=== PATIENT | female | born 1950 | race Caucasian/White ===

== ENCOUNTER → 2019-05-14 13:26 | Outpatient (BNVA) | payer MEDICARE, MEDICAID, SELFPAY | PROVIDERS: Family Provider Family Medicine; PCP Family Medicine; Visit Provider Nurse Practitioner | DX: M54.5 Low back pain (principal); M79.10 Myalgia, unspecified site; F17.210 Nicotine dependence, cigarettes, uncomplicated; Z79.891 Long term (current) use of opiate analgesic | CPT/HCPCS: 99214 ==

== ENCOUNTER 2019-05-22 15:44 | Outpatient (CLI) | payer MEDICARE, MEDICAID, SELFPAY ==
[2019-05-22 16:26] LABS: Basophils % 0.3 %; Eosinophils # 0.2 10^3/uL (0.0-0.8); Eosinophils % 1.9 %; Hematocrit 36.5 % (37.0-47.0); Lymphocytes # 3.7 10^3/uL (0.8-4.8); Lymphocytes % 32.4 %; Mean Corpuscular HGB Conc 30.1 g/dL (30.0-36.0); Mean Corpuscular Hemoglobin 26.9 pg (28.0-34.0); Mean Corpuscular Volume 89.2 fL (81-99); Mean Platelet Volume 9.8 fL (7.4-10.4); Monocytes # 0.9 10^3/uL (0.2-0.9); Monocytes % 7.8 %; Neutrophils # 6.6 10^3/uL (1.8-7.7); Neutrophils % 57.2 %; Nucleated Red Blood Cells % 0 %; Platelet Count 384 10^3/cmm (130-400); Red Blood Count 4.09 10^6/uL (4.1-5.3); Red Cell Distribution Width 16.9 % (12.1-15.1); White Blood Count 11.5 10^3/uL (4.0-10.0)
[2019-05-22 16:46] LABS: Alanine Aminotransferase 8 U/L (0-33); Albumin Level 3.4 g/dL (3.5-5.2); Alkaline Phosphatase 94 IU/L (35-105); Anion Gap 15.6 (5-19); Aspartate Amino Transferase 10 U/L (0-32); Blood Urea Nitrogen 7 mg/dL (8-23); Calcium 9.8 mg/dL (8.5-10.5); Carbon Dioxide 20 mmol/L (22-29); Chloride 104 mmol/L (98-107); Globulin 2.9 g/dL (1.3-4.6); Glucose 97 mg/dL (65-115); Potassium 4.6 mmol/L (3.5-5.1); Sodium 135 mmol/L (136-145); Thyroid Stimulating Hormone 0.53 uIU/mL (0.27-4.20); Total Bilirubin 0.2 mg/dL (0.15-1.2); Total Protein 6.3 g/dL (6.6-8.7)
== END 2019-05-22 15:45 | disposition home or self-care (01) ==
LOC: LAB 15:51
PROVIDERS: Family Provider Family Medicine; PCP Family Medicine; Visit Provider Family Medicine
DX: R63.4 Abnormal weight loss (principal)
CPT/HCPCS: 80053; 84443; 85025

== ENCOUNTER → 2019-06-01 10:02 | Outpatient (BNVA) | payer MEDICARE, MEDICAID, SELFPAY | PROVIDERS: Family Provider Family Medicine; PCP Family Medicine; Visit Provider Family Medicine | DX: D64.9 Anemia, unspecified (principal) | CPT/HCPCS: 82728; 83540; 83550 ==

== ENCOUNTER → 2019-06-11 12:43 | Outpatient (BNVA) | payer MEDICARE, MEDICAID, SELFPAY | PROVIDERS: Family Provider Family Medicine; PCP Family Medicine; Visit Provider Nurse Practitioner | DX: M54.5 Low back pain (principal); M79.10 Myalgia, unspecified site; F17.210 Nicotine dependence, cigarettes, uncomplicated; Z79.891 Long term (current) use of opiate analgesic; Z71.6 Tobacco abuse counseling | CPT/HCPCS: 99214 ==

== ENCOUNTER → 2019-09-22 12:51 | Outpatient (BNVA) | payer MEDICARE, MEDICAID, SELFPAY | PROVIDERS: Family Provider Family Medicine; PCP Family Medicine; Visit Provider Anesthesiology | DX: M54.41 Lumbago with sciatica, right side (principal); M79.10 Myalgia, unspecified site; F17.219 Nicotine dependence, cigarettes, with unspecified nicotine-induced disorders; Z79.891 Long term (current) use of opiate analgesic | CPT/HCPCS: 99214 ==

== ENCOUNTER → 2019-11-20 13:36 | Outpatient (BNVA) | payer MEDICARE, MEDICAID, SELFPAY | PROVIDERS: Family Provider Family Medicine; PCP Family Medicine; Visit Provider Anesthesiology | DX: M54.41 Lumbago with sciatica, right side (principal); M79.10 Myalgia, unspecified site; F17.219 Nicotine dependence, cigarettes, with unspecified nicotine-induced disorders; Z79.891 Long term (current) use of opiate analgesic; Z71.6 Tobacco abuse counseling | CPT/HCPCS: 99214 ==

== ENCOUNTER → 2020-01-21 14:25 | Outpatient (BNVA) | payer MEDICARE, MEDICAID, SELFPAY | PROVIDERS: Family Provider Family Medicine; PCP Family Medicine; Visit Provider Anesthesiology | DX: M54.5 Low back pain (principal); M79.10 Myalgia, unspecified site; F17.219 Nicotine dependence, cigarettes, with unspecified nicotine-induced disorders; Z79.891 Long term (current) use of opiate analgesic; Z71.6 Tobacco abuse counseling | CPT/HCPCS: 99214 ==

== ENCOUNTER → 2020-03-17 11:08 | Outpatient (BNVA) | payer MEDICARE, MEDICAID, SELFPAY | PROVIDERS: Family Provider Family Medicine; Visit Provider Anesthesiology | DX: M54.42 Lumbago with sciatica, left side (principal); M54.41 Lumbago with sciatica, right side; M79.10 Myalgia, unspecified site; F17.219 Nicotine dependence, cigarettes, with unspecified nicotine-induced disorders; Z79.891 Long term (current) use of opiate analgesic; Z71.6 Tobacco abuse counseling | CPT/HCPCS: 99213; 99214 ==

== ENCOUNTER 2020-03-31 11:51 | Outpatient (CLI) | payer MEDICARE, MEDICAID, SELFPAY ==
--- NOTE | 2020-03-31 11:58 | XR_ITS ---
WS: [id number] LEFT KNEE: 3 VIEW(S) TECHNIQUE: AP, oblique(s) and lateral. HISTORY: L KNEE PAIN X 2 MONTHS COMPARISON: 05/27/2017 No fracture or dislocation. Chondrocalcinosis in the medial and lateral compartments. Prior vein harvesting along the medial thig h. Mild narrowing of the medial and patellofemoral compartments. No joint effusion. No soft tissue abnormality. XR/XR knee LT 3V* [id number] IMPRESSION: 1. Bilateral medial and lateral compartment chondrocalcinosis. 2. Mild narrowing of the medial and patellofemoral joint spaces.
== END 2020-03-31 11:52 | disposition home or self-care (01) ==
PROVIDERS: Visit Provider Family Medicine
DX: M11.262 Other chondrocalcinosis, left knee (principal)
CPT/HCPCS: 73562

== ENCOUNTER → 2020-05-03 11:40 | Outpatient (BNVA) | payer MEDICARE, MEDICAID, SELFPAY | PROVIDERS: Visit Provider Nurse Practitioner | DX: B34.9 Viral infection, unspecified (principal) | CPT/HCPCS: 87635 ==

== ENCOUNTER → 2020-05-17 11:00 | Outpatient (BNVA) | payer MEDICARE, MEDICAID, SELFPAY | PROVIDERS: PCP Family Medicine; Visit Provider Anesthesiology | DX: M54.5 Low back pain (principal); M79.10 Myalgia, unspecified site; F17.219 Nicotine dependence, cigarettes, with unspecified nicotine-induced disorders; Z79.891 Long term (current) use of opiate analgesic; Z71.6 Tobacco abuse counseling | CPT/HCPCS: 99213; 99214 ==

== ENCOUNTER → 2020-07-14 10:36 | Outpatient (BNVA) | payer MEDICARE, MEDICAID, SELFPAY | PROVIDERS: PCP Family Medicine; Visit Provider Anesthesiology | DX: M54.5 Low back pain (principal); M79.10 Myalgia, unspecified site; F17.219 Nicotine dependence, cigarettes, with unspecified nicotine-induced disorders; Z79.891 Long term (current) use of opiate analgesic | CPT/HCPCS: 99213 ==

== ENCOUNTER → 2020-09-16 09:36 | Outpatient (BNVA) | payer MEDICARE, MEDICAID, SELFPAY | PROVIDERS: PCP Family Medicine; Visit Provider Anesthesiology | DX: M54.41 Lumbago with sciatica, right side (principal); M79.10 Myalgia, unspecified site; F17.219 Nicotine dependence, cigarettes, with unspecified nicotine-induced disorders; Z79.891 Long term (current) use of opiate analgesic | CPT/HCPCS: 99213 ==

== ENCOUNTER → 2020-11-16 09:17 | Outpatient (BNVA) | payer MEDICARE, MEDICAID, SELFPAY | PROVIDERS: PCP Family Medicine; Visit Provider Anesthesiology | DX: M54.5 Low back pain (principal); M79.10 Myalgia, unspecified site; F17.219 Nicotine dependence, cigarettes, with unspecified nicotine-induced disorders; Z79.891 Long term (current) use of opiate analgesic | CPT/HCPCS: 99213 ==

== ENCOUNTER → 2021-01-13 10:29 | Outpatient (BNVA) | payer MEDICARE, MEDICAID, SELFPAY | PROVIDERS: PCP Family Medicine; Visit Provider Nurse Practitioner | DX: M54.41 Lumbago with sciatica, right side (principal); M79.10 Myalgia, unspecified site; G43.909 Migraine, unspecified, not intractable, without status migrainosus; M81.0 Age-related osteoporosis without current pathological fracture; F17.210 Nicotine dependence, cigarettes, uncomplicated; Z79.891 Long term (current) use of opiate analgesic; Z71.6 Tobacco abuse counseling | CPT/HCPCS: 99213 ==

== ENCOUNTER → 2021-03-11 13:56 | Outpatient (BNVA) | payer MEDICARE, MEDICAID, SELFPAY | PROVIDERS: PCP Family Medicine; Visit Provider Family Medicine | DX: Z20.822 Contact with and (suspected) exposure to COVID-19 (principal); R50.9 Fever, unspecified | CPT/HCPCS: 87400; 87635 ==

== ENCOUNTER → 2021-03-17 10:29 | Outpatient (BNVA) | payer MEDICARE, MEDICAID, SELFPAY | PROVIDERS: PCP Family Medicine; Visit Provider Anesthesiology | DX: G89.29 Other chronic pain (principal); M54.50 Low back pain, unspecified; M79.10 Myalgia, unspecified site; F17.219 Nicotine dependence, cigarettes, with unspecified nicotine-induced disorders; Z79.891 Long term (current) use of opiate analgesic; Z71.6 Tobacco abuse counseling | CPT/HCPCS: 99213; 99214 ==

== ENCOUNTER → 2021-05-24 09:02 | Outpatient (BNVA) | payer MEDICARE, MEDICAID, SELFPAY | PROVIDERS: PCP Family Medicine; Visit Provider Anesthesiology | DX: G89.29 Other chronic pain (principal); Z11.52 Encounter for screening for COVID-19; M54.50 Low back pain, unspecified; Z20.822 Contact with and (suspected) exposure to COVID-19; M79.10 Myalgia, unspecified site; F17.210 Nicotine dependence, cigarettes, uncomplicated; Z79.891 Long term (current) use of opiate analgesic | CPT/HCPCS: 87635; 99213 ==

== ENCOUNTER 2021-05-26 10:40 | Outpatient (CLI) | payer MEDICARE, MEDICAID, SELFPAY ==
[2021-05-26 10:54] VITALS: BMI 16.2
[2021-05-26 11:00] VITALS: BP 143/69; PULSE 108; RESP 17; TEMP 36.8; O2SAT 99
[2021-05-26 11:58] VITALS: BP 129/78; PULSE 69; RESP 17; TEMP 36.8; O2SAT 98
[2021-05-26 13:10] VITALS: BP 133/66; PULSE 64; RESP 17; TEMP 37; O2SAT 98
== END 2021-05-26 13:13 | disposition home or self-care (01) ==
LOC: OPS 10:46
PROVIDERS: PCP Family Medicine; Visit Provider Nurse Practitioner Family
DX: U07.1 COVID-19 (principal)
CPT/HCPCS: 96365

== ENCOUNTER → 2021-06-02 10:45 | Outpatient (BNVA) | payer MEDICARE, MEDICAID, SELFPAY | PROVIDERS: PCP Family Medicine; Visit Provider Family Medicine Adult Medicine | DX: I10 Essential (primary) hypertension (principal); I50.32 Chronic diastolic (congestive) heart failure; R63.4 Abnormal weight loss; Z79.891 Long term (current) use of opiate analgesic; M79.10 Myalgia, unspecified site; M54.50 Low back pain, unspecified; G89.29 Other chronic pain; Z98.890 Other specified postprocedural states; Z13.6 Encounter for screening for cardiovascular disorders; I25.10 Atherosclerotic heart disease of native coronary artery without angina pectoris; K59.09 Other constipation; G47.00 Insomnia, unspecified; I73.9 Peripheral vascular disease, unspecified; G43.909 Migraine, unspecified, not intractable, without status migrainosus; J41.0 Simple chronic bronchitis; R11.0 Nausea | CPT/HCPCS: 80053; 83036; 84443; 85025 ==

== ENCOUNTER 2021-06-26 08:09 | Inpatient (IN) | payer MEDICARE, MEDICAID, SELFPAY ==
[2021-06-26] VITALS (14 sets, daily range): BP systolic 98–176; BP diastolic 31–78; PULSE 61–92; RESP 16–21; TEMP 36.4–36.7; O2SAT 94–99; BMI 16.2
--- NOTE | 2021-06-26 08:27 | ED_ITS ---
Documented by User: PJ Falcon 06/26/21 16:29 HPI - Extremity Problem General: Chief complaint: Extremity Injury, Lower Stated complaint: Numbness of foot/ Foot and leg pain Time Seen by Provider: 06/26/21 08:13 Source: patient Mode of arrival: ambulatory Limitations: no limitations History of Present Illness: Patient is a 70-year-old female with a history of COPD, HTN, hyperlipidemia, chronic back pain on opioid contract, CAD with pacemaker who presents to ED today stating approximately 2 weeks ago she had a charley horse to the lateral aspect of her right lower extremity. She states following this the area has felt sore. She has been rubbing the area cont inuously. Now complains over the past several days she has had intermittent pain/paresthesias and feeling like her foot is asleep . She states this does seem to come and go and she will have periods where her leg/foot feel normal. She has not noticed any worsening/alleviating factors to her symptoms. She does complain that her feet always feel cool. She has not noticed any redness, swelling, warmth. She has no calf pain. Patient does have chronic lower back pain that she feels like is at her baseline. She has no symptoms proximal to her knee. MD Complaint: extremity pain Onset (ago): day(s) Pain Consistency: intermittent Location: right and lower extremity Radiation: none Associated symptoms: Deny chest pain, fever(s) or rash Review of Systems Const: Denies: fever(s), chills, body aches, fatigue or malaise Card: Denies: chest pain, palpitations, irregular heart rhythm or edema Resp: Denies: dyspnea Musc: Reports: back pain (chronic-at baseline) and extremity pain; Denies: neck pain, extremity swelling, joint pain or joint swelling Skin/Breast: Denies: rash Neuro: Reports: numbness in extremities and sensory changes; Denies: headache(s), weakness in extremities or difficulty walking [facility] ED PFSH: Medical History Benign essential HTN CAD (coronary artery disease) Chronic low back pain Constipation, chronic COPD (chronic obstructive pulmonary disease) COPD exacerbation Diastolic heart failure Encounter for long-term use of opiate analgesic Enrolled in chronic care management Essential hypertension Insomnia Low back pain radiating to right leg Migraine Myalgia Nicotine dependence with current use Opioid contract exists Osteoporosis Peripheral vascular disease Smokers' cough MARTHA (stress urinary incontinence, female) Surgical History S/P balloon angioplasty of pulmonary artery branches ILIAC ARTERY-2015 FEMORAL ARTERY 2015 S/P carotid endarterectomy 1995 S/P hysterectomy S/P right cataract extraction S/p total knee replacement, bilateral Status post placement of cardiac pacemaker 2015 Family History Other Diabetes Stroke Social History Smoking and tobacco status: current every day smoker cigarettes [ Other cigarette details: 1 PK Q 3-4 DAYS ] Alcohol intake: never History of recent travel: No Physical Exam Const: COMMON NORMALS: no acute distress, patient oriented x3, no limitations and alert GENERAL APPEARANCE: cooperative NUTRITIONAL APPEARANCE: thin ORIENTATION/CONSCIOUSNESS: Yes awake, Yes oriented to person, Yes oriented to place and Yes oriented to time HENMT: COMMON NORMALS: normocephalic and atraumatic HEAD & SCALP: normocephalic and atraumatic Resp: COMMON NORMALS: normal respiratory effort Cardio: COMMON NORMALS: regular rate and regular rhythm RATE: regular rate RHYTHM: regular rhythm Back/Pelvis: PELVIS: Yes buttocks normal and No sciatic notch tenderness SACROILIAC JOINTS: Yes SI joints normal Extremity: COMMON NORMALS: full ROM, no calf tenderness and no pedal edema OTHER: pt with poor perfusion bilaterally-R LE does appear slightly pale and cooler than L; could not R LE palpate pulses manually but monophasic PT pulse found with doppler-could not find DP pulse; no edema, swelling, redness/warmth noted; no foot drop noted Neuro: COMMON NORMALS: patient oriented x3, moves all extremities, no focal motor deficits and no sensory deficits noted SENSORIUM/ORIENTATION: Yes alert, Yes oriented to person, Yes oriented to place and Yes oriented to time MOTOR EXAM: 5/5 motor strength present throughout Course Vital Signs: Vital signs: Vital Signs Temperature 98 F 06/26/21 12:15 Pulse Rate 61 06/26/21 15:30 Respiratory Rate 18 06/26/21 15:30 Blood Pressure 122/61 06/26/21 15:30 Pulse Oximetry 96 06/26/21 15:30 MDM - Extremity (Nontraumatic) Medical Decision Making Patient has a subtotal to total occlusion of her distal right SFA. She does have collateral filling of the popliteal and posterior tibial arteries. She also has no flow to her right DPA. I spoke to Dr. Dacosta who requests CTA with runoff and start patient on heparin and admit to hospitalist and he will consult with plan for possible angio tomorrow. Lab Data : 06/26/21 09:17 06/26/21 09:17 Laboratory Results WBC 10.4 10^3/uL (4.0-10.0) H 06/26/21 09:17 RBC 4.11 10^6/uL (4.1-5.3) 06/26/21 09:17 Hgb 11.9 g/dL (11.5-15.3) 06/26/21 09:17 Hct 39.1 % (37.0-47.0) 06/26/21 09:17 MCV 95.1 fl (81-99) 06/26/21 09:17 MCH 29.0 pg (28.0-34.0) 06/26/21 09:17 MCHC 30.4 g/dL (30.0-36.0) 06/26/21 09:17 RDW 15.1 % (12.1-15.1) 06/26/21 09:17 Plt Count 288 10^3/cmm (130-400) 06/26/21 09:17 MPV 10.4 fL (7.4-10.4) 06/26/21 09:17 Neut % (Auto) 67.5 % 06/26/21 09:17 Lymph % (Auto) 25.2 % 06/26/21 09:17 [place] % (Auto) 5.5 % 06/26/21 09:17 Eos % (Auto) 1.0 % 06/26/21 09:17 Baso % (Auto) 0.4 % 06/26/21 09:17 Neut # (Auto) 7.03 10^3/uL (1.8-7.7) 06/26/21 09:17 Lymph # (Auto) 2.6 10^3/uL (0.8-4.8) 06/26/21 09:17 [place] # (Auto) 0.6 10^3/uL (0.2-0.9) 06/26/21 09:17 Eos # (Auto) 0.1 10^3/uL (0.0-0.8) 06/26/21 09:17 Baso # (Auto) 0.0 10^3/uL (0.0-0.1) 06/26/21 09:17 Nucleated RBC % (auto) 0 % 06/26/21 09:17 Nucleated RBCs # 0.0 /100WBC 06/26/21 09:17 Sodium 138 mmol/L (136-145) 06/26/21 09:17 Potassium 3.9 mmol/L (3.5-5.1) 06/26/21 09:17 Chloride 106 mmol/L (98-107) 06/26/21 09:17 Carbon Dioxide 21 mmol/L (22-29) L 06/26/21 09:17 Anion Gap 14.9 (5-19) 06/26/21 09:17 BUN 16 mg/dL (8-23) 06/26/21 09:17 Creatinine 0.9 mg/dL (0.5-0.9) 06/26/21 09:17 GFR Calculation 62.3 mL/min (90-130) L 06/26/21 09:17 Glucose 94 mg/dL (65-115) 06/26/21 09:17 Calculated Osmolality 287 mOsm/kg (285-295) 06/26/21 09:17 Calcium 9.0 mg/dL (8.5-10.5) 06/26/21 09:17 Total Bilirubin 0.2 mg/dL (0.15-1.2) 06/26/21 09:17 AST 11 U/L (0-32) 06/26/21 09:17 ALT 8 U/L (0-33) 06/26/21 09:17 Alkaline Phosphatase 99 IU/L (35-105) 06/26/21 09:17 Total Protein 7.0 g/dL (6.6-8.7) 06/26/21 09:17 Albumin 4.2 g/dL (3.5-5.2) 06/26/21 09:17 Globulin 2.8 g/dL (1.3-4.6) 06/26/21 09:17 Discharge Plan Discharge Patient Disposition: Admitted As Inpatient Admit Provider: Katelyn Castle Clinical Impression: Superficial femoral artery occlusion, Absence of right dorsalis pedis artery pulse Condition: Stable Coding Level of Care Code ED Tube Drawer for Chg Fwd Exam Comprehensive Documented by User: Bartolome Sepulveda DO 06/26/21 14:21 HPI - Extremity Problem General: Chief complaint: Extremity Injury, Lower Stated complaint: Numbness of foot/ Foot and leg pain Time Seen by Provider: 06/26/21 08:13 History of Present Illness: Patient is a 70-year-old female with a history of COPD, HTN, hyperlipidemia, chronic back pain on opioid contract, CAD with pacemaker who presents to ED today stating approximately 2 weeks ago she had a charley horse to the lateral aspect of her right lower extremity. She states following this the area has felt sore. She has been rubbing the area continuously. Now complains over the past several days she has had intermittent pain/paresthesias and feeling like her foot is asleep . She states this does seem to come and go and she will have periods where her leg/foot feel normal. She has not noticed any worsening/alleviating factors to her symptoms. She does complain that her feet always feel cool. She has not noticed any redness, swelling, warmth. She has no calf pain. Patient does have chronic lower back pain that she feels like is at her baseline. She has no symptoms proximal to her knee. Patient initially seen by PJ Falcon. She is complaining of leg pain particularly the right lower leg for the last several days began progressively worse work-up showed peripheral artery disease with acute occlusion. Patient has been started on heparin she states her pain is somewhat better she denies any chest pain. No shortness of breath no swelling of the leg. Patient is a smoker and has history hypertension and COPD. Review of Systems GI: Denies: abdominal pain, nausea or vomiting Elmo/Lymph: Denies: easy bruising, easy bleeding or petechiae [facility] ED PFS: Medical History Benign essential HTN CAD (coronary artery disease) Chronic low back pain Constipation, chronic COPD (chronic obstructive pulmonary disease) COPD exacerbation Diastolic heart failure Encounter for long-term use of opiate analgesic Enrolled in chronic care management Essential hypertension Insomnia Low back pain radiating to right leg Migraine Myalgia Nicotine dependence with current use Opioid contract exists Osteoporosis Peripheral vascular disease Smokers' cough MARTHA (stress urinary incontinence, female) Surgical History S/P balloon angioplasty of pulmonary artery branches ILIAC ARTERY-2015 FEMORAL ARTERY 2015 S/P carotid endarterectomy 1995 S/P hysterectomy S/P right cataract extraction S/p total knee replacement, bilateral Status post placement of cardiac pacemaker 2015 Family History Other Diabetes Stroke Social History Smoking and tobacco status: current every day smoker cigarettes [ Other cigarette details: 1 PK Q 3-4 DAYS ] Alcohol intake: never History of recent travel: No Physical Exam Const: COMMON NORMALS: no acute distress GENERAL APPEARANCE: cooperative and comfortable ORIENTATION/CONSCIOUSNESS: Yes awake, Yes oriented to person, Yes oriented to place and Yes oriented to time HENMT: COMMON NORMALS: normocephalic, atraumatic and hearing grossly normal bilaterally HEAD & SCALP: normocephalic and atraumatic Eye: COMMON NORMALS: Equal, round and reactive pupils present, EOMs intact bilaterally, conjunctivae normal and no scleral icterus CONJUNCTIVA: Yes conjunctivae normal PUPIL: Yes Equal, round and reactive pupils present Neck/C-Spine: COMMON NORMALS: full ROM, no lymphadenopathy, supple and no JVD Resp: COMMON NORMALS: normal respiratory effort, No retractions, No use of accessory muscles and clear to auscultation bilaterally AUSCULTATION: clear to auscultation bilaterally Cardio: COMMON NORMALS: no JVD, regular rate, regular rhythm and No murmurs present (Cardio) RATE: regular rate RHYTHM: regular rhythm GI: COMMON NORMALS: Soft to palpation and No hepatosplenomegaly present AUSCULTATION: Yes normoactive bowel sounds PALPATION: Yes Soft to palpation, No Tenderness to palpation present (GI), No Guarding due to palpation present (GI) and Yes No hepatosplenomegaly present Extremity: OTHER: Weak right popliteal pulse no palpable dorsalis pedis pulse no edema right leg cool to the touch distal to the knee Neuro: SENSORIUM/ORIENTATION: Yes oriented to person, Yes oriented to place and Yes oriented to time Course Vital Signs: Vital signs: Vital Signs Temperature 98 F 06/26/21 12:15 Pulse Rate 61 06/26/21 15:30 Respiratory Rate 18 06/26/21 15:30 Blood Pressure 122/61 06/26/21 15:30 Pulse Oximetry 96 06/26/21 15:30 MDM - Extremity (Nontraumatic) Medical Decision Making Patient has a subtotal to total occlusion of her distal right SFA. She does have collateral filling of the popliteal and posterior tibial arteries. She also has no flow to her right DPA. I spoke to Dr. Dacosta who requests CTA with runoff and start patient on heparin and admit to hospitalist and he will consult with plan for possible angio tomorrow. Midlevel review. Patient seen and examined myself discussed with Dr. Castle. orders are written for admission consult cardiology Dr. Rucker Medical Records I reviewed the patient's medical records. Lab Data I reviewed the patient's lab results. : 06/26/21 09:17 06/26/21 09:17 Laboratory Results WBC 10.4 10^3/uL (4.0-10.0) H 06/26/21 09:17 RBC 4.11 10^6/uL (4.1-5.3) 06/26/21 09:17 Hgb 11.9 g/dL (11.5-15.3) 06/26/21 09:17 Hct 39.1 % (37.0-47.0) 06/26/21 09:17 MCV 95.1 fl (81-99) 06/26/21 09:17 MCH 29.0 pg (28.0-34.0) 06/26/21 09:17 MCHC 30.4 g/dL (30.0-36.0) 06/26/21 09:17 RDW 15.1 % (12.1-15.1) 06/26/21 09:17 Plt Count 288 10^3/cmm (130-400) 06/26/21 09:17 MPV 10.4 fL (7.4-10.4) 06/26/21 09:17 Neut % (Auto) 67.5 % 06/26/21 09:17 Lymph % (Auto) 25.2 % 06/26/21 09:17 [place] % (Auto) 5.5 % 06/26/21 09:17 Eos % (Auto) 1.0 % 06/26/21 09:17 Baso % (Auto) 0.4 % 06/26/21 09:17 Neut # (Auto) 7.03 10^3/uL (1.8-7.7) 06/26/21 09:17 Lymph # (Auto) 2.6 10^3/uL (0.8-4.8) 06/26/21 09:17 [place] # (Auto) 0.6 10^3/uL (0.2-0.9) 06/26/21 09:17 Eos # (Auto) 0.1 10^3/uL (0.0-0.8) 06/26/21 09:17 Baso # (Auto) 0.0 10^3/uL (0.0-0.1) 06/26/21 09:17 Nucleated RBC % (auto) 0 % 06/26/21 09:17 Nucleated RBCs # 0.0 /100WBC 06/26/21 09:17 Sodium 138 mmol/L (136-145) 06/26/21 09:17 Potassium 3.9 mmol/L (3.5-5.1) 06/26/21 09:17 Chloride 106 mmol/L (98-107) 06/26/21 09:17 Carbon Dioxide 21 mmol/L (22-29) L 06/26/21 09:17 Anion Gap 14.9 (5-19) 06/26/21 09:17 BUN 16 mg/dL (8-23) 06/26/21 09:17 Creatinine 0.9 mg/dL (0.5-0.9) 06/26/21 09:17 GFR Calculation 62.3 mL/min (90-130) L 06/26/21 09:17 Glucose 94 mg/dL (65-115) 06/26/21 09:17 Calculated Osmolality 287 mOsm/kg (285-295) 06/26/21 09:17 Calcium 9.0 mg/dL (8.5-10.5) 06/26/21 09:17 Total Bilirubin 0.2 mg/dL (0.15-1.2) 06/26/21 09:17 AST 11 U/L (0-32) 06/26/21 09:17 ALT 8 U/L (0-33) 06/26/21 09:17 Alkaline Phosphatase 99 IU/L (35-105) 06/26/21 09:17 Total Protein 7.0 g/dL (6.6-8.7) 06/26/21 09:17 Albumin 4.2 g/dL (3.5-5.2) 06/26/21 09:17 Globulin 2.8 g/dL (1.3-4.6) 06/26/21 09:17 Discharge Plan Discharge Patient Disposition: Admitted As Inpatient Admit Provider: Katelyn Castle Clinical Impression: Superficial femoral artery occlusion, Absence of right dorsalis pedis artery pulse Condition: Stable Coding Level of Care Code ED Tube Drawer for Michaelg Fwd Exam Comprehensive
--- NOTE | 2021-06-26 08:51 | USCV_ITS ---
Michael Dodson Age: 70 Gender: F : 1950 Exam Date: 06/26/2021 09:04 Ordering Phys: Mary Arana Technologist: Turner Caldwell Exam Location: [facility] [place] Indication: COOLNESS, PAIN Risk Factors: Previous Vascular Surgery: RIGHT LEFT BP: 125.0 / 47.00 BP: 94.00/ 57.00 0 Waveform Velocity (cm/s) Velocity (cm/s) Waveform Monophasic 65.7 Iliac Prox Monophasic 113.4 Iliac Mid Monophasic 69.0 Iliac Distal Monophasic AUTOMOTIVE MANUFACTURER 35.9 Monophasic 34.7 SFA Prox Monophasic 13.0 SFA Mid Monophasic 21.5 SFA Dist Monophasic 37.4 POP Monophasic 10.8 MANAGER OB DENISE 0.3 FINDINGS The patient has monophasic flow. There appears to be no flow in a small segment within the location of the RT SFA distally, but there does appear to be collateral flow just before the knee. There does not appear to be any flow within the RT DPA. Sluggish flow was detected in the mid to distal SFA. Monophasic and continuous waveforms in the popliteal and posterior tibial artery. No Doppler flow signals in the dorsalis pedis artery. Mild to moderate diffuse plaques in the iliac and femoral arteries CONCLUSIONS Abnormal resting DENISE of 0.3 on the right side, consistent with a severe peripheral artery disease. Features of subtotal to total occlusion of the distal superficial femoral artery with collateral filling of the popliteal and posterior tibial arteries. Possible total occlusion of the dorsalis pedis artery on the right side. The DENISE on the right side was 0.69 on 09/27/2015 Dr Bailey Awad MD [facility] (Electronically Signed) Final Date: 26 June 2021 13:07 S
--- NOTE | 2021-06-26 08:53 | PC.NURSE ---
Tech @BS to perform doppler to RLE
[2021-06-26 09:27] LABS: Basophils % 0.4 %; Eosinophils # 0.1 10^3/uL (0.0-0.8); Hematocrit 39.1 % (37.0-47.0); Hemoglobin 11.9 g/dL (11.5-15.3); Lymphocytes # 2.6 10^3/uL (0.8-4.8); Lymphocytes % 25.2 %; Mean Corpuscular HGB Conc 30.4 g/dL (30.0-36.0); Mean Corpuscular Volume 95.1 fl (81-99); Mean Platelet Volume 10.4 fL (7.4-10.4); Monocytes # 0.6 10^3/uL (0.2-0.9); Monocytes % 5.5 %; Neutrophils # 7.03 10^3/uL (1.8-7.7); Neutrophils % 67.5 %; Nucleated Red Blood Cells % 0 %; Platelet Count 288 10^3/cmm (130-400); Red Blood Count 4.11 10^6/uL (4.1-5.3); Red Cell Distribution Width 15.1 % (12.1-15.1); White Blood Count 10.4 10^3/uL (4.0-10.0)
[2021-06-26 09:46] LABS: Alanine Aminotransferase 8 U/L (0-33); Albumin Level 4.2 g/dL (3.5-5.2); Alkaline Phosphatase 99 IU/L (35-105); Anion Gap 14.9 (5-19); Aspartate Amino Transferase 11 U/L (0-32); Blood Urea Nitrogen 16 mg/dL (8-23); Carbon Dioxide 21 mmol/L (22-29); Chloride 106 mmol/L (98-107); Globulin 2.8 g/dL (1.3-4.6); Glomerular Filtration Rate 62.3 mL/min (90-130); Glucose 94 mg/dL (65-115); Osmolality Calculated 287 mOsm/kg (285-295); Potassium 3.9 mmol/L (3.5-5.1); Sodium 138 mmol/L (136-145); Total Bilirubin 0.2 mg/dL (0.15-1.2)
--- NOTE | 2021-06-26 10:24 | ECG_ITS ---
[facility] Test Date: 2021-06-26 Pat Name: Michael Dodson Department: Room: Gender: Female [employer] Assembler: : 1950 Requested By: Mary Arana Order Number: [id number] Krista MD: Maciej Rucker M.D. Measurements Intervals [place] Rate: 60 P: -63 DC: 243 QRS: 35 QRSD: 93 T: 33 QT: 426 QTc: 429 Interpretive Statements ELECTRONIC ATRIAL PACEMAKER Compared to ECG 03/21/2016 12:44:23 Sinus rhythm no longer present First degree AV block no longer present Electronically Signed On 06-26-2021 21:14:32 CDT by Maciej Rucker M.D. [email or web address]
--- NOTE | 2021-06-26 13:22 | CTR_ITS ---
PROCEDURE INFORMATION: Exam: CTA Angiogram of the Abdominal Aorta and Bilateral Lower Extremities (Run-off) With IV Contrast Exam date and time: 06/26/2021 1:22 PM Age: 70 years old Clinical indication: Other: RT calf pain/rt foot numb; Prior surgery; Surgery type: Pace maker; Patient HX: History--rt calf pain and RT foot numbness; Additional info: R le pain/paresthesias; Arterial occulsion TECHNIQUE: Imaging protocol: CT angiogram of the abdominal aorta, pelvis and bilateral lower extremities with IV iodinated contrast. 3D rendering (Not supervised by radiologist): MIP and/or 3D reconstructed images were created by the technologist. Radiation optimization: All CT scans at this facility use at least one of these dose optimization techniques: automated exposure control; mA and/or kV adjustment per patient size (includes targeted exams where dose is matched to clinical indication); or iterative reconstruction. Contrast material: OMNI 350; Contrast volume: 90 ml; Contrast route: INTRAVENOUS (IV); COMPARISON: CT abdomen pelvis w con* [id number] 03/26/2019 7:00 PM RADIATION DOSE METRICS: Total DLP (mGy-cm): 1065.3 FINDINGS: Aorta: No aortic aneurysm. No aortic dissection. Celiac trunk and mesenteric arteries: Superior mesenteric artery demonstrates approximately 60-70% luminal narrowing proximally with contrast seen distally. Renal arteries: No occlusion or significant stenosis. Right iliac arteries: No occlusion or significant stenosis. Right femoral/popliteal arteries: Right mid femoral artery approximately 4.3 cm long section of occlusion with reconstitution and contrast seen distally in the distal femoral artery and popliteal artery as well as the arteries of the calf. Right infrapopliteal arteries: No occlusion or significant stenosis. Left iliac arteries: No occlusion or significant stenosis. Left femoral/popliteal arteries: No occlusion or significant stenosis. Left infrapopliteal arteries: No occlusion or significant stenosis. Other arteries: Scattered areas of atherosclerotic plaque throughout the remaining lower extremity arterial system with less than 50% stenosis. Lungs: Emphysematous changes suspected. Bibasilar atelectasis. Left lower lobe calcified benign granuloma. Liver: No mass. Gallbladder and bile ducts: Cholecystectomy. Pancreas: Unremarkable. No mass. No ductal dilation. Spleen: Normal. No splenomegaly. Adrenals: Normal. No mass. Kidneys and ureters: Normal. No mass. Stomach and bowel: Constipation. Appendix: No evidence of appendicitis. Urinary bladder: Unremarkable. No mass. Reproductive: Unremarkable as visualized. Intraperitoneal space: Unremarkable. No free air. No significant fluid collection. Lymph nodes: No lymphadenopathy. Bones/joints: No acute fracture. No dislocation. Soft tissues: Unremarkable. CT/CT angio abd aorta runof [id number] IMPRESSION: 1. Right mid femoral artery approximately 4.3 cm long section of occlusion with reconstitution and contrast seen distally in the distal femoral artery and popliteal artery as well as the arteries of the calf. 2. Scattered areas of atherosclerotic plaque throughout the remaining lower extremity arterial system with less than 50% stenosis. 3. Emphysematous changes suspected. 4. Bibasilar atelectasis. 5. Left lower lobe calcified benign granuloma. 6. Cholecystectomy. 7. Superior mesenteric artery demonstrates approximately 60-70% luminal narrowing proximally with contrast seen distally. 8. Constipation.
[2021-06-26 15:09] LABS: INR 1.08 (0.8-1.2)
[2021-06-26] MEDS: iohexol 350 mg/mL 100 mL Btl IV (15:25)
[2021-06-26] MEDS: heparin drip 25,000 UNIT/500 ML PREMIX 12.45 UNIT IV (15:32)
[2021-06-26] MEDS: heparin 5,000 unit/mL INJ 1 mL IV ×2 (15:33→23:15)
--- NOTE | 2021-06-26 17:13 | PM.CONSULT ---
Providers/Reason For Consult Consulting Physician/Specialty*: Maciej Rucker MD/ Interventional Cardiology Reason for Consult*: Critical limb ischemia Requesting Physician: Dr Sepulveda Attending Physician: Katelyn Castle MD Primary Care Provider: Filiberto Downs MD History of Present Illness History of Present Illness Michael Dodson is a 70 year old female with past medical history of coronary artery disease, PAD, hypertension, smoking has presented with right leg pain and numbness. According to patient she first started noticing right leg cramping 2 weeks ago. Over the last week it has worsened to the extent that she has severe leg pain at rest. Pulses were not palpable. She had arterial duplex performed in the ER today that showed no flow on dorsalis pedis artery. Also had total occlusion of distal SFA with collateral filling below the knee. However flow was noted in PT. CTA was performed that showed totally occluded mid to distal SFA with collateral filling of below the knee arteries. She also has feeling of cold foot occasionally over the last 2 weeks. Review of Systems Const: Denies: fever(s), chills, body aches, fatigue or malaise Card: Denies: chest pain, palpitations, irregular heart rhythm or edema Resp: Denies: dyspnea GI: Denies: abdominal pain, nausea or vomiting Musc: Reports: back pain (chronic-at baseline) and extremity pain; Denies: neck pain, extremity swelling, joint pain or joint swelling Skin/Breast: Denies: rash Neuro: Reports: numbness in extremities and sensory changes; Denies: headache(s), weakness in extremities or difficulty walking Elmo/Lymph: Denies: easy bruising, easy bleeding or petechiae Medications/Allergies Home Medications Medication Instructions Recorded Confirmed Last Taken Type fluticasone propionate 50 1 spray INTRANASAL BID PRN g 03/30/21 06/26/21 Unknown History mcg/actuation nasal spray,suspension potassium chloride 10 mEq 10 meq PO BID #180 cap 03/30/21 06/26/21 06/26/21 05:00 Rx capsule,extended release hydrocodone 7.5 mg-acetaminophen 1 tab PO TID PRN 30 Days #90 tab 05/24/21 06/26/21 06/26/21 05:00 Rx 325 mg tablet albuterol sulfate 90 mcg/actuation 2 puff INHALATION Q6H PRN #8.5 g 06/02/21 06/26/21 Unknown Rx aerosol inhaler (ProAir HFA) fluticasone 250 mcg-salmeterol 50 1 inh INHALATION BID #60 each 06/02/21 06/26/21 Unknown Rx mcg/dose blistr powdr for inhalation (Advair Diskus) methocarbamol 500 mg tablet 500 mg PO BID 30 Days #60 tab 06/02/21 06/26/21 06/26/21 05:00 Rx Vitamin D3 1 cap PO DAILY 06/26/21 06/26/21 Unknown History aspirin 81 mg tablet,delayed 81 mg PO QAM 06/26/21 06/26/21 06/26/21 05:00 History release (Adult Aspirin Regimen) atorvastatin 40 mg tablet 40 mg PO QAM 06/26/21 06/26/21 06/26/21 05:00 History calcium carbonate 500 mg calcium 500 mg PO DAILY 06/26/21 06/26/21 Unknown History (1,250 mg) tablet (Calcium 500) clopidogrel 75 mg tablet 75 mg PO QAM 06/26/21 06/26/21 06/26/21 05:00 History diphenhydramine HCl 25 mg tablet 25 mg PO DAILY PRN 06/26/21 06/26/21 Unknown History (Benadryl Allergy) ibuprofen 800 mg tablet 800 mg PO BID 06/26/21 06/26/21 06/26/21 History ipratropium 0.5 mg-albuterol 3 mg 3 ml INHALATION TID PRN 06/26/21 06/26/21 Unknown History (2.5 mg base)/3 mL nebulization soln isosorbide mononitrate 30 mg 15 mg PO BEDTIME 06/26/21 06/26/21 06/25/21 History tablet,extended release 24 hr metoprolol tartrate 50 mg tablet See Rx Instructions .ROUTE .COMPLEX 06/26/21 06/26/21 06/26/21 05:00 History 50 mg nitroglycerin 0.4 mg sublingual 0.4 mg SUBLINGUAL Q5M PRN 06/26/21 06/26/21 Unknown History tablet (Nitrostat) oxybutynin chloride 5 mg 5 mg PO QAM 06/26/21 06/26/21 06/26/21 05:00 History tablet,extended release 24 hr polyethylene glycol 3350 17 17 g PO DAILY PRN 06/26/21 06/26/21 Unknown History gram/dose oral powder (Miralax) spironolactone 25 mg tablet 12.5 mg PO QAM 06/26/21 06/26/21 06/26/21 05:00 History topiramate 100 mg tablet (Topamax) 100 mg PO BID 06/26/21 06/26/21 06/26/21 History trazodone 50 mg tablet 100 mg PO BEDTIME 06/26/21 06/26/21 Unknown History Allergies Allergy/AdvReac Type Severity Reaction Status Date / Time codeine Allergy Unknown Verified 06/26/21 08:17 latex Allergy Unknown Verified 06/26/21 08:17 oxycodone [From Percocet] Allergy Unknown Verified 06/26/21 08:17 jello Allergy Unknown Unknown Uncoded 06/26/21 08:17 Current Medications Generic Name Dose Route Start Last Admin Trade Name Freq PRN Reason Stop Dose Admin Heparin Sodium (Porcine) 0 unit 06/26/21 13:32 06/26/21 15:33 Heparin 5,000 Unit/Ml Inj 1 Ml IV 2,200 unit PRN PRN Administration Heparin weight-base protocol Protocol Heparin Sodium/Sodium Chloride 25,000 unit in 500 mls @ 0 mls/hr 06/26/21 13:45 06/26/21 15:32 Heparin Drip IV 14 unit/kg/hr .Q0M JAMES 12.45 mls/hr Administration Protocol Per Protocol PFSH Acute PFSH: Medical History Benign essential HTN CAD (coronary artery disease) Chronic low back pain Constipation, chronic COPD (chronic obstructive pulmonary disease) COPD exacerbation Diastolic heart failure Encounter for long-term use of opiate analgesic Enrolled in chronic care management Essential hypertension Insomnia Low back pain radiating to right leg Migraine Myalgia Nicotine dependence with current use Opioid contract exists Osteoporosis Peripheral vascular disease Smokers' cough MARTHA (stress urinary incontinence, female) Surgical History S/P balloon angioplasty of pulmonary artery branches ILIAC ARTERY-2016 FEMORAL ARTERY 2015 S/P carotid endarterectomy 1995 S/P hysterectomy S/P right cataract extraction S/p total knee replacement, bilateral Status post placement of cardiac pacemaker 2015 Family History Other Diabetes Stroke Social History Smoking and tobacco status: current every day smoker cigarettes [ Other cigarette details: 1 PK Q 3-4 DAYS ] Alcohol intake: never History of recent travel: No Vitals/I&O/Wt Last Vital Signs Temp 98 F 06/26/21 12:15 Pulse 92 06/26/21 16:00 Resp 18 06/26/21 16:00 BP 175/78 06/26/21 16:00 Pulse Ox 94 06/26/21 16:00 Weight last 48 hrs Weight 98 lb Physical Exam Narrative: GENERAL: Patient is alert, awake and oriented x3. [] NECK: No jugular vein distension. [] HEENT: No cyanosis. No icterus. No pallor. [] HEART: Regular S1 and S2. No murmur, rub or gallop. [] LUNGS: Clear to auscultate bilaterally. [] ABDOMEN: Soft, nontender and nondistended. Positive bowel sounds. No guarding, rebound or tenderness. [] CENTRAL NERVOUS SYSTEM: Grossly nonfocal. [] EXTREMITIES: Pulses are not palpable in the right lower extremity. Has erythema of right leg from mid hdez to foot. No ulcer seen. Data : 06/27/21 04:58 06/27/21 04:58 A&P Assessment and plan (1) Critical limb ischemia of right lower extremity: Status: Acute (2) Superficial femoral artery occlusion: Status: Acute (3) CAD (coronary artery disease): Status: Acute Qualifiers: Coronary Disease-Associated Artery/Lesion type: [place] artery [place] vs. transplanted heart: [place] heart Associated angina: without angina Qualified Code(s): I25.10 - Atherosclerotic heart disease of [place] coronary artery without angina pectoris (4) Pacemaker: Status: Acute (5) Peripheral vascular disease: Status: Acute Plan Patient has presented with critical limb ischemia of right lower extremity. On CTA she has a totally occluded SFA from mid to distal segment. She is Sh[place] class III, James class IV for critical limb ischemia as has rest leg pain. DENISE was 0.3. We will proceed with peripheral angiogram with possible intervention tomorrow. N.p.o. after midnight. Continue heparin drip. Continue aspirin and Plavix. Thank you for involving us with the care of this patient. We will continue to follow. Please call with questions. Coding Level of Care Code Acute Continuous Pillowcase Cutter for Mary Barkley Diagnoses Critical limb ischemia of right lower extremity I70.221 Superficial femoral artery occlusion I70.209 CAD (coronary artery disease) I25.10 Coronary Disease-Associated Artery/Lesion type: [place] artery [place] vs. transplanted heart: [place] heart Associated angina: without angina Pacemaker Z95.0 Peripheral vascular disease I73.9
--- NOTE | 2021-06-26 17:24 | P.HP_ITS ---
Providers/Chief Complaint Admitting Physician: Katelyn Castle MD Primary Care Provider: Filiberto Downs MD Chief Complaint: Numbness of foot/ Foot and leg pain History of Present Illness Michael Dodson is a 70 year old female w/ h/o HTN, CAD s/p CABG, PAD, ICS, COPD, LDDD, smoker came w/ c/o rt leg pain and numbness. Her rt leg pain and numbness has been gradually worsening over 2 wks period. The pain is worse w/ walking and last few days also w/ rest. denied trauma or swelling. Denied CP, SOB, cough, f/c, GRESHAM. Pt is being admitted w/ suspected Rt lower extremity ischemia. Review of Systems Card: Reports: leg pain with exertion Medications/Allergies Home Medications Medication Instructions Recorded Confirmed Last Taken Type fluticasone propionate 50 1 spray INTRANASAL BID PRN g 03/30/21 06/26/21 Unknown History mcg/actuation nasal spray,suspension potassium chloride 10 mEq 10 meq PO BID #180 cap 03/30/21 06/26/21 06/26/21 05:00 Rx capsule,extended release hydrocodone 7.5 mg-acetaminophen 1 tab PO TID PRN 30 Days #90 tab 05/24/21 06/26/21 06/26/21 05:00 Rx 325 mg tablet albuterol sulfate 90 mcg/actuation 2 puff INHALATION Q6H PRN #8.5 g 06/02/21 06/26/21 Unknown Rx aerosol inhaler (ProAir HFA) fluticasone 250 mcg-salmeterol 50 1 inh INHALATION BID #60 each 06/02/21 2 Unknown Rx mcg/dose blistr powdr for inhalation (Advair Diskus) methocarbamol 500 mg tablet 500 mg PO BID 30 Days #60 tab 06/02/21 06/26/21 06/26/21 05:00 Rx Vitamin D3 1 cap PO DAILY 06/26/21 06/26/21 Unknown History aspirin 81 mg tablet,delayed 81 mg PO QAM 06/26/21 06/26/21 06/26/21 05:00 History release (Adult Aspirin Regimen) atorvastatin 40 mg tablet 40 mg PO QAM 06/26/21 06/26/21 06/26/21 05:00 History calcium carbonate 500 mg calcium 500 mg PO DAILY 06/26/21 06/26/21 Unknown History (1,250 mg) tablet (Calcium 500) clopidogrel 75 mg tablet 75 mg PO QAM 06/26/21 06/26/21 06/26/21 05:00 History diphenhydramine HCl 25 mg tablet 25 mg PO DAILY PRN 06/26/21 06/26/21 Unknown History (Benadryl Allergy) ibuprofen 800 mg tablet 800 mg PO BID 06/26/21 06/26/21 06/26/21 History ipratropium 0.5 mg-albuterol 3 mg 3 ml INHALATION TID PRN 06/26/21 06/26/21 Unknown History (2.5 mg base)/3 mL nebulization soln isosorbide mononitrate 30 mg 15 mg PO BEDTIME 06/26/21 06/26/21 06/25/21 History tablet,extended release 24 hr metoprolol tartrate 50 mg tablet See Rx Instructions .ROUTE .COMPLEX 06/26/21 06/26/21 06/26/21 05:00 History 50 mg nitroglycerin 0.4 mg sublingual 0.4 mg SUBLINGUAL Q5M PRN 06/26/21 06/26/21 Unk nown History tablet (Nitrostat) oxybutynin chloride 5 mg 5 mg PO QAM 06/26/21 06/26/21 06/26/21 05:00 History tablet,extended release 24 hr polyethylene glycol 3350 17 17 g PO DAILY PRN 06/26/21 06/26/21 Unknown History gram/dose oral powder (Miralax) spironolactone 25 mg tablet 12.5 mg PO QAM 06/26/21 06/26/21 06/26/21 05:00 History topiramate 100 mg tablet (Topamax) 100 mg PO BID 06/26/21 06/26/21 06/26/21 History trazodone 50 mg tablet 100 mg PO BEDTIME 06/26/21 06/26/21 Unknown History Allergies Allergy/AdvReac Type Severity Reaction Status Date / Time codeine Allergy Unknown Verified 06/26/21 08:17 latex Allergy Unknown Verified 06/26/21 08:17 oxycodone [From Percocet] Allergy Unknown Verified 06/26/21 08:17 jello Allergy Unknown Unknown Uncoded 06/26/21 08:17 PFSH Acute 2 PFSH: Medical History Benign essential HTN CAD (coronary artery disease) Chronic low back pain Constipation, chronic COPD (chronic obstructive pulmonary disease) COPD exacerbation Diastolic heart failure Encounter for long-term use of opiate analgesic Enrolled in chronic care management Essential hypertension Insomnia Low back pain radiating to right leg Migraine Myalgia Nicotine dependence with current use Opioid contract exists Osteoporosis Peripheral vascular disease Smokers' cough MARTHA (stress urinary incontinence, female) Surgical History S/P balloon angioplasty of pulmonary artery branches ILIAC ARTERY-2015 FEMORAL ARTERY 2015 S/P carotid endarterectomy 1995 S/P hysterectomy S/P right cataract extraction S/p total knee replacement, bilateral Status post placement of cardiac pacemaker 2015 Family History Other Diabetes Stroke Social History Smoking and tobacco status: current every day smoker cigarettes [ Other c igarette details: 1 PK Q 3-4 DAYS ] Alcohol intake: never History of recent travel: No Vitals/I&O/Wt Last Vital Signs Temp 98 F 06/26/21 12:15 Pulse 92 06/26/21 16:00 Resp 18 06/26/21 16:00 BP 175/78 06/26/21 16:00 Pulse Ox 94 06/26/21 16:00 Weight last 48 hrs Weight 44.452 kg Physical Exam Narrative: NAD HENMT: OTHER: Atraumatic, Thr (-), Nose (-), Thr (-) Eye: OTHER: EOMI, PERLLA, Anicteric Neck/C-Spine: OTHER: Supple, Thy (-), LN(-) Chest: OTHER: symmetrical, non tender Resp: OTHER: CTA, BS+ Cardio: OTHER: S1S2, RRR, Mur (-) : OTHER: Soft, NT, BS+, HSM (-) Back/Pelvis: OTHER: Mild LUmbar area tender Extremity: OTHER: Edema (-), No deformity Neuro: OTHER: A&Ox4, Motor 5/5, Sens grossly intact Psych: OTHER: Alert, cooperative Skin: OTHER: Intact Data : 06/26/21 09:17 06/26/21 09:17 A&P Assessment and plan (1) Essential hypertension: Status: Acute (2) Superficial femoral artery occlusion: Status: Acute (3) Absence of right dorsalis pedis artery pulse: Status: Acute (4) Chronic low back pain: Status: Acute (5) Peripheral vascular disease: Status: Acute (6) CAD (coronary artery disease): Status: Acute Qualifiers: Coronary Disease-Associated Artery/Lesion type: [place] artery [place] vs. transplanted heart: [place] heart Associated angina: without angina Qualified Code(s): I25.10 - Atherosclerotic heart disease of [place] coronary artery without angina pectoris Plan Pain management with Javier, Vascular MD Consult Rt LE Arteriogram Nicoderm patch 14 mcg qd Continue home meds Heparin IV F/U PTT Attestations Medical Necessity Statement*: Has increasing moderately severe claudication type rt leg pain which will need further evaluation and management Time Spent in Patient Care: 55 min was spent in pt eval, dictation, management, pt and family discussion, and also discussed regarding DNR. Pt refused DNR. RN communication done. Q&A done Coding Level of Care Code New Pt Acute Public Service Representative for Chg Fwd Patient Type New Diagnoses Essential hypertension I10 Superficial femoral artery occlusion I70.209 Absence of right dorsalis pedis artery pulse R09.89 Chronic low back pain M54.50; G89.29 Peripheral vascular disease I73.9 CAD (coronary artery disease) I25.10 Coronary Disease-Associated Artery/Lesion type: [place] artery [place] vs. transplanted heart: [place] heart Associated angina: without angina
[2021-06-26] MEDS: morphine 4 mg/mL SDV 1 mL 2 MG IVP ×2 (17:47→21:50)
--- NOTE | 2021-06-26 18:55 | P.HP_ITS ---
Providers/Chief Complaint Admitting Physician: Katelyn Castle MD Primary Care Provider: Filiberto Downs MD Chief Complaint: Numbness of foot/ Foot and leg pain History of Present Illness Michael Dodson is a 70 year old female Medications/Allergies Home Medications Medication Instructions Recorded Confirmed Last Taken Type fluticasone propionate 50 1 spray INTRANASAL BID PRN g 03/30/21 06/26/21 Unk nown History mcg/actuation nasal spray,suspension potassium chloride 10 mEq 10 meq PO BID #180 cap 03/30/21 06/26/21 06/26/21 05:00 Rx capsule,extended release hydrocodone 7.5 mg-acetaminophen 1 tab PO TID PRN 30 Days #90 tab 05/24/21 06/26/21 06/26/21 05:00 Rx 325 mg tablet albuterol sulfate 90 mcg/actuation 2 puff INHALATION Q6H PRN #8.5 g 06/02/21 06/26/21 Unknown Rx aerosol inhaler (ProAir HFA) fluticasone 250 mcg-salmeterol 50 1 inh INHALATION BID #60 each 06/02/21 06/26/21 Unknown Rx mcg/dose blistr powdr for inhalation (Advair Diskus) methocarbamol 500 mg tablet 500 mg PO BID 30 Days #60 tab 06/02/21 06/26/21 06/26/21 05:00 Rx Vitamin D3 1 cap PO DAILY 06/26/21 06/26/21 Unknown History aspirin 81 mg tablet,delayed 81 mg PO QAM 06/26/21 06/26/21 06/26/21 05:00 History release (Adult Aspirin Regimen) atorvastatin 40 mg tablet 40 mg PO QAM 06/26/21 06/26/21 06/26/21 05:00 History calcium carbonate 500 mg calcium 500 mg PO DAILY 06/26/21 06/26/21 Unknown History (1,250 mg) tablet (Calcium 500) clopidogrel 75 mg tablet 75 mg PO QAM 06/26/21 06/26/21 06/26/21 05:00 History diphenhydramine HCl 25 mg tablet 25 mg PO DAILY PRN 06/26/21 06/26/21 Unknown History (Benadryl Allergy) ibuprofen 800 mg tablet 800 mg PO BID 06/26/21 06/26/21 06/26/21 History ipratropium 0.5 mg-albuterol 3 mg 3 ml INHALATION TID PRN 06/26/21 06/26/21 Unknown History (2.5 mg base)/3 mL nebulization soln isosorbide mononitrate 30 mg 15 mg PO BEDTIME 06/26/21 06/26/21 06/25/21 History tablet,extended release 24 hr metoprolol tartrate 50 mg tablet See Rx Instructions .ROUTE .COMPLEX 06/26/21 06/26/21 06/26/21 05:00 History 50 mg nitroglycerin 0.4 mg sublingual 0.4 mg SUBLINGUAL Q5M PRN 06/26/21 06/26/21 Unknown History tablet (Nitrostat) oxybutynin chloride 5 mg 5 mg PO QAM 06/26/21 06/26/21 06/26/21 05:00 History tablet,extended release 24 hr polyethylene glycol 3350 17 17 g PO DAILY PRN 06/26/21 06/26/21 Unknown History gram/dose oral powder (Miralax) spironolactone 25 mg tablet 12.5 mg PO QAM 06/26/21 06/26/21 06/26/21 05:00 History topiramate 100 mg tablet (Topamax) 100 mg PO BID 06/26/21 06/26/21 06/26/21 History trazodone 50 mg tablet 100 mg PO BEDTIME 06/26/21 06/26/21 Unknown History Allergies Allergy/AdvReac Type Severity Reaction Status Date / Time codeine Allergy Unknown Verified 06/26/21 08:17 latex Allergy Unknown Verified 06/26/21 08:17 oxycodone [From Percocet] Allergy Unknown Verified 06/26/21 08:17 jello Allergy Unknown Unknown Uncoded 06/26/21 08:17 PFSH Acute PFSH: Medical History Benign essential HTN CAD (coronary artery disease) Chronic low back pain Constipation, chronic COPD (chronic obstructive pulmonary disease) COPD exacerbation Diastolic heart failure Encounter for long-term use of opiate analgesic Enrolled in chronic care management Essential hypertension Insomnia Low back pain radiating to right leg Migraine Myalgia Nicotine dependence with current use Opioid contract exists Osteoporosis Peripheral vascular disease Smokers' cough MARTHA (stress urinary incontinence, female) Surgical History S/P balloon angioplasty of pulmonary artery branches ILIAC ARTERY-2015 FEMORAL ARTERY 2015 S/P carotid endarterectomy 1995 S/P hysterectomy S/P right cataract extraction S/p total knee replacement, bilateral Status post placement of cardiac pacemaker 2015 Family History Other Diabetes Stroke Social History Smoking and tobacco status: current every day smoker cigarettes [ Other cigarette details: 1 PK Q 3-4 DAYS ] Alcohol intake: never History of recent travel: No Vitals/I&O/Wt Last Vital Signs Temp 98 F 06/26/21 12:15 Pulse 92 06/26/21 16:00 Resp 16 06/26/21 17:47 BP 175/78 06/26/21 16:00 Pulse Ox 94 06/26/21 16:00 Weight last 48 hrs Weight 44.452 kg Data : 06/26/21 09:17 06/26/21 09:17 Coding Level of Care Code Acute Parking Lot Signaler for Michaelg Filippo
[2021-06-26 21:37] LABS: Partial Thromboplastin Time 33.2 SECONDS (23.9-36.7)
[2021-06-27] VITALS (51 sets, daily range): BP systolic 109–183; BP diastolic 43–91; PULSE 60–84; RESP 14–32; TEMP 36.6–37.1; O2SAT 81–100
[2021-06-27] MEDS: morphine 4 mg/mL SDV 1 mL 2 MG IVP ×2 (02:57→16:19)
[2021-06-27 05:21] LABS: Basophils # 0.1 10^3/uL (0.0-0.1); Basophils % 0.8 %; Eosinophils # 0.1 10^3/uL (0.0-0.8); Eosinophils % 1.2 %; Hematocrit 33.3 % (37.0-47.0); Hemoglobin 10.8 g/dL (11.5-15.3); Lymphocytes # 2.6 10^3/uL (0.8-4.8); Lymphocytes % 33.1 %; Mean Corpuscular HGB Conc 32.4 g/dL (30.0-36.0); Mean Corpuscular Hemoglobin 29.9 pg (28.0-34.0); Mean Corpuscular Volume 92.2 fl (81-99); Mean Platelet Volume 10.2 fL (7.4-10.4); Monocytes # 0.7 10^3/uL (0.2-0.9); Monocytes % 8.4 %; Neutrophils % 56.2 %; Nucleated Red Blood Cells % 0 %; Platelet Count 253 10^3/cmm (130-400); Red Blood Count 3.61 10^6/uL (4.1-5.3); Red Cell Distribution Width 15.1 % (12.1-15.1); White Blood Count 7.8 10^3/uL (4.0-10.0)
[2021-06-27 05:34] LABS: Partial Thromboplastin Time 69.8 SECONDS (23.9-36.7)
[2021-06-27 05:41] LABS: Alanine Aminotransferase 86 U/L (0-33); Albumin Level 3.4 g/dL (3.5-5.2); Alkaline Phosphatase 152 IU/L (35-105); Anion Gap 11.8 (5-19); Aspartate Amino Transferase 183 U/L (0-32); Blood Urea Nitrogen 10 mg/dL (8-23); Calcium 8.2 mg/dL (8.5-10.5); Carbon Dioxide 20 mmol/L (22-29); Chloride 112 mmol/L (98-107); Globulin 2.3 g/dL (1.3-4.6); Glomerular Filtration Rate 83.2 mL/min (90-130); Glucose 104 mg/dL (65-115); Osmolality Calculated 289 mOsm/kg (285-295); Potassium 3.8 mmol/L (3.5-5.1); Sodium 140 mmol/L (136-145); Total Bilirubin 0.3 mg/dL (0.15-1.2); Total Protein 5.7 g/dL (6.6-8.7)
--- NOTE | 2021-06-27 06:21 | PC.NURSE ---
Heparin drip stopped for cath at [address] Rucker
--- NOTE | 2021-06-27 09:00 | PC.NURSE ---
Patient to Bag Making Machine Tender at this time.
--- NOTE | 2021-06-27 09:00 | PC.NURSE ---
Attempted to call report to CSU at this time. Will await a phone call.
--- NOTE | 2021-06-27 09:05 | XACV_ITS ---
Ht: 165 cm Wt: 44 kg BSA: 1.41 m2 Any Known Allergies: Codeine Gender: Female : 1950 Exam Type: Invasive Peripheral Vascular Procedure(s): Procedure Description: Peripheral Cath Diagnostic Procedure Procedure Description: Abdominal aortic angiography Procedure Description: Lower extremities' angiography Procedure Description: Aortic Arch Angiography Exam Priority: Routine Lower Extremity Diagnostic Findings INDICATION: 70 year old female with past medical history of coronary artery disease, PAD, hypertension, smoking has presented with right leg pain and numbness. According to patient she first started noticing right leg cramping 2 weeks ago. Over the last week it has worsened to the extent that she has severe leg pain at rest. Pulses were not palpable. She had arterial duplex performed in the ER today that showed no flow on dorsalis pedis artery. Also had total occlusion of distal SFA with collateral filling below the knee. However flow was noted in PT. CTA was performed that showed totally occluded mid to distal SFA with collateral filling of below the knee arteries. Plan for revascularization of right lower extremity. Left common iliac artery: Patent Left external iliac artery: Occluded with bridging collateral. Left common femoral artery: Patent Left profunda femoris artery: Patent Left SFA: Patent Left popliteal artery: Patent Below the knee patient has patent three-vessel runoff to the foot.. Right common iliac artery: Patent Right external iliac artery: Has severe stenosis. Right common femoral artery: Patent Right profunda femoris artery: Patent Right SFA: Total occlusion in the mid segment Right popliteal artery: Filled by collateral blood supply Below the knee limited filling noted. . Procedure detail: We initially obtained access in the left common femoral artery. Per CT scan iliac artery was patent however on angiogram patient's left external iliac artery was occluded. It could not be revascularized. We then obtained access in right radial artery. She had spasm in the vessel and catheter could not be advanced into descending aorta because of tortuosity. Finally we obtained access in right common femoral artery to obtain diagnostic images.. Conclusions Severe bilateral peripheral artery. Unsuccessful revascularization of left external iliac artery. Recommendations We will transfer patient for vascular surgery evaluation. Hemodynamic Data Phase:Rest AO : 172.0 / 53.0 ( 97.0 ) @ 11:16:00 AM 124.0 / 37.0 ( 66.0 ) @ 12:02:00 PM 55.0 / 26.0 ( 38.0 ) @ 12:08:00 PM Access Site Site: Left Femoral artery Sheath Size: 5 Fr Hemost... Method: Suture Hemost... Success: Successful Site: Right Radial artery Sheath Size: 6 Fr Hemost... Method: TR Band Hemost... Success: Successful Site: Right Femoral artery Sheath Size: 6 Fr Hemost... Method: Manual Compression Hemost... Success: Successful Procedure Details Findings Procedure Consent Obtained. Pre-Procedure Time Out. Does the consent match the physician's order: Yes. Identified patient by full name and date of as verbalized by the patient/guarantor. Accurate & Complete Informed Consent: Yes. Inpatient/Outpatient History & Physical on Chart: Yes. If H&P is completed, is and addenduem needed: Yes; If yes, is the addendum complete: Yes. Visualize and Verify Site with Patient/Guarantor: N/A. Relevant Radiology Images available: Yes. The risks, benefits, and alternatives of sedation and/or procedure were discussed by physician. The patient agrees to continue. Procedure started. Correct patient, site and procedure confirmed by cath team. Current diagnosis: PVD. PERRLA. Strong, equal hand leaf stamper bilaterally. Lungs clear x 5 lobes. IV Site on Arrival: 20 gauge in the left anticubital. IV Site on Arrival: 18 gauge in the right anticubital. Pre Procedural Pulses: left dorsalis pedis was 2+. Pre Procedural Pulses: right dorsalis pedis was Absent. Pre Procedural Pulses: right posterior tibial was Doppled. Pre Procedural Pulses: left posterior tibial was 2+. Oxygen started at 2liters/min via nasal canula. IV Fluids: 0.9% NaCl at KVO. 500 mL infused prior to laboratory scientist. right groin was prepped with chloroprep then draped in the usual sterile fashion. left groin was prepped with chloroprep then draped in the usual sterile fashion. Baseline sample Acquired. HR: 67 BPM. Physician notified. Admit Source: In Patient. Physician arrived. Physician scrubbed in. Immediate Pre-Procedure Time Out. Correct Patient: Yes; Correct Procedure: Yes; Correct Site: Yes; Correct Patient Position: Yes; Correct Supplies: Yes; Dried Flammable Prep: Yes; Blood Products Available: N/A. Lidocaine 1% infiltrated to the right groin. Arterial access obtained with micropuncture set. Glidewire inserted. Glidewire removed. Hand injection performed through the dilator. Hand injection performed. right radial was prepped with chloroprep then draped in the usual sterile fashion. Lidocaine 1% infiltrated to the right radial. Arterial access obtained. A 6 [place] 125cm Angled Pig catheter in over standard wire. Catheter and wire removed. A 5 [place] TIG catheter in over standard wire. Wire removed. Hand injection performed through the catheter. Glidewire inserted through the catheter. Topmost catheter removed. A 5 [place] JR4 catheter in over wire. Patient's family updated. Catheter out. A 6 [place] 125cm Angled Pig catheter in over wire. Catheter out. A 6 [place] 125 cm Angled Pig catheter in over wire. Catheter out. A 5 [place] 125 cm JR4 catheter in over wire. Wire removed. Glidewire inserted. A 6 [place] 125cm Angled Pig catheter in over wire. Abdominal Aortogram performed in [place] @ 10 mL/second for a total of 30 mL. Pigtail catheter and wire removed. A 5 [place] JR4 catheter in over standard wire. Standard wire removed. Glidewire inserted. Catheter removed over the glide wire. A 4 [place] catheter in over wire. Wire and Fairchild catheter removed. Lidocaine 1% infiltrated to the right posterior tibial. Arterial access obtained. 4Fr dilator inserted over the wire. Dilator removed. Manual compression held. Lidocaine 1% infiltrated to the right groin. Arterial access obtained. Wire and needle removed. Arterial access obtained. A 5F UF catheter in over wire. Wire and catheter removed. Left superficial femoral selected and arteriogram with runoff performed @ 10 mL/sec for a total of 30 mL. Pigtail postioned above the bifurcation of the iliacs. Aortagram performed @ 10 mL/sec for a total of 30 mL. Right superficial femoral selected and arteriogram with runoff performed @ 10 mL/sec for a total of 30 mL. Wire and catheter removed. A Manual Compression was successful obtaining hemostatsis at the Right Femoral artery insertion site. A Suture was successful obtaining hemostatsis at the Left Femoral artery insertion site. A TR Band was successful obtaining hemostatsis at the Right Radial artery insertion site. Post-op diagnosis: Severe PAD. Total IV fluids: 241 mL. Medication's Wasted: Nitro = 49.6 mg. Medication's Wasted: Other = Versed 1mg. Medication's Wasted: Heparin = 2000 u. PERRLA. Strong, equal hand leaf stamper bilaterally. No VTE prophylaxis required. Post Procedure: Pulses reassessed and unchanged. Complications: none. Estimated blood loss: 5mL-10mL. Responsiveness - Normal response to verbal stimuli; alert and oriented, PERRLA. Airway - Unaffected, no intervention required; spontaneous ventilation. Circulation: W/N/L, pulses unchanged. Nausea/Vomiting: No. Procedure completed. Patient transferred by bed to 1st floor. Vital chart was stopped. Procedure Medications Start: 9:23 AM Stop: 9: AM Medication: Versed Amount: 1 mg Route: I.V. Start: 9:23 AM Stop: 9:23 AM Medication: Fentanyl Amount: 25 mcg Route: I.V. Start: 9:29 AM Stop: 9:29 AM Medication: Versed Amount: 1 mg Route: I.V. Start: 9:38 AM Stop: 9:38 AM Medication: Versed Amount: 1 mg Route: I.V. Start: 9:38 AM Stop: 9:38 AM Medication: Fentanyl Amount: 25 mcg Route: I.V. Start: 9:41 AM Stop: 9:41 AM Medication: Nitrogylcerin Amount: 200 mcg Route: I.A. Start: 9:48 AM Stop: 9:48 AM Medication: Fentanyl Amount: 25 mcg Route: I.V. Start: 9:51 AM Stop: 9:51 AM Medication: Versed Amount: 1 mg Route: I.V. Start: 9:51 AM Stop: 9:51 AM Medication: Nitrogylcerin Amount: 200 mcg Route: I.A. Start: 9:57 AM Stop: 9:57 AM Medication: Verapamil Amount: 2.5 mg Route: I.A. Start: 9:59 AM Stop: 9:59 AM Medication: Verapamil Amount: 2.5 mg Route: I.A. Start: 10:11 AM Stop: 10:11 AM Medication: Versed Amount: 1 mg Route: I.V. Start: 10:28 AM Stop: 10:28 AM Medication: Versed Amount: 1 mg Route: I.V. Start: 10:28 AM Stop: 10:28 AM Medication: Fentanyl Amount: 50 mcg Route: I.V. Start: 10:50 AM Stop: 10:50 AM Medication: Versed Amount: 1 mg Route: I.V. Start: 10:50 AM Stop: 10:50 AM Medication: Fentanyl Amount: 50 mcg Route: I.V. I, the attending physician, have reviewed and verified all procedure medications. Yes, all medications given per verbal order History/Risk Factors Hypertension: Yes Dyslipidemia: No Peripheral Arterial Disease (PAD): Yes Obesity: No Renal Disease: No Tobacco Use: Current/Recent(w/in 1 year) Prior Interventions PCI: No CABG: No Valve Surgery: No Report Signatures Finalized by Maciej Rucker MD on 07/11/2021 11:14 AM
--- NOTE | 2021-06-27 09:25 | PM.PN ---
Subjective Subjective: Still has rt LE pain. No change. Denies CP, SOB, cough. Had B/L LE arteriogram Vitals/I&O/Wt Last Vital Signs Temp 98.1 F 06/28/21 15:05 Pulse 69 06/28/21 15:05 Resp 23 H 06/28/21 15:05 BP 121/73 06/28/21 15:05 Pulse Ox 97 06/28/21 15:05 06/28/21 06/28/21 06/28/21 06:59 14:59 22:59 Intake Total 500 / 870 180 / 180 Balance 500 / 370 180 / 180 Physical Exam Narrative: NAD CVS: S1S2, RRR, Mur (-) Resp: CTA Abd soft, NT, BS+ Edema (-)B/L Dorsalis Pedis and Post Tib pulse absent PACKING AND WRAPPING SUPERVISOR A&Ox4 Data : 06/28/21 03:56 06/27/21 04:58 A&P Assessment and plan (1) Critical limb ischemia of right lower extremity: Status: Acute (2) Superficial femoral artery occlusion: Status: Acute (3) Essential hypertension: Status: Acute (4) Diastolic heart failure: Status: Acute Qualifiers: Heart failure chronicity: chronic Qualified Code(s): I50.32 - Chronic diastolic (congestive) heart failure (5) CAD (coronary artery disease): Status: Acute Qualifiers: Associated angina: without angina Coronary Disease-Associated Artery/Lesion type: [place] artery [place] vs. transplanted heart: [place] heart Qualified Code(s): I25.10 - Atherosclerotic heart disease of [place] coronary artery without angina pectoris (6) COPD (chronic obstructive pulmonary disease): Status: Chronic Qualifiers: COPD type: emphysema Emphysema type: panlobular Qualified Code(s): J43.1 - Panlobular emphysema (7) Low back pain radiating to right leg: Status: Chronic (8) Osteoporosis: Status: Chronic (9) S/P carotid endarterectomy: Status: Acute Plan Pt w/ h/o HTN, CAD, PAD, smoker, COPD, ICS noted have almost total occlusion of b/l LE arteria flow via arteriogram. Will need teriary care for further management of her PAD (severe). Vascular Construction Laborer [facility] Pt will be d/c when arrangement made. Meanwhile continue conservative care. Attestations Medical Necessity Statement*: Pt w/ h/o HTN, CAD, PAD, smoker, COPD, ICS noted have almost total occlusion of b/l LE arteria flow via arteriogram. Will need teriary care for further management of her PAD (severe). Pt to be transferred when bed available Coding Level of Care Code Acute Credit Resolution Representative for Michaelg Fwd Diagnoses Critical limb ischemia of right lower extremity I70.221 Superficial femoral artery occlusion I70.209 Essential hypertension I10 Diastolic heart failure I50.32 Heart failure chronicity: chronic CAD (coronary artery disease) I25.10 Associated angina: without angina Coronary Disease-Associated Artery/Lesion type: [place] artery [place] vs. transplanted heart: [place] heart COPD (chronic obstructive pulmonary disease) J43.1 COPD type: emphysema Emphysema type: panlobular Low back pain radiating to right leg M54.5 Osteoporosis M81.0 S/P carotid endarterectomy Z98.890
[2021-06-27] MEDS: HYDROcodone-acetaminophen 7.5-325 mg Tablet 1 TAB PO ×2 (12:41→20:59)
[2021-06-27] MEDS: metoprolol tartrate 50 mg Tablet PO (13:41)
[2021-06-27 16:59] LABS: Partial Thromboplastin Time 23.3 SECONDS (23.9-36.7)
[2021-06-27] MEDS: fentaNYL 50 mcg/mL INJ 2mL IVP (18:03)
[2021-06-27] MEDS: ALPRAZolam 0.5 mg Tablet 0.25 MG PO (18:43)
[2021-06-27] MEDS: potassium chloride ER 10 mEq Tablet PO (18:44)
[2021-06-27] MEDS: topiramate 100 mg Tablet PO (18:45)
[2021-06-27] MEDS: methocarbamol 500 mg Tablet PO (18:46)
--- NOTE | 2021-06-27 19:11 | PC.NURSE ---
Around 1800: PTT 23.3. Pulled left groin sheath. Held pressure 25 minutes. Dressed site with 4x4 and transparent dressing. Slight ecchymosis noted around site. No drainage or hematoma. Vitals stable. Patient tolerated well. Will continue to monitor.
[2021-06-27] MEDS: trazodone 50 mg Tablet 100 MG PO (20:58)
[2021-06-27] MEDS: metoprolol tartrate 25 mg Tablet PO (20:58)
[2021-06-27] MEDS: isosorbide mononitrate ER 30 mg Tablet 15 MG PO (20:58)
[2021-06-27] MEDS: diphenhydrAMINE 25 mg Capsule PO (21:32)
--- NOTE | 2021-06-27 21:50 | PC.NURSE ---
Bony prominence to sacral area. Family states that patient is prone to bed sore and has had them before. Q2 hour turns being implemented. Optifoam applied to bony prominence of sacrum. No skin breakdown/open areas at this time, only redness.
[2021-06-28] VITALS (56 sets, daily range): BP systolic 91–137; BP diastolic 40–89; PULSE 60–85; RESP 9–28; TEMP 36.6–36.7; O2SAT 91–100
--- NOTE | 2021-06-28 00:25 | PC.NURSE ---
Patient ambulated with nurse to bathroom. Post cath sites x4 WNL. VSS. Patient states that she is now able to turn herself now that her bedrest is up.
--- NOTE | 2021-06-28 02:27 | PC.NURSE ---
Upon my arrival on shift, Heparin drip was not running. NS bag was infused.
[2021-06-28] MEDS: oxybutynin chloride XL 5 MG TABLET PO (03:47)
[2021-06-28] MEDS: HYDROcodone-acetaminophen 7.5-325 mg Tablet 1 TAB PO ×2 (03:47→19:39)
[2021-06-28] MEDS: atorvastatin 40 mg Tablet PO (03:47)
[2021-06-28] MEDS: spironolactone 25 mg Tablet 12.5 MG PO (03:48)
--- NOTE | 2021-06-28 03:50 | PC.NURSE ---
Addendum entered by Adelaida Osborne RN 06/28/21 03:53: Post-cath sites WNL. Original Note: Patient boosted up in bed with 2 assist. Patient states she has been turning herself.
[2021-06-28 04:40] LABS: Platelet Count 233 10^3/cmm (130-400)
--- NOTE | 2021-06-28 07:20 | PC.NURSE ---
Bedside report received from JONO Son. Patient awake and alert. No concerns at this time. Nurse will continue to monitor.
[2021-06-28] MEDS: methocarbamol 500 mg Tablet PO ×2 (08:13→17:36)
[2021-06-28] MEDS: potassium chloride ER 10 mEq Tablet PO ×2 (08:13→17:36)
[2021-06-28] MEDS: topiramate 100 mg Tablet PO ×2 (08:13→17:36)
[2021-06-28] MEDS: cetirizine 10 mg Tablet PO (08:14)
[2021-06-28] MEDS: metoprolol tartrate 50 mg Tablet PO (08:14)
--- NOTE | 2021-06-28 09:27 | W.PM.OPSUD ---
Surgery/Procedure H&P Update DATE OF PROCEDURE: June DATE H&P PERFORMED: 06/26/21 H&P UPDATE INFORMATION: I have reviewed H&P completed within last 30 days, I have examined patient prior to procedure and No changes to prior documentation PREOP DIAGNOSIS: Critical limb ischemia PRIMARY INDICATION FOR PROCEDURE: Critical limb ischemia PLANNED PROCEDURE: Operation Date: 06/27/21 08:30 Proposed Procedures p Peripheral Diagnostic(Not Applicable) - Maciej Rucker M.D Possible percutaneous revascularization PATIENT REASSESSED PRIOR TO SEDATION, WITH NO CHANGE NOTED: Yes PHYSICAL EXAM: alert, oriented x 3, clear to auscultation bilaterally and regular rate & rhythm AIRWAY EVAL/ANESTHESIA PLAN: ASA III, Risks, benefits & alternatives of sedation and/or procedure discussed and Patient agrees to continue as planned
--- NOTE | 2021-06-28 10:06 | PM.PN ---
Subjective Subjective: Patient underwent peripheral angiogram yesterday. Intent was to revascularize right lower extremity. However there were significant access difficulties with occluded left external iliac artery filled by bridging collaterals. She had severe right external iliac artery disease. Had occluded mid to distal SFA with reconstitution of distal SFA via collaterals. Poor single vessel runoff. She continues having on and off rest leg pain. Vitals/I&O/Wt Last Vital Signs Temp 97.8 F 06/28/21 06:59 Pulse 64 06/28/21 08:38 Resp 17 06/28/21 08:38 BP 131/58 06/28/21 08:16 Pulse Ox 96 06/28/21 08:38 06/27/21 06/28/21 06/28/21 22:59 06:59 14:59 Intake Total 220 / 370 500 / 870 120 / 120 Output Total 500 / 500 Balance -280 / -130 500 / 370 120 / 120 Physical Exam Narrative: GENERAL: Patient is alert, awake and oriented x3. [] NECK: No jugular vein distension. [] HEENT: No cyanosis. No icterus. No pallor. [] HEART: Regular S1 and S2. No murmur, rub or gallop. [] LUNGS: Clear to auscultate bilaterally. [] ABDOMEN: Soft, nontender and nondistended. Positive bowel sounds. No guarding, rebound or tenderness. [] CENTRAL NERVOUS SYSTEM: Grossly nonfocal. [] EXTREMITIES: Pulses are not palpable in the right lower extremity. Has erythema of right leg from mid hdez to foot. No ulcer seen. Foot is warm Data : 06/28/21 03:56 06/27/21 04:58 A&P Assessment and plan (1) Critical limb ischemia of right lower extremity: Status: Acute (2) Superficial femoral artery occlusion: Status: Acute (3) CAD (coronary artery disease): Status: Acute Qualifiers: Coronary Disease-Associated Artery/Lesion type: [place] artery [place] vs. transplanted heart: [place] heart Associated angina: without angina Qualified Code(s): I25.10 - Atherosclerotic heart disease of [place] coronary artery without angina pectoris (4) Pacemaker: Status: Acute (5) Peripheral vascular disease: Status: Acute Plan Patient has presented with critical limb ischemia of right lower extremity. On CTA she has a totally occluded SFA from mid to distal segment. She is [place] class III, [place] class IV for critical limb ischemia as has rest leg pain. DENISE was 0.3 on right leg. She underwent peripheral angiogram yesterday. We had intended to revascularize occluded right lower extremity based on CTA findings. However her left external iliac artery was found to be occluded with bridging collaterals supplying the leg during the procedure It could not be wired. We attempted right radial artery access to obtain an angiogram however patient had significant radial spasm and pigtail catheter could not be advanced into the descending aorta. We then proceeded with right PT access however no flow was found in posterior tibial artery. Eventually we did an angiogram through the right common femoral access. It showed significant disease in right common iliac artery. Right SFA had significant disease as well with total occlusion of mid segment. It reconstituted at the distal segment via collateral blood supply. Poor runoff below the knee. Only posterior tibial artery could be visualized proximally. We aborted procedure at this time. We will recommend transferring her to vascular surgery as she may benefit from opening inflow disease. May need SCRATCH FINISHER intervention of the left external iliac artery as well. Spoke with vascular surgery at [facility] in [place] who accepted the transfer. She is currently stable. Continue aspirin and Plavix. Thank you for involving us with the care of this patient. We will continue to follow. Please call with questions. Attestations Medical Necessity Statement*: Care expected to cross 2 midnights. Coding Level of Care Code Acute Glass Cutting Machine Feeder for Mary Barkley Diagnoses Critical limb ischemia of right lower extremity I70.221 Superficial femoral artery occlusion I70.209 CAD (coronary artery disease) I25.10 Coronary Disease-Associated Artery/Lesion type: [place] artery [place] vs. transplanted heart: [place] heart Associated angina: without angina Pacemaker Z95.0 Peripheral vascular disease I73.9
--- NOTE | 2021-06-28 10:38 | PC.NURSE ---
Patient will be transferred to [place] for bipass. Cheryl Veliz RN from [facility] reports patient will be going to [facility] when they have a bed available.
--- NOTE | 2021-06-28 18:03 | P.PN_ITS ---
Subjective Subjective: No change in leg pain. Worse w/ walking. Denied CP, SOB, cough Vitals/I&O/Wt Last Vital Signs Temp 98.1 F 06/28/21 15:05 Pulse 69 06/28/21 15:05 Resp 23 H 06/28/21 15:05 BP 121/73 06/28/21 15:05 Pulse Ox 97 06/28/21 15:05 06/28/21 06/28/21 06/28/21 06:59 14:59 22:59 Intake Total 500 / 870 180 / 180 60 / 240 Balance 500 / 370 180 / 180 60 / 240 Physical Exam Narrative: NAD CVS: S1S2, RRR, Mur (-) Resp: CTA Abd soft, NT, BS+ Edema (-)B/L Dorsalis Pedis and Post Tib pulse absent COMPLIANCE QUALITY PERFORMANCE ANALYST A&Ox4 Data : 06/28/21 03:56 06/27/21 04:58 A&P Assessment and plan (1) Critical limb ischemia of right lower extremity: Status: Acute (2) Superficial femoral artery occlusion: Status: Acute (3) Absence of right dorsalis pedis artery pulse: Status: Acute (4) Essential hypertension: Status: Acute (5) Diastolic heart failure: Status: Acute Qualifiers: Heart failure chronicity: chronic Qualified Code(s): I50.32 - Chronic diastolic (congestive) heart failure (6) S/P carotid endarterectomy: Status: Acute (7) Peripheral vascular disease: Status: Acute (8) CAD (coronary artery disease): Status: Acute Qualifiers: Coronary Disease-Associated Artery/Lesion type: [place] artery [place] vs. transplanted heart: [place] heart Associated angina: without angina Qualified Code(s): I25.10 - Atherosclerotic heart disease of [place] coronary artery without angina pectoris (9) Chronic low back pain: Status: Acute (10) Nicotine dependence, cigarettes, with unspecified nicotine-induced disorders: Status: Chronic Plan Pt w/ h/o HTN, CAD, PAD, smoker, COPD, ICS noted have almost total occlusion of b/l LE arteria flow via arteriogram. Will need teriary care for further management of her PAD (severe). Vascular Equipment Maintenance Superintendent arranging care to a tertiary [facility]. Pt will be d/c when arrangement made. Meanwhile continue conservative care. Continue home meds Attestations Medical Necessity Statement*: Pt w/ h/o HTN, CAD , PAD, smoker, REINFORCING METAL WORKER D, ICS noted have almost total occlu [place] of b/l LE art eria flow via jenna riogram. Will need teriary care for further management of her PAD (sever e). Pt to be trans ferred when bed av ailable Coding Level of Care Code Acute Child Care Worker for g Fwd Diagnoses Critical limb ischemia of right lower extremity I70.221 Superficial femoral artery occlusion I70.209 Absence of right dorsalis pedis artery pulse R09.89 Essential hypertension I10 Diastolic heart failure I50.32 Heart failure chronicity: chronic S/P carotid endarterectomy Z98.890 Peripheral vascular disease I73.9 CAD (coronary artery disease) I25.10 Coronary Disease-Associated Artery/Lesion type: [place] artery [place] vs. transplanted heart: [place] heart Associated angina: without angina Chronic low back pain M54.50; G89.29 Nicotine dependence, cigarettes, with unspecified nicotine-induced disorders F17.219
[2021-06-28 18:16] LABS: Adenovirus Not Detected (NOT DETECT); Chlamydia Pneumoniae Not Detected (NOT DETECT); Coronavirus 229E,HKU1,NL63,OC4 Not Detected (NOT DETECT); Human Metapneumovirus Not Detected (NOT DETECT); Human Rhinovirus/Enterovirus Not Detected (NOT DETECT); Influenza A Not Detected (NOT DETECT); Influenza A H1 Not Detected (NOT DETECT); Influenza A H1-2009 Not Detected (NOT DETECT); Influenza A H3 Not Detected (NOT DETECT); Influenza B Not Detected (NOT DETECT); Mycoplasma Pneumoniae Not Detected (NOT DETECT); Parainfluenza Virus Type 1 Not Detected (NOT DETECT); Parainfluenza Virus Type 2 Not Detected (NOT DETECT); Parainfluenza Virus Type 3 Not Detected (NOT DETECT); Parainfluenza Virus Type 4 Not Detected (NOT DETECT); Respiratory Syncytial Virus A Not Detected (NOT DETECT); Respiratory Syncytial Virus B Not Detected (NOT DETECT); SARS-COV-2 Not Detected (NOT DETECT)
[2021-06-28] MEDS: isosorbide mononitrate ER 30 mg Tablet 15 MG PO (19:38)
[2021-06-28] MEDS: metoprolol tartrate 25 mg Tablet PO (19:38)
[2021-06-28] MEDS: trazodone 50 mg Tablet 100 MG PO (19:39)
[2021-06-28] MEDS: polyethylene glycol 3350 Pkt 17 gm PO (20:58)
[2021-06-29 04:00] VITALS: BP 113/48; PULSE 65; RESP 17; O2SAT 97
[2021-06-29] MEDS: HYDROcodone-acetaminophen 7.5-325 mg Tablet 1 TAB PO (04:00)
[2021-06-29] MEDS: spironolactone 25 mg Tablet 12.5 MG PO (04:24)
[2021-06-29] MEDS: atorvastatin 40 mg Tablet PO (04:24)
[2021-06-29] MEDS: oxybutynin chloride XL 5 MG TABLET PO (04:24)
[2021-06-29 05:17] VITALS: PULSE 61
[2021-06-29 07:13] VITALS: BP 128/59; PULSE 76; RESP 22; TEMP 36.9; O2SAT 96
--- NOTE | 2021-06-29 07:52 | PC.NURSE ---
transport here-[facility] ambulance to transfer pt to [facility] for vascular surgery
[2021-06-29 07:53] VITALS: BP 128/59; PULSE 76; RESP 22; TEMP 36.9; O2SAT 96
--- NOTE | 2021-06-29 12:56 | P.TS_ITS ---
Transfer Summary Providers Date of Admission: 06/26/21 14:17 Date of Discharge/Transfer: 06/29/21 Attending Provider at Admission: Katelyn Castle MD Attending Provider at Transfer: Katelyn Castle MD Consults: Cardiology/Vascular Primary Care Provider: Filiberto Downs MD Transfer Plans: Anticipated date of transfer: 06/29/21 . Diagnoses at Discharge Discharge Diagnosis (1) Critical limb ischemia of right lower extremity: Status: Acute (2) Superficial femoral artery occlusion: Status: Acute (3) Absence of right dorsalis pedis artery pulse: Status: Acute (4) Essential hypertension: Status: Acute (5) Diastolic heart failure: Status: Acute Qualifiers: Heart failure chronicity: chronic Qualified Code(s): I50.32 - Chronic diastolic (congestive) heart failure (6) S/P carotid endarterectomy: Status: Acute Permanent problem details: 1995 (7) Peripheral vascular disease: Status: Acute (8) CAD (coronary artery disease): Status: Acute Qualifiers: Associated angina: without angina Coronary Disease-Associated Artery/Lesion type: [place] artery Hoh vs. transplanted heart: [place] heart Qualified Code(s): I25.10 - Atherosclerotic heart disease of [place] coronary artery without angina pectoris (9) Chronic low back pain: Status: Acute (10) Nicotine dependence, cigarettes, with unspecified nicotine-induced disorders: Status: Chronic Reason for Visit Reason for Visit Numbness of foot/ Foot and leg pain Hospital Course Hospital Course Michael Dodson is a 70 year old female w/ h/o HTN, CAD s/p CABG, PAD, ICS, COPD, LDDD, smoker came w/ c/o rt leg pain and numbness. Her rt leg pain and numbness? has been gradually worsening over 2 wks period. The pain is worse w/ walking and last few days also w/ rest. denied trauma or swelling. Denied CP, SOB, cough, f/c, GRESHAM. Pt is being admitted w/ suspected Rt lower extremity ischemia. Pt was admited to the CSU. Dr Rucker from Vascular/Cardiology was consulted. Pt had an LE extremity arteriogram , however she had basical almost total occusion of the major vessels. b/l. Due o the absecense of of more advanced services here she was transferred to [facility] for further care. Arrangement was made by Dr Rucker. She was otherwise clinically stable. Physical Exam Narrative: NAD CVS: S1S2, RR R, Mur (-) Resp: C TA Abd soft, NT, B S+ Edema (-)B/L Do rsalis Pedis and P ost Tib pulse abse nt SHOESHINER A&Ox4 TS Data Studies Completed and Pending Pending at discharge Category Date Time Status CARD READER request for service Routine Exams 06/27/21 09:05 Taken Labs from last 24 hours 06/28/21 15:15 Coronavirus 229E (PCR) Not detected SARS-CoV-2 (PCR) Not detected Completed Studies During Hospitalization Category Date Time Status CTA runoff [CT angio abd aorta runof 57023] Urgent Cat Scan 06/26/21 13:22 Completed US arterial duplex lower extremity RT [CV arterial Ultrasound 06/26/21 08:51 [place] [id number]] Urgent Laboratory Last Values WBC 7.8 10^3/uL (4.0-10.0) 06/27/21 04:58 RBC 3.61 10^6/uL (4.1-5.3) L 06/27/21 04:58 Hgb 10.8 g/dL (11.5-15.3) L 06/27/21 04:58 Hct 33.3 % (37.0-47.0) L 06/27/21 04:58 MCV 92.2 fl (81-99) 06/27/21 04:58 MCH 29.9 pg (28.0-34.0) 06/27/21 04:58 MCHC 32.4 g/dL (30.0-36.0) D 06/27/21 04:58 RDW 15.1 % (12.1-15.1) 06/27/21 04:58 Plt Count 233 10^3/cmm (130-400) 06/28/21 03:56 MPV 10.2 fL (7.4-10.4) 06/27/21 04:58 Neut % (Auto) 56.2 % 06/27/21 04:58 Lymph % (Auto) 33.1 % 06/27/21 04:58 Wayne % (Auto) 8.4 % 06/27/21 04:58 Eos % (Auto) 1.2 % 06/27/21 04:58 Baso % (Auto) 0.8 % 06/27/21 04:58 Neut # (Auto) 4.40 10^3/uL (1.8-7.7) 06/27/21 04:58 Lymph # (Auto) 2.6 10^3/uL (0.8-4.8) 06/27/21 04:58 Wayne # (Auto) 0.7 10^3/uL (0.2-0.9) 06/27/21 04:58 Eos # (Auto) 0.1 10^3/uL (0.0-0.8) 06/27/21 04:58 Baso # (Auto) 0.1 10^3/uL (0.0-0.1) 06/27/21 04:58 Nucleated RBC % (auto) 0 % 06/27/21 04:58 Nucleated RBCs # 0.0 /100WBC 06/27/21 04:58 PT 14.40 SECONDS (12.1-14.9) 06/26/21 14:45 INR 1.08 (0.8-1.2) 06/26/21 14:45 APTT 23.3 SECONDS (23.9-36.7) L D 06/27/21 16:30 Sodium 140 mmol/L (136-145) 06/27/21 04:58 Potassium 3.8 mmol/L (3.5-5.1) 06/27/21 04:58 Chloride 112 mmol/L (98-107) H 06/27/21 04:58 Carbon Dioxide 20 mmol/L (22-29) L 06/27/21 04:58 Anion Gap 11.8 (5-19) 06/27/21 04:58 BUN 10 mg/dL (8-23) 06/27/21 04:58 Creatinine 0.7 mg/dL (0.5-0.9) 06/27/21 04:58 GFR Calculation 83.2 mL/min (90-130) L 06/27/21 04:58 Glucose 104 mg/dL (65-115) 06/27/21 04:58 Calculated Osmolality 289 mOsm/kg (285-295) 06/27/21 04:58 Calcium 8.2 mg/dL (8.5-10.5) L 06/27/21 04:58 Total Bilirubin 0.3 mg/dL (0.15-1.2) 06/27/21 04:58 AST 183 U/L (0-32) H 06/27/21 04:58 ALT 86 U/L (0-33) H 06/27/21 04:58 Alkaline Phosphatase 152 IU/L (35-105) H 06/27/21 04:58 Total Protein 5.7 g/dL (6.6-8.7) L 06/27/21 04:58 Albumin 3.4 g/dL (3.5-5.2) L 06/27/21 04:58 Globulin 2.3 g/dL (1.3-4.6) 06/27/21 04:58 Coronavirus 229E (PCR) Not detected (NOT DETECT) 06/28/21 15:15 SARS-CoV-2 (PCR) Not detected (NOT DETECT) 06/28/21 15:15 Radiology Impressions Aorta w/Runoff CTA 06/26/21 13:22 IMPRESSION: 1. Right mid femoral artery approximately 4.3 cm long section of occlusion with reconstitution and contrast seen distally in the distal femoral artery and popliteal artery as well as the arteries of the calf. 2. Scattered areas of atherosclerotic plaque throughout the remaining lower extremity arterial system with less than 50% stenosis. 3. Emphysematous changes suspected. 4. Bibasilar atelectasis. 5. Left lower lobe calcified benign granuloma. 6. Cholecystectomy. 7. Superior mesenteric artery demonstrates approximately 60-70% luminal narrowing proximally with contrast seen distally. 8. Constipation. Recent Clincial Data Last Vital Signs Temp 98.4 F 06/29/21 07:53 Pulse 76 06/29/21 07:53 Resp 22 H 06/29/21 07:53 BP 128/59 06/29/21 07:53 Pulse Ox 96 06/29/21 07:53 Vital Signs Temp Pulse Resp BP Pulse Ox 06/29/21 07:53 98.4 F 76 22 H 128/59 96 06/29/21 07:13 98.4 F 76 22 H 128/59 96 06/29/21 05:17 61 06/29/21 04:00 65 17 113/48 97 Intake & Output/Weight 06/27/21 06/28/21 06/29/21 06/30/21 06:59 06:59 06:59 06:59 Intake Total 96.695 / 96.695 870 / 870 240 / 240 Output Total 810 / 810 500 / 500 Balance -713.305 / -713.305 370 / 370 240 / 240 Weight 44.452 kg Vitals Last Vital Signs Temp 98.4 F 06/29/21 07:53 Pulse 76 06/29/21 07:53 Resp 22 H 06/29/21 07:53 BP 128/59 06/29/21 07:53 Pulse Ox 96 06/29/21 07:53 TS Medications Medications Discontinued Medications Acetaminophen (Acetaminophen 325 Mg Tablet) 650 mg PO Q6H PRN PRN Reason: MILD PAIN Hydrocodone Bitart/Acetaminophen (Hydrocodone-Acetaminophen 7.5-325 Mg Tablet) 1 tab PO TID PRN PRN Reason: pain Last Admin: 06/29/21 04:00 Dose: 1 tab Documented by: Al Hydrox/Mg Hydrox/Simethicone (Pmcp-Gfw-Iqnezviso-Anai 30 Ml Udc) 30 ml PO Q15M PRN PRN Reason: INDIGESTION Albuterol Sulfate (Albuterol 8 Gm Mdi) 2 puff INHALATION Q6H PRN PRN Reason: shortness of breath or wheezing Albuterol/Ipratropium (Ipratropium-Albuterol 3 Ml Neb) 3 ml INHALATION TID PRN PRN Reason: Shortness Of Breath Alprazolam (Alprazolam 0.5 Mg Tablet) 0.25 mg PO TID PRN PRN Reason: ANXIETY Last Admin: 06/27/21 18:43 Dose: 0.25 mg Documented by: Atorvastatin Calcium (Atorvastatin 40 Mg Tablet) 40 mg PO QAM [facility] Last Admin: 06/29/21 04:24 Dose: 40 mg Documented by: Atropine Sulfate (Atropine 1 Mg/Ml Sdv 1 Ml) 0.5 mg IVP PRN PRN PRN Reason: Symptomatic bradycardia Cetirizine HCl (Cetirizine 10 Mg Tablet) 10 mg PO DAILY [facility] Last Admin: 06/28/21 08:14 Dose: 10 mg Documented by: Diphenhydramine HCl (Diphenhydramine 50 Mg Capsule) 50 mg PO ONCE ONE Stop: 06/26/21 20:48 Last Admin: 06/27/21 13:41 Dose: Not Given Documented by: Diphenhydramine HCl (Diphenhydramine 25 Mg Capsule) 25 mg PO Q4H PRN PRN Reason: ITCHING Last Admin: 06/27/21 21:32 Dose: 25 mg Documented by: Diphenhydramine HCl (Diphenhydramine 25 Mg Capsule) Confirm Administered Dose 25 mg .ROUTE .STK-MED ONE Stop: 06/27/21 21:22 Fentanyl (Fentanyl 50 Mcg/Ml Inj 2ml) Confirm Administered Dose 100 mcg .ROUTE .STK-MED ONE Stop: 06/27/21 08:55 Fentanyl (Fentanyl 50 Mcg/Ml Inj 2ml) Confirm Administered Dose 100 mcg .ROUTE .STK-MED ONE Stop: 06/27/21 10:28 Fentanyl (Fentanyl 50 Mcg/Ml Inj 2ml) 50 mcg IVP PRN PRN PRN Reason: PAIN Last Admin: 06/27/21 18:03 Dose: 50 mcg Documented by: Heparin Sodium (Porcine) (Heparin 5,000 Unit/Ml Inj 1 Ml) 3,100 unit 70 unit/kg (3100 unit) IVP ONCE ONE Stop: 06/26/21 13:24 Heparin Sodium (Porcine) (Heparin 5,000 Unit/Ml Inj 1 Ml) 0 unit IV PRN PRN; Protocol PRN Reason: Heparin weight-base protocol Last Admin: 06/26/21 23:15 Dose: 2,200 unit Documented by: Heparin Sodium (Porcine) (Heparin 5,000 Unit/Ml Inj 1 Ml) Confirm Administered Dose 5,000 unit .ROUTE .STK-MED ONE Stop: 06/27/21 06:06 Heparin Sodium (Porcine) (Heparin 5,000 Unit/Ml Inj 1 Ml) Confirm Administered Dose 5,000 unit .ROUTE .STK-MED ONE Stop: 06/27/21 08:55 Heparin Sodium/Sodium Chloride (Heparin Drip) 25,000 unit in 500 mls @ 0 mls/hr IV .Q0M JAMES; Protocol Last Titration: 06/26/21 23:18 Dose: 16.87 unit/kg/hr, 15 mls/hr Documented by: Sodium Chloride (Sodium Chloride 0.9%) 1,000 mls @ 100 mls/hr IV .Q10H [facility] Last Admin: 06/27/21 13:49 Dose: Not Given Documented by: Sodium Chloride (Sodium Chloride 0.9%) 1,000 mls @ 50 mls/hr IV .Q20H ONE Stop: 06/27/21 16:46 Last Admin: 06/28/21 02:27 Dose: Not Given Documented by: Lidocaine HCl (Lidocaine 1%) Confirm Administered Dose 20 mls @ as directed .ROUTE .STK-MED ONE Stop: 06/27/21 08:55 Iohexol (Iohexol 350 Mg/Ml 100 Ml Btl) 0 ml IV ONCE ONE Stop: 06/26/21 15:26 Last Admin: 06/26/21 15:25 Dose: 90 ml Documented by: Isosorbide Mononitrate (Isosorbide Mononitrate Er 30 Mg Tablet) 15 mg PO BEDTIME [facility] Last Admin: 06/28/21 19:38 Dose: 15 mg Documented by: Magnesium Hydroxide (Magnesium Hydroxide 30 Ml Udc) 30 ml PO DAILY PRN PRN Reason: CONSTIPATION Methocarbamol (Methocarbamol 500 Mg Tablet) 500 mg PO BID [facility] Last Admin: 06/28/21 17:36 Dose: 500 mg Documented by: Metoprolol Tartrate (Metoprolol Tartrate 50 Mg Tablet) 50 mg PO DAILY [facility] Last Admin: 06/28/21 08:14 Dose: 50 mg Documented by: Metoprolol Tartrate (Metoprolol Tartrate 25 Mg Tablet) 25 mg PO BEDTIME [facility] Last Admin: 06/28/21 19:38 Dose: 25 mg Documented by: Midazolam HCl (Midazolam 1 Mg/Ml Inj 2 Ml) Confirm Administered Dose 2 mg .ROUTE .STK-MED ONE Stop: 06/27/21 08:55 Midazolam HCl (Midazolam 1 Mg/Ml Inj 2 Ml) Confirm Administered Dose 2 mg .ROUTE .STK-MED ONE Stop: 06/27/21 09:37 Midazolam HCl (Midazolam 1 Mg/Ml Inj 2 Ml) Confirm Administered Dose 2 mg .ROUTE .STK-MED ONE Stop: 06/27/21 10:01 Midazolam HCl (Midazolam 1 Mg/Ml Inj 2 Ml) Confirm Administered Dose 2 mg .ROUTE .STK-MED ONE Stop: 06/27/21 10:49 Morphine Sulfate (Morphine 4 Mg/Ml Sdv 1 Ml) 2 mg IVP Q4H PRN PRN Reason: SEVERE PAIN Last Admin: 06/27/21 16:19 Dose: 2 mg Documented by: Naloxone HCl (Naloxone 0.4 Mg/Ml Sdv) 0.1 mg IVP Q2M PRN PRN Reason: RESPIRATORY RATE < 8/MIN Nitroglycerin (Nitroglycerin 0.4 Mg Sublingual Tablet) 0.4 mg SUBLINGUAL Q5M PRN PRN Reason: Chest Pain Nitroglycerin (Nitroglycerin 5 Mg/Ml Sdv 10 Ml) Confirm Administered Dose 50 mg .ROUTE .STK-MED ONE Stop: 06/27/21 08:55 Nitroglycerin (Nitroglycerin 0.4 Mg Sublingual Tablet) 0.4 mg SUBLINGUAL Q5M PRN PRN Reason: CHEST PAIN Ondansetron HCl (Ondansetron 2 Mg/Ml Sdv 2 Ml) 4 mg IVP Q6H PRN PRN Reason: NAUSEA AND VOMITING Oxybutynin Chloride (Oxybutynin Chloride Xl 5 Mg Tablet) 5 mg PO QAM [facility] Last Admin: 06/29/21 04:24 Dose: 5 mg Documented by: Polyethylene Glycol (Polyethylene Glycol 3350 Pkt 17 Gm) 17 gm PO DAILY PRN PRN Reason: constipation Last Admin: 06/28/21 20:58 Dose: 17 gm Documented by: Potassium Chloride (Potassium Chloride Er 10 Meq Tablet) 10 meq PO BID [facility] Last Admin: 06/28/21 17:36 Dose: 10 meq Documented by: Fluticasone/Salmeterol (Fluticasone-Salmeterol 250-50 Diskus) 1 puff INHALATION BID.RESPIRATORY [facility] Last Admin: 06/28/21 19:43 Dose: 1 puff Documented by: Spironolactone (Spironolactone 25 Mg Tablet) 12.5 mg PO QAM [facility] Last Admin: 06/29/21 04:24 Dose: 12.5 mg Documented by: Temazepam (Temazepam 15 Mg Capsule) 15 mg PO BEDTIME PRN PRN Reason: INSOMNIA Topiramate (Topiramate 100 Mg Tablet) 100 mg PO BID [facility] Last Admin: 06/28/21 17:36 Dose: 100 mg Documented by: Trazodone HCl (Trazodone 50 Mg Tablet) 100 mg PO BEDTIME [facility] Last Admin: 06/28/21 19:39 Dose: 100 mg Documented by: Verapamil HCl (Verapamil 2.5 Mg/Ml Inj 2ml) Confirm Administered Dose 5 mg .ROUTE .STK-MED ONE Stop: 06/27/21 09:55 Allergies codeine Allergy (Verified 06/26/21 08:17) Unknown latex Allergy (Verified 06/26/21 08:17) Unknown oxycodone [From Percocet] Allergy (Verified 06/26/21 08:17) Unknown jello Allergy (Unknown, Uncoded 06/26/21 08:17) Unknown itching Home Medications fluticasone propionate 50 mcg/actuation nasal spray,suspension 1 spray IN TRANASAL BID PRN g 03/30/21 [History Confirmed 06/26/21] potassium chloride 10 mEq capsule,extended release 10 meq PO BID #180 cap 03/30/21 [Rx Confirmed 06/26/21] hydrocodone 7.5 mg-acetaminophen 325 mg tablet 1 tab PO TID PRN 30 Days #90 tab 05/24/21 [Rx Confirmed 06/26/21] albuterol sulfate 90 mcg/actuation aerosol inhaler (ProAir HFA) 2 puff INHALATION Q6H PRN #8.5 g 06/02/21 [Rx Confirmed 06/26/21] fluticasone 250 mcg-salmeterol 50 mcg/dose blistr powdr for inhalation (Advair Diskus) 1 inh INHALATION BID #60 each 06/02/21 [Rx Confirmed 06/26/21] methocarbamol 500 mg tablet 500 mg PO BID 30 Days #60 tab 06/02/21 [Rx Confirmed 06/26/21] Vitamin D3 1 cap PO DAILY 06/26/21 [History Confirmed 06/26/21] aspirin 81 mg tablet,delayed release (Adult Aspirin Regimen) 81 mg PO QAM 06/26/21 [History Confirmed 06/26/21] atorvastatin 40 mg tablet 40 mg PO QAM 06/26/21 [History Confirmed 06/26/21] calcium carbonate 500 mg calcium (1,250 mg) tablet (Calcium 500) 500 mg PO DAILY 06/26/21 [History Confirmed 06/26/21] clopidogrel 75 mg tablet 75 mg PO QAM 06/26/21 [History Confirmed 06/26/21] diphenhydramine HCl 25 mg tablet (Benadryl Allergy) 25 mg PO DAILY PRN 06/26/21 [History Confirmed 06/26/21] ibuprofen 800 mg tablet 800 mg PO BID 06/26/21 [History Confirmed 06/26/21] ipratropium 0.5 mg-albuterol 3 mg (2.5 mg base)/3 mL nebulization soln 3 ml INHALATION TID PRN 06/26/21 [History Confirmed 06/26/21] isosorbide mononitrate 30 mg tablet,extended release 24 hr 15 mg PO BEDTIME 06/26/21 [History Confirmed 06/26/21] metoprolol tartrate 50 mg tablet See Rx Instructions .ROUTE .COMPLEX 06/26/21 [History Confirmed 06/26/21] nitroglycerin 0.4 mg sublingual tablet (Nitrostat) 0.4 mg SUBLINGUAL Q5M PRN 06/26/21 [History Confirmed 06/26/21] oxybutynin chloride 5 mg tablet,extended release 24 hr 5 mg PO QAM 06/26/21 [History Confirmed 06/26/21] polyethylene glycol 3350 17 gram/dose oral powder (Miralax) 17 g PO DAILY PRN 06/26/21 [History Confirmed 06/26/21] spironolactone 25 mg tablet 12.5 mg PO QAM 06/26/21 [History Confirmed 06/26/21] topiramate 100 mg tablet (Topamax) 100 mg PO BID 06/26/21 [History Confirmed 06/26/21] trazodone 50 mg tablet 100 mg PO BEDTIME 06/26/21 [History Confirmed 06/26/21] Discharge Plan Discharge Patient Disposition: Home Condition: Stable Prescriptions: Continued fluticasone propionate 50 mcg/actuation spray,suspension 1 spray intranasal BID PRN (Reason: Allergy Symptoms) 0RF Rx Instructions: administer into each nostril potassium chloride 10 mEq capsule, extended release 10 meq PO BID Qty: 180 3RF hydrocodone-acetaminophen 7.5-325 mg tablet 1 tab PO TID PRN (Reason: pain) 30 Days Qty: 90 0RF Rx Instructions: fill on or after 06/22/21 fluticasone propion-salmeterol [Advair Diskus] 250-50 mcg/dose blister with device 1 inh INHALATION BID Qty: 60 5RF albuterol sulfate [ProAir HFA] 90 mcg/actuation HFA aerosol inhaler 2 puff INHALATION Q6H PRN (Reason: shortness of breath or wheezing) Qty: 8.5 3RF Calcium 500 500 mg calcium (1,250 mg) Tablet 500 mg PO DAILY 0RF Nitrostat 0.4 mg Tablet, Sublingual 0.4 mg SUBLINGUAL Q5M PRN (Reason: Chest Pain) 0RF Rx Instructions: do not exceed 3 doses per episode Vitamin D3 1 cap PO DAILY 0RF atorvastatin 40 mg tablet 40 mg PO QAM 0RF ipratropium-albuterol 0.5 mg-3 mg(2.5 mg base)/3 mL solution for nebulization 3 ml inhalation TID PRN (Reason: Shortness Of Breath) 0RF trazodone 50 mg tablet 100 mg PO BEDTIME 0RF ibuprofen 800 mg tablet 800 mg PO BID 0RF isosorbide mononitrate 30 mg tablet extended release 24 hr 15 mg PO BEDTIME 0RF clopidogrel 75 mg tablet 75 mg PO QAM 0RF Adult Aspirin Regimen 81 mg tablet,delayed release (DR/EC) 81 mg PO QAM 0RF spironolactone 25 mg tablet 12.5 mg PO QAM 0RF Benadryl Allergy 25 mg tablet 25 mg PO DAILY PRN (Reason: Allergy Symptoms) 0RF Miralax 17 gram/dose powder 17 g PO DAILY PRN (Reason: constipation) 0RF Topamax 100 mg tablet 100 mg PO BID 0RF metoprolol tartrate 50 mg tablet See Rx Instructions .ROUTE .COMPLEX 0RF Rx Instructions: 50 mg orally qam and 25mg po bedtime No Action methocarbamol 500 mg tablet 500 mg PO BID 30 Days Qty: 60 5RF oxybutynin chloride 5 mg tablet extended release 24hr 5 mg PO QAM 0RF Discharge Orders: Discharge Order (Routine); Ordered 06/29/21 Ordered By: Katelyn Castle Referrals: Filiberto Downs MD [Primary Care Provider] - Discharge Diet: Cardiac and Low Cholesterol Discharge Activity: Resume usual activity Patient Instructions: Opioid Safety Transfer Attestations Time Spent in Transfer Care: greater than 30 min Quality Metrics Clinical Quality Measures [ No reported AMI, CVA or VTE this stay] Coding Level of Care Code Acute Field Coordinator for Mary Fwd Diagnoses Critical limb ischemia of right lower extremity I70.221 Superficial femoral artery occlusion I70.209 Absence of right dorsalis pedis artery pulse R09.89 Essential hypertension I10 Diastolic heart failure I50.32 Heart failure chronicity: chronic S/P carotid endarterectomy Z98.890 Peripheral vascular disease I73.9 CAD (coronary artery disease) I25.10 Associated angina: without angina Coronary Disease-Associated Artery/Lesion type: [place] artery Hoh vs. transplanted heart: [place] heart Chronic low back pain M54.50; G89.29 Nicotine dependence, cigarettes, with unspecified nicotine-induced disorders F17.219
== END 2021-06-29 07:54 | disposition short-term general hospital (02) | DRG 300 ==
LOC: ER 13:49 → MEDSURG 15:18 → CSU 06-27 09:10
PROVIDERS: Internal Medicine; Physician Assistant; Admitting Provider Internal Medicine; Emergency Provider Family Medicine; PCP Family Medicine Adult Medicine; Visit Provider Internal Medicine
PROC: B41DYZZ Fluoroscopy of Aorta and Bilateral Lower Extremity Arteries using Other Contrast (ICD-10-PCS; principal; 2021-06-27 08:30)
DX: I70.221 Atherosclerosis of native arteries of extremities with rest pain, right leg (principal); I82.811 Embolism and thrombosis of superficial veins of right lower extremity; I82.422 Acute embolism and thrombosis of left iliac vein; I50.32 Chronic diastolic (congestive) heart failure; J44.9 Chronic obstructive pulmonary disease, unspecified; I11.0 Hypertensive heart disease with heart failure; E78.5 Hyperlipidemia, unspecified; G89.29 Other chronic pain; M54.50 Low back pain, unspecified; I25.10 Atherosclerotic heart disease of native coronary artery without angina pectoris; K59.09 Other constipation; G47.00 Insomnia, unspecified; M79.10 Myalgia, unspecified site; F17.210 Nicotine dependence, cigarettes, uncomplicated; M81.0 Age-related osteoporosis without current pathological fracture; Z98.62 Peripheral vascular angioplasty status; Z96.653 Presence of artificial knee joint, bilateral; Z79.82 Long term (current) use of aspirin; Z79.891 Long term (current) use of opiate analgesic
CPT/HCPCS: 36415; 75605; 75625; 75635; 75716; 80053; 85025; 85049; 85610; 85730; 87635; 93005; 93926; 94640; 96365; 96366; 96375; 99285; C1769; C1887; C1894; J1644; J2250; J2270; J3010; J3490; Q9967

== ENCOUNTER → 2021-07-17 09:36 | Outpatient (BNVA) | payer MEDICARE, MEDICAID, SELFPAY | PROVIDERS: PCP Family Medicine Adult Medicine; Visit Provider Internal Medicine Cardiovascular Disease | DX: I73.9 Peripheral vascular disease, unspecified (principal); I11.0 Hypertensive heart disease with heart failure; I50.9 Heart failure, unspecified; F17.210 Nicotine dependence, cigarettes, uncomplicated | CPT/HCPCS: 36415; 80048; 80061; 99214 ==

== ENCOUNTER → 2021-08-18 10:47 | Outpatient (BNVA) | payer MEDICARE, MEDICAID, SELFPAY | PROVIDERS: PCP Family Medicine Adult Medicine; Visit Provider Internal Medicine Cardiovascular Disease | DX: Z45.010 Encounter for checking and testing of cardiac pacemaker pulse generator [battery] (principal) | CPT/HCPCS: 93280 ==

== ENCOUNTER 2021-08-28 17:33 | Outpatient (CLI) | payer MEDICARE, MEDICAID, SELFPAY ==
--- NOTE | 2021-08-28 17:42 | XRR_ITS ---
PROCEDURE INFORMATION: Exam: XR Lumbosacral Spine Exam date and time: 08/28/2021 5:42 PM Age: 71 years old Clinical indication: Patient HX: Chronic low back pain; Additional info: Spondylolisthesis, lumbar region TECHNIQUE: Imaging protocol: XR of the lumbosacral spine. Views: 2 or 3 views. Total images: 3 COMPARISON: CR Lumbar Spine 2-3 views* [id number] 05/08/2018 8:54 AM FINDINGS: Bones/joints: Mild disc space height loss at L4/L5. Diffuse osteopenia noted. Vertebral body heights are maintained. No evidence of spondylolysis nor spondylolisthesis. No evidence of dynamic instability with flexion and extension maneuvers. Soft tissues: Unremarkable. Vasculature: Moderate atherosclerotic disease is evident. XR/XR lumbar spine f/e only [id number] IMPRESSION: 1. Mild disc space height loss at L4/L5. 2. No evidence of dynamic instability with flexion and extension maneuvers.
== END 2021-08-28 17:34 | disposition home or self-care (01) ==
LOC: RAD 17:38
PROVIDERS: PCP Family Medicine Adult Medicine; Visit Provider Nurse Practitioner
DX: M43.16 Spondylolisthesis, lumbar region (principal); M85.88 Other specified disorders of bone density and structure, other site
CPT/HCPCS: 72120

== ENCOUNTER 2021-09-21 12:33 | Outpatient (CLI) | payer MEDICARE, MEDICAID, SELFPAY ==
--- NOTE | 2021-09-21 12:48 | XRR_ITS ---
PROCEDURE INFORMATION: Exam: XR Lumbosacral Spine Exam date and time: 09/21/2021 12:59 PM Age: 71 years old Clinical indication: Patient HX: Low back pain and limited range of motion; Additional info: Spondylolisthesis lumbar region TECHNIQUE: Imaging protocol: XR of the lumbosacral spine. Views: 2 or 3 views. COMPARISON: CR XR lumbar spine f/e only [id number] 08/28/2021 5:42 PM FINDINGS: Bones/joints: Normal. No acute fracture. Normal alignment. Soft tissues: Unremarkable. XR/XR lumbar spine f/e only [id number] IMPRESSION: No acute findings.
== END 2021-09-21 12:34 | disposition home or self-care (01) ==
LOC: RAD 12:38
PROVIDERS: PCP Family Medicine Adult Medicine; Visit Provider Nurse Practitioner
DX: M43.16 Spondylolisthesis, lumbar region (principal)
CPT/HCPCS: 72120

== ENCOUNTER 2021-10-17 20:00 | Outpatient (CLI) | payer MEDICARE, MEDICAID, SELFPAY | END 2021-10-17 20:01 | disposition home or self-care (01) | LOC: SLEEP 10-18 08:45 | PROVIDERS: PCP Family Medicine Adult Medicine; Visit Provider Anesthesiology Pain Medicine | DX: G47.10 Hypersomnia, unspecified (principal); R06.83 Snoring; R53.83 Other fatigue | CPT/HCPCS: 95810 ==

== ENCOUNTER → 2021-10-18 12:27 | Outpatient (BNVA) | payer MEDICARE, MEDICAID, SELFPAY | PROVIDERS: PCP Family Medicine Adult Medicine; Visit Provider Internal Medicine Cardiovascular Disease | DX: I11.0 Hypertensive heart disease with heart failure (principal); I50.9 Heart failure, unspecified; I25.10 Atherosclerotic heart disease of native coronary artery without angina pectoris; I70.221 Atherosclerosis of native arteries of extremities with rest pain, right leg; F17.219 Nicotine dependence, cigarettes, with unspecified nicotine-induced disorders; J43.1 Panlobular emphysema; Z95.0 Presence of cardiac pacemaker; I70.209 Unspecified atherosclerosis of native arteries of extremities, unspecified extremity | CPT/HCPCS: 99214 ==

== ENCOUNTER → 2022-01-16 11:04 | Outpatient (BNVA) | payer MEDICARE, MEDICAID, SELFPAY | PROVIDERS: PCP Family Medicine Adult Medicine; Visit Provider Nurse Practitioner Family | DX: I73.9 Peripheral vascular disease, unspecified (principal); F17.210 Nicotine dependence, cigarettes, uncomplicated | CPT/HCPCS: 99214 ==

== ENCOUNTER 2022-02-22 07:59 | Outpatient (CLI) | payer MEDICARE, MEDICAID, SELFPAY ==
[2022-02-22] MEDS: iohexol 350 mg/mL 500 mL Btl (per mL) IV (08:30)
--- NOTE | 2022-02-22 08:30 | CT_ITS ---
WS: [id number] CT ANGIOGRAPHY OF THE ABDOMINAL AORTA WITH RUNOFF TO THE ANKLES HISTORY: claudication TECHNIQUE: Arterial injection is performed during imaging to evaluate the aorta and runoff vessels to the ankles. MIP and volume rendering imaging has also been performed. All images are reviewed. All C T scans at [facility] use at least one of these dose optimization techniques: automated exposu re control; mA and/or kV adjustment per patient size (includes targeted exams where dose is matched t o clinical indication); or iterative reconstruction. Contrast: Omnipaque 350; 95 mL IV. DLP: 658.85 mGy.cm COMPARISON: 06/26/2021 Chronic emphysematous changes at the lung bases. Prior granulomatous disease. Small hiatal hernia. No rmal size heart. Abdominal aorta: Moderate extensive atherosclerotic plaque. Calcified plaque with intimal thickening. No aneurysm. There is a focal plaque ulceration measuring 5 mm along the inferior RIGHT anterolatera l aorta. Similar to the prior study. Celiac axis: 70% stenosis with poststenotic dilatation. Similar to the prior study. SMA: Moderate to high-grade stenosis approximately 80% similar to the prior study. Mild stenosis proximal RIGHT renal artery. Minimal stenosis LEFT renal artery. RIGHT lower extremity arterial system: Extensive atherosclerotic plaque through the common iliac jenna ry. High-grade stenosis RIGHT internal iliac artery. Multilevel areas of [id number] stenosis th roughout the RIGHT external iliac artery. 50% stenosis proximal superficial femoral artery. Deep prof unda is intact. Small caliber superficial femoral artery. Patent stent in the distal RIGHT SFA. Stent is intact. Moderate disease throughout the Audi's canal and popliteal artery. Runoff below the kne e is very limited due to slow flow. Essentially occluded anterior tibial artery. Intermittently visualized peroneal and posterior tibial arteries but these are very small caliber and poorly opacified with contrast. LEFT lower extremity arterial system: Moderate atherosclerotic disease throughout the common, interna l and external iliac arteries. No significant progression since the prior study. Suspect a small stab le dissection in the distal common iliac artery. 50% stenosis distal external iliac artery near the f emoral artery junction. 50% stenosis in the femoral artery. Small caliber superficial femoral artery with multifocal areas of at least moderate stenosis. No complete occlusion. High-grade stenosis in th e distal SFA. Moderate stenosis to Audi's canal. No popliteal artery stenosis. Poor vessel enhancem ent below the knee. Small caliber but enhancing vessels below the knee. No GI tract obstruction. Kidneys are enhancing normally. Limited enhancement than due to phase of inj ection. Cholecystectomy. CT/CT angio abd aorta runof [id number] IMPRESSION: 1. Since the prior examination arterial stent has been placed in the distal RI GHT SFA. Stent is patent. 2. Extensive atherosclerotic plaque within the aorta with no progression or a neurysm. 3. High-grade stenoses celiac axis and SMA, no change. 4. There is extensive atherosclerotic plaque throughout the iliac arteries thr ough the popliteal arteries with multifocal areas of stenosis. 5. Essentially occluded RIGHT anterior tibial artery below the knee. 6. Small caliber arterial runoff below the knees. Probably in part due to the contrast injection and technique. 7. Moderate stenosis at multiple areas throughout the LEFT superficial femoral artery with an additional high-grade stenosis in the distal SFA. Minimal progr ession since the prior study.
[2022-02-22 09:17] LABS: Blood Urea Nitrogen 18 mg/dL (8-23)
== END 2022-02-22 08:00 | disposition home or self-care (01) ==
LOC: RAD 08:02
PROVIDERS: PCP Family Medicine Adult Medicine; Visit Provider Nurse Practitioner Family
DX: I73.9 Peripheral vascular disease, unspecified (principal); I70.0 Atherosclerosis of aorta; I70.8 Atherosclerosis of other arteries
CPT/HCPCS: 75635; 82565; 84520

== ENCOUNTER 2022-02-28 19:17 | Emergency (ER) | payer MEDICARE, MEDICAID, SELFPAY ==
[2022-02-28] VITALS (11 sets, daily range): BP systolic 147–178; BP diastolic 52–70; PULSE 66–76; RESP 18–29; TEMP 37.1; O2SAT 91–97; BMI 16.9
--- NOTE | 2022-02-28 19:32 | XRR_ITS ---
PROCEDURE INFORMATION: Exam: XR Chest Exam date and time: 02/28/2022 8:49 PM Age: 71 years old Clinical indication: Cough and dyspnea and shortness of breath; Prior surgery; Surgery date: 6+ months; Additional info: SOB, cough TECHNIQUE: Imaging protocol: Radiologic exam of the chest. Views: 1 view. COMPARISON: CR XR chest 1V [id number] 08/21/2018 2:13 PM FINDINGS: Tubes, catheters and devices: Left chest ICD. Lungs: Emphysematous lung disease. Hyperinflation pattern. No definite consolidation, however there is some increased streakiness of interstitial markings at the left lung base when compared with prior. Scattered small granulomas. Pleural spaces: Unremarkable. No pleural effusion. No pneumothorax. Heart/Mediastinum: CABG. Unremarkable cardiac silhouette. Vasculature: Stent within the proximal left common carotid artery or left subclavian artery unchanged in position from remote comparison. Bones/joints: Unremarkable. XR/XR chest 1V portable [id number] IMPRESSION: Possible early pneumonia at the left lung base.
--- NOTE | 2022-02-28 19:32 | ECG_ITS ---
[facility] Test Date: 2022-02-28 Pat Name: Michael Dodson Department: Room: Gender: Female Machine Stuffer Automatic: : 1950 Requested By: Hugo Arauz Order Number: [id number] Krista MD: Maciej Rucker M.D. Measurements Intervals [place] Rate: 65 P: 59 IA: 192 QRS: 16 QRSD: 96 T: 49 QT: 404 QTc: 421 Interpretive Statements SINUS RHYTHM POSSIBLE LEFT ATRIAL ENLARGEMENT [-0.1mV P-WAVE IN V1/V2] Compared to ECG 06/26/2021 07:35:01 Atrial-paced complex(es) or rhythm no longer present Electronically Signed On 03-02-2022 6:27:20 DOWELING MACHINE OPERATOR by Maciej Rucker M.D. [id number]
--- NOTE | 2022-02-28 19:35 | W.ED.SOB ---
HPI - SOB/Dyspnea General: Chief Complaint: Shortness of Breath/Dyspnea Stated Complaint: sob Time Seen by Provider: 02/28/22 19:28 History of Present Illness: HPI Narrative: Ms. Dodson is a 71-year-old lady with significant past medical history of tobaccoism, COPD, heart failure, peripheral arterial disease, hypertension, hyperlipidemia presenting to the emergency department due to shortness of breath. Onset of symptoms was approximately 2 days ago and gradual. Endorses increased shortness of breath associated with productive cough and generalized malaise. Since onset symptoms have worsened. Intensity is moderate. No other specific changes in health, exacerbating, or alleviating factors identified. Onset (ago): day(s) Timing: progressively worsening Severity: moderate Exacerbating factors: exertion Known history of: COPD Associated symptoms: Reports cough and other Review of Systems General: Reports: 10 or more systems reviewed and unremarkable except in HPI and below PFSH ED PFSH: Medical History Benign essential HTN CAD (coronary artery disease) CHF (congestive heart failure), NYHA class III [facility] Constipation, chronic COPD (chronic obstructive pulmonary disease) COPD exacerbation Encounter for long-term use of opiate analgesic Enrolled in chronic care management Essential hypertension Headache, migraine Insomnia Nicotine dependence with current use Opioid contract exists [facility], Dr. Ni Osteoporosis Peripheral vascular disease Smokers' cough Surgical History S/P balloon angioplasty of pulmonary artery branches ILIAC ARTERY-2015 FEMORAL ARTERY 2015 S/P carotid endarterectomy 1995 S/P hysterectomy S/P right cataract extraction S/p total knee replacement, bilateral Status post placement of cardiac pacemaker 2015 Family History Other Diabetes Stroke Social History Smoking and tobacco status: current some day smoker cigarettes [ Other cigarette details: 1 PK Q 3-4 DAYS ] Alcohol intake: never History of recent travel: No Physical Exam Const: COMMON NORMALS: alert GENERAL APPEARANCE: cooperative and well developed HENMT: COMMON NORMALS: normocephalic and atraumatic HEAD & SCALP: normocephalic and atraumatic THROAT: posterior oropharynx normal Eye: COMMON NORMALS: conjunctivae normal CONJUNCTIVA: Yes conjunctivae normal SCLERA: sclerae normal Neck/C-Spine: COMMON NORMALS: supple GENERAL: Yes trachea midline Resp: EFFORT & INSPECTION: Yes able to speak in complete sentences AUSCULTATION: diminished lung sounds Cardio: COMMON NORMALS: regular rate and regular rhythm RATE: regular rate RHYTHM: regular rhythm GI: COMMON NORMALS: Soft to palpation PALPATION: Yes Soft to palpation and No Tenderness to palpation present (GI) Extremity: GENERAL: Yes normal exam except as noted and No edema Neuro: COMMON NORMALS: moves all extremities SENSORIUM/ORIENTATION: Yes alert and No Orientation impaired Psych: COMMON NORMALS: mental status grossly normal and Normal thought process present THOUGHT PROCESS: Normal thought process present Course Vital Signs: Vital signs: Vital Signs Temperature 98.7 F 02/28/22 19:30 Pulse Rate 74 02/28/22 22:30 Respiratory Rate 25 H 02/28/22 22:30 Blood Pressure 147/55 02/28/22 23:00 Pulse Oximetry 94 02/28/22 23:00 Oxygen Delivery Me thod 02/28/22 20:06 MDM - SOB/Dyspnea Medical Decision Making 71-year-old lady with history of smoking and COPD presenting with respiratory symptoms. Exam as above, nontoxic. EKG shows sinus rhythm with no STEMI Labs with leukocytosis, normal hemoglobin. Metabolic panel with mild evidence of hyponatremia and decreased bicarb, somewhat similar to prior. Delta troponin is negative. Chest x-ray with likely pneumonia. During ED course patient given treatment for COPD exacerbation as well as pneumonia. Patient feels improved and wishes to be discharged for outpatient trial treatment. The results of ED evaluation were discussed with the patient including prescriptions and/or symptomatic cares (if applicable) including appropriate and responsible use, followup plan, and return precautions. The patient verbalized understanding and felt safe for discharge. Medical Records I reviewed the patient's medical records. Lab Data I reviewed the patient's lab results. 02/28/22 20:20 02/28/22 20:20 Labs/Radiology: Radiology Impressions Chest X-Ray 02/28/22 19:32 IMPRESSION: Possible early pneumonia at the left lung base. Laboratory Results WBC 18.4 10^3/uL (4.0-10.0) H 02/28/22 20:20 RBC 4.52 10^6/uL (4.1-5.3) 02/28/22 20:20 Hgb 12.9 g/dL (11.5-15.3) 02/28/22 20:20 Hct 39.9 % (37.0-47.0) 02/28/22 20:20 MCV 88.3 fl (81-99) 02/28/22 20:20 MCH 28.5 pg (28.0-34.0) 02/28/22 20:20 MCHC 32.3 g/dL (30.0-36.0) 02/28/22 20:20 RDW 14.2 % (12.1-15.1) 02/28/22 20:20 Plt Count 299 10^3/cmm (130-400) 02/28/22 20:20 MPV 9.6 fL (7.4-10.4) 02/28/22 20:20 Neut % (Auto) 81.9 % 02/28/22 20:20 Lymph % (Auto) 10.4 % 02/28/22 20:20 [place] % (Auto) 7.1 % 02/28/22 20:20 Eos % (Auto) 0.0 % 02/28/22 20:20 Baso % (Auto) 0.2 % 02/28/22 20:20 Neut # (Auto) 15.05 10^3/uL (1.8-7.7) H 02/28/22 20:20 Lymph # (Auto) 1.9 10^3/uL (0.8-4.8) 02/28/22 20:20 [place] # (Auto) 1.3 10^3/uL (0.2-0.9) H 02/28/22 20:20 Eos # (Auto) 0.0 10^3/uL (0.0-0.8) 02/28/22 20:20 Baso # (Auto) 0.0 10^3/uL (0.0-0.1) 02/28/22 20:20 Nucleated RBC % (auto) 0 % 02/28/22 20:20 Nucleated RBCs # 0.0 /100WBC 02/28/22 20:20 Sodium 132 mmol/L (136-145) L 02/28/22 20:20 Potassium 4.2 mmol/L (3.5-5.1) 02/28/22 20:20 Chloride 103 mmol/L (98-107) 02/28/22 20:20 Carbon Dioxide 16 mmol/L (22-29) L 02/28/22 20:20 Anion Gap 17.2 (5-19) 02/28/22 20:20 BUN 18 mg/dL (8-23) 02/28/22 20:20 Creatinine 0.9 mg/dL (0.5-0.9) 02/28/22 20:20 GFR Calculation 62.1 mL/min (90-130) L 02/28/22 20:20 Glucose 114 mg/dL (65-115) 02/28/22 20:20 Calculated Osmolality 277 mOsm/kg (285-295) L 02/28/22 20:20 Lactic Acid 1.5 mmol/L (0.5-2.2) 02/28/22 20:20 Lactate 1.3 mmol/L (0.5-2.2) 02/28/22 21:05 Calcium 9.6 mg/dL (8.5-10.5) 02/28/22 20:20 Total Bilirubin 0.2 mg/dL (0.15-1.2) 02/28/22 20:20 AST 17 U/L (0-32) 02/28/22 20:20 ALT 9 U/L (0-33) 02/28/22 20:20 Alkaline Phosphatase 113 U/L (35-105) H 02/28/22 20:20 Troponin T Baseline 20 ng/L (0-10) H 02/28/22 20:20 Troponin T 120 Minute 18.11 ng/L (0-10) H 02/28/22 22:01 Delta Troponin T -1.89 ABS# (0-10) L 02/28/22 22:01 NT-Pro-B Natriuret Pep 3149 pg/mL (0-125) H 02/28/22 20:20 Total Protein 7.2 g/dL (6.6-8.7) 02/28/22 20:20 Albumin 3.8 g/dL (3.5-5.2) 02/28/22 20:20 Globulin 3.4 g/dL (1.3-4.6) 02/28/22 20:20 Discharge Plan Discharge Patient Disposition: Home Clinical Impression: Pneumonia Condition: Stable Prescriptions: New cefpodoxime 200 mg tablet 200 mg PO BID Qty: 20 0RF Rx Instructions: must administer with a meal/food No Action fluticasone propionate 50 mcg/actuation spray,suspension 1 spray intranasal BID PRN (Reason: Allergy Symptoms) Rx Instructions: administer into each nostril potassium chloride 10 mEq capsule, extended release 10 meq PO BID Qty: 180 3RF hydrocodone-acetaminophen 7.5-325 mg tablet 1 tab PO TID PRN (Reason: pain) 30 Days Qty: 90 0RF Rx Instructions: fill on or after 3o day interval albuterol sulfate [ProAir HFA] 90 mcg/actuation HFA aerosol inhaler 2 puff INHALATION Q6H PRN (Reason: shortness of breath or wheezing) Qty: 8.5 3RF montelukast 10 mg tablet 10 mg PO DAILY azithromycin 250 mg tablet See Rx Instructions PO .COMPLEX Qty: 6 0RF Rx Instructions: take 500 mg today (day 1), then 250 mg for 4 days (days 2-5) PO prednisone 20 mg tablet 20 mg PO DAILY 5 Days Qty: 5 0RF spironolactone 25 mg tablet 12.5 mg PO QAM Qty: 45 1RF methocarbamol 500 mg tablet See Rx Instructions .ROUTE .COMPLEX Qty: 60 5RF Dose Instruction: TAKE ONE TABLET BY MOUTH TWICE A DAY FOR 30 DAYS Rx Instructions: TAKE ONE TABLET BY MOUTH TWICE A DAY FOR 30 DAYS fluticasone propion-salmeterol 250-50 mcg/dose blister with device See Rx Instructions .ROUTE .COMPLEX Qty: 60 5RF Dose Instruction: USE ONE INHALATION BY MOUTH TWICE A DAY FOR COPD Rx Instructions: USE ONE INHALATION BY MOUTH TWICE A DAY FOR COPD trazodone 50 mg tablet See Rx Instructions .ROUTE .COMPLEX Qty: 60 5RF Dose Instruction: TAKE ONE TABLET BY MOUTH AT BEDTIME NEEDED FOR INSOMMNIA Rx Instructions: TAKE ONE TABLET BY MOUTH AT BEDTIME NEEDED FOR INSOMMNIA oxybutynin chloride 5 mg tablet extended release 24 hr See Rx Instructions .ROUTE .COMPLEX Qty: 90 1RF Dose Instruction: TAKE ONE (1) TABLET BY MOUTH ONCE DAILY Rx Instructions: TAKE ONE (1) TABLET BY MOUTH ONCE DAILY topiramate 100 mg tablet See Rx Instructions .ROUTE .COMPLEX Qty: 30 5RF Dose Instruction: TAKE ONE TABLET BY MOUTH AT BEDTIME FOR PREVENTION OF MIGRAINE HEADACHE Rx Instructions: TAKE ONE TABLET BY MOUTH AT BEDTIME FOR PREVENTION OF MIGRAINE HEADACHE Calcium 500 500 mg calcium (1,250 mg) Tablet 500 mg PO DAILY Nitrostat 0.4 mg Tablet, Sublingual 0.4 mg SUBLINGUAL Q5M PRN (Reason: Chest Pain) Rx Instructions: do not exceed 3 doses per episode Vitamin D3 1 cap PO DAILY atorvastatin 40 mg tablet 40 mg PO QAM ipratropium-albuterol 0.5 mg-3 mg(2.5 mg base)/3 mL solution for nebulization 3 ml inhalation TID PRN (Reason: Shortness Of Breath) ibuprofen 800 mg tablet 800 mg PO BID clopidogrel 75 mg tablet 75 mg PO QAM Adult Aspirin Regimen 81 mg tablet,delayed release (DR/EC) 81 mg PO QAM Benadryl Allergy 25 mg tablet 25 mg PO DAILY PRN (Reason: Allergy Symptoms) Miralax 17 gram/dose powder 17 g PO DAILY PRN (Reason: constipation) metoprolol tartrate 50 mg tablet See Rx Instructions .ROUTE .COMPLEX Rx Instructions: 50 mg orally qam and 25mg po bedtime isosorbide mononitrate 30 mg tablet extended release 24 hr 30 mg PO BEDTIME Discharge Orders: Discharge ED (Routine); Ordered 02/28/22 Ordered By: Hugo Arauz Referrals: Filiberto Downs MD [Primary Care Provider] - Discharge Diet: Usual diet Discharge Activity: Increase activity as tolerated Patient Instructions: Bacterial Pneumonia (ED), Opioid Safety, Pain Management Activity Restrictions/Additional Instructions: Thank you for visiting the emergency department. You were seen and evaluated for shortness of breath cough associated with generalized illness. You were found to have bacterial pneumonia which will be treated with antibiotics. Please also continue your home medications including breathing treatments given underlying lung disease. Please follow-up with your primary care provider. Return to the emergency department for worsening symptoms or anything else that you are concerned about and feel needs emergency department evaluation. Coding Level of Care Code ED Third Shift Lieutenant for Mary Barkley
[2022-02-28] MEDS: ipratropium-albuterol 3 mL Neb INHALATION (20:08)
[2022-02-28 20:28] LABS: Basophils % 0.2 %; Hematocrit 39.9 % (37.0-47.0); Hemoglobin 12.9 g/dL (11.5-15.3); Lymphocytes # 1.9 10^3/uL (0.8-4.8); Lymphocytes % 10.4 %; Mean Corpuscular HGB Conc 32.3 g/dL (30.0-36.0); Mean Corpuscular Hemoglobin 28.5 pg (28.0-34.0); Mean Corpuscular Volume 88.3 fl (81-99); Mean Platelet Volume 9.6 fL (7.4-10.4); Monocytes # 1.3 10^3/uL (0.2-0.9); Monocytes % 7.1 %; Neutrophils # 15.05 10^3/uL (1.8-7.7); Neutrophils % 81.9 %; Nucleated Red Blood Cells % 0 %; Platelet Count 299 10^3/cmm (130-400); Red Blood Count 4.52 10^6/uL (4.1-5.3); Red Cell Distribution Width 14.2 % (12.1-15.1); White Blood Count 18.4 10^3/uL (4.0-10.0)
[2022-02-28 20:50] LABS: Troponin(5th) Baseline 20 ng/L (0-10)
[2022-02-28 20:51] LABS: Lactic Sepsis W/Reflex 1.5 mmol/L (0.5-2.2)
[2022-02-28 21:10] LABS: Alanine Aminotransferase 9 U/L (0-33); Albumin Level 3.8 g/dL (3.5-5.2); Alkaline Phosphatase 113 U/L (35-105); Anion Gap 17.2 (5-19); Aspartate Amino Transferase 17 U/L (0-32); Blood Urea Nitrogen 18 mg/dL (8-23); Calcium 9.6 mg/dL (8.5-10.5); Carbon Dioxide 16 mmol/L (22-29); Chloride 103 mmol/L (98-107); Globulin 3.4 g/dL (1.3-4.6); Glomerular Filtration Rate 62.1 mL/min (90-130); Glucose 114 mg/dL (65-115); NT Pro B Type Natriuretic Pept 3149 pg/mL (0-125); Osmolality Calculated 277 mOsm/kg (285-295); Potassium 4.2 mmol/L (3.5-5.1); Sodium 132 mmol/L (136-145); Total Bilirubin 0.2 mg/dL (0.15-1.2); Total Protein 7.2 g/dL (6.6-8.7)
--- NOTE | 2022-02-28 21:32 | ECG_ITS ---
[facility] Test Date: 2022-02-28 Pat Name: Michael Dodson Department: Room: Gender: Female Manager Food Beverage: : 1950 Requested By: Hugo Arauz Order Number: [id number] Krista MD: Maciej Rucker M.D. Measurements Intervals [place] Rate: 71 P: 65 IA: 190 QRS: 23 QRSD: 93 T: 52 QT: 373 QTc: 406 Interpretive Statements SINUS RHYTHM WITH OCCASIONAL SUPRAVENTRICULAR PREMATURE COMPLEXES POSSIBLE LEFT ATRIAL ENLARGEMENT [-0.1mV P-WAVE IN V1/V2] Compared to ECG 02/28/2022 19:49:43 No significant changes Electronically Signed On 03-02-2022 6:33:30 BIOTECHNOLOGIST by Maciej Rucker M.D. [id number]
[2022-02-28 21:45] LABS: Lactate (Lactic Acid level) 1.3 mmol/L (0.5-2.2)
[2022-02-28] MEDS: cefTRIAXone 1,000 MG in sodium chloride 0.9% (plus) 50 ML 100 MG IV (21:49)
[2022-02-28] MEDS: doxycycline 100 MG in sodium chloride 0.9% (plus) 100 ML IV (22:25)
[2022-02-28 22:37] LABS: Troponin 5 2HR 18.11 ng/L (0-10)
[2022-02-28 22:43] LABS: Troponin 5 2HR Delta -1.89 ABS# (0-10)
== END 2022-02-28 23:39 | disposition home or self-care (01) ==
PROVIDERS: Emergency Provider Emergency Medicine; PCP Family Medicine Adult Medicine
DX: J18.9 Pneumonia, unspecified organism (principal); J44.9 Chronic obstructive pulmonary disease, unspecified; I10 Essential (primary) hypertension; F17.210 Nicotine dependence, cigarettes, uncomplicated
CPT/HCPCS: 36415; 71045; 80053; 83605; 83880; 84484; 85025; 87040; 87150; 87186; 87205; 93005; 94640; 96365; 96367; 96375; 99285; J0696; J2930; J3490

== ENCOUNTER → 2022-04-19 10:23 | Outpatient (BNVA) | payer MEDICARE, MEDICAID, SELFPAY | PROVIDERS: PCP Family Medicine Adult Medicine; Visit Provider Internal Medicine Cardiovascular Disease | DX: I73.9 Peripheral vascular disease, unspecified (principal); I11.0 Hypertensive heart disease with heart failure; I50.9 Heart failure, unspecified; Z95.0 Presence of cardiac pacemaker; I77.9 Disorder of arteries and arterioles, unspecified; J43.1 Panlobular emphysema; F17.210 Nicotine dependence, cigarettes, uncomplicated | CPT/HCPCS: 99214 ==

== ENCOUNTER → 2022-06-12 08:48 | Outpatient (BNVA) | payer MEDICARE, MEDICAID, SELFPAY | PROVIDERS: PCP Family Medicine Adult Medicine; Visit Provider Internal Medicine Cardiovascular Disease | DX: Z45.010 Encounter for checking and testing of cardiac pacemaker pulse generator [battery] (principal) | CPT/HCPCS: 93296 ==

== ENCOUNTER 2022-06-22 14:21 | Outpatient (CLI) | payer MEDICARE, MEDICAID, SELFPAY ==
--- NOTE | 2022-06-22 14:30 | USCV_ITS ---
Michael Dodson Age: 71 Gender: F : 1950 Exam Date: 06/22/2022 15:02 Ordering Phys: Angela Johnson MD ([email or web address]) Technologist: Mariia Sheriff Exam Location: [facility] [place] Indication: Known occluded lt ica/cca Risk Factors: Previous Vascular Surgery: Right Brachial BP: / Left Brachial BP: / Right Left Velocity (cm/s) Spectral Plaque Velocity (cm/s) Spectral Plaque Syst/Diast Broadening Syst/Diast Broadening 174.00/35.70 Prox CCA / 111.90/24.90 Mid CCA / 108.80/32.60 Distal CCA / 133.60/26.40 Prox ICA / 147.60/38.80 Mid ICA / 177.10/45.10 Distal ICA / 181.80 ECA 44.10 1.58 ICA/CCA Vertebral 83.90/ 20.20 cm/s 103.4/ 10.10 cm/s 0 Subclavian 174.0 140.9 0 0 FINDINGS Intimal thickening and minimal plaque in the right common carotid artery. Mild to moderate plaque at the right bifurcation Patent stented segment of the proximal right ICA with a normal velocity Relatively high velocity in the common carotid ventricle carotid artery on the right side No Doppler flow signals in the left common carotid and internal carotid artery. The late peaking low velocity Doppler waveform in the left external carotid artery. CONCLUSIONS 1. 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 Patent external carotid with abnormal flow pattern suggesting proximal occlusion. 2. Patent stented segment of the right proximal ICA. 3. Mild to moderate plaque at the right bifurcation. Dr Bailey Awad MD [facility] (Electronically Signed) Final Date: 23 June 2022 18:00 S
== END 2022-06-22 14:22 | disposition home or self-care (01) ==
LOC: RAD 14:27
PROVIDERS: PCP Family Medicine Adult Medicine; Visit Provider Internal Medicine Cardiovascular Disease
DX: I65.23 Occlusion and stenosis of bilateral carotid arteries (principal); R09.89 Other specified symptoms and signs involving the circulatory and respiratory systems
CPT/HCPCS: 93880

== ENCOUNTER → 2022-07-06 10:41 | Outpatient (BNVA) | payer MEDICARE, MEDICAID, SELFPAY | PROVIDERS: PCP Family Medicine Adult Medicine; Visit Provider Podiatrist Foot & Ankle Surgery | DX: I73.9 Peripheral vascular disease, unspecified (principal); L97.512 Non-pressure chronic ulcer of other part of right foot with fat layer exposed | CPT/HCPCS: 73630; 99204 ==

== ENCOUNTER → 2022-07-18 14:04 | Outpatient (BNVA) | payer MEDICARE, MEDICAID, SELFPAY | PROVIDERS: PCP Family Medicine Adult Medicine; Visit Provider Podiatrist Foot & Ankle Surgery | DX: I73.9 Peripheral vascular disease, unspecified (principal); L97.519 Non-pressure chronic ulcer of other part of right foot with unspecified severity | CPT/HCPCS: 99213 ==

== ENCOUNTER → 2022-08-01 15:06 | Outpatient (BNVA) | payer MEDICARE, MEDICAID, SELFPAY | PROVIDERS: PCP Family Medicine Adult Medicine; Visit Provider Podiatrist Foot & Ankle Surgery | DX: I73.9 Peripheral vascular disease, unspecified (principal); L97.519 Non-pressure chronic ulcer of other part of right foot with unspecified severity | CPT/HCPCS: 99213 ==

== ENCOUNTER → 2022-08-22 13:28 | Outpatient (BNVA) | payer MEDICARE, MEDICAID, SELFPAY | PROVIDERS: PCP Family Medicine Adult Medicine; Visit Provider Podiatrist Foot & Ankle Surgery | DX: L97.512 Non-pressure chronic ulcer of other part of right foot with fat layer exposed (principal); L97.519 Non-pressure chronic ulcer of other part of right foot with unspecified severity; I73.9 Peripheral vascular disease, unspecified | CPT/HCPCS: 11042 ==

== ENCOUNTER → 2022-08-23 11:19 | Outpatient (BNVA) | payer MEDICARE, MEDICAID, SELFPAY | PROVIDERS: PCP Family Medicine Adult Medicine; Visit Provider Nurse Practitioner Family | DX: I25.10 Atherosclerotic heart disease of native coronary artery without angina pectoris (principal); I65.22 Occlusion and stenosis of left carotid artery; Z95.1 Presence of aortocoronary bypass graft; Z86.73 Personal history of transient ischemic attack (TIA), and cerebral infarction without residual deficits; I13.0 Hypertensive heart and chronic kidney disease with heart failure and stage 1 through stage 4 chronic kidney disease, or unspecified chronic kidney disease; I50.22 Chronic systolic (congestive) heart failure; N18.2 Chronic kidney disease, stage 2 (mild); E78.5 Hyperlipidemia, unspecified; I87.8 Other specified disorders of veins; Z95.0 Presence of cardiac pacemaker | CPT/HCPCS: 93005; 99214 ==

== ENCOUNTER → 2022-09-05 13:31 | Outpatient (BNVA) | payer MEDICARE, MEDICAID, SELFPAY | PROVIDERS: PCP Family Medicine Adult Medicine; Visit Provider Podiatrist Foot & Ankle Surgery | DX: I73.9 Peripheral vascular disease, unspecified (principal); L97.519 Non-pressure chronic ulcer of other part of right foot with unspecified severity | CPT/HCPCS: 99213 ==

== ENCOUNTER → 2022-09-26 11:05 | Outpatient (BNVA) | payer MEDICARE, MEDICAID, SELFPAY | PROVIDERS: PCP Family Medicine Adult Medicine; Visit Provider Podiatrist Foot & Ankle Surgery | DX: Z51.89 Encounter for other specified aftercare (principal); I73.9 Peripheral vascular disease, unspecified; L97.529 Non-pressure chronic ulcer of other part of left foot with unspecified severity | CPT/HCPCS: 99213 ==

== ENCOUNTER 2022-12-22 09:35 | Emergency (ER) | payer MEDICARE, MEDICAID, SELFPAY ==
[2022-12-22 09:38] VITALS: BP 125/59; PULSE 64; RESP 18; TEMP 36.9; O2SAT 96; BMI 16.1
[2022-12-22 10:02] VITALS: BP 131/92; PULSE 63; RESP 17; O2SAT 97
--- NOTE | 2022-12-22 10:07 | XRR_ITS ---
PROCEDURE INFORMATION: Exam: XR Chest Exam date and time: 12/22/2022 10:10 AM Age: 72 years old Clinical indication: Cough; Additional info: Cough, congestion TECHNIQUE: Imaging protocol: Radiologic exam of the chest. Views: 1 view. COMPARISON: CR XR chest 1V portable [id number] 02/28/2022 8:49 PM FINDINGS: Lungs: Normal lung volumes. Unchanged blunting of bilateral costophrenic sulci is seen, right more than left. This may represent tiny chronic pleural effusions or pleural thickening. Unchanged mild right apical pleuroparenchymal scarring is seen with some calcified granulomas. Some emphysematous changes are seen in the lungs without change. No confluent interstitial or airspace opacities in the lungs. Pleural spaces: No pneumothorax. Heart/Mediastinum: Normal heart size. There is a left subclavian dual chamber pacemaker seen without change. Status post median sternotomy with sternal wires. There is a mildly tortuous thoracic aorta. Midline trachea. Bones/joints: No acute osseous abnormalities seen. Surgical clips are seen in the right upper quadrant of the abdomen, likely related to prior cholecystectomy. XR/XR chest 1V portable [id number] IMPRESSION: 1. No confluent infiltrates in the lungs. 2. Chronic changes, as noted above.
--- NOTE | 2022-12-22 10:13 | W.ED.URI ---
HPI - URI/Sore Throat General: Chief Complaint: Upper Respiratory Infection Stated Complaint: sob, cough Time Seen by Provider: 12/22/22 09:38 History of Present Illness: Nilam Dodson is a 72-year-old female that presents to the emergency department with complaints of cough and shortness of breath. Onset of symptoms 2 days ago. Patient reports that she has chronic allergy-like symptoms. She has been taking Zyrtec as well as her home medications her symptoms have progressively worsened. She has 2 family members that have been ill and been around her. She denies fever or chills She does report thick green sputum. Patient has a history of hypertension, cardiovascular disease, carotid artery disease, CHF, CKD, hepatitis C, COPD, osteoporosis, peripheral vascular disease, that resulted in a right BKA Associated symptoms: Reports nasal congestion; Deny abdominal pain, chills, chest pain, diarrhea, ear or mastoid pain, fever(s), headache(s), nausea, sinus pain or vomiting Review of Systems General: Reports: 10 or more systems reviewed and unremarkable except in HPI and below Const: Denies: fever(s), chills, change in appetite, change in weight, fatigue or malaise Eyes: Denies: change in vision, eye discomfort, eye discharge or eye redness ENMT: Reports: nasal discharge, nasal congestion and post nasal drip; Denies: throat pain, enlarged tonsils, odynophagia, hoarseness, ear or mastoid pain, ear discharge, change in hearing, tinnitus or sinus pain Card: Denies: chest pain, palpitations, irregular heart rhythm, edema, dyspnea on exertion, orthopnea or leg pain with exertion Resp: Reports: dyspnea, productive cough, change in phlegm color and chest congestion; Denies: non-productive cough, wheezing or stridor GI: Denies: abdominal pain, nausea, vomiting, dysphagia, diarrhea, constipation, bloating, GI cramping or hematochezia : Denies: flank pain, difficulty voiding, dysuria, urinary frequency, urinary urgency, urinary hesitancy, oliguria or hematuria Musc: Denies: neck pain, back pain, extremity pain, joint pain, joint swelling, joint redness, joint warmth or muscle weakness Skin/Breast: Denies: rash, pruritus, erythema, photosensitivity or new lesions Neuro: Denies: headache(s), numbness in extremities, weakness in extremities, sensory changes, lack of coordination, difficulty walking, frequent falls, dizziness, confusion, Slurred speech present, difficulty communicating thoughts, seizure-like activity or involuntary movements Endo: Denies: polyuria, polydipsia or tired all the time Elmo/Lymph: Denies: easy bruising or easy bleeding PFSH ED PFSH: Medical History (Updated 12/22/22 @ 13:36 by PHILIPPE Carrington) Anxiety and depression Benign essential HTN CAD (coronary artery disease) Carotid artery disease CHF (congestive heart failure), NYHA class III Chronic low back pain [facility], Dr. Ferguson CKD (chronic kidney disease) stage 2, GFR 60-89 ml/min Constipation, chronic COPD (chronic obstructive pulmonary disease) COPD exacerbation Critical limb ischemia of right lower extremity Admission to [facility] 06/29-07/01/2021 and stenting of R distal SFA and proximal popliteal artery. In [facility], Dr Nance RLE Stent 05/07/2022 Enrolled in chronic care management Essential hypertension Headache, migraine Nicotine dependence with current use Opioid contract exists [facility], Dr. Ferguson Osteoporosis Peripheral vascular disease Right above-knee amputee Surgery 10/26/2022 at [facility] Surgical History S/P balloon angioplasty of pulmonary artery branches ILIAC ARTERY-2015 FEMORAL ARTERY 2015 S/P carotid endarterectomy 1995 S/P hysterectomy S/P right cataract extraction S/p total knee replacement, bilateral Status post placement of cardiac pacemaker 2015 Family History Other Diabetes Stroke Social History Smoking and tobacco status: current some day smoker cigarettes [ Other cigarette details: 1 PK Q 3-4 DAYS ] Alcohol intake: never Substance/Drug Use: never Physical Exam Const: COMMON NORMALS: no acute distress, patient oriented x3 and alert GENERAL APPEARANCE: cooperative ORIENTATION/CONSCIOUSNESS: Yes awake, Yes oriented to person, Yes oriented to place and Yes oriented to time HENMT: COMMON NORMALS: normocephalic and atraumatic HEAD & SCALP: normocephalic and atraumatic FACE & SINUS: normal facial exam MOUTH: Normal oral and palatal mucosa present THROAT: posterior oropharynx normal Eye: COMMON NORMALS: Equal, round and reactive pupils present, EOMs intact bilaterally, conjunctivae normal and no scleral icterus GENERAL EYE: appearance normal, both eyes and all related structures ALIGNMENT: Yes alignment normal PERIORBITAL: periorbital findings normal CONJUNCTIVA: Yes conjunctivae normal PUPIL: Yes Equal, round and reactive pupils present Neck/C-Spine: COMMON NORMALS: full ROM GENERAL: Yes normal visual inspection Lymph: LYMPHATIC: no lymphadenopathy noted Chest: COMMONS NORMALS: normal inspection of the chest Breast/axilla inspection: Yes no chest deformity, asymmetry, normal contours, no nodules, masses, tenderness Resp: COMMON NORMALS: normal respiratory effort, No retractions and No use of accessory muscles; negative for clear to auscultation bilaterally EFFORT & INSPECTION: Yes able to speak in complete sentences and Yes symmetric chest movement AUSCULTATION: not clear to auscultation bilaterally, rhonchi left upper and right lower and bronchovesicular breath sounds Cardio: COMMON NORMALS: regular rate, regular rhythm and Peripheral pulses 2+ throughout RATE: regular rate RHYTHM: regular rhythm PERIPHERAL PULSES: Peripheral pulses 2+ throughout GI: COMMON NORMALS: Normal to inspection, nondistended, normoactive bowel sounds present, Soft to palpation, non-tender and No hepatosplenomegaly present INSPECTION: Yes normal to inspection AUSCULTATION: Yes normoactive bowel sounds PALPATION: Yes Soft to palpation and Yes No hepatosplenomegaly present RECTAL EXAM: deferred Extremity: COMMON NORMALS: normal to inspection GENERAL: Yes normal exam except as noted Neuro: COMMON NORMALS: patient oriented x3 SENSORIUM/ORIENTATION: Yes alert, Yes oriented to person, Yes oriented to place and Yes oriented to time CRANIAL NERVES: Yes CN normal except as noted Psych: COMMON NORMALS: mental status grossly normal, Normal thought process present, cooperative, activity/motor behavior normal, denies homicidal ideation and denies suicidal ideation THOUGHT PROCESS: Normal thought process present Skin: COMMON NORMALS: no rashes or lesions noted, no wounds and turgor normal GENERAL SKIN EXAM: no rashes or lesions noted and turgor normal Course Vital Signs: Vital signs: Vital Signs Temperature 98.4 F 12/22/22 09:38 Pulse Rate 63 12/22/22 10:02 Respiratory Rate 17 09/09/23 10:02 Blood Pressure 131/92 12/22/22 10:02 Pulse Oximetry 97 12/22/22 10:02 Oxygen Delivery Me thod Room Air 12/22/22 09:38 MDM - URI/Sore Throat Medical Decision Making Patient was evaluated in the emergency department due to cough and shortness of breath. [place] diagnosis includes COVID or other respiratory virus, CHF, pneumonia, bronchitis, sinusitis, Patient underwent laboratory evaluation, EKG, chest x-ray. Patient is COVID-negative EKG unchanged from baseline. EKG revealed Chest x-ray reveals no definite new infiltrate. Does have a productive cough and a white count of 20,000. Troponin is 31 and BNP is 9700. IV access was established, troponin delta and lactic acid was ordered to rule out severe disease. Both negative. I discussed this case with Dr. Powers. At this time no further radiographic diagnostics are warranted. Patient is going to be ambulated and will be treated for community-acquired pneumonia and heart failure Patient was given steroids, doxycycline for community-acquired pneumonia and Lasix. Patient is going to discharge home on steroids, Doxy and her routine home meds. Lab Data 12/22/22 10:35 12/22/22 10:35 Radiology Impressions Chest X-Ray 12/22/22 10:07 IMPRESSION: 1. No confluent infiltrates in the lungs. 2. Chronic changes, as noted above. Laboratory Results WBC 19.62 10^3/uL (3.29-11.43) H 12/22/22 10:35 RBC 3.83 10^6/uL (3.85-5.65) L 12/22/22 10:35 Hgb 10.80 g/dL (11.27-16.99) L 12/22/22 10:35 Hct 35.9 % (36-47) L 12/22/22 10:35 MCV 93.7 fl (85-98) 12/22/22 10:35 MCH 28.2 pg (27-33) 12/22/22 10:35 MCHC 30.1 g/dL (30-55) 12/22/22 10:35 RDW 14.9 % (12.1-15.1) 12/22/22 10:35 Plt Count 249 10^3/cmm (157-399) 12/22/22 10:35 MPV 10.1 fL (7.4-10.4) 12/22/22 10:35 Neut % (Auto) 78.5 % 12/22/22 10:35 Lymph % (Auto) 11.2 % 12/22/22 10:35 [place] % (Auto) 9.2 % 12/22/22 10:35 Eos % (Auto) 0.2 % 12/22/22 10:35 Baso % (Auto) 0.3 % 12/22/22 10:35 Neut # (Auto) 15.43 10^3/uL (1.8-7.7) H 12/22/22 10:35 Lymph # (Auto) 2.2 10^3/uL (0.8-4.8) 12/22/22 10:35 [place] # (Auto) 1.8 10^3/uL (0.2-0.9) H 12/22/22 10:35 Eos # (Auto) 0.0 10^3/uL (0.0-0.8) 12/22/22 10:35 Baso # (Auto) 0.1 10^3/uL (0.0-0.1) 12/22/22 10:35 Nucleated RBC % (auto) 0 % 12/22/22 10:35 Nucleated RBCs # 0.0 /100WBC 12/22/22 10:35 Sodium 134 mmol/L (136-145) L 12/22/22 10:35 Potassium 4.3 mmol/L (3.5-5.1) 12/22/22 10:35 Chloride 104 mmol/L (98-107) 12/22/22 10:35 Carbon Dioxide 16 mmol/L (22-29) L 12/22/22 10:35 Anion Gap 18.3 (5-19) 12/22/22 10:35 BUN 15 mg/dL (8-23) 12/22/22 10:35 Creatinine 0.8 mg/dL (0.5-0.9) 12/22/22 10:35 GFR Calculation 70.9 mL/min (90-130) L 12/22/22 10:35 Glucose 101 mg/dL (65-115) 12/22/22 10:35 Calculated Osmolality 279 mOsm/kg (285-295) L 12/22/22 10:35 Lactic Acid 1.2 mmol/L (0.5-2.2) 12/22/22 12:29 Calcium 9.6 mg/dL (8.5-10.5) 12/22/22 10:35 Total Bilirubin 0.4 mg/dL (0.15-1.2) 12/22/22 10:35 AST 13 U/L (0-32) 12/22/22 10:35 ALT 13 U/L (0-33) 12/22/22 10:35 Alkaline Phosphatase 115 U/L (35-105) H 12/22/22 10:35 Troponin T Baseline 31 ng/L (0-10) H 12/22/22 10:35 Troponin T 120 Minute 30.24 ng/L (0-10) H 12/22/22 12:29 Delta Troponin T -0.76 ABS# (0-10) L 12/22/22 12:29 NT-Pro-B Natriuret Pep 9709 pg/mL (0-125) H 12/22/22 10:35 Total Protein 6.5 g/dL (6.6-8.7) L 12/22/22 10:35 Albumin 3.5 g/dL (3.5-5.2) 12/22/22 10:35 Globulin 3.0 g/dL (1.3-4.6) 12/22/22 10:35 SARS-CoV-2 Ag (Rapid) negative (Negative) 12/22/22 10:38 Discharge Plan Discharge Patient Disposition: Home Clinical Impression: Pneumonia, COPD (chronic obstructive pulmonary disease), CHF (congestive heart failure), NYHA class III Condition: Stable Prescriptions: New doxycycline hyclate 100 mg tablet 100 mg PO BID 10 Days Qty: 20 0RF Medrol (Ace) 4 mg tablets,dose pack See Rx Instructions .ROUTE .COMPLEX Qty: 21 0RF Rx Instructions: orally per package directions No Action hydrocodone-acetaminophen 7.5-325 mg tablet 1 tab PO TID PRN (Reason: pain) 30 Days Qty: 90 0RF Rx Instructions: fill on or after 3o day interval montelukast 10 mg tablet 10 mg PO DAILY ipratropium-albuterol 0.5 mg-3 mg(2.5 mg base)/3 mL solution for nebulization 3 ml inhalation TID PRN (Reason: Shortness Of Breath) Qty: 90 0RF Nitrostat 0.4 mg tablet, sublingual 0.4 mg SUBLINGUAL Q5M PRN (Reason: Chest Pain) Qty: 10 3RF Rx Instructions: do not exceed 3 doses per episode budesonide-formoterol [Symbicort] 160-4.5 mcg/actuation HFA aerosol inhaler 1 puff inhalation BID Qty: 10.2 0RF (DME) walker with a seat See Rx Instructions .Route .MEDSUPPLY Qty: 1 0RF Rx Instructions: As directed atorvastatin 40 mg tablet 40 mg PO QAM Qty: 90 2RF potassium chloride 10 mEq capsule, extended release 10 meq PO BID Qty: 180 3RF ibuprofen 800 mg tablet 800 mg PO BID Qty: 60 5RF albuterol sulfate [ProAir HFA] 90 mcg/actuation HFA aerosol inhaler 2 puff INHALATION Q6H PRN (Reason: shortness of breath or wheezing) Qty: 8.5 3RF citalopram [Celexa] 10 mg tablet 10 mg PO DAILY Qty: 30 2RF spironolactone 25 mg tablet 12.5 mg PO QAM Qty: 45 1RF fluticasone propionate 50 mcg/actuation spray,suspension 1 spray intranasal BID PRN (Reason: Allergy Symptoms) Qty: 16 2RF Rx Instructions: administer into each nostril calcium carbonate [Calcium 500] 500 mg calcium (1,250 mg) Tablet 500 mg PO DAILY Vitamin D3 1 cap PO DAILY aspirin [Adult Aspirin Regimen] 81 mg tablet,delayed release (DR/EC) 81 mg PO QAM diphenhydramine HCl [Benadryl Allergy] 25 mg tablet 25 mg PO DAILY PRN (Reason: Allergy Symptoms) polyethylene glycol 3350 [Miralax] 17 gram/dose powder 17 g PO DAILY PRN (Reason: constipation) methocarbamol 500 mg tablet 500 mg PO BID trazodone 50 mg tablet 100 mg PO BEDTIME isosorbide mononitrate 30 mg tablet extended release 24 hr 15 mg PO DAILY clopidogrel 75 mg tablet 75 mg PO DAILY metoprolol tartrate 50 mg tablet 50 mg PO BID oxybutynin chloride 5 mg tablet extended release 24hr 5 mg PO DAILY topiramate 100 mg tablet 100 mg PO BEDTIME Discharge Orders: Discharge ED (Routine); Ordered 12/22/22 Ordered By: Vickie Castillo Referrals: Filiberto Downs MD [Primary Care Provider] - Discharge Diet: Advance as tolerated Discharge Activity: Resume usual activity Patient Instructions: Heart Failure (ED), COPD (Chronic Obstructive Pulmonary Disease) (ED), Community Acquired Pneumonia (ED), Pain Management Coding Level of Care Code ED [employer] for Mary Barkley
--- NOTE | 2022-12-22 10:34 | ECG_ITS ---
[facility] Test Date: 2022-12-22 Pat Name: Michael Dodson Department: Room: Gender: Female Lead Manufacturing Engineer: : 1950 Requested By: Vickie Bourgeois Order Number: [id number] Reading MD: Carlos Alberto Patel M.D. Measurements Intervals [place] Rate: 65 P: 137 DE: 204 QRS: 37 QRSD: 106 T: -9 QT: 413 QTc: 432 Interpretive Statements ELECTRONIC ATRIAL PACEMAKER ST DEVIATION AND MODERATE T-WAVE ABNORMALITY, CONSIDER ANTEROLATERAL ISCHEMIA [-0.1+ mV T-WAVE IN V3-V6] Compared to ECG 08/23/2022 11:25:45 No significant changes Electronically Signed On 12-22-2022 13:59:00 CDT by Carlos Alberto Patel M.D. [id number]
--- NOTE | 2022-12-22 10:35 | PC.NURSE ---
Attempted IV 3 different time by myself and Marium Daniels RN we were unsuccessful. I went and spoke to the provider Jalyn Castillo in regards to the IV and medication and she said we would give all her meds IM.
[2022-12-22 10:59] LABS: Basophils # 0.1 10^3/uL (0.0-0.1); Basophils % 0.3 %; Eosinophils % 0.2 %; Hematocrit 35.9 % (36-47); Lymphocytes # 2.2 10^3/uL (0.8-4.8); Lymphocytes % 11.2 %; Mean Corpuscular HGB Conc 30.1 g/dL (30-55); Mean Corpuscular Hemoglobin 28.2 pg (27-33); Mean Corpuscular Volume 93.7 fl (85-98); Mean Platelet Volume 10.1 fL (7.4-10.4); Monocytes # 1.8 10^3/uL (0.2-0.9); Monocytes % 9.2 %; Neutrophils # 15.43 10^3/uL (1.8-7.7); Neutrophils % 78.5 %; Nucleated Red Blood Cells % 0 %; Platelet Count 249 10^3/cmm (157-399); Red Blood Count 3.83 10^6/uL (3.85-5.65); Red Cell Distribution Width 14.9 % (12.1-15.1); White Blood Count 19.62 10^3/uL (3.29-11.43)
[2022-12-22 11:16] LABS: SARS Covid-2 Antigen negative (Negative)
[2022-12-22 11:32] LABS: Troponin(5th) Baseline 31 ng/L (0-10)
[2022-12-22 11:40] LABS: Alanine Aminotransferase 13 U/L (0-33); Albumin Level 3.5 g/dL (3.5-5.2); Alkaline Phosphatase 115 U/L (35-105); Anion Gap 18.3 (5-19); Aspartate Amino Transferase 13 U/L (0-32); Blood Urea Nitrogen 15 mg/dL (8-23); Calcium 9.6 mg/dL (8.5-10.5); Carbon Dioxide 16 mmol/L (22-29); Chloride 104 mmol/L (98-107); Glomerular Filtration Rate 70.9 mL/min (90-130); Glucose 101 mg/dL (65-115); Osmolality Calculated 279 mOsm/kg (285-295); Potassium 4.3 mmol/L (3.5-5.1); Sodium 134 mmol/L (136-145); Total Bilirubin 0.4 mg/dL (0.15-1.2); Total Protein 6.5 g/dL (6.6-8.7)
[2022-12-22 12:22] LABS: NT Pro B Type Natriuretic Pept 9709 pg/mL (0-125)
--- NOTE | 2022-12-22 12:24 | ECG_ITS ---
[facility] Test Date: 2022-12-22 Pat Name: Michael Dodson Department: Room: Gender: Female Software Engineering Specialist: : 1950 Requested By: Vickie Bourgeois Order Number: [id number] Reading MD: Carlos Alberto Patel M.D. Measurements Intervals [place] Rate: 67 P: 72 NC: 193 QRS: 54 QRSD: 105 T: 53 QT: 398 QTc: 420 Interpretive Statements SINUS RHYTHM POSSIBLE LEFT ATRIAL ENLARGEMENT [-0.1mV P-WAVE IN V1/V2] ST DEVIATION AND MODERATE T-WAVE ABNORMALITY, CONSIDER ANTEROLATERAL ISCHEMIA [-0.1+ mV T-WAVE IN V3-V6] Compared to ECG 12/22/2022 10:34:33 Atrial-paced complex(es) or rhythm no longer present T-wave abnormality still present Possible ischemia still present Electronically Signed On 12-22-2022 14:05:02 CDT by Carlos Alberto Patel M.D. [id number]
[2022-12-22 12:59] LABS: Troponin 5 2HR 30.24 ng/L (0-10)
[2022-12-22 13:05] LABS: Lactic Sepsis W/Reflex 1.2 mmol/L (0.5-2.2)
[2022-12-22 13:06] LABS: Troponin 5 2HR Delta -0.76 ABS# (0-10)
[2022-12-22] MEDS: methylPREDNISolone sod succ 125 MG in water for injection-sterile 2 ML 24 MG IVP (13:59)
[2022-12-22] MEDS: FUROsemide 10 mg/mL SDV 4mL 40 MG IVP (14:00)
[2022-12-22] MEDS: doxycycline 100 mg Tablet PO (14:06)
== END 2022-12-22 14:34 | disposition home or self-care (01) ==
PROVIDERS: Emergency Provider Nurse Practitioner; PCP Family Medicine Adult Medicine
DX: J44.0 Chronic obstructive pulmonary disease with (acute) lower respiratory infection (principal); J18.9 Pneumonia, unspecified organism; I50.9 Heart failure, unspecified; Z79.82 Long term (current) use of aspirin; Z79.02 Long term (current) use of antithrombotics/antiplatelets; Z20.822 Contact with and (suspected) exposure to COVID-19; F17.210 Nicotine dependence, cigarettes, uncomplicated; I25.10 Atherosclerotic heart disease of native coronary artery without angina pectoris; I13.0 Hypertensive heart and chronic kidney disease with heart failure and stage 1 through stage 4 chronic kidney disease, or unspecified chronic kidney disease; N18.2 Chronic kidney disease, stage 2 (mild); Z95.0 Presence of cardiac pacemaker
CPT/HCPCS: 36415; 71045; 80053; 83605; 83880; 84484; 85025; 87426; 93005; 96365; 96375; 99285; J1940; J2930

== ENCOUNTER → 2022-12-25 08:25 | Outpatient (BNVA) | payer MEDICARE, MEDICAID, SELFPAY | PROVIDERS: PCP Family Medicine Adult Medicine; Visit Provider Internal Medicine Cardiovascular Disease | DX: Z45.010 Encounter for checking and testing of cardiac pacemaker pulse generator [battery] (principal) | CPT/HCPCS: 93296 ==

== ENCOUNTER → 2023-01-16 14:52 | Outpatient (BNVA) | payer MEDICARE, MEDICAID, SELFPAY | PROVIDERS: PCP Family Medicine Adult Medicine; Visit Provider Internal Medicine Cardiovascular Disease | DX: I77.9 Disorder of arteries and arterioles, unspecified (principal); I25.10 Atherosclerotic heart disease of native coronary artery without angina pectoris; I73.9 Peripheral vascular disease, unspecified; Z95.0 Presence of cardiac pacemaker; I13.0 Hypertensive heart and chronic kidney disease with heart failure and stage 1 through stage 4 chronic kidney disease, or unspecified chronic kidney disease; F17.210 Nicotine dependence, cigarettes, uncomplicated; N18.2 Chronic kidney disease, stage 2 (mild); I50.9 Heart failure, unspecified | CPT/HCPCS: 99214 ==

== ENCOUNTER → 2023-05-15 14:00 | Outpatient (BNVA) | payer MEDICARE, MEDICAID, SELFPAY | PROVIDERS: PCP Family Medicine Adult Medicine; Visit Provider Internal Medicine | DX: Z45.010 Encounter for checking and testing of cardiac pacemaker pulse generator [battery] (principal) | CPT/HCPCS: 93296 ==

== ENCOUNTER 2023-07-25 15:16 | Emergency (ER) | payer MEDICARE, MEDICAID, SELFPAY ==
[2023-07-25 15:19] VITALS: BP 171/72; PULSE 71; RESP 15; TEMP 36.9; O2SAT 96; BMI 17.1
--- NOTE | 2023-07-25 15:19 | XR_ITS ---
WS: [id number] Portable AP upright chest, 07/25/2023 Clinical Data: sob Comparison: Portable chest, 12/22/2022 Findings: No nodules, masses or effusions are seen. The heart is normal. The pulmonary vascularity is not increased. No pneumonia or pneumothorax is seen. The aortic arch and descending thoracic aorta s how mild tortuosity and calcification. There are midline sternotomy sutures. The pacemaker generator overlies the left lower chest. There is probable pleural reaction at the right lung base unchanged. T here is minimal patchy atelectasis and/or possible pneumonia over the surface of the left diaphragm. Impression: 1. Probable patchy atelectasis with a small chance of pneumonia over the surface of the left diaphrag m. 2. Right pleural reaction unchanged. 3. Permanent pacemaker in atherosclerosis.
[2023-07-25 15:40] VITALS: PULSE 74; RESP 16; O2SAT 97
[2023-07-25] MEDS: ipratropium-albuterol 3 mL Neb INHALATION (15:43)
[2023-07-25] MEDS: dexamethasone 10 mg/mL INJ IM (15:53)
[2023-07-25 15:56] LABS: Basophils # 0.1 10^3/uL (0.0-0.1); Basophils % 0.2 %; Eosinophils % 0.2 %; Hematocrit 36.2 % (36-47); Lymphocytes # 3.1 10^3/uL (0.8-4.8); Lymphocytes % 13.9 %; Mean Corpuscular Hemoglobin 27.7 pg (27-33); Mean Corpuscular Volume 86.4 fl (85-98); Mean Platelet Volume 8.9 fL (7.4-10.4); Monocytes # 1.1 10^3/uL (0.2-0.9); Monocytes % 4.9 %; Neutrophils % 79.7 %; Nucleated Red Blood Cells % 0 %; Platelet Count 492 10^3/cmm (157-399); Red Blood Count 4.19 10^6/uL (3.85-5.65); Red Cell Distribution Width 14.6 % (12.1-15.1); White Blood Count 22.24 10^3/uL (3.29-11.43)
--- NOTE | 2023-07-25 15:58 | W.ED.SOB ---
HPI - SOB/Dyspnea General: Chief Complaint: Shortness of Breath/Dyspnea Stated Complaint: sob, cough Time Seen by Provider: 07/25/23 15:33 Source: patient Mode of arrival: ambulatory History of Present Illness: HPI Narrative: 72-year-old female presents emergency room complaining shortness of breath and cough. She has been getting practically worse for the last 2 to 3 days. She does not have a nebulizer at home she has been using inhalers was minimal relief of symptoms. She normally does not use oxygen except at night when she uses 2 L/min. She is total low-grade fever at home. Cough has become more productive patient does still smoke. MD elicited complaint: shortness of breath and cough Associated symptoms: Deny abdominal pain, chest pain, fever(s), nausea or vomiting Review of Systems Const: Denies: fever(s) or chills Card: Denies: chest pain Resp: Reports: dyspnea and productive cough GI: Denies: abdominal pain, nausea or vomiting : Denies: dysuria, urinary frequency or urinary urgency Musc: Denies: neck pain or back pain Skin/Breast: Denies: rash PFSH ED PFSH: Medical History Uses prosthesis Right above-knee amputee Surgery 10/26/2022 at [facility] in [place] CKD (chronic kidney disease) stage 2, GFR 60-89 ml/min Anxiety and depression Carotid artery disease Headache, migraine CHF (congestive heart failure), NYHA class III Critical limb ischemia of right lower extremity Admission to [facility] 06/29-07/01/2021 and stenting of R distal SFA and proximal popliteal artery. In [facility], Dr Nance RLE Stent 05/07/2022 Constipation, chronic Chronic low back pain [facility], Dr. Ferguson COPD exacerbation Opioid contract exists [facility], Dr. Ferguson Essential hypertension CAD (coronary artery disease) Benign essential HTN Peripheral vascular disease Enrolled in chronic care management COPD (chronic obstructive pulmonary disease) Nicotine dependence with current use Osteoporosis Surgical History S/p total knee replacement, bilateral S/P hysterectomy S/P balloon angioplasty of pulmonary artery branches ILIAC ARTERY-2016 FEMORAL ARTERY 2015 Status post placement of cardiac pacemaker 2015 S/P carotid endarterectomy 1995 S/P right cataract extraction Family History Other Diabetes Stroke Social History Smoking and tobacco/nicotine status: current some day tobacco/nicotine user cigarettes [ Other cigarette details: 1 PK Q 3-4 DAYS ] Alcohol intake: never Substance/Drug Use: never Physical Exam Const: COMMON NORMALS: no acute distress GENERAL APPEARANCE: cooperative and comfortable ORIENTATION/CONSCIOUSNESS: Yes awake, Yes oriented to person, Yes oriented to place and Yes oriented to time HENMT: COMMON NORMALS: normocephalic, atraumatic and hearing grossly normal bilaterally HEAD & SCALP: normocephalic and atraumatic Resp: COMMON NORMALS: normal respiratory effort, No retractions, No use of accessory muscles and clear to auscultation bilaterally AUSCULTATION: clear to auscultation bilaterally Cardio: COMMON NORMALS: regular rate, regular rhythm and No murmurs present (Cardio) RATE: regular rate RHYTHM: regular rhythm GI: COMMON NORMALS: Soft to palpation and No hepatosplenomegaly present AUSCULTATION: Yes normoactive bowel sounds PALPATION: Yes Soft to palpation, No Tenderness to palpation present (GI), No Guarding due to palpation present (GI) and Yes No hepatosplenomegaly present Extremity: COMMON NORMALS: normal to inspection, capillary refill normal, no clubbing, cyanosis or edema, no calf tenderness and no pedal edema Neuro: SENSORIUM/ORIENTATION: Yes oriented to person, Yes oriented to place and Yes oriented to time Skin: COMMON NORMALS: no rashes or lesions noted GENERAL SKIN EXAM: no rashes or lesions noted Course Vital Signs: Vital signs: Vital Signs Temperature 98.4 F 07/25/23 15:19 Pulse Rate 74 07/25/23 15:40 Respiratory Rate 16 07/25/23 15:40 Blood Pressure 171/72 07/25/23 15:19 Pulse Oximetry 97 07/25/23 15:40 Oxygen Delivery Me thod Room Air 07/25/23 15:40 MDM - SOB/Dyspnea Medical Decision Making Exacerbation COPD. Question of pneumonia on the chest x-ray. She is having a productive cough her white count is a bit elevated. She is not running a fever when she arrived here. She states she feels much better after the nebulizer. We did give her a shot of steroids here but she has not been taking steroids at home. She does feel better she feels well enough to go home. Will discharge her home on a steroid taper DuoNebs to use as needed and doxycycline. Follow-up with her primary care doctor early next week return sooner if she has further problems. Differential Diagnosis Likely acute exacerbation of chronic obstructive airways disease and community acquired pneumonia Medical Records I reviewed the patient's medical records. Lab Data I reviewed the patient's lab results. 07/25/23 15:48 07/25/23 15:48 Labs/Radiology: Laboratory Results WBC 22.24 10^3/uL (3.29-11.43) H 07/25/23 15:48 RBC 4.19 10^6/uL (3.85-5.65) 07/25/23 15:48 Hgb 11.60 g/dL (11.27-16.99) 07/25/23 15:48 Hct 36.2 % (36-47) 07/25/23 15:48 MCV 86.4 fl (85-98) 07/25/23 15:48 MCH 27.7 pg (27-33) 07/25/23 15:48 MCHC 32.0 g/dL (30-55) 07/25/23 15:48 RDW 14.6 % (12.1-15.1) 07/25/23 15:48 Plt Count 492 10^3/cmm (157-399) H 07/25/23 15:48 MPV 8.9 fL (7.4-10.4) 07/25/23 15:48 Neut % (Auto) 79.7 % 07/25/23 15:48 Lymph % (Auto) 13.9 % 07/25/23 15:48 Terry % (Auto) 4.9 % 07/25/23 15:48 Eos % (Auto) 0.2 % 07/25/23 15:48 Baso % (Auto) 0.2 % 07/25/23 15:48 Neut # (Auto) 17.70 10^3/uL (1.8-7.7) H 07/25/23 15:48 Lymph # (Auto) 3.1 10^3/uL (0.8-4.8) 07/25/23 15:48 Terry # (Auto) 1.1 10^3/uL (0.2-0.9) H 07/25/23 15:48 Eos # (Auto) 0.0 10^3/uL (0.0-0.8) 07/25/23 15:48 Baso # (Auto) 0.1 10^3/uL (0.0-0.1) 07/25/23 15:48 Nucleated RBC % (auto) 0 % 07/25/23 15:48 Nucleated RBCs # 0.0 /100WBC 07/25/23 15:48 Sodium 132 mmol/L (136-145) L 07/25/23 15:48 Potassium 4.2 mmol/L (3.5-5.1) 07/25/23 15:48 Chloride 99 mmol/L (98-107) 07/25/23 15:48 Carbon Dioxide 20 mmol/L (22-29) L 07/25/23 15:48 Anion Gap 17.2 (5-19) 07/25/23 15:48 BUN 15 mg/dL (8-23) 07/25/23 15:48 Creatinine 0.9 mg/dL (0.5-0.9) 07/25/23 15:48 GFR Calculation 61.9 mL/min (90-130) L 07/25/23 15:48 Glucose 134 mg/dL (65-115) H 07/25/23 15:48 Calculated Osmolality 277 mOsm/kg (285-295) L 07/25/23 15:48 Calcium 9.5 mg/dL (8.5-10.5) 07/25/23 15:48 Total Bilirubin 0.3 mg/dL (0.15-1.2) 07/25/23 15:48 AST 17 U/L (0-32) 07/25/23 15:48 ALT 22 U/L (0-33) 07/25/23 15:48 Alkaline Phosphatase 138 U/L (35-105) H 07/25/23 15:48 Total Protein 7.2 g/dL (6.6-8.7) 07/25/23 15:48 Albumin 3.3 g/dL (3.5-5.2) L 07/25/23 15:48 Globulin 3.9 g/dL (1.3-4.6) 07/25/23 15:48 All radiology interpretation(s) finalized by discharge Discharge Plan Discharge Patient Disposition: Home Clinical Impression: Acute exacerbation of chronic obstructive airways disease Condition: Stable Prescriptions: New doxycycline hyclate 100 mg capsule 100 mg PO BID 10 Days Qty: 20 0RF ipratropium-albuterol 0.5 mg-3 mg(2.5 mg base)/3 mL solution for nebulization 3 ml inhalation Q4H PRN (Reason: shortness of breath or wheezing) Qty: 90 0RF prednisone 20 mg tablet 20 mg PO TID Qty: 15 0RF Rx Instructions: 1 p.o. 3 times daily x3 days, 1 p.o. twice daily x2 days, 1 p.o. daily x2 days No Action hydrocodone-acetaminophen 7.5-325 mg tablet 1 tab PO TID PRN (Reason: pain) 30 Days Qty: 90 0RF Rx Instructions: fill on or after 3o day interval ipratropium-albuterol 0.5 mg-3 mg(2.5 mg base)/3 mL solution for nebulization 3 ml inhalation TID PRN (Reason: Shortness Of Breath) Qty: 90 0RF Nitrostat 0.4 mg tablet, sublingual 0.4 mg SUBLINGUAL Q5M PRN (Reason: Chest Pain) Qty: 10 3RF Rx Instructions: do not exceed 3 doses per episode guaifenesin 600 mg tablet extended release 12hr 600 mg PO BID PRN (Reason: cough/congestion) Qty: 60 3RF diphenhydramine HCl [Benadryl Allergy] 25 mg tablet 25 mg PO DAILY PRN (Reason: Allergy Symptoms) Qty: 30 4RF (DME) walker with a seat See Rx Instructions .Route .MEDSUPPLY Qty: 1 0RF Rx Instructions: As directed budesonide-formoterol 160-4.5 mcg/actuation HFA aerosol inhaler 2 puff inhalation BID Qty: 10.2 3RF atorvastatin 40 mg tablet 40 mg PO QAM Qty: 90 2RF ibuprofen 800 mg tablet 800 mg PO BID Qty: 60 5RF montelukast 10 mg tablet 10 mg PO DAILY Qty: 90 1RF fluticasone propionate 50 mcg/actuation spray,suspension 1 spray intranasal BID PRN (Reason: Allergy Symptoms) Qty: 16 2RF Rx Instructions: administer into each nostril spironolactone 25 mg tablet 12.5 mg PO QAM Qty: 45 1RF methocarbamol 500 mg tablet 500 mg PO BID PRN (Reason: muscle pain) Qty: 60 3RF isosorbide mononitrate 30 mg tablet extended release 24 hr 15 mg PO DAILY Qty: 45 3RF (DME) handicapped toilet See Rx Instructions .Route .MEDSUPPLY Qty: 1 0RF Rx Instructions: As directed (DME) Handles/bars shower and commode See Rx Instructions .Route .MEDSUPPLY Qty: 1 0RF Rx Instructions: As directed (DME) extended seat for commode See Rx Instructions .Route .MEDSUPPLY Qty: 1 0RF Rx Instructions: As directed trazodone 50 mg tablet 100 mg PO BEDTIME Qty: 180 0RF albuterol sulfate [ProAir HFA] 90 mcg/actuation HFA aerosol inhaler 2 puff INHALATION Q6H PRN (Reason: shortness of breath or wheezing) Qty: 8.5 3RF citalopram [Celexa] 10 mg tablet 10 mg PO DAILY Qty: 30 2RF metoprolol tartrate 50 mg tablet 50 mg PO BID Qty: 90 3RF fluticasone propion-salmeterol 250-50 mcg/dose blister with device 1 inh inhalation BID Qty: 180 1RF aspirin [Adult Aspirin Regimen] 81 mg tablet,delayed release (DR/EC) 81 mg PO QAM polyethylene glycol 3350 [Miralax] 17 gram/dose powder 17 g PO DAILY PRN (Reason: constipation) potassium chloride 10 mEq capsule, extended release 10 meq PO BID clopidogrel 75 mg tablet 75 mg PO DAILY topiramate 100 mg tablet 50 mg PO BID Discharge Orders: Discharge ED (Routine); Ordered 07/25/23 Ordered By: Bartolome Sepulveda Other Ambulatory Orders: DME: Nebulizer with Neb Kit (Order) Location: None Selected Ordered By: Bartolome Sepulveda Referrals: Filiberto Downs MD [Primary Care Provider] - Patient Instructions: Opioid Safety, Pain Management Activity Restrictions/Additional Instructions: Thank you for choosing [facility] for your healthcare needs today. Please realize this is an emergency room and that we are providing you with a medical screening exam and this may not be complete and all inclusive of all the testing and or work up that you may need to determine your ailment or severity of your illness. It is very important that you follow up as instructed or that you return to the Emergency Department should you have concerns or if your condition changes or worsens in any way. You were seen today for productive cough and shortness of breath your symptoms improved with a nebulizer. You are given a prescription for doxycycline prednisone DuoNebs and a nebulizer to use at home. Your white count was elevated at the emergency room. If your symptoms worsen or change return to the emergency room you should follow-up early next week with your primary care doctor. Coding Level of Care Code ED Furniture Finisher Helper for Mary Barkley
[2023-07-25 16:14] LABS: Alanine Aminotransferase 22 U/L (0-33); Albumin Level 3.3 g/dL (3.5-5.2); Alkaline Phosphatase 138 U/L (35-105); Anion Gap 17.2 (5-19); Aspartate Amino Transferase 17 U/L (0-32); Blood Urea Nitrogen 15 mg/dL (8-23); Calcium 9.5 mg/dL (8.5-10.5); Carbon Dioxide 20 mmol/L (22-29); Chloride 99 mmol/L (98-107); Creatinine Clr Calc Pharmacy 42.8988; Globulin 3.9 g/dL (1.3-4.6); Glomerular Filtration Rate 61.9 mL/min (90-130); Glucose 134 mg/dL (65-115); Osmolality Calculated 277 mOsm/kg (285-295); Potassium 4.2 mmol/L (3.5-5.1); Sodium 132 mmol/L (136-145); Total Bilirubin 0.3 mg/dL (0.15-1.2); Total Protein 7.2 g/dL (6.6-8.7)
[2023-07-25 17:23] VITALS: PULSE 74; RESP 16; O2SAT 97
[2023-07-25 17:29] LABS: Influenza A by IFA negative (Negative); Influenza B by IFA negative (Negative)
[2023-07-25 18:57] LABS: Adenovirus Not Detected (NOT DETECT); Chlamydia Pneumoniae Not Detected (NOT DETECT); Coronavirus 229E,HKU1,NL63,OC4 Not Detected (NOT DETECT); Human Metapneumovirus Not Detected (NOT DETECT); Human Rhinovirus/Enterovirus Detected (NOT DETECT); Influenza A Not Detected (NOT DETECT); Influenza A H1 Not Detected (NOT DETECT); Influenza A H1-2009 Not Detected (NOT DETECT); Influenza A H3 Not Detected (NOT DETECT); Influenza B Not Detected (NOT DETECT); Mycoplasma Pneumoniae Not Detected (NOT DETECT); Parainfluenza Virus Type 1 Not Detected (NOT DETECT); Parainfluenza Virus Type 2 Not Detected (NOT DETECT); Parainfluenza Virus Type 3 Not Detected (NOT DETECT); Parainfluenza Virus Type 4 Not Detected (NOT DETECT); Respiratory Syncytial Virus A Not Detected (NOT DETECT); Respiratory Syncytial Virus B Not Detected (NOT DETECT); SARS-COV-2 Not Detected (NOT DETECT)
[2023-07-25 19:49] LABS: Human Metapneumovirus Not Detected (NOT DETECT); Human Rhinovirus/Enterovirus Detected (NOT DETECT); Results from GEN
== END 2023-07-25 17:24 | disposition home or self-care (01) ==
PROVIDERS: Emergency Provider Family Medicine; PCP Family Medicine Adult Medicine
DX: J44.1 Chronic obstructive pulmonary disease with (acute) exacerbation (principal); Z79.02 Long term (current) use of antithrombotics/antiplatelets; Z79.82 Long term (current) use of aspirin; Z89.611 Acquired absence of right leg above knee; I13.0 Hypertensive heart and chronic kidney disease with heart failure and stage 1 through stage 4 chronic kidney disease, or unspecified chronic kidney disease; N18.2 Chronic kidney disease, stage 2 (mild); I50.9 Heart failure, unspecified; Z95.0 Presence of cardiac pacemaker; F17.210 Nicotine dependence, cigarettes, uncomplicated; Z11.52 Encounter for screening for COVID-19
CPT/HCPCS: 36415; 71045; 80053; 85025; 87635; 87801; 87804; 94640; 96372; 99284; J1100

== ENCOUNTER → 2023-09-03 09:46 | Outpatient (BNVA) | payer MEDICARE, MEDICAID, SELFPAY | PROVIDERS: PCP Family Medicine Adult Medicine; Visit Provider Internal Medicine Cardiovascular Disease | DX: I25.10 Atherosclerotic heart disease of native coronary artery without angina pectoris (principal); I13.0 Hypertensive heart and chronic kidney disease with heart failure and stage 1 through stage 4 chronic kidney disease, or unspecified chronic kidney disease; N18.2 Chronic kidney disease, stage 2 (mild); I50.22 Chronic systolic (congestive) heart failure; Z95.0 Presence of cardiac pacemaker; I73.9 Peripheral vascular disease, unspecified; I65.23 Occlusion and stenosis of bilateral carotid arteries; E78.5 Hyperlipidemia, unspecified; F17.210 Nicotine dependence, cigarettes, uncomplicated | CPT/HCPCS: 99214 ==

== ENCOUNTER → 2024-03-18 09:36 | Outpatient (BNVA) | payer MEDICARE, MEDICAID, SELFPAY | PROVIDERS: PCP Family Medicine Adult Medicine; Visit Provider Internal Medicine Cardiovascular Disease | DX: I65.23 Occlusion and stenosis of bilateral carotid arteries (principal); Z95.0 Presence of cardiac pacemaker; I25.10 Atherosclerotic heart disease of native coronary artery without angina pectoris; I73.9 Peripheral vascular disease, unspecified; E78.5 Hyperlipidemia, unspecified; I13.0 Hypertensive heart and chronic kidney disease with heart failure and stage 1 through stage 4 chronic kidney disease, or unspecified chronic kidney disease; F17.210 Nicotine dependence, cigarettes, uncomplicated; N18.2 Chronic kidney disease, stage 2 (mild); I50.22 Chronic systolic (congestive) heart failure | CPT/HCPCS: 99214 ==

== ENCOUNTER 2024-04-01 09:54 | Outpatient (CLI) | payer MEDICARE, MEDICAID, SELFPAY ==
--- NOTE | 2024-04-01 10:02 | USCV_ITS ---
Michael Dodson Age: 73 Gender: F : 1950 Exam Date: 04/01/2024 10:25 Ordering Phys: Bailey Awad MD ([email or web address]) Technologist: CAIT Exam Location: [facility] [place] Indication: Stent rt side. lt side occlusion Risk Factors: Previous Vascular Surgery: Right Brachial BP: / Left Brachial BP: / Right Left Velocity (cm/s) Spectral Plaque Velocity (cm/s) Spectral Plaque Syst/Diast Broadening Syst/Diast Broadening 169.20/26.00 Prox CCA 0.00 / 0.00 136.10/23.40 Mid CCA 0.00 / 0.00 112.70/28.00 Distal CCA 0.00 / 0.00 123.20/31.40 Prox ICA 57.60 / 12.40 150.50/37.40 Mid ICA 29.80 / 12.30 142.10/37.90 Distal ICA 31.70 / 6.00 377.00 ECA 1.10 ICA/CCA 0.00 Antegrade Vertebral Antegrade 34.50/ 13.20 cm/s 66.80/ 5.60 cm/s Tri Subclavian Bi 199.3 161.4 0 0 FINDINGS Lt side appears to have possible collateral pathways providing flow to the ICA Mild diffuse scattered plaques in the common carotid artery on the right side. Elevated velocity in the right external carotid artery. The stent in the right ICA appears to be patent with normal Doppler flow velocities Sluggish antegrade flow in the ICA CONCLUSIONS 1. 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 Mild to moderate diffuse plaque in the common carotid artery on the right side. 3. Patent stented segment of the right ICA with normal flow velocities. 4. Elevated velocity in the right external carotid artery, suggestive of hemodynamically significant stenosis. Compared to the study from 06/22/2022 the external carotid stenosis on the right side appears to be new Dr Bailey Awad MD [facility] (Electronically Signed) Final Date: 09 April 2024 17:21 S
== END 2024-04-01 09:55 | disposition home or self-care (01) ==
LOC: RAD 09:55
PROVIDERS: Visit Provider Internal Medicine Cardiovascular Disease
DX: I65.23 Occlusion and stenosis of bilateral carotid arteries (principal); Z95.5 Presence of coronary angioplasty implant and graft
CPT/HCPCS: 93880

== ENCOUNTER 2024-05-26 16:00 | Inpatient (IN) | payer MEDICARE, MEDICAID, SELFPAY ==
[2024-05-26] VITALS (14 sets, daily range): BP systolic 104–163; BP diastolic 44–71; PULSE 67–76; RESP 20; TEMP 36.4; O2SAT 88–100; BMI 13.9
--- NOTE | 2024-05-26 17:00 | ED_ITS ---
Documented by User: Bartolome Sepulveda, 05/27/24 06:00 HPI - Extremity Problem 2 General: Chief complaint: ER Hold Stated complaint: left leg numb Time Seen by Provider: 05/26/24 16:59 History of Present Illness: 73-year-old female presents emergency ro om with complaints of left leg numbness pain and inability to move her leg intermittently. She has a known history of peripheral vascular disease she has previously had a right [id number] amputation and has had stenting done on the left leg. Patient is cachectic. In the course of evaluating her noted she was coughing quite a bit as well. She had flu 1 week ago seem to have recovered from that but now is having similar productive cough. She denies chest pain. She denies any recent fall or trauma to her leg. She does have some ulcers on the tips of her toes and on her heel that she has been managing with her primary care doctor Associated symptoms: Deny chest pain, fever(s) or rash Related Data Home Medications ?Medication ?Instructions ?Recorded ?Confirmed aspirin 81 mg tablet,delayed 81 mg PO QAM circulation 06/26/21 09/10/23 release (Adult Aspirin Regimen) polyethylene glycol 3350 17 17 g PO DAILY PRN constipa tion 06/26/21 09/10/23 gram/dose oral powder (Miralax) clopidogrel 75 mg tablet 75 mg PO DAILY 07/25/2308/14 Previous Rx's ?Medication ?Instructions ?Recorded hydrocodone 7.5 mg-acetaminophen 1 tab PO TID PRN pain 30 days #90 08/31/21 325 mg tablet tabs nitroglycerin 0.4 mg sublingual 0.4 mg sublingual Q5M PRN Chest 05/25/22 tablet (Nitrostat) Pain #10 tabs walker with a seat #1 ea 12/12/22 diphenhydramine HCl 25 mg tablet 25 mg PO DAILY PRN Al lergy 02/13/23 (Benadryl Allergy) Symptoms #30 tabs guaifenesin 600 mg tablet, 600 mg PO BID PRN cough/con gestion 02/13/23 extended release 12 hr #60 tabs budesonide-formoterol HFA 160 2 puff inhalation BID #1 0.2 grams 03/12/23 mcg-4.5 mcg/actuation aerosol inhaler fluticasone propionate 50 1 spray intranasal BID PRN A llergy 04/30/23 mcg/actuation nasal Symptoms #16 grams spray,suspension handicapped toilet #1 ea 05/21/23 Handles/bars shower and commode #1 ea 05/24/23 extended seat for commode #1 ea 05/24/23 ipratropium 0.5 mg-albuterol 3 mg 3 ml inhalation TID PRN Shortness 07/26/23 (2.5 mg base)/3 mL nebulization Of Breath #90 mL soln topiramate 100 mg tablet 50 mg (1/2 x 100 mg) PO BID #180 08/23/23 tabs atorvastatin 40 mg tablet 40 mg PO QAM #90 tabs spironolactone 25 mg tablet See Rx Instructions .Route 12/02/23 .COMPLEX #45 tabs ibuprofen 800 mg tablet 800 mg PO BID #60 tabs 01/05 montelukast 10 mg tablet 10 mg PO DAILY breathing #90 tabs 01/16/24 fluticasone 250 mcg-salmeterol 50 1 inh inhalation BID #180 ea 01/22/24 mcg/dose blistr powdr for inhalation citalopram 10 mg tablet (Celexa) 10 mg PO DAILY mental health #90 02/04/24 tabs metoprolol tartrate 50 mg tablet 50 mg PO BID #90 tabs 02/10/24 albuterol sulfate 90 mcg/actuation 2 puff inhalation Q 6H PRN 02/24/24 aerosol inhaler shortness of breath or wheez ing #8.5 grams trazodone 50 mg tablet 100 mg (2 x 50 mg) PO BEDTIM E #180 03/04/24 tabs methocarbamol 500 mg tablet 500 mg PO BID PRN muscle p ain #180 03/30/24 tabs potassium chloride 10 mEq 10 meq PO BID #90 caps 04/06 capsule,extended release isosorbide mononitrate 30 mg 15 mg (1/2 x 30 mg) PO DA LYNNE #45 05/19/24 tablet,extended release 24 hr tabs Allergies Allergy/AdvReac Type Severity Reaction Status Date / Time gelatin Allergy Unknown ADR-Itching Verified 05/26/24 16:21 codeine Allergy Unknown Verified 05/26/24 16:21 latex Allergy Unknown Verified 05/26/24 16:21 oxycodone (From Percocet) Allergy Unknown Verified 05/26/24 16:21 Review of Systems 2 Const: Denies: fever(s) or chills Card: Denies: chest pain Resp: Denies: dyspnea GI: Denies: abdominal pain : Denies: dysuria, urinary frequency or urinary urgency Musc: Reports: extremity pain; Denies: neck pain or back pain Skin/Breast: Denies: rash PFSH ED 2 PFSH: Medical History Pulmonary cachexia due to COPD Uses prosthesis Right above-knee amputee Surgery 10/26/2022 at [facility] in [place] CKD (chronic kidney disease) stage 2, GFR 60-89 ml/min Anxiety and depression Carotid artery disease Headache, migraine CHF (congestive heart failure), NYHA class III Critical limb ischemia of right lower extremity Admission to [facility] 06/29-07/01/2021 and stenting of R distal SFA and proximal popliteal artery. In [facility], Dr Nance RLE Stent 05/07/2022 Constipation, chronic Chronic low back pain [facility], Dr. Ferguson COPD exacerbation Opioid contract exists [facility], Dr. Ferguson Essential hypertension CAD (coronary artery disease) Benign essential HTN Peripheral vascular disease Enrolled in chronic care management COPD (chronic obstructive pulmonary disease) Nicotine dependence with current use Osteoporosis Surgical History S/p total knee replacement, bilateral S/P hysterectomy S/P balloon angioplasty of pulmonary artery branches ILIAC ARTERY-2016 FEMORAL ARTERY 2016 Status post placement of cardiac pacemaker 2016 S/P carotid endarterectomy 1995 S/P right cataract extraction Family History Other Diabetes Stroke Social History Smoking and tobacco/nicotine status: current every day tobacco/nicotine user cigarettes [ Other cigarette details: 1 PK Q 3-4 DAYS ] Alcohol intake: never Substance/Drug Use: never Physical Exam 2 Const: GENERAL APPEARANCE: cooperative ORIENTATION/CONSCIOUSNESS: Yes awake, Yes oriented to person, Yes oriented to place and Yes oriented to time HENMT: COMMON NORMALS: normocephalic, atraumatic and hearing grossly normal bilaterally HEAD & SCALP: normocephalic and atraumatic Resp: EFFORT & INSPECTION: Yes tachypneic AUSCULTATION: rhonchi, wheezes and diminished lung sounds Cardio: COMMON NORMALS: regular rate, regular rhythm and No murmurs present (Cardio) RATE: regular rate RHYTHM: regular rhythm GI: COMMON NORMALS: Soft to palpation and No hepatosplenomegaly present A USCULTATION: Yes normoactive bowel sounds PALPATION: Yes Soft to palpation, No Tenderness to palpation present (GI), No Guarding due to palpation present (GI) and Yes No hepatosplenomegaly present Extremity: OTHER: Leg is cachectic difficult to palpate any pulses neither did dorsalis pedis posterior tibialis popliteal weak femoral pulse in the groin. There are ulcers at the tips of the great toe third and fourth toes as well as the heel on the left foot. None appear to be acutely appear to be more arterial insufficiency ulcers or not any signs of active infection no drainage no redness or erythema there is tissue necrosis at the surface however. Neuro: SENSORIUM/ORIENTATION: Yes oriented to person, Yes oriented to place and Yes oriented to time Skin: COMMON NORMALS: no rashes or lesions noted GENERAL SKIN EXAM: no rashes or lesions noted Course 2 Vital Signs: Vital signs: Vital Signs Temperature 97.5 F L 05/26/24 16:14 Pulse Rate 81 05/27/24 05:19 Respiratory Rate 20 H 05/27/24 05:19 Blood Pressure 112/49 05/27/24 04:35 Pulse Oximetry 95 05/27/24 05:19 Oxygen Delivery Ut thod Nasal Cannula 05/27/24 05:19 Oxygen Flow Rate 5 05/27/24 05:19 MDM - Extremity (Nontraumatic) Medical Decision Making Examination shows concerning for arterial insufficiency in the left leg. Studies pending. Will also need chest x-ray and evaluate her respiratory status. Care signed out to Dr. Chin at change of shift. See final notes for diagnosis and disposition. Patient care transitioned to pa at shift change: Awaiting ultrasound of the lower extremity. Lab work was still pending. Chest x-ray: CABG wires, pacemaker in place, right upper lobe patchy infiltrate and some left lower lobe infiltrate. Patient does report she had recent flu. She was on steroids and antibiotics. This was reviewed and interpreted by myself the emergency room physician. I also reviewed the radiology report. Ultrasound duplex of the lower extremities on the left: Monophasic flow throughout the left lower extremity which may represent severe stenosis in the left iliac artery. No severe stenosis or occlusion of the left common femoral artery superficial femoral artery or popliteal artery. This was reviewed and interpreted by myself the emergency room physician. I also reviewed the radiology report. CT Afro was ordered to complete the study. Lab Review: Laboratory results were reviewed and interpreted by myself the emergency room physician. Patient has rather severe leukocytosis with a white count 37,000. Stable anemia with a hemoglobin of 9.8. BUN and creatinine are 27 and 1.2. This is all a bit over her baseline. This may be related to recent steroid use, however she has been off the steroids for about 3 to 4 days now. Fluids were given prior to contrast media. CTA Afro: Results below. I discussed these with vascular surgery who feels this is nothing acute. She needs to stop smoking. This was reviewed and interpreted by myself the emergency room physician. I also reviewed the radiology report. CT of the chest: Patchy infiltrate could be viral but I have concern for bacterial as she has a quite elevated white count at this time. She is fairly remote from having antibiotics and steroids so this is a concern to me. This was reviewed and interpreted by myself the emergency room physician. I also reviewed the radiology report. I reviewed the patient's medical record. Reexamination: Patient has remained stable. No pain in her leg right now. Extremity is warm and she is able to move it at this time. Consultation: I spoke with Dr. Dawood Abbott with vascular surgery at [facility] in [place]. We reviewed the findings of the CTA and he feels this is not something acute and she does not need heparin drip or transferred for stenting. This was reviewed and interpreted by myself the emergency room physician. I also reviewed the radiology report. Consultation: I spoke with Dr. Youngblood who is on-call for the hospitalist service who agrees to observation for pneumonia. Assessment and plan: Pneumonia Peripheral vascular disease Leukocytosis. ?Blood cultures, lactate, broad-spectrum antibiotics all given. Concern for sepsis. -I discussed the patient with the hospitalist on-call who is admitting the patient. - Discussed findings and plan with patient. Answered any questions. - All laboratory values were reviewed and interpreted personally by myself, the ER physician - All imaging was reviewed and interpreted personally by myself, the ER physician. - Evaluation and treatment of this problem were appropriate in the emergency setting Lab Data 05/27/24 04:35 05/27/24 04:35 Radiology Impressions Duplex Scan Lower Extremity Artery 05/26/24 17:28 IMPRESSION: 1. Monophasic flow throughout the left lower extremity which may represent severe stenosis in the left iliac artery, not assessed on this examination. 2. No severe stenosis or occlusion in the left common femoral artery, superficial femoral artery or popliteal artery. Aorta w/Runoff CTA 05/26/24 18:29 IMPRESSION: 1. Multiple small patchy consolidations throughout the lung bases and lingula and right middle lobe which are nonspecific but can be seen the setting of viral infection. 2. Severe stenosis at the origin of the SMA. 3. Severe stenosis in the right common iliac artery. The right external iliac artery is patent. The right common femoral artery is patent. 4. There is occlusion in the proximal right superficial femoral artery. 5. There is a patent stent in the left common and external iliac. The left common femoral artery is patent. 6. The left superficial femoral artery is occluded distally. 7. The left popliteal artery is extremely diminutive but opacified. 8. The left anterior tibial and peroneal arteries are opacified down to the level of the distal calf. The left posterior tibial artery is opacified down to the ankle. Chest X-Ray 05/26/24 19:21 IMPRESSION: Irregular opacities in the right lung apex and left lower lobe medially, new from the prior examination. Chest CT 05/26/24 19:52 IMPRESSION: Patchy ground-glass and consolidative opacities scattered throughout both lungs in a random distribution which is nonspecific but can be seen the setting of viral infection. Laboratory Results WBC 37.54 10^3/uL (3.29-11.43) H* 05/26/24 17:14 Corrected WBC Cancelled 05/26/24 16:29 RBC 3.42 10^6/uL (3.85-5.65) L 05/26/24 17:14 Hgb 9.80 g/dL (11.27-16.99) L 05/26/24 17:14 Hct 31.3 % (36-47) L 05/26/24 17:14 MCV 91.5 fl (85-98) 05/26/24 17:14 MCH 28.7 pg (27-33) 05/26/24 17:14 MCHC 31.3 g/dL (30-55) 05/26/24 17:14 RDW 17.8 % (12.1-15.1) H 05/26/24 17:14 Plt Count 322 10^3/cmm (157-399) 05/26/24 17:14 MPV 10.4 fL (7.4-10.4) 05/26/24 17:14 Gran % Cancelled 05/26/24 16:29 Neut % (Auto) 88.0 % 05/26/24 17:14 Lymph % (Auto) 3.8 % 05/26/24 17:14 [place] % (Auto) 4.7 % 05/26/24 17:14 Eos % (Auto) 0.0 % 05/26/24 17:14 Baso % (Auto) 0.2 % 05/26/24 17:14 Neut # (Auto) 33.05 10^3/uL (1.8-7.7) H 05/26/24 17:14 Lymph # (Auto) 1.4 10^3/uL (0.8-4.8) 05/26/24 17:14 [place] # (Auto) 1.8 10^3/uL (0.2-0.9) H 05/26/24 17:14 Eos # (Auto) 0.0 10^3/uL (0.0-0.8) 05/26/24 17:14 Baso # (Auto) 0.1 10^3/uL (0.0-0.1) 05/26/24 17:14 Absolute Gran (auto) Cancelled 05/26/24 16:29 Nucleated RBC % (auto) 0 % 05/26/24 17:14 Nucleated RBCs # 0.0 /100WBC 05/26/24 17:14 Specimen Type Arterial 05/26/24 22:05 Sample Site Brachial, left 05/26/24 22:05 ABG pH 7.21 (7.35-7.45) L 05/26/24 22:05 ABG pCO2 34.0 mmHg (35-45) L 05/26/24 22:05 ABG pO2 59.3 mmHg (80.0-100.0) L 05/26/24 22:05 ABG PO2/FiO2 Ratio 282 05/26/24 22:05 ABG HCO3 13.6 mmol/L (22-26) L 05/26/24 22:05 ABG O2 Saturation 89.4 05/26/24 22:05 ABG Base Excess -13.2 mmol/L (-2.0-2.0) L 05/26/24 22:05 Amadou Test N/a 05/26/24 22:05 A-a O2 Gradient 6.2 mmHg (5-10) 05/26/24 22:05 Hematocrit 30.8 % (37-47) L 05/26/24 22:05 Hgb O2 Saturation 87.3 % (95-100) L 05/26/24 22:05 Carboxyhemoglobin 1.4 %THgb (0.4-20.1) 05/26/24 22:05 Methemoglobin 1.0 % (0.4-1.5) 05/26/24 22:05 Total Hemoglobin 10.0 g/dL (12-16) L 05/26/24 22:05 Sodium 132.0 mmol/L (131-143) 05/26/24 22:05 Potassium 3.3 mmol/L (3.5-5.0) L 05/26/24 22:05 Glucose 192.0 mg/dL (70-115) H 05/26/24 22:05 Ionized Calcium 1.2 mmol/L (1.1-1.4) 05/26/24 22:05 O2 Delivery Device None 05/26/24 22:05 FiO2 21.0 % 05/26/24 22:05 Emblem Fuser Tender ID Heber 05/26/24 22:05 Sodium 135 mmol/L (136-145) L 05/26/24 17:14 Potassium 3.5 mmol/L (3.5-5.1) 05/26/24 17:14 Chloride 105 mmol/L (98-107) 05/26/24 17:14 Carbon Dioxide 15 mmol/L (22-29) L 05/26/24 17:14 Anion Gap 18.5 (5-19) 05/26/24 17:14 BUN 27 mg/dL (8-23) H 05/26/24 17:14 Creatinine 1.2 mg/dL (0.5-0.9) H 05/26/24 17:14 GFR Calculation Not Reportable 05/26/24 17:14 Glucose 108 mg/dL (65-115) 05/26/24 17:14 Calculated Osmolality 286 mOsm/kg (285-295) 05/26/24 17:14 Lactic Acid 2.0 mmol/L (0.5-2.2) 05/26/24 19:40 Calcium 8.5 mg/dL (8.5-10.5) 05/26/24 17:14 Total Bilirubin 0.3 mg/dL (0.15-1.2) 05/26/24 17:14 AST 8 U/L (0-32) 05/26/24 17:14 ALT 10 U/L (0-33) 05/26/24 17:14 Alkaline Phosphatase 99 U/L (35-105) 05/26/24 17:14 C-Reactive Protein 297.5 mg/L (0.0-4.9) H 05/26/24 17:14 Total Protein 6.0 g/dL (6.6-8.7) L 05/26/24 17:14 Albumin 3.1 g/dL (3.5-5.2) L 05/26/24 17:14 Globulin 2.9 g/dL (1.3-4.6) 05/26/24 17:14 Procalcitonin 1.69 ng/mL (0-0.5) H 05/26/24 17:14 Urine Color Yellow (Yellow) 05/26/24 20:20 Urine Appearance Clear (CLEAR) 05/26/24 20:20 Urine pH 5.5 (5-7) 05/26/24 20:20 Ur Specific Cranks 1.025 (1.005-1.030) 05/26/24 20:20 Urine Protein 1+ (Negative) A 05/26/24 20:20 Urine Glucose (UA) Negative (Normal) 05/26/24 20:20 Urine Ketones Negative (Negative) 05/26/24 20:20 Urine Blood Negative (Negative) 05/26/24 20:20 Urine Nitrate Negative (Negative) 05/26/24 20:20 Urine Bilirubin Negative (Negative) 05/26/24 20:20 Urine Urobilinogen 1.0 mg/dL (Negative) 05/26/24 20:20 Ur Leukocyte Esterase Negative (Negative) 05/26/24 20:20 Urine RBC 0-2 /hpf (0-2) 05/26/24 20:20 Urine WBC 0-5 /hpf (0-5) 05/26/24 20:20 Ur Squamous Epith Cells 11-20 /hpf (0-5) H 05/26/24 20:20 Amorphous Sediment Not Reportable 05/26/24 20:20 Urine Bacteria None seen /hpf (NONE) 05/26/24 20:20 Hyaline Casts 33.90 /lpf 05/26/24 20:20 Fine Granular Casts 5-10 /lpf H 05/26/24 20:20 Discharge Plan Discharge Patient Disposition: Placed in Observation Admit Provider: Damion Youngblood Clinical Impression: Pneumonia, Peripheral vascular disease Coding Level of Care Code ED Dry Kiln Operator for Chg Fwd Documented by User: Yadi Chin MD 05/26/24 22:26 HPI - Extremity Problem 2 General: Chief complaint: ER Hold Stated complaint: left leg numb Time Seen by Provider: 05/26/24 16:59 History of Present Illness: 73-year-old female with a history of tob acco dependence, peripheral vascular disease status post stent on left side recently and a right sided AKA, COPD who presents emergency room with left leg pain. This been intermittent in nature. She was passed to me at shift change awaiting an ultrasound. Related Data Home Medications ?Medication ?Instructions ?Recorded ?Confirmed aspirin 81 mg tablet,delayed 81 mg PO QAM circulation 06/26/21 09/10/23 release (Adult Aspirin Regimen) polyethylene glycol 3350 17 17 g PO DAILY PRN constipa tion 06/26/21 09/10/23 gram/dose oral powder (Miralax) clopidogrel 75 mg tablet 75 mg PO DAILY 07/25/2308/14 Previous Rx's ?Medication ?Instructions ?Recorded hydrocodone 7.5 mg-acetaminophen 1 tab PO TID PRN pain 30 days #90 08/31/21 325 mg tablet tabs nitroglycerin 0.4 mg sublingual 0.4 mg sublingual Q5M PRN Chest 05/25/22 tablet (Nitrostat) Pain #10 tabs walker with a seat #1 ea 12/12/22 diphenhydramine HCl 25 mg tablet 25 mg PO DAILY PRN Al lergy 02/13/23 (Benadryl Allergy) Symptoms #30 tabs guaifenesin 600 mg tablet, 600 mg PO BID PRN cough/con gestion 02/13/23 extended release 12 hr #60 tabs budesonide-formoterol HFA 160 2 puff inhalation BID #1 0.2 grams 03/12/23 mcg-4.5 mcg/actuation aerosol inhaler fluticasone propionate 50 1 spray intranasal BID PRN A llergy 04/30/23 mcg/actuation nasal Symptoms #16 grams spray,suspension handicapped toilet #1 ea 05/21/23 Handles/bars shower and commode #1 ea 05/24/23 extended seat for commode #1 ea 05/24/23 ipratropium 0.5 mg-albuterol 3 mg 3 ml inhalation TID PRN Shortness 07/26/23 (2.5 mg base)/3 mL nebulization Of Breath #90 mL soln topiramate 100 mg tablet 50 mg (1/2 x 100 mg) PO BID #180 08/23/23 tabs atorvastatin 40 mg tablet 40 mg PO QAM #90 tabs spironolactone 25 mg tablet See Rx Instructions .Route 12/02/23 .COMPLEX #45 tabs ibuprofen 800 mg tablet 800 mg PO BID #60 tabs 01/05 montelukast 10 mg tablet 10 mg PO DAILY breathing #90 tabs 01/16/24 fluticasone 250 mcg-salmeterol 50 1 inh inhalation BID #180 ea 01/22/24 mcg/dose blistr powdr for inhalation citalopram 10 mg tablet (Celexa) 10 mg PO DAILY mental health #90 02/04/24 tabs metoprolol tartrate 50 mg tablet 50 mg PO BID #90 tabs 02/10/24 albuterol sulfate 90 mcg/actuation 2 puff inhalation Q 6H PRN 02/24/24 aerosol inhaler shortness of breath or wheez ing #8.5 grams trazodone 50 mg tablet 100 mg (2 x 50 mg) PO BEDTIM E #180 03/04/24 tabs methocarbamol 500 mg tablet 500 mg PO BID PRN muscle p ain #180 03/30/24 tabs potassium chloride 10 mEq 10 meq PO BID #90 caps 04/06 capsule,extended release isosorbide mononitrate 30 mg 15 mg (1/2 x 30 mg) PO DA LYNNE #45 05/19/24 tablet,extended release 24 hr tabs Allergies Allergy/AdvReac Type Severity Reaction Status Date / Time gelatin Allergy Unknown ADR-Itching Verified 05/26/24 16:21 codeine Allergy Unknown Verified 05/26/24 16:21 latex Allergy Unknown Verified 05/26/24 16:21 oxycodone (From Percocet) Allergy Unknown Verified 05/26/24 16:21 Review of Systems 2 Narrative: Constitutional symptoms: Negative except as documented in HPI. Skin symptoms: Negative except as documented in HPI. Eye symptoms: Negative except as documented in HPI. ENMT symptoms: Negative except as documented in HPI. Respiratory symptoms: Negative except as documented in HPI. Cardiovascular symptoms: Negative except as documented in HPI. Gastrointestinal symptoms: Negative except as documented in HPI. Genitourinary symptoms: Negative except as documented in HPI. Musculoskeletal symptoms: Negative except as documented in HPI. Neurologic symptoms: Negative except as documented in HPI. Psychiatric symptoms: Negative except as documented in HPI. Endocrine symptoms: Negative except as documented in HPI. PFSH ED 2 PFSH: Medical History Pulmonary cachexia due to COPD Uses prosthesis Right above-knee amputee Surgery 10/26/2022 at [facility] in [place] CKD (chronic kidney disease) stage 2, GFR 60-89 ml/min Anxiety and depression Carotid artery disease Headache, migraine CHF (congestive heart failure), NYHA class III Critical limb ischemia of right lower extremity Admission to [facility] 06/29-07/01/2021 and stenting of R distal SFA and proximal popliteal artery. In [facility], Dr Nance RLE Stent 05/07/2022 Constipation, chronic Chronic low back pain [facility], Dr. Ferguson COPD exacerbation Opioid contract exists [facility], Dr. Ferguson Essential hypertension CAD (coronary artery disease) Benign essential HTN Peripheral vascular disease Enrolled in chronic care management COPD (chronic obstructive pulmonary disease) Nicotine dependence with current use Osteoporosis Surgical History S/p total knee replacement, bilateral S/P hysterectomy S/P balloon angioplasty of pulmonary artery branches ILIAC ARTERY-2016 FEMORAL ARTERY 2016 Status post placement of cardiac pacemaker 2015 S/P carotid endarterectomy 1995 S/P right cataract extraction Family History Other Diabetes Stroke Social History Smoking and tobacco/nicotine status: current every day tobacco/nicotine user cigarettes [ Other cigarette details: 1 PK Q 3-4 DAYS ] Alcohol intake: never Substance/Drug Use: never Physical Exam 2 Narrative: EXAM NARRATIVE: General: Alert, no acute distress. Skin: Warm, dry. Head: Normocephalic, atraumatic. Neck: Supple, trachea midline. Eye: Extraocular movements are intact. Ears, nose, mouth and throat: mucosa moist. Cardiovascular: Regular. Right AKA. Left leg pulses are not palpable distally, however she is not cold. Pain has resolved after morphine. Respiratory: Lungs are clear to auscultation, respirations are non-labored, breath sounds are equal, Symmetrical chest wall expansion. Gastrointestinal: Soft, Nontender, Non distended Musculoskeletal: Normal ROM, no deformity. Neurological: Alert and oriented, No focal neurological deficit observed. Psychiatric: Cooperative, appropriate mood & affect. Course 2 Vital Signs: Vital signs: Vital Signs Temperature 97.5 F L 05/26/24 16:14 Pulse Rate 81 05/27/24 05:19 Respiratory Rate 20 H 05/27/24 05:19 Blood Pressure 112/49 05/27/24 04:35 Pulse Oximetry 95 05/27/24 05:19 Oxygen Delivery Ut thod Nasal Cannula 05/27/24 05:19 Oxygen Flow Rate 5 05/27/24 05:19 MDM - Extremity (Nontraumatic) Medical Decision Making Patient care transitioned to pa at shift change: Awaiting ultrasound of the lower extremity. Lab work was still pending. Chest x-ray: CABG wires, pacemaker in place, right upper lobe patchy infiltrate and some left lower lobe infiltrate. Patient does report she had recent flu. She was on steroids and antibiotics. This was reviewed and interpreted by myself the emergency room physician. I also reviewed the radiology report. Ultrasound duplex of the lower extremities on the left: Monophasic flow throughout the left lower extremity which may represent severe stenosis in the left iliac artery. No severe stenosis or occlusion of the left common femoral artery superficial femoral artery or popliteal artery. This was reviewed and interpreted by myself the emergency room physician. I also reviewed the radiology report. CT Afro was ordered to complete the study. Lab Review: Laboratory results were reviewed and interpreted by myself the emergency room physician. Patient has rather severe leukocytosis with a white count 37,000. Stable anemia with a hemoglobin of 9.8. BUN and creatinine are 27 and 1.2. This is all a bit over her baseline. This may be related to recent steroid use, however she has been off the steroids for about 3 to 4 days now. Fluids were given prior to contrast media. CTA Afro: Results below. I discussed these with vascular surgery who feels this is nothing acute. She needs to stop smoking. This was reviewed and interpreted by myself the emergency room physician. I also reviewed the radiology report. CT of the chest: Patchy infiltrate could be viral but I have concern for bacterial as she has a quite elevated white count at this time. She is fairly remote from having antibiotics and steroids so this is a concern to me. This was reviewed and interpreted by myself the emergency room physician. I also reviewed the radiology report. I reviewed the patient's medical record. Reexamination: Patient has remained stable. No pain in her leg right now. Extremity is warm and she is able to move it at this time. Consultation: I spoke with Dr. Dawood Abbott with vascular surgery at [facility] in [place]. We reviewed the findings of the CTA and he feels this is not something acute and she does not need heparin drip or transferred for stenting. This was reviewed and interpreted by myself the emergency room physician. I also reviewed the radiology report. Consultation: I spoke with Dr. Youngblood who is on-call for the hospitalist service who agrees to observation for pneumonia. Assessment and plan: Pneumonia Peripheral vascular disease Leukocytosis. ?Blood cultures, lactate, broad-spectrum antibiotics all given. Concern for sepsis. -I discussed the patient with the hospitalist on-call who is admitting the patient. - Discussed findings and plan with patient. Answered any questions. - All laboratory values were reviewed and interpreted personally by myself, the ER physician - All imaging was reviewed and interpreted personally by myself, the ER physician. - Evaluation and treatment of this problem were appropriate in the emergency setting Lab Data 05/27/24 04:35 05/27/24 04:35 Radiology Impressions Duplex Scan Lower Extremity Artery 05/26/24 17:28 IMPRESSION: 1. Monophasic flow throughout the left lower extremity which may represent severe stenosis in the left iliac artery, not assessed on this examination. 2. No severe stenosis or occlusion in the left common femoral artery, superficial femoral artery or popliteal artery. Aorta w/Runoff CTA 05/26/24 18:29 IMPRESSION: 1. Multiple small patchy consolidations throughout the lung bases and lingula and right middle lobe which are nonspecific but can be seen the setting of viral infection. 2. Severe stenosis at the origin of the SMA. 3. Severe stenosis in the right common iliac artery. The right external iliac artery is patent. The right common femoral artery is patent. 4. There is occlusion in the proximal right superficial femoral artery. 5. There is a patent stent in the left common and external iliac. The left common femoral artery is patent. 6. The left superficial femoral artery is occluded distally. 7. The left popliteal artery is extremely diminutive but opacified. 8. The left anterior tibial and peroneal arteries are opacified down to the level of the distal calf. The left posterior tibial artery is opacified down to the ankle. Chest X-Ray 05/26/24 19:21 IMPRESSION: Irregular opacities in the right lung apex and left lower lobe medially, new from the prior examination. Chest CT 05/26/24 19:52 IMPRESSION: Patchy ground-glass and consolidative opacities scattered throughout both lungs in a random distribution which is nonspecific but can be seen the setting of viral infection. Laboratory Results WBC 37.54 10^3/uL (3.29-11.43) H* 05/26/24 17:14 Corrected WBC Cancelled 05/26/24 16:29 RBC 3.42 10^6/uL (3.85-5.65) L 05/26/24 17:14 Hgb 9.80 g/dL (11.27-16.99) L 05/26/24 17:14 Hct 31.3 % (36-47) L 05/26/24 17:14 MCV 91.5 fl (85-98) 05/26/24 17:14 MCH 28.7 pg (27-33) 05/26/24 17:14 MCHC 31.3 g/dL (30-55) 05/26/24 17:14 RDW 17.8 % (12.1-15.1) H 05/26/24 17:14 Plt Count 322 10^3/cmm (157-399) 05/26/24 17:14 MPV 10.4 fL (7.4-10.4) 05/26/24 17:14 Gran % Cancelled 05/26/24 16:29 Neut % (Auto) 88.0 % 05/26/24 17:14 Lymph % (Auto) 3.8 % 05/26/24 17:14 [place] % (Auto) 4.7 % 05/26/24 17:14 Eos % (Auto) 0.0 % 05/26/24 17:14 Baso % (Auto) 0.2 % 05/26/24 17:14 Neut # (Auto) 33.05 10^3/uL (1.8-7.7) H 05/26/24 17:14 Lymph # (Auto) 1.4 10^3/uL (0.8-4.8) 05/26/24 17:14 [place] # (Auto) 1.8 10^3/uL (0.2-0.9) H 05/26/24 17:14 Eos # (Auto) 0.0 10^3/uL (0.0-0.8) 05/26/24 17:14 Baso # (Auto) 0.1 10^3/uL (0.0-0.1) 05/26/24 17:14 Absolute Gran (auto) Cancelled 05/26/24 16:29 Nucleated RBC % (auto) 0 % 05/26/24 17:14 Nucleated RBCs # 0.0 /100WBC 05/26/24 17:14 Specimen Type Arterial 05/26/24 22:05 Sample Site Brachial, left 05/26/24 22:05 ABG pH 7.21 (7.35-7.45) L 05/26/24 22:05 ABG pCO2 34.0 mmHg (35-45) L 05/26/24 22:05 ABG pO2 59.3 mmHg (80.0-100.0) L 05/26/24 22:05 ABG PO2/FiO2 Ratio 282 05/26/24 22:05 ABG HCO3 13.6 mmol/L (22-26) L 05/26/24 22:05 ABG O2 Saturation 89.4 05/26/24 22:05 ABG Base Excess -13.2 mmol/L (-2.0-2.0) L 05/26/24 22:05 Amadou Test N/a 05/26/24 22:05 A-a O2 Gradient 6.2 mmHg (5-10) 05/26/24 22:05 Hematocrit 30.8 % (37-47) L 05/26/24 22:05 Hgb O2 Saturation 87.3 % (95-100) L 05/26/24 22:05 Carboxyhemoglobin 1.4 %THgb (0.4-20.1) 05/26/24 22:05 Methemoglobin 1.0 % (0.4-1.5) 05/26/24 22:05 Total Hemoglobin 10.0 g/dL (12-16) L 05/26/24 22:05 Sodium 132.0 mmol/L (131-143) 05/26/24 22:05 Potassium 3.3 mmol/L (3.5-5.0) L 05/26/24 22:05 Glucose 192.0 mg/dL (70-115) H 05/26/24 22:05 Ionized Calcium 1.2 mmol/L (1.1-1.4) 05/26/24 22:05 O2 Delivery Device None 05/26/24 22:05 FiO2 21.0 % 05/26/24 22:05 Emblem Fuser Tender ID [place] 05/26/24 22:05 Sodium 135 mmol/L (136-145) L 05/26/24 17:14 Potassium 3.5 mmol/L (3.5-5.1) 05/26/24 17:14 Chloride 105 mmol/L (98-107) 05/26/24 17:14 Carbon Dioxide 15 mmol/L (22-29) L 05/26/24 17:14 Anion Gap 18.5 (5-19) 05/26/24 17:14 BUN 27 mg/dL (8-23) H 05/26/24 17:14 Creatinine 1.2 mg/dL (0.5-0.9) H 05/26/24 17:14 GFR Calculation Not Reportable 05/26/24 17:14 Glucose 108 mg/dL (65-115) 05/26/24 17:14 Calculated Osmolality 286 mOsm/kg (285-295) 05/26/24 17:14 Lactic Acid 2.0 mmol/L (0.5-2.2) 05/26/24 19:40 Calcium 8.5 mg/dL (8.5-10.5) 05/26/24 17:14 Total Bilirubin 0.3 mg/dL (0.15-1.2) 05/26/24 17:14 AST 8 U/L (0-32) 05/26/24 17:14 ALT 10 U/L (0-33) 05/26/24 17:14 Alkaline Phosphatase 99 U/L (35-105) 05/26/24 17:14 C-Reactive Protein 297.5 mg/L (0.0-4.9) H 05/26/24 17:14 Total Protein 6.0 g/dL (6.6-8.7) L 05/26/24 17:14 Albumin 3.1 g/dL (3.5-5.2) L 05/26/24 17:14 Globulin 2.9 g/dL (1.3-4.6) 05/26/24 17:14 Procalcitonin 1.69 ng/mL (0-0.5) H 05/26/24 17:14 Urine Color Yellow (Yellow) 05/26/24 20:20 Urine Appearance Clear (CLEAR) 05/26/24 20:20 Urine pH 5.5 (5-7) 05/26/24 20:20 Ur Specific Cranks 1.025 (1.005-1.030) 05/26/24 20:20 Urine Protein 1+ (Negative) A 05/26/24 20:20 Urine Glucose (UA) Negative (Normal) 05/26/24 20:20 Urine Ketones Negative (Negative) 05/26/24 20:20 Urine Blood Negative (Negative) 05/26/24 20:20 Urine Nitrate Negative (Negative) 05/26/24 20:20 Urine Bilirubin Negative (Negative) 05/26/24 20:20 Urine Urobilinogen 1.0 mg/dL (Negative) 05/26/24 20:20 Ur Leukocyte Esterase Negative (Negative) 05/26/24 20:20 Urine RBC 0-2 /hpf (0-2) 05/26/24 20:20 Urine WBC 0-5 /hpf (0-5) 05/26/24 20:20 Ur Squamous Epith Cells 11-20 /hpf (0-5) H 05/26/24 20:20 Amorphous Sediment Not Reportable 05/26/24 20:20 Urine Bacteria None seen /hpf (NONE) 05/26/24 20:20 Hyaline Casts 33.90 /lpf 05/26/24 20:20 Fine Granular Casts 5-10 /lpf H 05/26/24 20:20 All radiology interpretation(s) finalized by discharge Discharge Plan Discharge Patient Disposition: Placed in Observation Admit Provider: Damion Youngblood Clinical Impression: Pneumonia, Peripheral vascular disease Coding Level of Care Code ED [employer] Operator for Mary Barkley
[2024-05-26 17:22] LABS: Basophils # 0.1 10^3/uL (0.0-0.1); Basophils % 0.2 %; Hematocrit 31.3 % (36-47); Lymphocytes # 1.4 10^3/uL (0.8-4.8); Lymphocytes % 3.8 %; Mean Corpuscular HGB Conc 31.3 g/dL (30-55); Mean Corpuscular Hemoglobin 28.7 pg (27-33); Mean Corpuscular Volume 91.5 fl (85-98); Mean Platelet Volume 10.4 fL (7.4-10.4); Monocytes # 1.8 10^3/uL (0.2-0.9); Monocytes % 4.7 %; Neutrophils # 33.05 10^3/uL (1.8-7.7); Nucleated Red Blood Cells % 0 %; Platelet Count 322 10^3/cmm (157-399); Red Blood Count 3.42 10^6/uL (3.85-5.65); Red Cell Distribution Width 17.8 % (12.1-15.1)
--- NOTE | 2024-05-26 17:28 | USR_ITS ---
PROCEDURE INFORMATION: Exam: US Duplex Left Lower Extremity Arteries Or Arterial Bypass Grafts Exam date and time: 05/26/2024 5:48 PM Age: 73 years old Clinical indication: Pain; Leg, lower; Left; Prior surgery; Surgery date: <1 month; Surgery type: Stent in iliacs; Additional info: Pain/claudication TECHNIQUE: Imaging protocol: Left Real-time duplex scan of the arteries or arterial bypass grafts of the left lower extremity with 2-D fung scale, color Doppler flow and spectral waveform analysis. Images documented and saved. COMPARISON: CT angio abd aorta runof [id number] 02/22/2022 8:38 AM FINDINGS: Left common femoral artery: No occlusion or significant stenosis. Monophasic waveform. Left superficial femoral artery: No occlusion or significant stenosis. Monophasic waveform. Left popliteal artery: No occlusion or significant stenosis. Monophasic waveform. Left calf/foot arteries: The dorsalis pedis artery is not identified. Monophasic flow in the posterior tibial artery. US/CV arterial duplex [facility] [id number] IMPRESSION: 1. Monophasic flow throughout the left lower extremity which may represent severe stenosis in the left iliac artery, not assessed on this examination. 2. No severe stenosis or occlusion in the left common femoral artery, superficial femoral artery or popliteal artery.
[2024-05-26 17:42] LABS: Alanine Aminotransferase 10 U/L (0-33); Albumin Level 3.1 g/dL (3.5-5.2); Alkaline Phosphatase 99 U/L (35-105); Anion Gap 18.5 (5-19); Aspartate Amino Transferase 8 U/L (0-32); Blood Urea Nitrogen 27 mg/dL (8-23); Calcium 8.5 mg/dL (8.5-10.5); Carbon Dioxide 15 mmol/L (22-29); Chloride 105 mmol/L (98-107); Creatinine Clr Calc Pharmacy 25.8644; Globulin 2.9 g/dL (1.3-4.6); Glucose 108 mg/dL (65-115); Osmolality Calculated 286 mOsm/kg (285-295); Potassium 3.5 mmol/L (3.5-5.1); Sodium 135 mmol/L (136-145); Total Bilirubin 0.3 mg/dL (0.15-1.2)
[2024-05-26] MEDS: morphine 4 mg/mL SDV 1 mL 2 MG IVP (17:57)
[2024-05-26 18:00] LABS: White Blood Count 37.54 10^3/uL (3.29-11.43)
[2024-05-26 18:01] LABS: Slide Review Slide Review Perform
--- NOTE | 2024-05-26 18:29 | CTR_ITS ---
PROCEDURE INFORMATION: Exam: CTA Abdominal Aorta and Bilateral Lower Extremities (Run-off) With Contrast Exam date and time: 05/26/2024 7:53 PM Age: 73 years old Clinical indication: Numbness; Lower extremity; Left; Prior surgery; Surgery date: 6+ months; Surgery type: RT leg amputee 11/2022; Additional info: Leg pain, decreased pulses TECHNIQUE: Imaging protocol: Computed tomographic angiography of the of the abdominal aorta, pelvis and bilateral lower extremities with contrast. 3D rendering (Not supervised by radiologist): MIP and/or 3D reconstructed images were created by the technologist. Radiation optimization: All CT scans at this facility use at least one of these dose optimization techniques: automated exposure control; mA and/or kV adjustment per patient size (includes targeted exams where dose is matched to clinical indication); or iterative reconstruction. Contrast material: OMNIPAQUE 350; Contrast volume: 100 ml; Contrast route: INTRAVENOUS (IV); COMPARISON: CT angio abd aorta runof [id number] 02/22/2022 8:38 AM RADIATION DOSE METRICS: Total DLP (mGy-cm): 579.2 FINDINGS: Aorta: Severe atherosclerotic disease of the abdominal aorta. Celiac trunk and mesenteric arteries: Severe stenosis at the origin of the SMA. Renal arteries: No occlusion or significant stenosis. Right iliac arteries: Severe stenosis in the right common iliac artery. The right external iliac artery is patent. The right common femoral artery is patent. Right femoral/popliteal arteries: There is occlusion in the proximal right superficial femoral artery. Right infrapopliteal arteries: No occlusion or significant stenosis. Left iliac arteries: No occlusion or significant stenosis. Left femoral/popliteal arteries: The left superficial femoral artery is occluded distally. The left popliteal artery is extremely diminutive but opacified. Left infrapopliteal arteries: The left anterior tibial and peroneal arteries are opacified down to the level of the distal calf. The left posterior tibial artery is opacified down to the ankle. Lungs: Multiple small patchy consolidations throughout the lung bases and lingula and right middle lobe which are nonspecific but can be seen the setting of viral infection. Liver: No mass. Gallbladder and biliary ducts: The gallbladder is absent. Pancreas: Unremarkable. No mass. No ductal dilation. Spleen: Normal. No splenomegaly. Adrenal glands: Normal. No mass. Kidneys and ureters: Normal. No mass. Stomach and bowel: Unremarkable. No obstruction. No mucosal thickening. Appendix: The appendix is not visualized but there are no secondary signs of acute appendicitis. Urinary bladder: Unremarkable. No mass. Reproductive: Unremarkable as visualized. Intraperitoneal space: Unremarkable. No free air. No significant fluid collection. Lymph nodes: No lymphadenopathy. Bones/joints: Above the knee amputation on the right. There is a patent stent in the left common and external iliac. The left common femoral artery is patent. Soft tissues: Unremarkable. CT/CT angio abd aorta runof [id number] IMPRESSION: 1. Multiple small patchy consolidations throughout the lung bases and lingula and right middle lobe which are nonspecific but can be seen the setting of viral infection. 2. Severe stenosis at the origin of the SMA. 3. Severe stenosis in the right common iliac artery. The right external iliac artery is patent. The right common femoral artery is patent. 4. There is occlusion in the proximal right superficial femoral artery. 5. There is a patent stent in the left common and external iliac. The left common femoral artery is patent. 6. The left superficial femoral artery is occluded distally. 7. The left popliteal artery is extremely diminutive but opacified. 8. The left anterior tibial and peroneal arteries are opacified down to the level of the distal calf. The left posterior tibial artery is opacified down to the ankle.
[2024-05-26] MEDS: sodium chloride 0.9% 500 ML 999 ML IV (19:05)
--- NOTE | 2024-05-26 19:21 | XRR_ITS ---
PROCEDURE INFORMATION: Exam: XR Chest Exam date and time: 05/26/2024 7:36 PM Age: 73 years old Clinical indication: Shortness of breath TECHNIQUE: Imaging protocol: Radiologic exam of the chest. Views: 1 view. COMPARISON: CR XR chest 1V portable [id number] 07/25/2023 3:27 PM FINDINGS: Tubes, catheters and devices: Left-sided cardiac pacemaker device. Lungs: Irregular opacities in the right lung apex and left lower lobe medially, new from the prior examination. Pleural spaces: Unremarkable. No pleural effusion. No pneumothorax. Heart/Mediastinum: Unremarkable. No cardiomegaly. Bones/joints: Prior median sternotomy and CABG. XR/XR chest 1V portable [id number] IMPRESSION: Irregular opacities in the right lung apex and left lower lobe medially, new from the prior examination.
[2024-05-26] MEDS: morphine 4 mg/mL SDV 1 mL IVP (19:39)
--- NOTE | 2024-05-26 19:52 | CTR_ITS ---
PROCEDURE INFORMATION: Exam: CT Chest With Contrast; Diagnostic Exam date and time: 05/26/2024 7:53 PM Age: 73 years old Clinical indication: Cough; Additional info: Abnormal chest xray TECHNIQUE: Imaging protocol: Diagnostic computed tomography of the chest with contrast. Radiation optimization: All CT scans at this facility use at least one of these dose optimization techniques: automated exposure control; mA and/or kV adjustment per patient size (includes targeted exams where dose is matched to clinical indication); or iterative reconstruction. Contrast material: OMNIPAQUE 350; Contrast volume: 50 ml; Contrast route: INTRAVENOUS (IV); COMPARISON: CR (CHEST, ) 05/26/2024 7:36 PM RADIATION DOSE METRICS: Total DLP (mGy-cm): 185.6 FINDINGS: Lungs: Patchy ground-glass and consolidative opacities scattered throughout both lungs in a random distribution which is nonspecific but can be seen the setting of viral infection. Pleural spaces: Unremarkable. No pneumothorax. No pleural effusion. Heart: Unremarkable. No cardiomegaly. No pericardial effusion. Lymph nodes: Unremarkable. No enlarged lymph nodes. Vasculature: Severe stenosis at the origin of the SMA. Vascular stent in the proximal left subclavian artery. Gallbladder and biliary ducts: The gallbladder is absent. Mild intrahepatic biliary ductal dilatation. Kidneys: Multiple vascular calcifications in the right and left kidneys. Bones/joints: Prior median sternotomy and CABG. Soft tissues: Unremarkable. CT/CT chest w con* [id number] IMPRESSION: Patchy ground-glass and consolidative opacities scattered throughout both lungs in a random distribution which is nonspecific but can be seen the setting of viral infection.
[2024-05-26] MEDS: iohexol 350 mg/mL 500 mL Btl (per mL) IV (19:57)
[2024-05-26 20:29] LABS: C Reactive Protein 297.5 mg/L (0.0-4.9)
[2024-05-26 20:32] LABS: Bilirubin Urine Negative (Negative); Blood Urine Negative (Negative); Glucose Urine UA Negative (Normal); Ketones Urine Negative (Negative); Leukocyte Esterase Urine Negative (Negative); Nitrate Urine Negative (Negative); Protein Urine 1+ (Negative); Specific Gravity, Urine 1.025 (1.005-1.030); Urine Appearance Clear (CLEAR); Urine Color Yellow (Yellow); pH Urine 5.5 (5-7)
[2024-05-26 20:37] LABS: Bacteria Urine None Seen /hpf; RBC Urine 0-2 /hpf (0-2); WBC Urine 0-5 /hpf (0-5)
[2024-05-26] MEDS: linezolid premix 600 MG/300 ML PREMIX 300 MG IV (21:23)
[2024-05-26] MEDS: cefepime 2,000 mg SDV 2000 MG IVP (21:23)
--- NOTE | 2024-05-26 21:50 | P.HP_ITS ---
Providers/Chief Complaint 2 Chief Complaint: left leg numb History of Present Illness Michael Dodson is a 73 year old female with a past medical history significant for coronary artery disease with history of CABG, peripheral vascular disease requiring stents and amputations, COPD, and multiple other comorbidities who presents to the emergency department with left lower extremity pains. In the emergency department CT angiogram with runoff showed patent stent to the left lower extremity. Patient also complained of cough for the past 10 days. She states that she had a flu about 10 days ago. She completed steroid course. CAT scan showed evidence of pneumonia, possibly viral. She does endorse cough. Describes as nonproductive. Endorses associated fevers. Endorses generalized malaise. She is on room air. Review of Systems 2 Narrative: A complete review of systems was obtained and is negative except as stated in HPI. Medications/Allergies Home Medications ?Medication ?Instructions ?Recorded ?Confirmed ?Last Taken ?Type aspirin 81 mg tablet,delayed 81 mg PO QAM circulation 06/26/21 09/10/23 07/25/23 History release (Adult Aspirin Regimen) polyethylene glycol 3350 17 17 g PO DAILY PRN constipa tion 06/26/21 09/10/23 Unknown History gram/dose oral powder (Miralax) hydrocodone 7.5 mg-acetaminophen 1 tab PO TID PRN pain 30 days #90 08/31/21 09/10/23 Unknown Rx 325 mg tablet tabs nitroglycerin 0.4 mg sublingual 0.4 mg sublingual Q5M PRN Chest 05/25/22 09/10/23 Unknown Rx tablet (Nitrostat) Pain #10 tabs walker with a seat #1 ea 12/12/22 09/10/23 Unkn own Rx diphenhydramine HCl 25 mg tablet 25 mg PO DAILY PRN Al lergy 02/13/23 09/10/23 Unknown Rx (Benadryl Allergy) Symptoms #30 tabs guaifenesin 600 mg tablet, 600 mg PO BID PRN cough/con gestion 02/13/23 09/10/23 Unknown Rx extended release 12 hr #60 tabs budesonide-formoterol HFA 160 2 puff inhalation BID #1 0.2 grams 03/12/23 09/10/23 07/25/23 Rx mcg-4.5 mcg/actuation aerosol inhaler fluticasone propionate 50 1 spray intranasal BID PRN A llergy 04/30/23 09/10/23 07/25/23 Rx mcg/actuation nasal Symptoms #16 grams spray,suspension handicapped toilet #1 ea 05/21/23 09/10/23 Unkn own Rx Handles/bars shower and commode #1 ea 05/24/23 4 Unknown Rx extended seat for commode #1 ea 05/24/23 09/10/23 Unkn own Rx clopidogrel 75 mg tablet 75 mg PO DAILY 07/25/2308/1407/25/23 History ipratropium 0.5 mg-albuterol 3 mg 3 ml inhalation TID PRN Shortness 07/26/23 09/10/23 Unknown Rx (2.5 mg base)/3 mL nebulization Of Breath #90 mL soln topiramate 100 mg tablet 50 mg (1/2 x 100 mg) PO BID #180 08/23/23 09/10/23 Unknown Rx tabs atorvastatin 40 mg tablet 40 mg PO QAM #90 tabs Unknown Rx spironolactone 25 mg tablet See Rx Instructions .Route 12/02/23 Unknown Rx .COMPLEX #45 tabs ibuprofen 800 mg tablet 800 mg PO BID #60 tabs 01/05 Unknown Rx montelukast 10 mg tablet 10 mg PO DAILY breathing #90 tabs 01/16/24 Unknown Rx fluticasone 250 mcg-salmeterol 50 1 inh inhalation BID #180 ea 01/22/24 Unknown Rx mcg/dose blistr powdr for inhalation citalopram 10 mg tablet (Celexa) 10 mg PO DAILY mental health #90 02/04/24 Unknown Rx tabs metoprolol tartrate 50 mg tablet 50 mg PO BID #90 tabs 02/10/24 Unknown Rx albuterol sulfate 90 mcg/actuation 2 puff inhalation Q 6H PRN 02/24/24 Unknown Rx aerosol inhaler shortness of breath or wheez ing #8.5 grams trazodone 50 mg tablet 100 mg (2 x 50 mg) PO BEDTIM E #180 03/04/24 Unknown Rx tabs methocarbamol 500 mg tablet 500 mg PO BID PRN muscle p ain #180 03/30/24 Unknown Rx tabs potassium chloride 10 mEq 10 meq PO BID #90 caps 04/06 Unknown Rx capsule,extended release isosorbide mononitrate 30 mg 15 mg (1/2 x 30 mg) PO DA LYNNE #45 05/19/24 Unknown Rx tablet,extended release 24 hr tabs Allergies Allergy/AdvReac Type Severity Reaction Status Date / Time gelatin Allergy Unknown ADR-Itching Verified 05/26/24 16:21 codeine Allergy Unknown Verified 05/26/24 16:21 latex Allergy Unknown Verified 05/26/24 16:21 oxycodone (From Percocet) Allergy Unknown Verified 05/26/24 16:21 PFSH Acute 2 PFSH: Medical History Pulmonary cachexia due to COPD Uses prosthesis Right above-knee amputee Surgery 10/26/2022 at [facility] in [place] CKD (chronic kidney disease) stage 2, GFR 60-89 ml/min Anxiety and depression Carotid artery disease Headache, migraine CHF (congestive heart failure), NYHA class III Critical limb ischemia of right lower extremity Admission to [facility] 06/29-07/01/2021 and stenting of R distal SFA and proximal popliteal artery. In [facility], Dr Nance RLE Stent 05/07/2022 Constipation, chronic Chronic low back pain [facility], Dr. Ferguson COPD exacerbation Opioid contract exists [facility], Dr. Ferguson Essential hypertension CAD (coronary artery disease) Benign essential HTN Peripheral vascular disease Enrolled in chronic care management COPD (chronic obstructive pulmonary disease) Nicotine dependence with current use Osteoporosis Surgical History S/p total knee replacement, bilateral S/P hysterectomy S/P balloon angioplasty of pulmonary artery branches ILIAC ARTERY-2016 FEMORAL ARTERY 2016 Status post placement of cardiac pacemaker 2016 S/P carotid endarterectomy 1995 S/P right cataract extraction Family History Other Diabetes Stroke Social History Smoking and tobacco/nicotine status: current every day tobacco/nicotine user cigarettes [ Other cigarette details: 1 PK Q 3-4 DAYS ] Alcohol intake: never Substance/Drug Use: never Vitals/I&O/Wt Last Vital Signs Temp 97.5 F L 05/26/24 16:14 Pulse 76 05/26/24 20:29 Resp 20 H 05/26/24 19:39 BP 124/51 05/26/24 20:37 Pulse Ox 93 05/26/24 20:29 O2 Del Method Room Air 05/26/24 20:29 05/26/24 05/26/24 05/26/24 06:59 14:59 22:59 Intake Total 500 / 500 Balance 500 / 500 Weight last 48 hrs Weight 38.102 kg Physical Exam 2 Narrative: General: Patient is awake and alert. No acute distress. Conversational. Head: Normocephalic. Atraumatic. EOM intact. Neck: No JVD. Cardiovascular: RRR. No gallops. No murmurs. Lungs: Faint bilateral rhonchi. no use of accessory muscles, no crackles or wheezes. On room air. Cough present. Skin: No jaundice. No rashes. Abdomen: Normal bowel sounds, abdomen soft and nontender. Genito Urinary: Genital exam not performed since complaints not related. Rectal: Rectal exam not performed since no symptoms indicated blood loss. Extremities: No cyanosis or clubbing. Amputation of right lower extremity. Musculoskeletal: No swollen or erythematous joints. Neurological: Moves all 4 extremities. No myoclonus. Data 05/26/24 17:14 05/26/24 17:14 Micro: Microbiology 05/26/24 20:20 Blood Culture - Preliminary Blood SPECIMEN COLLECTED 05/26/24 19:40 Blood Culture - Preliminary Blood SPECIMEN COLLECTED A&P Assessment and plan (1) Community acquired pneumonia: Afebrile, on room air CT scan reviewed Check procalcitonin Check bacterial antigens Start ceftriaxone and azithromycin Symptomatic support (2) Peripheral vascular disease: CT angio reviewed, stent patent Continue with dual antiplatelet and statin Analgesics as needed (3) CHF (congestive heart failure), NYHA class III: Strict I's and O's Daily weights Daily assessments of volume Qualifiers: Congestive heart failure chronicity: chronic Congestive heart failure type: systolic Qualified Code(s): I50.22 - Chronic systolic (congestive) heart failure (4) Dyslipidemia: Continue antiplatelet agents (5) COPD (chronic obstructive pulmonary disease): Not in exacerbation, no wheezing DuoNebs Pulmicort Qualifiers: COPD type: emphysema Emphysema type: centrilobular Qualified Code(s): J43.2 - Centrilobular emphysema Plan DVT prophylaxis: Lovenox PDMP PDMP Reviewed: Not Reviewed Attestations 2 Medical Necessity Statement*: Patient presents with leg pain, found to have pneumonia with expected hospitalization not to cross 2 midnights for IV antibiotics. Coding Level of Care Code Acute Code for [facility] Diagnoses Community acquired pneumonia J18.9 Peripheral vascular disease I73.9 Chronic systolic congestive heart failure, NYHA class 3 I50.22 Congestive heart failure chronicity: chronic Congestive heart failure type: systolic Dyslipidemia E78.5 Centrilobular emphysema J43.2 COPD type: emphysema Emphysema type: centrilobular
[2024-05-26 22:16] LABS: ABG PH Result 7.21 (7.35-7.45); Alveolar-Arterial Oxygen Gradi 6.2 mmHg (5-10); Arterial Blood Gas Hematocrit 30.8 % (37-47); Base Excess ABG -13.2 mmol/L (-2.0-2.0); Blood Gas Operator Identificat SAM; Blood Gas Sample Site Brachial, left; Blood Gas Sample Type Arterial; Carboxyhemoglobin 1.4 %THgb (0.4-20.1); HCO3 ABG 13.6 mmol/L (22-26); HGB O2 Sat 87.3 % (95-100); Ionized Calcium Level - ABG 1.2 mmol/L (1.1-1.4); Oxygen Saturation ABG 89.4; PO2 ABG 59.3 mmHg (80.0-100.0); PO2 FiO2 Ratio Arterial Blood 282; Potassium Level - ABG 3.3 mmol/L (3.5-5.0)
--- NOTE | 2024-05-26 22:23 | PC.NURSE ---
pt report given verbally to Dilan DE LA CRUZ at 2224.
[2024-05-26 22:28] LABS: Procalcitonin 1.69 ng/mL (0-0.5)
--- NOTE | 2024-05-26 22:34 | PC.NURSE ---
Pt O2 sat has been maintaining between 91% to 94% room air. This nurse rounded on pt and RT was in room and RT placed pt on 2L NC. Pt O2 sat now at 96% on 2L NC. pt and pt's family aware of pt being ER hold for med surg.
[2024-05-26] MEDS: cefTRIAXone 1,000 mg SDV 1000 MG IVP (23:48)
[2024-05-26] MEDS: AZITHROMYCIN ADD-Vantage 500 MG in 0.9% NaCl ADD-Vantage 250 ML 250 MG IV (23:48)
[2024-05-27] VITALS (91 sets, daily range): BP systolic 93–143; BP diastolic 34–79; PULSE 69–111; RESP 16–24; TEMP 36.8; O2SAT 66–100
[2024-05-27] MEDS: ipratropium-albuterol 3 mL Neb INHALATION ×7 (00:42→23:57)
[2024-05-27 04:41] LABS: Hematocrit 31.5 % (36-47); Mean Corpuscular HGB Conc 30.8 g/dL (30-55); Mean Corpuscular Volume 90.8 fl (85-98); Mean Platelet Volume 10.3 fL (7.4-10.4); Platelet Count 338 10^3/cmm (157-399); Red Blood Count 3.47 10^6/uL (3.85-5.65); White Blood Count 29.81 10^3/uL (3.29-11.43)
[2024-05-27 05:00] LABS: Anion Gap 19.3 (5-19); Blood Urea Nitrogen 26 mg/dL (8-23); Calcium 8.4 mg/dL (8.5-10.5); Carbon Dioxide 15 mmol/L (22-29); Chloride 103 mmol/L (98-107); Creatinine Clr Calc Pharmacy 28.2157; Glucose 110 mg/dL (65-115); Magnesium 1.5 mg/dL (1.7-2.3); Osmolality Calculated 283 mOsm/kg (285-295); Phosphorus 3.2 mg/dL (2.5-4.5); Potassium 3.3 mmol/L (3.5-5.1); Sodium 134 mmol/L (136-145)
[2024-05-27 05:18] LABS: Influenza A NEGATIVE (Negative); Influenza B NEGATIVE (Negative); Respiratory Syncytial Virus Ce NEGATIVE (Negative); SARS-CoV-2 PCR NEGATIVE (Negative)
[2024-05-27 05:26] LABS: Absolute Segmented Neutrophil 16.4 10/cmm (1.6-7.1); Band Neutrophils Absolute 10.4 10^3/cmm (0.0-1.2); Segmented Neutrophils 55 %; Slide Review Slide Review Perform; Total Cells Counted 100 (0-100)
[2024-05-27 05:27] LABS: Absolute Neutrophil 26.8 10^3/cmm (1.4-6.5); Eosinophils 0 %; Lymphocytes 4 %; Monocytes Absolute 1.8 10^3/cmm (0.1-0.6); Platelet Estimate Normal (Normal)
[2024-05-27] MEDS: atorvastatin 40 mg Tablet PO (09:31)
[2024-05-27] MEDS: clopidogrel 75 mg Tablet PO (09:34)
[2024-05-27] MEDS: enoxaparin 30 mg/0.3 mL Syringe SUBCUT (09:35)
[2024-05-27] MEDS: HYDROcodone-acetaminophen 7.5-325 mg Tablet 1 TAB PO ×2 (16:01→23:41)
--- NOTE | 2024-05-27 16:07 | PM.PN ---
Subjective Subjective: Nilam Dodson with a past medical history of peripheral vascular disease status post left above knee amputation one year ago, coronary artery disease, sick sinus syndrome status post pacemaker placement, carotid artery disease, dyslipidemia, hypertension, and migraines presents with left leg numbness for the past two days. She also notes a cough productive of non-purulent sputum and subjective fevers up to 100?F at home for the past week. She was diagnosed with influenza 10 days ago and treated with Theraflu, but her symptoms have not improved. She denies chest pain, nausea, vomiting, abdominal pain, or diarrhea. Initial evaluation revealed: - Laboratory Findings: WBC 37.5, Hgb 9.8, Hct 31, Plt 322, Na 135, K 3.5, Cl 105, HCO3 15, BUN 27, Cr 1.2. CRP 297, procalcitonin 21.69. Urinalysis negative for infection. Arterial blood gas showed pH 7.21, pCO2 34, pO2 59, HCO3 13 consistent with metabolic acidosis. - Imaging Studies: CT angiogram with runoff showed patent stents to the lower extremity. CT chest revealed patchy ground-glass and consolidated opacities scattered throughout both lungs in a random distribution, nonspecific but can be seen in the setting of viral infection. She was started on cefepime and linezolid in the emergency department, which were subsequently changed to ceftriaxone and azithromycin. She remains symptomatic with dry mouth and dysphagia. Subjective: 05/27 - Patient was feeling about the same as time of admission. Slight improvement in respiratory status. Remained on oxygen. no fever or chills since arrival. Vitals/I&O/Wt Last Vital Signs Temp 97.5 F L 05/26/24 16:14 Pulse 107 H 05/27/24 12:45 Resp 24 H 05/27/24 11:58 BP 120/53 05/27/24 12:45 Pulse Ox 100 05/27/24 12:45 O2 Del Method Nasal Cannula 05/27/24 13:05 O2 Flow Rate 3 05/27/24 12:30 05/27/24 05/27/24 05/27/24 06:59 14:59 22:59 Intake Total 250 / 1050 Output Total 700 / 700 Balance 250 / 1050 -700 / -700 Weight last 48 hrs Weight 38.102 kg Weight 38.102 kg Physical Exam Narrative: General: Patient is awake and alert. No acute distress. On supplemental oxygen Head: Grossly unremarkable Cardiovascular: RRR. No gallops. No murmurs. Lungs: Faint bilateral rhonchi. no use of accessory muscles, no crackles or wheezes. On room air. Cough present. - unchanged from admission Abdomen: Normal bowel sounds, abdomen soft and nontender. Extremities: lower extremity felt warm, difficult to feel distal pulse, s/p AKA of R. Stable Urinary Catheter Management: Armando: Cath Placed During This Visit: yes Reason for Continuing Indwelling Catheter: Accurate Measurement of Urinary Output in Critically Ill Patients Urinary Catheter Date of Insertion: 05/27/24 Urinary Catheter Time of Insertion: 01:47 Data 05/27/24 04:35 05/27/24 04:35 Micro: Microbiology 05/26/24 20:20 Blood Culture - Preliminary Blood 05/26/24 20:20 Bacterial Antigens - Final Urine,Clean Catch 05/26/24 19:40 Blood Culture - Preliminary Blood SPECIMEN COLLECTED A&P Assessment and plan (1) Community acquired pneumonia: (2) Peripheral vascular disease: (3) CHF (congestive heart failure), NYHA class III: Qualifiers: Congestive heart failure chronicity: chronic Congestive heart failure type: systolic Qualified Code(s): I50.22 - Chronic systolic (congestive) heart failure (4) Dyslipidemia: (5) COPD (chronic obstructive pulmonary disease): Qualifiers: COPD type: emphysema Emphysema type: centrilobular Qualified Code(s): J43.2 - Centrilobular emphysema Plan Sepsis secondary to Pneumonia - 80 year old female who presents with a one-week history of cough, subjective fevers, and imaging findings consistent with pneumonia in the setting of recent influenza infection. Elevated inflammatory markers and leukocytosis support an infectious process. Plan: 1. Continue ceftriaxone and azithromycin. 2. Follow up on blood culture x 2 + sputum culture if able to obtain 3. Repeat chest x-ray if worsening, trend CBC 4. Will have speech eval to assess for aspiration risk Acute Respiratory failure with hypoxemia and hypercapnia / Underlying COPD - Noted to have metabolic acidosis on blood gas with pH 7.21, pCO2 34, pO2 59, and bicarbonate 13, likely due to sepsis, pneumonia and COPD - Currently on supplemental oxygen at 3L via NC - At home she wears oxygen only at bedtime - BIPAP if acute worsening of respiratory status Plan: 1. Wean oxygen as tolerated, would place on BiPAP over increasing o2 2. Repeat ABG and chest xray if acute worsening 3. Continue Bronchodilators as noted Left Lower Extremity Numbness hx of Peripheral Vascular Disease - Status post left above knee amputation one year ago due to peripheral vascular disease. - Presenting with left leg numbness, but CT angiogram showed patent stents. Plan: 1. Continue antiplatelet therapy and statin. Dysphagia - Reports dysphagia in the setting of dry mouth, concerning for oropharyngeal dysphagia. Plan: 1. Speech therapy evaluation and swallow study 2. Aspiration precautions Addiitional medical problems - Hypertension - Dyslipidemia PDMP PDMP Reviewed: Not Reviewed Attestations Medical Necessity Statement*: Patient presents with leg pain, found to have pneumonia with expected hospitalization not to cross 2 midnights for IV antibiotics. Coding Level of Care Code Acute Code for [facility] Fwd Diagnoses Community acquired pneumonia J18.9 Peripheral vascular disease I73.9 Chronic systolic congestive heart failure, NYHA class 3 I50.22 Congestive heart failure chronicity: chronic Congestive heart failure type: systolic Dyslipidemia E78.5 Centrilobular emphysema J43.2 COPD type: emphysema Emphysema type: centrilobular
[2024-05-27] MEDS: nystatin 100,000 unit/mL UDC 5 mL 100000 UNIT PO ×2 (16:43→21:07)
[2024-05-27] MEDS: HYDROMORPHONE HCL 0.5 MG/0.5 ML INJ 0.4 MG IVP (19:50)
[2024-05-27] MEDS: trazodone 50 mg Tablet 100 MG PO (21:07)
[2024-05-27] MEDS: metoprolol tartrate 50 mg Tablet PO (21:07)
[2024-05-27] MEDS: topiramate 25 mg Tablet 50 MG PO (21:08)
[2024-05-27] MEDS: AZITHROMYCIN ADD-Vantage 500 MG in 0.9% NaCl ADD-Vantage 250 ML 250 MG IV (22:30)
[2024-05-27] MEDS: cefTRIAXone 1,000 mg SDV 1000 MG IVP (22:30)
[2024-05-28] VITALS (15 sets, daily range): BP systolic 106–148; BP diastolic 49–76; PULSE 70–82; RESP 14–22; TEMP 36.3–37.1; O2SAT 92–98
[2024-05-28] MEDS: ipratropium-albuterol 3 mL Neb INHALATION ×5 (07:52→23:20)
[2024-05-28] MEDS: metoprolol tartrate 50 mg Tablet PO ×2 (08:26→18:39)
[2024-05-28] MEDS: nystatin 100,000 unit/mL UDC 5 mL 100000 UNIT PO ×4 (08:26→20:36)
[2024-05-28] MEDS: atorvastatin 40 mg Tablet PO (08:27)
[2024-05-28] MEDS: topiramate 25 mg Tablet 50 MG PO ×2 (08:27→18:39)
[2024-05-28] MEDS: spironolactone 25 mg Tablet 12.5 MG PO (08:27)
[2024-05-28] MEDS: citalopram 20 mg Tablet 10 MG PO (08:28)
[2024-05-28] MEDS: clopidogrel 75 mg Tablet PO (08:29)
[2024-05-28] MEDS: montelukast sodium 10 mg Tablet PO (08:29)
[2024-05-28] MEDS: isosorbide mononitrate ER 30 mg Tablet 15 MG PO (08:29)
--- NOTE | 2024-05-28 10:34 | PC.CHAP ---
Pastoral Care Encounter/Spiritual Assessment Type of Contact [] Declined brim setter visit [] Patient/Family/Request visit [] Outpatient visit [] Follow-up visit [] Physician referral [] Code/Alert [x] Routine visit [] Staff referral [] Actively dying [] Patient sleeping [] Family support [] [] Out of room [] Palliative care [] [] Receiving care in room [] Pre-surgical visit [] Trauma [] Long length of stay [] ICU visit [] Other: Relational/Emotional Strength [x] Patient feels connected with others/family/visitors/staff [] Distress [] Loneliness/isolation [] Abandonment Spirituality of Patient [x] Person of Lesa [] Attends Mandaen of their Lesa [x] Believes in Prayer [] Reads Bible or Christian materials [] There are Spiritual issues to be addressed Technical Service Engineer Interventions [x] Prayer [x] Active listening [] Non-anxious presence [x] Spiritual/emotional support [] Crisis/trauma care [] Spiritual counseling [] Bereavement support [] Provided bereavement packet [] Provided Bible/devotional materials [] Provided toy/stuffed animal, coloring book to patient or family member [] Provided Communion [] Anointing/[place] [] Salvation [x] Completed spiritual assessment [] Other: Impact on Illness or Injury [] Angry [] Fearful [] Anxious [] Often cries [] Exhaustion [] Unable to work [] Unable to attend mandaeism [] Unable to walk/stand [] Unable to read [] Unable to drive [] Unable to eat/drink [] Unable to sleep [] Unable to be with family [] Patient intubated [] Other: Summary Time spent with patient 5 min
[2024-05-28 11:44] LABS: Basophils # 0.1 10^3/uL (0.0-0.1); Basophils % 0.2 %; Hematocrit 29.2 % (36-47); Lymphocytes # 1.2 10^3/uL (0.8-4.8); Lymphocytes % 3.7 %; Mean Corpuscular HGB Conc 33.2 g/dL (30-55); Mean Corpuscular Hemoglobin 28.3 pg (27-33); Mean Corpuscular Volume 85.1 fl (85-98); Mean Platelet Volume 10.3 fL (7.4-10.4); Monocytes # 0.9 10^3/uL (0.2-0.9); Monocytes % 2.7 %; Neutrophils % 92.5 %; Nucleated Red Blood Cells % 0 %; Platelet Count 355 10^3/cmm (157-399); Red Blood Count 3.43 10^6/uL (3.85-5.65); Red Cell Distribution Width 17.5 % (12.1-15.1)
[2024-05-28 11:47] LABS: White Blood Count 31.69 10^3/uL (3.29-11.43)
[2024-05-28 12:03] LABS: Anion Gap 18.2 (5-19); Blood Urea Nitrogen 14 mg/dL (8-23); Calcium 8.6 mg/dL (8.5-10.5); Carbon Dioxide 17 mmol/L (22-29); Chloride 100 mmol/L (98-107); Creatinine Clr Calc Pharmacy 39.9971; Glucose 76 mg/dL (65-115); Osmolality Calculated 273 mOsm/kg (285-295); Potassium 3.2 mmol/L (3.5-5.1); Sodium 132 mmol/L (136-145)
[2024-05-28] MEDS: HYDROcodone-acetaminophen 7.5-325 mg Tablet 1 TAB PO (15:08)
--- NOTE | 2024-05-28 20:05 | P.PN_ITS ---
Subjective 2 Subjective: Nilam Dodson with a past medical history of peripheral vascular disease status post left above knee amputation one year ago, coronary artery disease, sick sinus syndrome status post pacemaker placement, carotid artery disease, dyslipidemia, hypertension, and migraines presents with left leg numbness for the past two days. She also notes a cough productive of non-purulent sputum and subjective fevers up to 100?F at home for the past week. She was diagnosed with influenza 10 days ago and treated with Theraflu, but her symptoms have not improved. She denies chest pain, nausea, vomiting, abdominal pain, or diarrhea. Initial evaluation revealed: - Laboratory Findings: WBC 37.5, Hgb 9.8 , Hct 31, Plt 322, Na 135, K 3.5, Cl 105, HCO3 15, BUN 27, Cr 1.2. CRP 297, procalcitonin 21.69. Urinalysis negative for infection. Arterial blood gas showed pH 7.21, pCO2 34, pO2 59, HCO3 13 consistent with metabolic acidosis. - Imaging Studies: CT angiogram with run off showed patent stents to the lower extremity. CT chest revealed patchy ground-glass and consolidated opacities scattered throughout both lungs in a random distribution, nonspecific but can be seen in the setting of viral infection. She was started on cefepime and linezolid in the emergency department, which were subsequently changed to ceftriaxone and azithromycin. She remains symptomatic with dry mouth and dysphagia. Subjective: 05/27 - Patient was feeling about the same as time of admission. Slight improvement in respiratory status. Remained on oxygen. no fever or chills since arrival. 05/28 - Noted oral sore pain from thrush. but improved. Vitals/I&O/Wt Last Vital Signs Temp 97.4 F L 05/28/24 16:00 Pulse 75 05/28/24 19:47 Resp 18 05/28/24 19:40 BP 148/61 05/28/24 16:00 Pulse Ox 96 05/28/24 19:40 O2 Del Method Nasal Cannula 05/28/24 19:40 O2 Flow Rate 2 05/28/24 19:40 FiO2 2 05/28/24 14:55 05/28/24 05/28/24 05/28/24 06:59 14:59 22:59 Intake Total 490 / 730 600 / 600 120 / 720 Output Total 0 1400 / 1400 Balance 440 / -1320 600 / 600 -1280 / -680 Weight last 48 hrs Weight 39.281 kg Weight 38.102 kg Physical Exam 2 Narrative: General: Patient is awake and alert. No acute distress. On supplemental oxygen Head: Grossly unremarkable Cardiovascular: RRR. No gallops. No murmurs. Lungs: Faint bilateral rhonchi. no use of accessory muscles, no crackles or wheezes. On room air. Cough present. - unchanged from admission Abdomen: Normal bowel sounds, abdomen soft and nontender. Extremities: lower extremity felt warm, difficult to feel distal pulse, s/p AKA of R. Stable Urinary Catheter Management: Armando: Cath Placed During This Visit: yes Reason for Continuing Indwelling Catheter: Other Urinary Catheter Date of Insertion: 05/27/24 Urinary Catheter Time of Insertion: 01:47 Data 05/28/24 11:24 05/28/24 11:24 Micro: Microbiology 05/26/24 19:40 Blood Culture - Preliminary Blood NEGATIVE TO DATE 05/26/24 20:20 Blood Culture - Preliminary Blood A&P Assessment and plan (1) Community acquired pneumonia: (2) Peripheral vascular disease: (3) CHF (congestive heart failure), NYHA class III: Qualifiers: Congestive heart failure chronicity: chronic Congestive heart failure type: systolic Qualified Code(s): I50.22 - Chronic systolic (congestive) heart failure (4) Dyslipidemia: (5) COPD (chronic obstructive pulmonary disease): Qualifiers: COPD type: emphysema Emphysema type: centrilobular Qualified Code(s): J43.2 - Centrilobular emphysema Plan Sepsis secondary to Pneumonia - 80 year old female who presents with a one-week history of cough, subjective fevers, and imaging findings consistent with pneumonia in the setting of recent influenza infection. Elevated inflammatory markers and leukocytosis support an infectious process. Plan: 1. Will change to zosyn 2. CBC in am Acute Respiratory failure with hypoxemia and hypercapnia / Underlying COPD - Noted to have metabolic acidosis on blood gas with pH 7.21, pCO2 34, pO2 59, and bicarbonate 13, likely due to sepsis, pneumonia and COPD - Currently on supplemental oxygen at 3L via NC - At home she wears oxygen only at bedtime - BIPAP if acute worsening of respiratory status Plan: 1. Stable Left Lower Extremity Numbness hx of Peripheral Vascular Disease - Status post left above knee amputation one year ago due to peripheral vascular disease. - Presenting with left leg numbness, but CT angiogram showed patent stents. Plan: 1. Continue antiplatelet therapy and statin. Dysphagia - Reports dysphagia in the setting of dry mouth, concerning for oropharyngeal dysphagia. Plan: 1. Speech therapy evaluation and swallow study noted 2. Aspiration precautions Addiitional medical problems - Hypertension - Dyslipidemia PDMP PDMP Reviewed: Not Reviewed Attestations 2 Medical Necessity Statement*: Patient presents with leg pain, found to have pneumonia with expected hospitalization not to cross 2 midnights for IV antibiotics. Coding Level of Care Code Acute Code for [facility] Diagnoses Community acquired pneumonia J18.9 Peripheral vascular disease I73.9 Chronic systolic congestive heart failure, NYHA class 3 I50.22 Congestive heart failure chronicity: chronic Congestive heart failure type: systolic Dyslipidemia E78.5 Centrilobular emphysema J43.2 COPD type: emphysema Emphysema type: centrilobular
[2024-05-28] MEDS: piperacillin-tazobactam 3.375 GM in sodium chloride 0.9% (plus) 50 ML IV (20:36)
[2024-05-28] MEDS: trazodone 50 mg Tablet 100 MG PO (20:36)
[2024-05-28] MEDS: apixaban 5 mg Tablet 2.5 MG PO (20:36)
[2024-05-28] MEDS: AZITHROMYCIN ADD-Vantage 500 MG in 0.9% NaCl ADD-Vantage 250 ML 250 MG IV (23:08)
[2024-05-29] VITALS (14 sets, daily range): BP systolic 111–142; BP diastolic 45–61; PULSE 71–86; RESP 16–20; TEMP 36.3–36.9; O2SAT 90–95
[2024-05-29] MEDS: HYDROcodone-acetaminophen 7.5-325 mg Tablet 1 TAB PO ×2 (01:31→09:45)
[2024-05-29] MEDS: piperacillin-tazobactam 3.375 GM in sodium chloride 0.9% (plus) 50 ML IV ×3 (04:06→19:58)
[2024-05-29 04:36] LABS: Basophils % 0.2 %; Hematocrit 24.5 % (36-47); Lymphocytes # 1.1 10^3/uL (0.8-4.8); Lymphocytes % 5.7 %; Mean Corpuscular HGB Conc 33.1 g/dL (30-55); Mean Corpuscular Hemoglobin 28.9 pg (27-33); Mean Corpuscular Volume 87.5 fl (85-98); Mean Platelet Volume 9.9 fL (7.4-10.4); Monocytes # 0.8 10^3/uL (0.2-0.9); Monocytes % 3.8 %; Neutrophils # 17.92 10^3/uL (1.8-7.7); Neutrophils % 89.5 %; Nucleated Red Blood Cells % 0 %; Platelet Count 275 10^3/cmm (157-399); Red Cell Distribution Width 16.9 % (12.1-15.1); White Blood Count 20.03 10^3/uL (3.29-11.43)
[2024-05-29] MEDS: ipratropium-albuterol 3 mL Neb INHALATION ×5 (04:39→19:22)
[2024-05-29 05:00] LABS: Alanine Aminotransferase 17 U/L (0-33); Albumin Level 2.3 g/dL (3.5-5.2); Alkaline Phosphatase 129 U/L (35-105); Aspartate Amino Transferase 20 U/L (0-32); Blood Urea Nitrogen 14 mg/dL (8-23); Carbon Dioxide 16 mmol/L (22-29); Chloride 103 mmol/L (98-107); Creatinine Clr Calc Pharmacy 39.9971; Globulin 2.7 g/dL (1.3-4.6); Glucose 73 mg/dL (65-115); Osmolality Calculated 279 mOsm/kg (285-295); Sodium 135 mmol/L (136-145); Total Bilirubin 0.4 mg/dL (0.15-1.2)
[2024-05-29 05:06] LABS: Procalcitonin 0.69 ng/mL (0-0.5)
[2024-05-29] MEDS: nystatin 100,000 unit/mL UDC 5 mL 100000 UNIT PO ×4 (09:45→19:59)
[2024-05-29] MEDS: methocarbamol 500 mg Tablet PO (09:45)
[2024-05-29] MEDS: topiramate 25 mg Tablet 50 MG PO ×2 (09:45→18:14)
[2024-05-29] MEDS: metoprolol tartrate 50 mg Tablet PO ×2 (09:46→18:14)
[2024-05-29] MEDS: montelukast sodium 10 mg Tablet PO (09:46)
[2024-05-29] MEDS: clopidogrel 75 mg Tablet PO (09:47)
[2024-05-29] MEDS: atorvastatin 40 mg Tablet PO (09:47)
[2024-05-29] MEDS: spironolactone 25 mg Tablet 12.5 MG PO (09:47)
[2024-05-29] MEDS: guaiFENesin 600 mg Tablet PO (09:47)
[2024-05-29] MEDS: isosorbide mononitrate ER 30 mg Tablet 15 MG PO (09:47)
[2024-05-29] MEDS: potassium chloride ER 20 mEq Tablet 40 MEQ PO (09:48)
[2024-05-29] MEDS: apixaban 5 mg Tablet 2.5 MG PO ×2 (11:57→19:59)
--- NOTE | 2024-05-29 18:44 | P.PN_ITS ---
Subjective 2 Subjective: Nilam Dodson with a past medical history of peripheral vascular disease status post left above knee amputation one year ago, coronary artery disease, sick sinus syndrome status post pacemaker placement, carotid artery disease, dyslipidemia, hypertension, and migraines presents with left leg numbness for the past two days. She also notes a cough productive of non-purulent sputum and subjective fevers up to 100?F at home for the past week. She was diagnosed with influenza 10 days ago and treated with Theraflu, but her symptoms have not improved. She denies chest pain, nausea, vomiting, abdominal pain, or diarrhea. Initial evaluation revealed: - Laboratory Findings: WBC 37.5, Hgb 9.8 , Hct 31, Plt 322, Na 135, K 3.5, Cl 105, HCO3 15, BUN 27, Cr 1.2. CRP 297, procalcitonin 21.69. Urinalysis negative for infection. Arterial blood gas showed pH 7.21, pCO2 34, pO2 59, HCO3 13 consistent with metabolic acidosis. - Imaging Studies: CT angiogram with run off showed patent stents to the lower extremity. CT chest revealed patchy ground-glass and consolidated opacities scattered throughout both lungs in a random distribution, nonspecific but can be seen in the setting of viral infection. She was started on cefepime and linezolid in the emergency department, which were subsequently changed to ceftriaxone and azithromycin. She remains symptomatic with dry mouth and dysphagia. Subjective: 05/27 - Patient was feeling about the same as time of admission. Slight improvement in respiratory status. Remained on oxygen. no fever or chills since arrival. 05/28 - Noted oral sore pain from thrush. but improved. 05/29 improving Vitals/I&O/Wt Last Vital Signs Temp 97.4 F L 05/29/24 12:00 Pulse 71 05/29/24 16:26 Resp 17 05/29/24 16:26 BP 132/53 05/29/24 16:26 Pulse Ox 92 05/29/24 16:26 O2 Del Method Room Air 05/29/24 16: O2 Flow Rate 2 05/29/24 11:35 FiO2 2 05/28/24 14:55 05/29/24 05/29/24 05/29/24 06:59 14:59 22:59 Intake Total 600 / 1620 410 / 410 290 / 700 Output Total 800 / 2200 500 / 500 Balance -200 / -580 410 / 410 -210 / 200 Weight last 48 hrs Weight 45.359 kg Weight 39.281 kg Physical Exam 2 Narrative: General: Patient is awake and alert. No acute distress. On supplemental oxygen Head: Grossly unremarkable Cardiovascular: RRR. No gallops. No murmurs. Lungs: Faint bilateral rhonchi. no use of accessory muscles, no crackles or wheezes. On room air. Cough present. - unchanged from admission Abdomen: Normal bowel sounds, abdomen soft and nontender. Extremities: lower extremity felt warm, difficult to feel distal pulse, s/p AKA of R. Stable Urinary Catheter Management: Armando: Cath Placed During This Visit: yes Reason for Continuing Indwelling Catheter: Acute Urinary Retention or Obstruction Urinary Catheter Date of Insertion: 05/27/24 Urinary Catheter Time of Insertion: 01:47 Data 05/29/24 04:21 05/29/24 04:21 Micro: Microbiology 05/26/24 20:20 Blood Culture - Preliminary Blood Staphylococcus aureus Enterococcus faecalis 05/28/24 20:50 Legionella Urinary Antigen - Final Urine Catheterized A&P Assessment and plan (1) Community acquired pneumonia: (2) Peripheral vascular disease: (3) CHF (congestive heart failure), NYHA class III: Qualifiers: Congestive heart failure chronicity: chronic Congestive heart failure type: systolic Qualified Code(s): I50.22 - Chronic systolic (congestive) heart failure (4) Dyslipidemia: (5) COPD (chronic obstructive pulmonary disease): Qualifiers: COPD type: emphysema Emphysema type: centrilobular Qualified Code(s): J43.2 - Centrilobular emphysema Plan Sepsis secondary to pneumonia + Staphylococcal / Enterococcus bacteremia - 80 year old female who presents with a one-week history of cough, subjective fevers, and imaging findings consistent with pneumonia in the setting of recent influenza infection. Elevated inflammatory markers and leukocytosis support an infectious process. Plan: 1. Continue zosyn/ added vancomycin 2. Repeat blood culture x2 3. Follow up on final sensitivities - possibly MRSA ? Lab was not clear 4. CBC in am 5. Cristian need further work up for source Acute Respiratory failure with hypoxemia and hypercapnia / Underlying COPD - Noted to have metabolic acidosis on blood gas with pH 7.21, pCO2 34, pO2 59, and bicarbonate 13, likely due to sepsis, pneumonia and COPD - Currently on supplemental oxygen at 3L via NC - At home she wears oxygen only at bedtime - BIPAP if acute worsening of respiratory status Plan: 1. Stable Left Lower Extremity Numbness hx of Peripheral Vascular Disease - Status post left above knee amputation one year ago due to peripheral vascular disease. - Presenting with left leg numbness, but CT angiogram showed patent stents. Plan: 1. Continue antiplatelet therapy and statin. Dysphagia - Reports dysphagia in the setting of dry mouth, concerning for oropharyngeal dysphagia. Plan: 1. Dysphagia diet 2. Aspiration precautions Addiitional medical problems - Hypertension - Dyslipidemia PDMP PDMP Reviewed: Not Reviewed Attestations 2 Medical Necessity Statement*: Patient presents with leg pain, found to have pneumonia with expected hospitalization not to cross 2 midnights for IV antibiotics. Coding Level of Care Code Acute Code for [facility] Diagnoses Community acquired pneumonia J18.9 Peripheral vascular disease I73.9 Chronic systolic congestive heart failure, NYHA class 3 I50.22 Congestive heart failure chronicity: chronic Congestive heart failure type: systolic Dyslipidemia E78.5 Centrilobular emphysema J43.2 COPD type: emphysema Emphysema type: centrilobular
[2024-05-29] MEDS: vancomycin 1,250 MG/250 ML PIGGYBACK 166.67 MG IV (19:52)
[2024-05-29] MEDS: trazodone 50 mg Tablet 100 MG PO (19:59)
[2024-05-29] MEDS: citalopram 20 mg Tablet 10 MG PO (19:59)
[2024-05-30] VITALS (13 sets, daily range): BP systolic 115–158; BP diastolic 52–66; PULSE 60–82; RESP 17–22; TEMP 36.8–37; O2SAT 95–98
[2024-05-30] MEDS: ipratropium-albuterol 3 mL Neb INHALATION ×6 (00:14→21:05)
[2024-05-30] MEDS: piperacillin-tazobactam 3.375 GM in sodium chloride 0.9% (plus) 50 ML IV ×3 (04:40→20:35)
[2024-05-30 05:29] LABS: Basophils % 0.1 %; Eosinophils % 0.1 %; Hematocrit 24.2 % (36-47); Lymphocytes # 1.3 10^3/uL (0.8-4.8); Lymphocytes % 7.3 %; Mean Corpuscular HGB Conc 31.8 g/dL (30-55); Mean Corpuscular Hemoglobin 27.8 pg (27-33); Mean Corpuscular Volume 87.4 fl (85-98); Mean Platelet Volume 9.8 fL (7.4-10.4); Monocytes # 1.1 10^3/uL (0.2-0.9); Monocytes % 6.4 %; Neutrophils # 14.93 10^3/uL (1.8-7.7); Neutrophils % 85.1 %; Nucleated Red Blood Cells % 0 %; Platelet Count 288 10^3/cmm (157-399); Red Blood Count 2.77 10^6/uL (3.85-5.65); Red Cell Distribution Width 17.8 % (12.1-15.1); White Blood Count 17.53 10^3/uL (3.29-11.43)
[2024-05-30 05:49] LABS: Alanine Aminotransferase 16 U/L (0-33); Albumin Level 2.2 g/dL (3.5-5.2); Alkaline Phosphatase 98 U/L (35-105); Anion Gap 18.3 (5-19); Aspartate Amino Transferase 13 U/L (0-32); Blood Urea Nitrogen 14 mg/dL (8-23); C Reactive Protein 224.2 mg/L (0.0-4.9); Carbon Dioxide 15 mmol/L (22-29); Chloride 104 mmol/L (98-107); Creatinine Clr Calc Pharmacy 44.7084; Globulin 2.8 g/dL (1.3-4.6); Glucose 82 mg/dL (65-115); Osmolality Calculated 278 mOsm/kg (285-295); Potassium 3.3 mmol/L (3.5-5.1); Sodium 134 mmol/L (136-145); Total Bilirubin 0.4 mg/dL (0.15-1.2)
[2024-05-30 07:40] LABS: MRSA PCR OZH (swab) MRSA Detected (Not Detecte)
--- NOTE | 2024-05-30 08:16 | PHA.VACGOAL ---
Vancomycin Goal - Goal Vancomycin Goal:: 15-20 mg/L Vancomycin Indication:: Pneumonia - Therapy Current therapy:: Pip/Tazo Day of therpy:: Day []of [] . Actual body weight (kg): 96 lb 12.8 oz - Data Labs: WBC 17.53 10^3/uL (3.29-11.43) H 05/30/24 05:04 Corrected WBC Cancelled 05/26/24 16:29 RBC 2.77 10^6/uL (3.85-5.65) L 05/30/24 05:04 Hgb 7.70 g/dL (11.27-16.99) L 05/30/24 05:04 Hct 24.2 % (36-47) L 05/30/24 05:04 MCV 87.4 fl (85-98) 05/30/24 05:04 MCH 27.8 pg (27-33) 05/30/24 05:04 MCHC 31.8 g/dL (30-55) 05/30/24 05:04 RDW 17.8 % (12.1-15.1) H 05/30/24 05:04 Sodium 134 mmol/L (136-145) L 05/30/24 05:04 Potassium 3.3 mmol/L (3.5-5.1) L 05/30/24 05:04 Chloride 104 mmol/L (98-107) 05/30/24 05:04 Carbon Dioxide 15 mmol/L (22-29) L 05/30/24 05:04 Anion Gap 18.3 (5-19) 05/30/24 05:04 BUN 14 mg/dL (8-23) 05/30/24 05:04 Creatinine 0.7 mg/dL (0.5-0.9) 05/30/24 05:04 GFR Calculation Not Reportable 05/30/24 05:04 Last dialysis session:: N/A Treatment plan:: new consult Regimen:: LOADING DOSE OF 1250 MG GIVEN MAINTENANCE DOSE OF 750 MG Q24H Follow up:: WILL CONTINUE TO MONITOR AND FOLLOW UP DAILY
[2024-05-30] MEDS: HYDROcodone-acetaminophen 7.5-325 mg Tablet 1 TAB PO (09:04)
[2024-05-30] MEDS: apixaban 5 mg Tablet 2.5 MG PO ×2 (09:04→20:38)
[2024-05-30] MEDS: metoprolol tartrate 50 mg Tablet PO ×2 (09:04→17:01)
[2024-05-30] MEDS: spironolactone 25 mg Tablet 12.5 MG PO (09:05)
[2024-05-30] MEDS: clopidogrel 75 mg Tablet PO (09:05)
[2024-05-30] MEDS: nystatin 100,000 unit/mL UDC 5 mL 100000 UNIT PO ×4 (09:05→20:39)
[2024-05-30] MEDS: atorvastatin 40 mg Tablet PO (09:05)
[2024-05-30] MEDS: montelukast sodium 10 mg Tablet PO (09:05)
[2024-05-30] MEDS: topiramate 25 mg Tablet 50 MG PO ×2 (09:05→17:01)
[2024-05-30] MEDS: isosorbide mononitrate ER 30 mg Tablet 15 MG PO (09:05)
--- NOTE | 2024-05-30 14:55 | P.PN_ITS ---
Subjective 2 Subjective: Nilam Dodson with a past medical history of peripheral vascular disease status post left above knee amputation one year ago, coronary artery disease, sick sinus syndrome status post pacemaker placement, carotid artery disease, dyslipidemia, hypertension, and migraines presents with left leg numbness for the past two days. She also notes a cough productive of non-purulent sputum and subjective fevers up to 100?F at home for the past week. She was diagnosed with influenza 10 days ago and treated with Theraflu, but her symptoms have not improved. She denies chest pain, nausea, vomiting, abdominal pain, or diarrhea. Initial evaluation revealed: - Laboratory Findings: WBC 37.5, Hgb 9.8 , Hct 31, Plt 322, Na 135, K 3.5, Cl 105, HCO3 15, BUN 27, Cr 1.2. CRP 297, procalcitonin 21.69. Urinalysis negative for infection. Arterial blood gas showed pH 7.21, pCO2 34, pO2 59, HCO3 13 consistent with metabolic acidosis. - Imaging Studies: CT angiogram with run off showed patent stents to the lower extremity. CT chest revealed patchy ground-glass and consolidated opacities scattered throughout both lungs in a random distribution, nonspecific but can be seen in the setting of viral infection. She was started on cefepime and linezolid in the emergency department, which were subsequently changed to ceftriaxone and azithromycin. She remains symptomatic with dry mouth and dysphagia. Subjective: 05/27 - Patient was feeling about the same as time of admission. Slight improvement in respiratory status. Remained on oxygen. no fever or chills since arrival. 05/28 - Noted oral sore pain from thrush. but improved. 05/29 improving 05/30 - No new clinical events Vitals/I&O/Wt Last Vital Signs Temp 98.5 F 05/30/24 11:50 Pulse 66 05/30/24 11:50 Resp 18 05/30/24 11:50 BP 115/52 05/30/24 11:50 Pulse Ox 96 05/30/24 11:50 O2 Del Method Nasal Cannula 05/30/24 11:50 O2 Flow Rate 2 05/30/24 11:10 FiO2 2 05/28/24 14:55 05/29/24 05/30/24 05/30/24 22:59 06:59 14:59 Intake Total 540 / 950 50 / 1000 230 / 230 Output Total 850 / 850 200 / 1050 Balance -310 / 100 -150 / -50 230 / 230 Weight last 48 hrs Weight 43.908 kg Weight 45.359 kg Physical Exam 2 Narrative: General: Patient is awake and alert. No acute distress. On supplemental oxygen Head: Grossly unremarkable Cardiovascular: RRR. No gallops. No murmurs. Lungs: Faint bilateral rhonchi. no use of accessory muscles, no crackles or wheezes. On room air. Cough present. - unchanged from admission Abdomen: Normal bowel sounds, abdomen soft and nontender. Extremities: lower extremity felt warm, difficult to feel distal pulse, s/p AKA of R. Stable Urinary Catheter Management: Armando: Cath Placed During This Visit: yes Reason for Continuing Indwelling Catheter: Other Urinary Catheter Date of Insertion: 05/27/24 Urinary Catheter Time of Insertion: 01:47 Data 05/30/24 05:04 05/30/24 05:04 Micro: Microbiology 05/29/24 21:10 Blood Culture - Preliminary Blood SPECIMEN COLLECTED 05/29/24 21:18 Blood Culture - Preliminary Blood SPECIMEN COLLECTED 05/26/24 20:20 Blood Culture - Preliminary Blood Staphylococcus aureus Enterococcus faecalis A&P Assessment and plan (1) Community acquired pneumonia: (2) Peripheral vascular disease: (3) CHF (congestive heart failure), NYHA class III: Qualifiers: Congestive heart failure chronicity: chronic Congestive heart failure type: systolic Qualified Code(s): I50.22 - Chronic systolic (congestive) heart failure (4) Dyslipidemia: (5) COPD (chronic obstructive pulmonary disease): Qualifiers: COPD type: emphysema Emphysema type: centrilobular Qualified Code(s): J43.2 - Centrilobular emphysema Plan Sepsis secondary to pneumonia + MRSA / Enterococcus bacteremia - 80 year old female who presents with a one-week history of cough, subjective fevers, and imaging findings consistent with pneumonia in the setting of recent influenza infection. Elevated inflammatory markers and leukocytosis support an infectious process. Plan: 1. Continue zosyn/ vancomycin 2. Repeat blood culture x2 - NGTd 3. Will de-escalate abs 4. Work up for source Acute Respiratory failure with hypoxemia and hypercapnia / Underlying COPD - Noted to have metabolic acidosis on blood gas with pH 7.21, pCO2 34, pO2 59, and bicarbonate 13, likely due to sepsis, pneumonia and COPD - Currently on supplemental oxygen at 3L via [place] - At home she wears oxygen only at bedtime - BIPAP if acute worsening of respiratory status Plan: 1. Stable, improving Left Lower Extremity Numbness hx of Peripheral Vascular Disease - Status post left above knee amputation one year ago due to peripheral vascular disease. - Presenting with left leg numbness, but CT angiogram showed patent stents. Plan: 1. Continue antiplatelet therapy and statin. Dysphagia - Reports dysphagia in the setting of dry mouth, concerning for oropharyngeal dysphagia. Plan: 1. Dysphagia diet 2. Aspiration precautions Addiitional medical problems - Hypertension - Dyslipidemia PDMP PDMP Reviewed: Not Reviewed Attestations 2 Medical Necessity Statement*: Patient presents with leg pain, found to have pneumonia with expected hospitalization not to cross 2 midnights for IV antibiotics. Coding Level of Care Code Acute Code for [facility] Diagnoses Community acquired pneumonia J18.9 Peripheral vascular disease I73.9 Chronic systolic congestive heart failure, NYHA class 3 I50.22 Congestive heart failure chronicity: chronic Congestive heart failure type: systolic Dyslipidemia E78.5 Centrilobular emphysema J43.2 COPD type: emphysema Emphysema type: centrilobular
[2024-05-30] MEDS: potassium chloride ER 20 mEq Tablet PO (15:04)
[2024-05-30] MEDS: VANCOMYCIN ADD-Vantage 750 MG in 0.9% NaCl ADD-Vantage 250 ML 250 MG IV (17:41)
[2024-05-30] MEDS: trazodone 50 mg Tablet 100 MG PO (20:38)
[2024-05-30] MEDS: citalopram 20 mg Tablet 10 MG PO (20:38)
[2024-05-31] VITALS (11 sets, daily range): BP systolic 136–162; BP diastolic 65–73; PULSE 64–80; RESP 16–20; TEMP 36.4–36.9; O2SAT 96–99
[2024-05-31] MEDS: ipratropium-albuterol 3 mL Neb INHALATION ×4 (00:06→21:15)
[2024-05-31] MEDS: HYDROcodone-acetaminophen 7.5-325 mg Tablet 1 TAB PO ×3 (03:54→22:58)
[2024-05-31] MEDS: piperacillin-tazobactam 3.375 GM in sodium chloride 0.9% (plus) 50 ML IV ×3 (03:54→20:31)
[2024-05-31] MEDS: nystatin 100,000 unit/mL UDC 5 mL 100000 UNIT PO ×4 (09:23→20:33)
[2024-05-31] MEDS: montelukast sodium 10 mg Tablet PO (09:24)
[2024-05-31] MEDS: clopidogrel 75 mg Tablet PO (09:24)
[2024-05-31] MEDS: apixaban 5 mg Tablet 2.5 MG PO ×2 (09:24→20:34)
[2024-05-31] MEDS: metoprolol tartrate 50 mg Tablet PO ×2 (09:24→17:16)
[2024-05-31] MEDS: isosorbide mononitrate ER 30 mg Tablet 15 MG PO (09:24)
[2024-05-31] MEDS: atorvastatin 40 mg Tablet PO (09:24)
[2024-05-31] MEDS: spironolactone 25 mg Tablet 12.5 MG PO (09:24)
[2024-05-31] MEDS: topiramate 25 mg Tablet 50 MG PO ×2 (09:24→17:16)
--- NOTE | 2024-05-31 16:39 | P.PN_ITS ---
Subjective 2 Subjective: Nilam Dodson with a past medical history of peripheral vascular disease status post left above knee amputation one year ago, coronary artery disease, sick sinus syndrome status post pacemaker placement, carotid artery disease, dyslipidemia, hypertension, and migraines presents with left leg numbness for the past two days. She also notes a cough productive of non-purulent sputum and subjective fevers up to 100?F at home for the past week. She was diagnosed with influenza 10 days ago and treated with Theraflu, but her symptoms have not improved. She denies chest pain, nausea, vomiting, abdominal pain, or diarrhea. Initial evaluation revealed: - Laboratory Findings: WBC 37.5, Hgb 9.8 , Hct 31, Plt 322, Na 135, K 3.5, Cl 105, HCO3 15, BUN 27, Cr 1.2. CRP 297, procalcitonin 21.69. Urinalysis negative for infection. Arterial blood gas showed pH 7.21, pCO2 34, pO2 59, HCO3 13 consistent with metabolic acidosis. - Imaging Studies: CT angiogram with run off showed patent stents to the lower extremity. CT chest revealed patchy ground-glass and consolidated opacities scattered throughout both lungs in a random distribution, nonspecific but can be seen in the setting of viral infection. She was started on cefepime and linezolid in the emergency department, which were subsequently changed to ceftriaxone and azithromycin. She remains symptomatic with dry mouth and dysphagia. Subjective: 05/27 - Patient was feeling about the same as time of admission. Slight improvement in respiratory status. Remained on oxygen. no fever or chills since arrival. 05/28 - Noted oral sore pain from thrush. but improved. 05/29 improving 05/30 - No new clinical events 05/21 - Feeling much better today. Stated she was able to eat today. No oral pain or sores. No nausea or vomiting. Vitals/I&O/Wt Last Vital Signs Temp 98.3 F 05/31/24 16:00 Pulse 67 05/31/24 16:00 Resp 18 05/31/24 15:13 BP 146/67 05/31/24 16:00 Pulse Ox 97 05/31/24 16:00 O2 Del Method Nasal Cannula 05/31/24 16:00 O2 Flow Rate 2 05/31/24 16:00 FiO2 2 05/28/24 14:55 05/31/24 05/31/24 05/31/24 06:59 14:59 22:59 Intake Total 50 / 640 530 / 530 Output Total 1100 / 1100 550 / 550 Balance -1050 / -460 530 / 530 -550 / -20 Weight last 48 hrs Weight 46.357 kg Weight 43.908 kg Physical Exam 2 Narrative: General: Patient is awake and alert. No acute distress. On supplemental oxygen Head: Grossly unremarkable Cardiovascular: RRR. No gallops. No murmurs. Lungs: Faint bilateral rhonchi. no use of accessory muscles, no crackles or wheezes. On room air. Cough present. - unchanged from admission Abdomen: Normal bowel sounds, abdomen soft and nontender. Extremities: lower extremity felt warm, difficult to feel distal pulse. Dry gangrene of left toe. s/p AKA of R. Stable Urinary Catheter Management: Armando: Cath Placed During This Visit: yes Reason for Continuing Indwelling Catheter: Accurate Measurement of Urinary Output in Critically Ill Patients Urinary Catheter Date of Insertion: 05/27/24 Urinary Catheter Time of Insertion: 01:47 Data 05/30/24 05:04 05/30/24 05:04 Micro: Microbiology 05/26/24 20:20 Blood Culture - Final Blood Methicillin Resis Staph Aureus Enterococcus faecalis 05/29/24 21:10 Blood Culture - Preliminary Blood NEGATIVE TO DATE 05/29/24 21:18 Blood Culture - Preliminary Blood NEGATIVE TO DATE A&P Assessment and plan (1) Community acquired pneumonia: (2) Peripheral vascular disease: (3) CHF (congestive heart failure), NYHA class III: Qualifiers: Congestive heart failure chronicity: chronic Congestive heart failure type: systolic Qualified Code(s): I50.22 - Chronic systolic (congestive) heart failure (4) Dyslipidemia: (5) COPD (chronic obstructive pulmonary disease): Qualifiers: COPD type: emphysema Emphysema type: centrilobular Qualified Code(s): J43.2 - Centrilobular emphysema Plan Sepsis secondary to pneumonia + MRSA / Enterococcus bacteremia - 80 year old female who presents with a one-week history of cough, subjective fevers, and imaging findings consistent with pneumonia in the setting of recent influenza infection. Elevated inflammatory markers and leukocytosis support an infectious process. - Possibly due to left foot toe infection - noted dry gangrene. no erythema or discharge - Does have a pacemaker. Plan: 1. Continue zosyn/ vancomycin - will de-escalate to vancomycin only in am 2. Repeat blood culture x2 - NGTD 3. Foot xray to assess for osteo 4. Echo ordered 5. Will discuss with ID in am Acute Respiratory failure with hypoxemia and hypercapnia / Underlying COPD - Noted to have metabolic acidosis on blood gas with pH 7.21, pCO2 34, pO2 59, and bicarbonate 13, likely due to sepsis, pneumonia and COPD - Currently on supplemental oxygen at 3L via [place] - At home she wears oxygen only at bedtime - BIPAP if acute worsening of respiratory status Plan: 1. Stable, improving Left Lower Extremity Numbness hx of Peripheral Vascular Disease - Status post left above knee amputation one year ago due to peripheral vascular disease. - Presenting with left leg numbness, but CT angiogram showed patent stents. Plan: 1. Continue antiplatelet therapy and statin. Dysphagia - Reports dysphagia in the setting of dry mouth, concerning for oropharyngeal dysphagia. Plan: 1. Dysphagia diet 2. Aspiration precautions Addiitional medical problems - Hypertension - Dyslipidemia PDMP PDMP Reviewed: Not Reviewed Attestations 2 Medical Necessity Statement*: Patient presents with leg pain, found to have pneumonia with expected hospitalization not to cross 2 midnights for IV antibiotics. Coding Level of Care Code Acute Code for [facility] Diagnoses Community acquired pneumonia J18.9 Peripheral vascular disease I73.9 Chronic systolic congestive heart failure, NYHA class 3 I50.22 Congestive heart failure chronicity: chronic Congestive heart failure type: systolic Dyslipidemia E78.5 Centrilobular emphysema J43.2 COPD type: emphysema Emphysema type: centrilobular
--- NOTE | 2024-05-31 16:39 | XRR_ITS ---
PROCEDURE INFORMATION: Exam: XR Left Foot Exam date and time: 05/31/2024 6:50 PM Age: 73 years old Clinical indication: Pain; Foot; Left; Additional info: Left toe wound, assess for infection TECHNIQUE: Imaging protocol: Radiologic exam of the left foot. Views: 1 or 2 views. COMPARISON: CT angio abd aorta runof [id number] 05/26/2024 7:53 PM FINDINGS: Bones/joints: Diffuse bony demineralization without evidence of acute fracture or dislocation. No focal demineralization or cortical erosion. Joint spacing and alignment are maintained. Small plantar calcaneal enthesophyte. Soft tissues: Distal 4th toe irregular soft tissue swelling. Mild 5th toe soft tissue irregularity. XR/XR foot LT 2V [id number] IMPRESSION: Fourth toe soft tissue swelling without evidence of acute bony abnormality.
[2024-05-31] MEDS: VANCOMYCIN ADD-Vantage 750 MG in 0.9% NaCl ADD-Vantage 250 ML 250 MG IV (18:15)
[2024-05-31] MEDS: citalopram 20 mg Tablet 10 MG PO (20:34)
[2024-05-31] MEDS: trazodone 50 mg Tablet 100 MG PO (20:34)
[2024-06-01] VITALS (13 sets, daily range): BP systolic 118–152; BP diastolic 51–70; PULSE 62–90; RESP 16–24; TEMP 36.3–36.8; O2SAT 93–100; BMI 14.8
[2024-06-01] MEDS: ipratropium-albuterol 3 mL Neb INHALATION ×6 (00:31→21:31)
[2024-06-01] MEDS: HYDROcodone-acetaminophen 7.5-325 mg Tablet 1 TAB PO ×4 (02:58→19:46)
[2024-06-01] MEDS: piperacillin-tazobactam 3.375 GM in sodium chloride 0.9% (plus) 50 ML IV ×3 (03:58→21:11)
[2024-06-01 04:36] LABS: Basophils % 0.1 %; Eosinophils % 0.2 %; Hematocrit 26.4 % (36-47); Lymphocytes # 1.3 10^3/uL (0.8-4.8); Lymphocytes % 9.2 %; Mean Corpuscular HGB Conc 31.8 g/dL (30-55); Mean Corpuscular Hemoglobin 28.2 pg (27-33); Mean Corpuscular Volume 88.6 fl (85-98); Mean Platelet Volume 9.6 fL (7.4-10.4); Neutrophils # 11.47 10^3/uL (1.8-7.7); Neutrophils % 82.6 %; Nucleated Red Blood Cells % 0 %; Platelet Count 299 10^3/cmm (157-399); Red Blood Count 2.98 10^6/uL (3.85-5.65); Red Cell Distribution Width 17.4 % (12.1-15.1)
[2024-06-01 04:47] LABS: Alanine Aminotransferase 20 U/L (0-33); Albumin Level 2.2 g/dL (3.5-5.2); Alkaline Phosphatase 85 U/L (35-105); Anion Gap 17.1 (5-19); Aspartate Amino Transferase 16 U/L (0-32); Blood Urea Nitrogen 7 mg/dL (8-23); Calcium 8.2 mg/dL (8.5-10.5); Carbon Dioxide 18 mmol/L (22-29); Chloride 101 mmol/L (98-107); Globulin 3.3 g/dL (1.3-4.6); Glucose 71 mg/dL (65-115); Osmolality Calculated 272 mOsm/kg (285-295); Potassium 3.1 mmol/L (3.5-5.1); Sodium 133 mmol/L (136-145); Total Bilirubin 0.4 mg/dL (0.15-1.2); Total Protein 5.5 g/dL (6.6-8.7)
[2024-06-01] MEDS: isosorbide mononitrate ER 30 mg Tablet 15 MG PO (09:10)
[2024-06-01] MEDS: topiramate 25 mg Tablet 50 MG PO ×2 (09:10→18:14)
[2024-06-01] MEDS: apixaban 5 mg Tablet 2.5 MG PO ×2 (09:10→19:47)
[2024-06-01] MEDS: nystatin 100,000 unit/mL UDC 5 mL 100000 UNIT PO ×4 (09:10→19:45)
[2024-06-01] MEDS: montelukast sodium 10 mg Tablet PO (09:10)
[2024-06-01] MEDS: atorvastatin 40 mg Tablet PO (09:10)
[2024-06-01] MEDS: spironolactone 25 mg Tablet 12.5 MG PO (09:11)
[2024-06-01] MEDS: clopidogrel 75 mg Tablet PO (09:11)
[2024-06-01] MEDS: metoprolol tartrate 50 mg Tablet PO ×2 (09:11→18:13)
--- NOTE | 2024-06-01 13:00 | PM.PN ---
Subjective Subjective: Nilam Dodson with a past medical history of peripheral vascular disease status post left above knee amputation one year ago, coronary artery disease, sick sinus syndrome status post pacemaker placement, carotid artery disease, dyslipidemia, hypertension, and migraines presents with left leg numbness for the past two days. She also notes a cough productive of non-purulent sputum and subjective fevers up to 100?F at home for the past week. She was diagnosed with influenza 10 days ago and treated with Theraflu, but her symptoms have not improved. She denies chest pain, nausea, vomiting, abdominal pain, or diarrhea. Initial evaluation revealed: - Laboratory Findings: WBC 37.5, Hgb 9.8, Hct 31, Plt 322, Na 135, K 3.5, Cl 105, HCO3 15, BUN 27, Cr 1.2. CRP 297, procalcitonin 21.69. Urinalysis negative for infection. Arterial blood gas showed pH 7.21, pCO2 34, pO2 59, HCO3 13 consistent with metabolic acidosis. - Imaging Studies: CT angiogram with runoff showed patent stents to the lower extremity. CT chest revealed patchy ground-glass and consolidated opacities scattered throughout both lungs in a random distribution, nonspecific but can be seen in the setting of viral infection. She was started on cefepime and linezolid in the emergency department, which were subsequently changed to ceftriaxone and azithromycin. She remains symptomatic with dry mouth and dysphagia. Subjective: 05/27 - Patient was feeling about the same as time of admission. Slight improvement in respiratory status. Remained on oxygen. no fever or chills since arrival. 05/28 - Noted oral sore pain from thrush. but improved. 05/29 improving 05/30 - No new clinical events 05/31 - Feeling much better today. Stated she was able to eat today. No oral pain or sores. No nausea or vomiting. 06/01 - No new clinical events overnight - No fever, chills, nausea or vomiting. Vitals/I&O/Wt Last Vital Signs Temp 98.1 F 06/01/24 11:44 Pulse 70 06/01/24 11:44 Resp 17 06/01/24 11:44 BP 145/56 06/01/24 11:44 Pulse Ox 100 06/01/24 11:44 O2 Del Method Nasal Cannula 06/01/24 11:44 O2 Flow Rate 2 06/01/24 11:44 FiO2 2 05/28/24 14:55 05/31/24 06/01/24 06/01/24 22:59 06:59 14:59 Intake Total 1260 / 1790 50 / 1840 100 / 100 Output Total 550 / 550 600 / 1150 Balance 710 / 1240 -550 / 690 100 / 100 Weight last 48 hrs Weight 40.455 kg Weight 46.357 kg Physical Exam Narrative: General: Patient is awake and alert. No acute distress. On supplemental oxygen Head: Grossly unremarkable Cardiovascular: RRR. No gallops. No murmurs. Lungs: Faint bilateral rhonchi. no use of accessory muscles, no crackles or wheezes. On room air. Cough present. - unchanged from admission Abdomen: Normal bowel sounds, abdomen soft and nontender. Extremities: lower extremity felt warm, difficult to feel distal pulse. Dry gangrene of left toe. s/p AKA of R. Stable Urinary Catheter Management: Armando: Cath Placed During This Visit: yes Reason for Continuing Indwelling Catheter: Accurate Measurement of Urinary Output in Critically Ill Patients Urinary Catheter Date of Insertion: 05/27/24 Urinary Catheter Time of Insertion: 01:47 Data 06/01/24 03:40 06/01/24 03:40 Micro: Microbiology 05/26/24 19:40 Blood Culture - Final Blood NO GROWTH AFTER 5 DAYS 05/26/24 20:20 Blood Culture - Final Blood Methicillin Resis Staph Aureus Enterococcus faecalis A&P Assessment and plan (1) Community acquired pneumonia: (2) Peripheral vascular disease: (3) CHF (congestive heart failure), NYHA class III: Qualifiers: Congestive heart failure chronicity: chronic Congestive heart failure type: systolic Qualified Code(s): I50.22 - Chronic systolic (congestive) heart failure (4) Dyslipidemia: (5) COPD (chronic obstructive pulmonary disease): Qualifiers: COPD type: emphysema Emphysema type: centrilobular Qualified Code(s): J43.2 - Centrilobular emphysema Plan Sepsis secondary to pneumonia + MRSA / Enterococcus bacteremia - 80 year old female who presents with a one-week history of cough, subjective fevers, and imaging findings consistent with pneumonia in the setting of recent influenza infection. Elevated inflammatory markers and leukocytosis support an infectious process. - Possibly due to left foot toe infection - noted dry gangrene. no erythema or discharge - Does have a pacemaker. - WBC 31 - > 13 today - Left Foot xray - no evidence of osteo Plan: 1. Continue zosyn/ vancomycin - will de-escalate to vancomycin possibly, however will await ID input first 2. Repeat blood culture x2 - NGTD 3. Infectious disease consulted today 4. Echo pendign 5. Repeat labs in am Acute Respiratory failure with hypoxemia and hypercapnia / Underlying COPD - improved - Noted to have metabolic acidosis on blood gas with pH 7.21, pCO2 34, pO2 59, and bicarbonate 13, likely due to sepsis, pneumonia and COPD - Currently on supplemental oxygen at 3L via [place] - At home she wears oxygen only at bedtime - BIPAP if acute worsening of respiratory status Plan: 1. Stable, improving 2. 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 - Presenting with left leg numbness, but CT angiogram showed patent stents. Plan: 1. Continue antiplatelet therapy and statin. 2. Will follow up with vascular outpatient 3. Foot xray - no osteo. 4. May consider podiatry consult Dysphagia - Reports dysphagia in the setting of dry mouth, concerning for oropharyngeal dysphagia. Plan: 1. Dysphagia diet 2. Aspiration precautions Addiitional medical problems - Hypertension - Dyslipidemia Disposition: - Anticipate discharge once final antibiotic plan pending ID input PDMP PDMP Reviewed: Not Reviewed Attestations Medical Necessity Statement*: Patient noted to have MRSA/Enterococcus bacteremia - on IV abx. Will require further hospitalization for management of bacteremia Coding Level of Care Code Acute Code for [facility] Diagnoses Community acquired pneumonia J18.9 Peripheral vascular disease I73.9 Chronic systolic congestive heart failure, NYHA class 3 I50.22 Congestive heart failure chronicity: chronic Congestive heart failure type: systolic Dyslipidemia E78.5 Centrilobular emphysema J43.2 COPD type: emphysema Emphysema type: centrilobular
--- NOTE | 2024-06-01 13:41 | PC.SOCIAL ---
IMM Updated Updated pt on IMM. No questions voiced. Provided pt a copy. Initialed, dated, & timed copy in chart.
[2024-06-01] MEDS: VANCOMYCIN ADD-Vantage 750 MG in 0.9% NaCl ADD-Vantage 250 ML 250 MG IV (18:14)
[2024-06-01] MEDS: citalopram 20 mg Tablet 10 MG PO (19:46)
[2024-06-01] MEDS: trazodone 50 mg Tablet 100 MG PO (19:46)
--- NOTE | 2024-06-01 20:43 | USCV_ITS ---
Michael Dodson Age: 73 Gender: F : 1950 Exam Date: 06/01/2024 20:35 Ordering Phys: Bridgette Almanzar MD Technologist: SHELLI [place] [facility] [place]: MRSA bacteremia, hx CAD s/p CABG, PVD s/p stenting, amputation, long-term smoker continues smoking, COPD, flu BP: 118 / 51 HR: 57 Rhythm: paced rhythm Technical Quality: Adequate MEASUREMENTS (Male / Female) Normal Values 2D ECHO LV Diastolic Diameter PLAX 4.5 cm 4.2 - 5.9 / 3.9 - 5.3 cm IVS Diastolic Thickness 1.8 cm 0.6 - 1.0 / 0.6 - 0.9 cm IVS Systolic Thickness 2.6 cm LVPW Diastolic Thickness 1.4 cm 0.6 - 1.0 / 0.6 - 0.9 cm LVPW Systolic Thickness 1.8 cm LVOT Diameter 1.7 cm LV Ejection Fraction 2D Teich 56.6 % LV Ejection Fraction MOD 4C 55.4 % LV Ejection Fraction MOD 2C 64.1 % LV Ejection Fraction 2C AL 64.8 % LA Diameter 3.8 cm Aorta at Sinotubular Diameter 2.5 cm IVC Diameter 1.1 cm M-MODE LA Ao Ratio MM 1.3 AV Cusp Separation MM 1.5 cm DOPPLER AV Peak Velocity 178.0 cm/s LVOT Peak Velocity 82.0 cm/s AV Area Cont Eq vti 1.1 cm squared AV Area Cont Eq pk 1.0 cm squared MV Peak Velocity 106.0 cm/s MV Area PHT 3.8 cm squared Mitral E to A Ratio 0.8 TV Peak Velocity 255.5 cm/s TR Peak Velocity 259.0 cm/s TR Peak Gradient 26.8 mmHg PV Peak Velocity 82.0 cm/s FINDINGS Left Ventricle Left ventricle is normal in size. LV systolic function is normal with EF of 50-55%. No significant regional wall motion abnormalities are seen. Grade 1 diastolic dysfunction Right Ventricle Normal in size and function Right Atrium Normal in size. Pacemaker lead seen. Left Atrium Normal in size Mitral Valve Structurally normal valve. Mild mitral regurgitation. Aortic Valve Aortic valve is thickened. No significant stenosis or regurgitation. Tricuspid Valve Mild tricuspid regurgitation. Pulmonary artery systolic pressure is normal. Pulmonic Valve Not well visualized Pericardium Normal Aorta Normal in size IVC Appears to be normal CONCLUSIONS LV systolic function is normal with EF of 50-55% Grade 1 diastolic dysfunction Mild mitral regurgitation Mild tricuspid regurgitation Maciej Rucker MD (Electronically Signed) Final Date: 03 June 2024 14:11 S
[2024-06-02] VITALS (11 sets, daily range): BP systolic 124–153; BP diastolic 55–67; PULSE 64–95; RESP 17–20; TEMP 36.4–36.7; O2SAT 93–100
[2024-06-02] MEDS: ipratropium-albuterol 3 mL Neb INHALATION ×4 (00:56→14:10)
[2024-06-02] MEDS: HYDROcodone-acetaminophen 7.5-325 mg Tablet 1 TAB PO ×4 (01:23→20:40)
[2024-06-02] MEDS: piperacillin-tazobactam 3.375 GM in sodium chloride 0.9% (plus) 50 ML IV ×2 (03:34→12:30)
[2024-06-02] MEDS: nystatin 100,000 unit/mL UDC 5 mL 100000 UNIT PO ×4 (08:49→20:39)
[2024-06-02] MEDS: apixaban 5 mg Tablet 2.5 MG PO ×2 (08:50→20:39)
[2024-06-02] MEDS: spironolactone 25 mg Tablet 12.5 MG PO (08:51)
[2024-06-02] MEDS: topiramate 25 mg Tablet 50 MG PO ×2 (08:51→17:34)
[2024-06-02] MEDS: isosorbide mononitrate ER 30 mg Tablet 15 MG PO (08:51)
[2024-06-02] MEDS: atorvastatin 40 mg Tablet PO (08:52)
[2024-06-02] MEDS: metoprolol tartrate 50 mg Tablet PO ×2 (08:52→17:34)
[2024-06-02] MEDS: clopidogrel 75 mg Tablet PO (08:52)
[2024-06-02] MEDS: montelukast sodium 10 mg Tablet PO (08:52)
--- NOTE | 2024-06-02 11:28 | XR_ITS ---
WS: [id number] Exam: XR chest 1V portable [id number] Date/Time of Exam: 06/02/2024 12:16 PM Reason For Exam: post picc insertion Comparison 05/26/2024. Right-sided PICC line has been placed and ends in the lower one third of the SVC in good position. There are patchy pneumonic infiltrates throughout the RIGHT lung and also of the LEFT basal region. Infiltrates on the RIGHT have increased since the last study. No pneumothorax. Trace RIGHT basal pleural effusion. Heart size is normal. Left-sided cardiac pacer and signs of median sternotomy noted. A vascular graft noted just superior to the aortic knob. XR/XR chest 1V portable [id number] IMPRESSION: 1. Right-sided PICC line in satisfactory location ending in the lower one third of the SVC. 2. Increasing pneumonic infiltrates in the right lung. Unchanged infiltrate in the LEFT base. Trace RIGHT basal pleural effusion.
--- NOTE | 2024-06-02 12:55 | PICC.NOTE ---
Single lumen PICC placed to right brachial vein. Referred to vascular access nurse for PICC placement due to need for home antibiotics. Risks and benefits discussed and informed consent obtained from pt. Right arm assessed with right brachial vein measuring 3.6 mm, straight, and apparent best choice for placement. Using sterile technique and MST, right brachial vein accessed x 1 stick. Mid-arm circumference measured 10 cm from right AC 19 cm. Trimmed cath 36 cm with 0 cm external length noted. CXR shows tip in distal third of the SVC, in good position for use per radiologist. Line secured with stat-lock. Insertion site covered with Secureport IV, Biopatch and TSM. Report given to bedside nurse, HUGO Archer.
[2024-06-02 14:13] LABS: Basophils % 0.1 %; Eosinophils % 0.2 %; Hematocrit 24.1 % (36-47); Lymphocytes # 1.3 10^3/uL (0.8-4.8); Lymphocytes % 9.3 %; Mean Corpuscular HGB Conc 32.4 g/dL (30-55); Mean Corpuscular Hemoglobin 27.6 pg (27-33); Mean Corpuscular Volume 85.2 fl (85-98); Mean Platelet Volume 9.8 fL (7.4-10.4); Monocytes # 0.6 10^3/uL (0.2-0.9); Monocytes % 4.6 %; Neutrophils # 11.77 10^3/uL (1.8-7.7); Neutrophils % 85.1 %; Nucleated Red Blood Cells % 0 %; Platelet Count 333 10^3/cmm (157-399); Red Blood Count 2.83 10^6/uL (3.85-5.65); Red Cell Distribution Width 17.2 % (12.1-15.1); White Blood Count 13.83 10^3/uL (3.29-11.43)
[2024-06-02 14:48] LABS: Procalcitonin 7.51 ng/mL (0-0.5)
[2024-06-02 14:59] LABS: Alanine Aminotransferase 18 U/L (0-33); Albumin Level 2.2 g/dL (3.5-5.2); Alkaline Phosphatase 77 U/L (35-105); Aspartate Amino Transferase 10 U/L (0-32); Blood Urea Nitrogen 6 mg/dL (8-23); Carbon Dioxide 20 mmol/L (22-29); Chloride 101 mmol/L (98-107); Creatinine Clr Calc Pharmacy 41.0133; Globulin 3.7 g/dL (1.3-4.6); Glucose 128 mg/dL (65-115); Osmolality Calculated 275 mOsm/kg (285-295); Sodium 133 mmol/L (136-145); Total Bilirubin 0.5 mg/dL (0.15-1.2); Total Protein 5.9 g/dL (6.6-8.7)
[2024-06-02 15:20] LABS: Iron 8 ug/dL (37-145); Total Iron Binding Capacity 88 mcg/dl; Unsaturated Iron Binding 80 ug/dL (112-347)
[2024-06-02 15:22] LABS: Estmated Average Glucose 103; Hemoglobin A1C 5.2 % (4.0-6.0)
[2024-06-02 15:37] LABS: Vitamin B12 1852 pg/mL (232-1245)
--- NOTE | 2024-06-02 17:48 | P.PN_ITS ---
Subjective 2 Subjective: Nilam Dodson with a past medical history of peripheral vascular disease status post left above knee amputation one year ago, coronary artery disease, sick sinus syndrome status post pacemaker placement, carotid artery disease, dyslipidemia, hypertension, and migraines presents with left leg numbness for the past two days. She also notes a cough productive of non-purulent sputum and subjective fevers up to 100?F at home for the past week. She was diagnosed with influenza 10 days ago and treated with Theraflu, but her symptoms have not improved. She denies chest pain, nausea, vomiting, abdominal pain, or diarrhea. Initial evaluation revealed: - Laboratory Findings: WBC 37.5, Hgb 9.8 , Hct 31, Plt 322, Na 135, K 3.5, Cl 105, HCO3 15, BUN 27, Cr 1.2. CRP 297, procalcitonin 21.69. Urinalysis negative for infection. Arterial blood gas showed pH 7.21, pCO2 34, pO2 59, HCO3 13 consistent with metabolic acidosis. - Imaging Studies: CT angiogram with run off showed patent stents to the lower extremity. CT chest revealed patchy ground-glass and consolidated opacities scattered throughout both lungs in a random distribution, nonspecific but can be seen in the setting of viral infection. She was started on cefepime and linezolid in the emergency department, which were subsequently changed to ceftriaxone and azithromycin. She remains symptomatic with dry mouth and dysphagia. Subjective: 06/02: Hospital course, labs appreciated. Patient denies any new complaints or denies any nausea, vomiting, headache. Has remained hemodynamically stable and afebrile on room air. Vitals/I&O/Wt Last Vital Signs Temp 98.0 F 06/02/24 16:30 Pulse 69 06/02/24 16:30 Resp 18 06/02/24 16:30 BP 142/55 06/02/24 16:30 Pulse Ox 95 06/02/24 16:30 O2 Del Method Room Air 06/02/24 16:30 O2 Flow Rate 2 06/02/24 08:00 FiO2 2 05/28/24 14:55 06/02/24 06/02/24 06/02/24 06:59 14:59 22:59 Intake Total 290 / 1170 305 / 305 Output Total 700 / 2350 Balance -410 / -1180 305 / 305 Weight last 48 hrs Weight 40.279 kg Weight 40.455 kg Physical Exam 2 Narrative: General: Patient is awake and alert. No acute distress. On supplemental oxygen Head: Grossly unremarkable Cardiovascular: RRR. No gallops. No murmurs. Lungs: Faint bilateral rhonchi. no use of accessory muscles, no crackles or wheezes. On room air. Cough present. - unchanged from admission Abdomen: Normal bowel sounds, abdomen soft and nontender. Extremities: lower extremity felt warm, difficult to feel distal pulse. Dry gangrene of left toe. s/p AKA of R. Stable Urinary Catheter Management: Armando: Cath Placed During This Visit: yes Reason for Continuing Indwelling Catheter: Acute Urinary Retention or Obstruction Urinary Catheter Date of Insertion: 05/27/24 Urinary Catheter Time of Insertion: 01:47 Data 06/03/24 04:41 06/03/24 04:41 A&P Assessment and plan (1) Community acquired pneumonia: (2) Peripheral vascular disease: (3) CHF (congestive heart failure), NYHA class III: Qualifiers: Congestive heart failure chronicity: chronic Congestive heart failure type: systolic Qualified Code(s): I50.22 - Chronic systolic (congestive) heart failure (4) Dyslipidemia: (5) COPD (chronic obstructive pulmonary disease): Qualifiers: COPD type: emphysema Emphysema type: centrilobular Qualified Code(s): J43.2 - Centrilobular emphysema Plan Sepsis secondary to pneumonia + MRSA / Enterococcus bacteremia - 80 year old female who presents with a one-week history of cough, subjective fevers, and imaging findings consistent with pneumonia in the setting of recent influenza infection. Elevated inflammatory markers and leukocytosis support an infectious process. - Possibly due to left foot toe infection - noted dry gangrene. no erythema or discharge - Does have a pacemaker. - WBC 31 - > 13 today - Left Foot xray - no evidence of osteo Plan: 1. Continue zosyn/ vancomycin - will de-escalate to vancomycin possibly, however will await ID input first 2. Repeat blood culture x2 - NGTD 3. Infectious disease consulted today 4. Echo pendign 5. Repeat labs in am Acute Respiratory failure with hypoxemia and hypercapnia / Underlying COPD - improved - Noted to have metabolic acidosis on blood gas with pH 7.21, pCO2 34, pO2 59, and bicarbonate 13, likely due to sepsis, pneumonia and COPD - Currently on supplemental oxygen at 3L via [place] - At home she wears oxygen only at bedtime - BIPAP if acute worsening of respiratory status Plan: 1. Stable, improving 2. 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 - Presenting with left leg numbness, but CT angiogram showed patent stents. Plan: 1. Continue antiplatelet therapy and statin. 2. Will follow up with vascular outpatient 3. Foot xray - no osteo. 4. May consider podiatry consult Dysphagia - Reports dysphagia in the setting of dry mouth, concerning for oropharyngeal dysphagia. Plan: 1. Dysphagia diet 2. Aspiration precautions Addiitional medical problems - Hypertension - Dyslipidemia Plan for the day: Follow-up ID recommendations. Continue with IV vancomycin for now. Patient has had more than 5 days of Zosyn. Discontinue. Follow-up repeat blood culture. PICC line placement. Patient would most likely need IV antibiotics for next 4 weeks given concern for MRSA bacteremia. Follow-up echocardiogram results. Rule out infective endocarditis. Complaining of numbness in the left leg. Complains of chronic back pain. Will plan for CT lumbar spine for further evaluation. Patient does have a well- healed surgical scar from recent procedure done and other outside hospital. PDMP PDMP Reviewed: Not Reviewed Attestations 2 Medical Necessity Statement*: Requires further hospitalization for management of MRSA bacteremia while PICC line is placed, outpatient IV antibiotics are arranged, repeat blood cultures are followed up Diagnoses Community acquired pneumonia J18.9 Peripheral vascular disease I73.9 Chronic systolic congestive heart failure, NYHA class 3 I50.22 Congestive heart failure chronicity: chronic Congestive heart failure type: systolic Dyslipidemia E78.5 Centrilobular emphysema J43.2 COPD type: emphysema Emphysema type: centrilobular
--- NOTE | 2024-06-02 18:14 | CTR_ITS ---
PROCEDURE INFORMATION: Exam: CT Lumbar Spine With Contrast Exam date and time: 06/02/2024 9:19 PM Age: 73 years old Clinical indication: Low back pain; Additional info: Back pain, left leg numbness TECHNIQUE: Imaging protocol: Computed tomography of the lumbar spine with contrast. Radiation optimization: All CT scans at this facility use at least one of these dose optimization techniques: automated exposure control; mA and/or kV adjustment per patient size (includes targeted exams where dose is matched to clinical indication); or iterative reconstruction. Contrast material: OMNIPAQUE 350; Contrast volume: 75 ml; Contrast route: INTRAVENOUS (IV); COMPARISON: CR XR lumbar spine f/e only [id number] 09/21/2021 12:59 PM RADIATION DOSE METRICS: Total DLP (mGy-cm): 359.12 FINDINGS: Bones/joints: Bilateral hip joint degenerative changes. Multilevel disc bulging in the lower lumbar levels with likely a superimposed disc extrusion at L4-L5 resulting in moderate canal stenosis. There is no high-grade bony neural foraminal narrowing however there is some degree of neural foraminal narrowing due to disc bulging. Preserved lumbar alignment. Preserved lumbar vertebral body heights. No definitive acute displaced fracture can be seen. Bilateral sacroiliac joint degenerative changes. Lungs: Dependent atelectasis at the lung bases. Gallbladder and biliary ducts: Postsurgical changes related to cholecystectomy with prominence of the common bile duct and intrahepatic biliary ductal system. Vasculature: Abdominal aortic aneurysm. Soft tissues: Unremarkable. CT/CT lumbar spine w con [id number] IMPRESSION: Degenerative changes of the lumbar spine described above with likely moderate canal stenosis at L4-L5 due to a disc extrusion superimposed on disc bulging. Varying degrees of neural foraminal narrowing due to disc bulging at multiple levels. This can be better assessed with an MRI of the lumbar spine.
[2024-06-02] MEDS: VANCOMYCIN ADD-Vantage 750 MG in 0.9% NaCl ADD-Vantage 250 ML 250 MG IV (18:15)
[2024-06-02] MEDS: potassium chloride ER 20 mEq Tablet 80 MEQ PO (18:47)
[2024-06-02] MEDS: citalopram 20 mg Tablet 10 MG PO (20:39)
[2024-06-02] MEDS: trazodone 50 mg Tablet 100 MG PO (20:39)
[2024-06-02] MEDS: iohexol 350 mg/mL 500 mL Btl (per mL) IV (21:23)
[2024-06-03] VITALS (10 sets, daily range): BP systolic 128–164; BP diastolic 51–72; PULSE 62–78; RESP 15–24; TEMP 36.5–37; O2SAT 93–100
[2024-06-03] MEDS: HYDROcodone-acetaminophen 7.5-325 mg Tablet 1 TAB PO ×4 (02:29→20:08)
[2024-06-03] MEDS: ipratropium-albuterol 3 mL Neb INHALATION ×4 (03:10→20:45)
[2024-06-03 05:22] LABS: Basophils % 0.1 %; Eosinophils # 0.1 10^3/uL (0.0-0.8); Eosinophils % 0.4 %; Hematocrit 22.4 % (36-47); Lymphocytes # 1.3 10^3/uL (0.8-4.8); Lymphocytes % 10.8 %; Mean Corpuscular HGB Conc 32.6 g/dL (30-55); Mean Corpuscular Hemoglobin 28.2 pg (27-33); Mean Corpuscular Volume 86.5 fl (85-98); Mean Platelet Volume 10.2 fL (7.4-10.4); Monocytes # 0.5 10^3/uL (0.2-0.9); Monocytes % 4.2 %; Neutrophils # 10.28 10^3/uL (1.8-7.7); Neutrophils % 83.8 %; Nucleated Red Blood Cells % 0 %; Platelet Count 311 10^3/cmm (157-399); Red Blood Count 2.59 10^6/uL (3.85-5.65); Red Cell Distribution Width 17.3 % (12.1-15.1); White Blood Count 12.28 10^3/uL (3.29-11.43)
[2024-06-03 05:48] LABS: Alanine Aminotransferase 15 U/L (0-33); Albumin Level 2.1 g/dL (3.5-5.2); Alkaline Phosphatase 71 U/L (35-105); Aspartate Amino Transferase 9 U/L (0-32); Blood Urea Nitrogen 6 mg/dL (8-23); Calcium 7.7 mg/dL (8.5-10.5); Carbon Dioxide 20 mmol/L (22-29); Chloride 104 mmol/L (98-107); Creatinine Clr Calc Pharmacy 42.2137; Globulin 3.5 g/dL (1.3-4.6); Glucose 83 mg/dL (65-115); Osmolality Calculated 275 mOsm/kg (285-295); Sodium 134 mmol/L (136-145); Total Bilirubin 0.3 mg/dL (0.15-1.2); Total Protein 5.6 g/dL (6.6-8.7)
[2024-06-03 05:54] LABS: Anion Gap 14.3 (5-19); Potassium 4.3 mmol/L (3.5-5.1)
[2024-06-03 05:58] LABS: Folate Level 2.5 ng/mL (4.8-37.3)
[2024-06-03] MEDS: VANCOMYCIN ADD-Vantage 750 MG in 0.9% NaCl ADD-Vantage 250 ML 250 MG IV ×2 (06:19→18:53)
[2024-06-03] MEDS: nystatin 100,000 unit/mL UDC 5 mL 100000 UNIT PO ×4 (09:38→20:08)
[2024-06-03] MEDS: spironolactone 25 mg Tablet 12.5 MG PO (09:38)
[2024-06-03] MEDS: topiramate 25 mg Tablet 50 MG PO ×2 (09:39→17:25)
[2024-06-03] MEDS: montelukast sodium 10 mg Tablet PO (09:39)
[2024-06-03] MEDS: isosorbide mononitrate ER 30 mg Tablet 15 MG PO (09:39)
[2024-06-03] MEDS: clopidogrel 75 mg Tablet PO (09:39)
[2024-06-03] MEDS: metoprolol tartrate 50 mg Tablet PO ×2 (09:39→17:26)
[2024-06-03] MEDS: apixaban 5 mg Tablet 2.5 MG PO (09:39)
[2024-06-03] MEDS: atorvastatin 40 mg Tablet PO (09:40)
--- NOTE | 2024-06-03 10:13 | PC.SOCIAL ---
IMM Updated Updated pt on IMM. No questions voiced. Provided pt a copy. Initialed, dated, & timed copy in chart.
--- NOTE | 2024-06-03 12:53 | P.PN_ITS ---
Subjective 2 Subjective: No acute events overnight. Patient has remained hemodynamically stable and afebrile. Laying comfortably in bed. Remains on room air. Has remained afebrile. Did have diarrheal bowel movement earlier today morning. Vitals/I&O/Wt Last Vital Signs Temp 97.7 F 06/03/24 08:00 Pulse 78 06/03/24 08:00 Resp 24 H 06/03/24 08:00 BP 146/64 06/03/24 08:00 Pulse Ox 96 06/03/24 08:00 O2 Del Method Room Air 06/03/24 08:00 O2 Flow Rate 2 06/02/24 08:00 FiO2 2 05/28/24 14:55 06/02/24 06/03/24 06/03/24 22:59 06:59 14:59 Intake Total 850 / 1155 240 / 1395 370 / 370 Output Total 1050 / 1050 300 / 1350 Balance -200 / 105 -60 / 45 370 / 370 Weight last 48 hrs Weight 41.458 kg Weight 40.279 kg Physical Exam 2 Narrative: General: Patient is awake and alert. No acute distress. On supplemental oxygen Head: Grossly unremarkable Cardiovascular: RRR. No gallops. No murmurs. Lungs: Faint bilateral rhonchi. no use of accessory muscles, no crackles or wheezes. On room air. Cough present. - unchanged from admission Abdomen: Normal bowel sounds, abdomen soft and nontender. Extremities: lower extremity felt warm, difficult to feel distal pulse. Dry gangrene of left toe. s/p AKA of R. Stable Urinary Catheter Management: Armando: Cath Placed During This Visit: yes Reason for Continuing Indwelling Catheter: Acute Urinary Retention or Obstruction Urinary Catheter Date of Insertion: 05/27/24 Urinary Catheter Time of Insertion: 01:47 Data 06/03/24 04:41 06/03/24 04:41 A&P Assessment and plan (1) MRSA bacteremia: (2) Anemia: (3) Community acquired pneumonia: (4) Peripheral vascular disease: (5) CHF (congestive heart failure), NYHA class III: Qualifiers: Congestive heart failure chronicity: chronic Congestive heart failure type: systolic Qualified Code(s): I50.22 - Chronic systolic (congestive) heart failure (6) Dyslipidemia: (7) COPD (chronic obstructive pulmonary disease): Qualifiers: COPD type: emphysema Emphysema type: centrilobular Qualified Code(s): J43.2 - Centrilobular emphysema (8) Peripheral vascular angioplasty status: (9) Essential hypertension: Plan Sepsis secondary to pneumonia + MRSA / Enterococcus bacteremia - 80 year old female who presents with a one-week history of cough, subjective fevers, and imaging findings consistent with pneumonia in the setting of recent influenza infection. Elevated inflammatory markers and leukocytosis support an infectious process. - Possibly due to left foot toe infection - noted dry gangrene. no erythema or discharge - Does have a pacemaker. - WBC 31 - > 13 today - Left Foot xray - no evidence of osteo Plan: 1. Continue zosyn/ vancomycin - will de-escalate to vancomycin possibly, however will await ID input first 2. Repeat blood culture x2 - NGTD 3. Infectious disease consulted today 4. Echo pendign 5. Repeat labs in am Acute Respiratory failure with hypoxemia and hypercapnia / Underlying COPD - improved - Noted to have metabolic acidosis on blood gas with pH 7.21, pCO2 34, pO2 59, and bicarbonate 13, likely due to sepsis, pneumonia and COPD - Currently on supplemental oxygen at 3L via [place] - At home she wears oxygen only at bedtime - BIPAP if acute worsening of respiratory status Plan: 1. Stable, improving 2. 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 - Presenting with left leg numbness, but CT angiogram showed patent stents. Plan: 1. Continue antiplatelet therapy and statin. 2. Will follow up with vascular outpatient 3. Foot xray - no osteo. 4. May consider podiatry consult Dysphagia - Reports dysphagia in the setting of dry mouth, concerning for oropharyngeal dysphagia. Plan: 1. Dysphagia diet 2. Aspiration precautions Addiitional medical problems - Hypertension - Dyslipidemia Plan for the day: Continue current IV antibiotics. Dose as per vancomycin trough levels. Follow- up ID recommendations and change antibiotic accordingly. Patient might benefit with daptomycin. Follow-up ID recommendations. Repeat blood cultures so far negative. Echocardiogram results pending. Appreciate CT lumbar spine results. No concern for acute abnormality. Does have chronic L4-L5 moderate canal stenosis with disc extrusion and bulging. Surgical scar healing well. No concern for hematoma. Hemoglobin trending down. Down to 7.3. 9.8 on admission. Check stool for occult blood. Hold off on Eliquis for now. Start on IV Protonix 40 mg twice daily and Carafate ACHS. Transfuse for hemoglobin below 7. Currently patient is hemodynamically stable. PDMP PDMP Reviewed: Not Reviewed Attestations 2 Medical Necessity Statement*: Requested hospitalization for management of acute on chronic anemia in a patient on anticoagulation given recent peripheral angioplasty, MRSA bacteremia while outpatient antibiotics are set up Diagnoses MRSA bacteremia R78.81; B95.62 Anemia D64.9 Community acquired pneumonia J18.9 Peripheral vascular disease I73.9 Chronic systolic congestive heart failure, NYHA class 3 I50.22 Congestive heart failure chronicity: chronic Congestive heart failure type: systolic Dyslipidemia E78.5 Centrilobular emphysema J43.2 COPD type: emphysema Emphysema type: centrilobular Peripheral vascular angioplasty status Z98.62 Essential hypertension I10
[2024-06-03 13:38] LABS: Ferritin 351 ng/mL (15-150)
[2024-06-03] MEDS: iron sucrose 200 MG in sodium chloride 0.9% (100 ml) 100 ML 220 MG IV (13:44)
[2024-06-03] MEDS: pantoprazole 40 mg SDV IVP (13:44)
--- NOTE | 2024-06-03 15:47 | P.CONIM_ITS ---
Providers/Reason For Consult 2 Consulting Physician/Specialty*: Irena Graham MD/ infectious disease Reason for Consult*: MRSA bacteremia Requesting Physician: Dr. Bridgette Almanzar MD Attending Physician: Jaswinder Starr MD History of Present Illness History of Present Illness Michael Dodsno is a 73 year old female with past medical history of peripheral artery disease, left great toe gangrene, status post recent intervention at outside hospital with stent placement on April 23, 2024. She is currently admitted to the hospital since May 26, 2024 after presenting with left lower extremity pain. CT of the lower extremity was performed which was negative for any acute occlusion. Patient had also been noted to be coughing. Chest x-ray showed a right upper lobe pneumonia. Patient had had influenza infection about 10 days prior to hospital admission. She had been complaining of generalized weakness. Her blood cultures taken during this admission returned positive for MRSA and Enterococcus faecalis. She denies any recent diarrhea. Denies any recent abdominal pain nausea or vomiting. There is no known history of endocarditis or pacemaker infection. Site of recent intervention over the left groin is without any obvious signs of cellulitis. Incision appears to be well-healing from recent surgery. There was noted to be dry gangrene over the great toe on the left side and some superficial scabs and ulcerations over the fourth and fifth digits, however, no surrounding signs of infection grossly. Patient has been on treatment with piperacillin/tazobactam and vancomycin during the course of admission. Zosyn was stopped after an empiric 5-day course yesterday. She is continuing to be on vancomycin with last trough at 7.5. Review of Systems 2 General: Reports: 10 or more systems reviewed and unremarkable except in HPI and below Const: Denies: fever(s), chills or body aches Eyes: Denies: change in vision, blurry vision or photophobia ENMT: Reports: hoarseness; Denies: throat pain, enlarged tonsils, odynophagia or nasal congestion Card: Denies: chest pain, palpitations, irregular heart rhythm, edema, swelling of feet/ankles, lightheadedness, pre-syncope, dyspnea on exertion or orthopnea Resp: Denies: dyspnea, productive cough, non-productive cough, wheezing, stridor, pain on inspiration, change in phlegm color, hemoptysis or chest congestion GI: Denies: abdominal pain, nausea, vomiting, hematemesis, coffee ground emesis, dysphagia, heartburn, diarrhea, constipation, GI cramping, change in stool character, hematochezia or melena : Denies: flank pain, difficulty voiding, dysuria, urinary frequency, urinary urgency, urinary hesitancy or hematuria Musc: Denies: neck pain, back pain, extremity pain, joint swelling, joint warmth or deformity Neuro: Denies: headache(s), numbness in extremities, weakness in extremities, sensory changes, difficulty walking, frequent falls, dizziness, vertigo, behavioral changes, Slurred speech present or seizure-like activity Psych: Denies: anxiety, depression, suicidal ideation or homicidal ideation Endo: Denies: polyuria, polydipsia, tired all the time, cold intolerance or hot flashes Elmo/Lymph: Denies: easy bruising or easy bleeding Medications/Allergies Home Medications ?Medication ?Instructions ?Recorded ?Confirmed ?Last Taken ?Type polyethylene glycol 3350 17 17 g PO DAILY PRN constipa tion 06/26/21 05/27/24 Unknown History gram/dose oral powder (Miralax) hydrocodone 7.5 mg-acetaminophen 1 tab PO TID PRN pain 30 days #90 08/31/21 05/27/24 05/26/24 Rx 325 mg tablet tabs nitroglycerin 0.4 mg sublingual 0.4 mg sublingual Q5M PRN Chest 05/25/22 05/27/24 Unknown Rx tablet (Nitrostat) Pain #10 tabs walker with a seat #1 ea 12/12/22 05/27/24 Unkn own Rx diphenhydramine HCl 25 mg tablet 25 mg PO DAILY PRN Al andrew 02/13/23 05/27/24 Unknown Rx (Benadryl Allergy) Symptoms #30 tabs fluticasone propionate 50 1 spray intranasal BID PRN A llergy 04/30/23 05/27/24 07/25/23 Rx mcg/actuation nasal Symptoms #16 grams spray,suspension handicapped toilet #1 ea 05/21/23 05/27/24 Unkn own Rx Handles/bars shower and commode #1 ea 05/24/23 5 Unknown Rx extended seat for commode #1 ea 05/24/23 05/27/24 Unkn own Rx clopidogrel 75 mg tablet 75 mg PO DAILY 07/25/2305/1605/26/24 History topiramate 100 mg tablet 50 mg (1/2 x 100 mg) PO BID #180 08/23/23 05/27/24 05/26/24 Rx tabs ibuprofen 800 mg tablet 800 mg PO BID #60 tabs 01/0505/27/24 05/26/24 Rx montelukast 10 mg tablet 10 mg PO DAILY breathing #90 tabs 01/16/24 05/27/24 05/26/24 Rx citalopram 10 mg tablet (Celexa) 10 mg PO DAILY mental health #90 02/04/24 05/27/24 05/26/24 Rx tabs metoprolol tartrate 50 mg tablet 50 mg PO BID #90 tabs 02/10/24 05/27/24 05/26/24 Rx albuterol sulfate 90 mcg/actuation 2 puff inhalation Q 6H PRN 02/24/24 05/27/24 Unknown Rx aerosol inhaler shortness of breath or wheez ing #8.5 grams methocarbamol 500 mg tablet 500 mg PO BID PRN muscle p ain #180 03/30/24 05/27/24 Unknown Rx tabs potassium chloride 10 mEq 10 meq PO BID #90 caps 04/0605/27/24 05/26/24 Rx capsule,extended release isosorbide mononitrate 30 mg 15 mg (1/2 x 30 mg) PO DA LYNNE #45 05/19/24 05/27/24 05/26/24 Rx tablet,extended release 24 hr tabs apixaban 2.5 mg tablet (Eliquis) 2.35 mg PO BID 05/27/24 05/26/24 History atorvastatin 40 mg tablet 20 mg PO BID 05/27/2405/26/24 History spironolactone 25 mg tablet See Rx Instructions .Route 05/28/24 Unknown Rx .COMPLEX #45 tabs trazodone 50 mg tablet 100 mg (2 x 50 mg) PO BEDTIM E #180 05/28/24 Unknown Rx tabs Allergies Allergy/AdvReac Type Severity Reaction Status Date / Time gelatin Allergy Unknown ADR-Itching Verified 05/26/24 16:21 codeine Allergy Unknown Verified 05/26/24 16:21 latex Allergy Unknown Verified 05/26/24 16:21 oxycodone (From Percocet) Allergy Unknown Verified 05/26/24 16:21 Current Medications Generic Name Dose Route Start Last Admin Trade Name Freq PRN Reason Stop Dose Admin Hydrocodone Bitart/Acetaminophen 1 tab 05/31/24 22:48 06/03/24 13:45 Hydrocodone-Acetaminophen 7.5-325 Mg Tablet PO 1 tab Q4H PRN Administration MODERATE PAIN Albuterol/Ipratropium 3 ml 06/02/24 14:00 06/03/24 13:28 Ipratropium-Albuterol 3 Ml Neb INHALATION 3 ml Q6H.RESP JAMES Administration Apixaban 2.5 mg 05/28/24 21:00 06/03/24 09:39 Apixaban 5 Mg Tablet PO 2.5 mg BID@0900,2100 JAMES Administration Atorvastatin Calcium 40 mg 05/27/24 09:00 06/03/24 09:40 Atorvastatin 40 Mg Tablet PO 40 mg DAILY JAMES Administration Citalopram Hydrobromide 10 mg 05/29/24 21:00 06/02/24 20:39 Citalopram 20 Mg Tablet PO 10 mg BEDTIME JAMES Administration Clopidogrel Bisulfate 75 mg 05/27/24 09:00 06/03/24 09:39 Clopidogrel 75 Mg Tablet PO 75 mg DAILY JAMES Administration Guaifenesin 600 mg 05/26/24 22:25 05/29/24 09:47 Guaifenesin 600 Mg Tablet PO 600 mg BID PRN Administration cough/congestion Vancomycin HCl 750 mg/ Sodium 250 mls @ 250 mls/hr 06/02/24 07:00 06/03/24 08:00 Chloride IV Infused Q12H JAMES Infusion Iron Sucrose 200 mg/ Sodium 110 mls @ 220 mls/hr 06/03/24 13:00 06/03/24 14:53 Chloride IV 06/07/24 13:29 Infused Q24H JAMES Infusion Isosorbide Mononitrate 15 mg 05/27/24 09:00 06/03/24 09:39 Isosorbide Mononitrate Er 30 Mg Tablet PO 15 mg DAILY JAMES Administration Methocarbamol 500 mg 05/26/24 22:25 05/29/24 09:45 Methocarbamol 500 Mg Tablet PO 500 mg BID PRN Administration muscle pain Metoprolol Tartrate 50 mg 05/27/24 09:00 06/03/24 09:39 Metoprolol Tartrate 50 Mg Tablet PO 50 mg BID JAMES Administration Montelukast Sodium 10 mg 05/27/24 09:00 06/03/24 09:39 Montelukast Sodium 10 Mg Tablet PO 10 mg DAILY JAMES Administration Nystatin 100,000 unit 05/27/24 17:00 06/03/24 11:59 Nystatin 100,000 Unit/Ml Udc 5 Ml PO 100,000 unit QID JAMES Administration Pantoprazole Sodium 40 mg 06/03/24 13:00 06/03/24 13:44 Pantoprazole 40 Mg Sdv IVP 40 mg Q12H JAMES Administration Spironolactone 12.5 mg 05/27/24 09:00 06/03/24 09:38 Spironolactone 25 Mg Tablet PO 12.5 mg DAILY JAMES Administration Topiramate 50 mg 05/27/24 09:00 06/03/24 09:39 Topiramate 25 Mg Tablet PO 50 mg BID JAMES Administration Trazodone HCl 100 mg 05/27/24 21:00 06/02/24 20:39 Trazodone 50 Mg Tablet PO 100 mg BEDTIME JAMES Administration PFSH Acute 2 PFSH: Medical History Peripheral vascular angioplasty status Pulmonary cachexia due to COPD Uses prosthesis Right above-knee amputee Surgery 10/26/2022 at [facility] in [place] CKD (chronic kidney disease) stage 2, GFR 60-89 ml/min Anxiety and depression Carotid artery disease Headache, migraine CHF (congestive heart failure), NYHA class III Critical limb ischemia of right lower extremity Admission to [facility] 06/29-07/01/2021 and stenting of R distal SFA and proximal popliteal artery. In [facility], Dr Nance RLE Stent 05/07/2022 Constipation, chronic Chronic low back pain [facility], Dr. Ferguson COPD exacerbation Opioid contract exists [facility], Dr. Ferguson Essential hypertension CAD (coronary artery disease) Benign essential HTN Peripheral vascular disease Enrolled in chronic care management COPD (chronic obstructive pulmonary disease) Nicotine dependence with current use Osteoporosis Surgical History S/p total knee replacement, bilateral S/P hysterectomy S/P balloon angioplasty of pulmonary artery branches ILIAC ARTERY-2016 FEMORAL ARTERY 2016 Status post placement of cardiac pacemaker 2015 S/P carotid endarterectomy 1995 S/P right cataract extraction Family History Other Diabetes Stroke Social History Smoking and tobacco/nicotine status: current every day tobacco/nicotine user cigarettes [ Other cigarette details: 1 PK Q 3-4 DAYS ] Alcohol intake: never Substance/Drug Use: never Vitals/I&O/Wt Last Vital Signs Temp 98.1 F 06/03/24 12:00 Pulse 66 06/03/24 13:30 Resp 20 H 06/03/24 13:30 BP 128/51 06/03/24 12:00 Pulse Ox 98 06/03/24 13:30 O2 Del Method Room Air 06/03/24 13:30 O2 Flow Rate 2 06/02/24 08:00 FiO2 2 05/28/24 14:55 06/03/24 06/03/24 06/03/24 06:59 14:59 22:59 Intake Total 240 / 1395 600 / 600 Output Total 300 / 1350 Balance -60 / 45 600 / 600 Weight last 48 hrs Weight 41.458 kg Weight 40.279 kg Physical Exam 2 Narrative: General: No acute distress, AO x3 HEENT: PERRLA, pupils bilaterally equal and reactive, pallors not present Chest: Normal vesicular breath sounds, no added sounds, equal good air entry bilaterally CVS: S1-S2 regular, no murmurs, no tachycardia, no gallops, no rubs Abdomen: Soft, nontender, no organomegaly, bowel sounds present Neuro: No focal deficits, no facial deformity, AO x3, power 5/5 in all limbs Urinary Catheter Management: Armando: Cath Placed During This Visit: yes Reason for Continuing Indwelling Catheter: Acute Urinary Retention or Obstruction Urinary Catheter Date of Insertion: 05/27/24 Urinary Catheter Time of Insertion: 01:47 Data 06/03/24 04:41 06/03/24 04:41 Other Labs: Radiology Impressions Duplex Scan Lower Extremity Artery 05/26/24 17:28 IMPRESSION: 1. Monophasic flow throughout the left lower extremity which may represent severe stenosis in the left iliac artery, not assessed on this examination. 2. No severe stenosis or occlusion in the left common femoral artery, superficial femoral artery or popliteal artery. Aorta w/Runoff CTA 05/26/24 18:29 IMPRESSION: 1. Multiple small patchy consolidations throughout the lung bases and lingula and right middle lobe which are nonspecific but can be seen the setting of viral infection. 2. Severe stenosis at the origin of the SMA. 3. Severe stenosis in the right common iliac artery. The right external iliac artery is patent. The right common femoral artery is patent. 4. There is occlusion in the proximal right superficial femoral artery. 5. There is a patent stent in the left common and external iliac. The left common femoral artery is patent. 6. The left superficial femoral artery is occluded distally. 7. The left popliteal artery is extremely diminutive but opacified. 8. The left anterior tibial and peroneal arteries are opacified down to the level of the distal calf. The left posterior tibial artery is opacified down to the ankle. Chest CT 05/26/24 19:52 IMPRESSION: Patchy ground-glass and consolidative opacities scattered throughout both lungs in a random distribution which is nonspecific but can be seen the setting of viral infection. Foot X-Ray 05/31/24 16:39 IMPRESSION: Fourth toe soft tissue swelling without evidence of acute bony abnormality. Chest X-Ray 06/02/24 11:28 IMPRESSION: 1. Right-sided PICC line in satisfactory location ending in the lower one third of the SVC. 2. Increasing pneumonic infiltrates in the right lung. Unchanged infiltrate in the LEFT base. Trace RIGHT basal pleural effusion. Lumbar Spine CT 06/02/24 18:14 IMPRESSION: Degenerative changes of the lumbar spine described above with likely moderate canal stenosis at L4-L5 due to a disc extrusion superimposed on disc bulging. Varying degrees of neural foraminal narrowing due to disc bulging at multiple levels. This can be better assessed with an MRI of the lumbar spine. Laboratory Results WBC 12.28 10^3/uL (3.29-11.43) H 06/03/24 04:41 Corrected WBC Cancelled 05/26/24 16:29 RBC 2.59 10^6/uL (3.85-5.65) L 06/03/24 04:41 Hgb 7.30 g/dL (11.27-16.99) L 06/03/24 04:41 Hct 22.4 % (36-47) L 06/03/24 04:41 MCV 86.5 fl (85-98) 06/03/24 04:41 MCH 28.2 pg (27-33) 06/03/24 04:41 MCHC 32.6 g/dL (30-55) 06/03/24 04:41 RDW 17.3 % (12.1-15.1) H 06/03/24 04:41 Plt Count 311 10^3/cmm (157-399) 06/03/24 04:41 MPV 10.2 fL (7.4-10.4) 06/03/24 04:41 Gran % Cancelled 05/26/24 16:29 Neut % (Auto) 83.8 % 06/03/24 04:41 Lymph % (Auto) 10.8 % 06/03/24 04:41 Bailey % (Auto) 4.2 % 06/03/24 04:41 Eos % (Auto) 0.4 % 06/03/24 04:41 Baso % (Auto) 0.1 % 06/03/24 04:41 Neut # (Auto) 10.28 10^3/uL (1.8-7.7) H 06/03/24 04:41 Lymph # (Auto) 1.3 10^3/uL (0.8-4.8) 06/03/24 04:41 Bailey # (Auto) 0.5 10^3/uL (0.2-0.9) 06/03/24 04:41 Eos # (Auto) 0.1 10^3/uL (0.0-0.8) 06/03/24 04:41 Baso # (Auto) 0.0 10^3/uL (0.0-0.1) 06/03/24 04:41 Absolute Gran (auto) Cancelled 05/26/24 16:29 Nucleated RBC % (auto) 0 % 06/03/24 04:41 Total Counted 100 (0-100) 05/27/24 04:35 Atypical Lymphs % Not Reportable 05/27/24 04:35 Absolute Neutrophils 26.8 10^3/cmm (1.4-6.5) H 05/27/24 04:35 Segmented Neutrophils 55 % 05/27/24 04:35 Band Neutrophils 35.0 % 05/27/24 04:35 Lymphocytes (Manual) 4 % 05/27/24 04:35 Monocytes (Manual) 6.0 % 05/27/24 04:35 Absolute Monocytes 1.8 10^3/cmm (0.1-0.6) H 05/27/24 04:35 Eosinophils (Manual) 0 % 05/27/24 04:35 Absolute Eosinophils 0.0 10^3/cmm (0.0-0.7) 05/27/24 04:35 Basophils (Manual) 0.0 % 05/27/24 04:35 Absolute Basophils 0.0 10^3/cmm (0.0-0.2) 05/27/24 04:35 Nucleated RBCs # 0.0 /100WBC 06/03/24 04:41 Platelet Estimate Normal (Normal) 05/27/24 04:35 Specimen Type Arterial 05/26/24 22:05 Sample Site Brachial, left 05/26/24 22:05 ABG pH 7.21 (7.35-7.45) L 05/26/24 22:05 ABG pCO2 34.0 mmHg (35-45) L 05/26/24 22:05 ABG pO2 59.3 mmHg (80.0-100.0) L 05/26/24 22:05 ABG PO2/FiO2 Ratio 282 05/26/24 22:05 ABG HCO3 13.6 mmol/L (22-26) L 05/26/24 22:05 ABG O2 Saturation 89.4 05/26/24 22:05 ABG Base Excess -13.2 mmol/L (-2.0-2.0) L 05/26/24 22:05 Amadou Test N/a 05/26/24 22:05 A-a O2 Gradient 6.2 mmHg (5-10) 05/26/24 22:05 Hematocrit 30.8 % (37-47) L 05/26/24 22:05 Hgb O2 Saturation 87.3 % (95-100) L 05/26/24 22:05 Carboxyhemoglobin 1.4 %THgb (0.4-20.1) 05/26/24 22:05 Methemoglobin 1.0 % (0.4-1.5) 05/26/24 22:05 Total Hemoglobin 10.0 g/dL (12-16) L 05/26/24 22:05 Sodium 132.0 mmol/L (131-143) 05/26/24 22:05 Potassium 3.3 mmol/L (3.5-5.0) L 05/26/24 22:05 Glucose 192.0 mg/dL (70-115) H 05/26/24 22:05 Ionized Calcium 1.2 mmol/L (1.1-1.4) 05/26/24 22:05 O2 Delivery Device None 05/26/24 22:05 FiO2 21.0 % 05/26/24 22:05 Block Trader ID Heber 05/26/24 22:05 Sodium 134 mmol/L (136-145) L 06/03/24 04:41 Potassium 4.3 mmol/L (3.5-5.1) 06/03/24 04:41 Chloride 104 mmol/L (98-107) 06/03/24 04:41 Carbon Dioxide 20 mmol/L (22-29) L 06/03/24 04:41 Anion Gap 14.3 (5-19) 06/03/24 04:41 BUN 6 mg/dL (8-23) L 06/03/24 04:41 Creatinine 0.4 mg/dL (0.5-0.9) L 06/03/24 04:41 GFR Calculation Not Reportable 06/03/24 04:41 Glucose 83 mg/dL (65-115) 06/03/24 04:41 Estimat Average Glucose 103 06/02/24 14:07 Hemoglobin A1c 5.2 % (4.0-6.0) 06/02/24 14:07 Calculated Osmolality 275 mOsm/kg (285-295) L 06/03/24 04:41 Lactic Acid 2.0 mmol/L (0.5-2.2) 05/26/24 19:40 Calcium 7.7 mg/dL (8.5-10.5) L 06/03/24 04:41 Phosphorus 3.2 mg/dL (2.5-4.5) 05/27/24 04:35 Magnesium 2.0 mg/dL (1.7-2.3) 06/03/24 04:41 Iron 8 ug/dL (37-145) L 06/02/24 14:07 TIBC 88 mcg/dl 06/02/24 14:07 % Saturation 9.0 % (20-50) L 06/02/24 14:07 Unsat Iron Binding 80 ug/dL (112-347) L 06/02/24 14:07 Ferritin 351 ng/mL (15-150) H 06/03/24 04:41 Total Bilirubin 0.3 mg/dL (0.15-1.2) 06/03/24 04:41 AST 9 U/L (0-32) 06/03/24 04:41 ALT 15 U/L (0-33) 06/03/24 04:41 Alkaline Phosphatase 71 U/L (35-105) 06/03/24 04:41 C-Reactive Protein 224.2 mg/L (0.0-4.9) H 05/30/24 05:04 Total Protein 5.6 g/dL (6.6-8.7) L 06/03/24 04:41 Albumin 2.1 g/dL (3.5-5.2) L 06/03/24 04:41 Globulin 3.5 g/dL (1.3-4.6) 06/03/24 04:41 Vitamin B12 1852 pg/mL (232-1245) H 06/02/24 14:07 Folate 2.5 ng/mL (4.8-37.3) L 06/03/24 04:41 Procalcitonin 7.51 ng/mL (0-0.5) H 06/02/24 14:07 TSH 2.20 uIU/mL (0.27-4.20) 06/02/24 14:07 Urine Color Yellow (Yellow) 05/26/24 20:20 Urine Appearance Clear (CLEAR) 05/26/24 20:20 Urine pH 5.5 (5-7) 05/26/24 20:20 Ur Specific [place] 1.025 (1.005-1.030) 05/26/24 20:20 Urine Protein 1+ (Negative) A 05/26/24 20:20 Urine Glucose (UA) Negative (Normal) 05/26/24 20:20 Urine Ketones Negative (Negative) 05/26/24 20:20 Urine Blood Negative (Negative) 05/26/24 20:20 Urine Nitrate Negative (Negative) 05/26/24 20:20 Urine Bilirubin Negative (Negative) 05/26/24 20:20 Urine Urobilinogen 1.0 mg/dL (Negative) 05/26/24 20:20 Ur Leukocyte Esterase Negative (Negative) 05/26/24 20:20 Urine RBC 0-2 /hpf (0-2) 05/26/24 20:20 Urine WBC 0-5 /hpf (0-5) 05/26/24 20:20 Ur Squamous Epith Cells 11-20 /hpf (0-5) H 05/26/24 20:20 Amorphous Sediment Not Reportable 05/26/24 20:20 Urine Bacteria None seen /hpf (NONE) 05/26/24 20:20 Hyaline Casts 33.90 /lpf 05/26/24 20:20 Fine Granular Casts 5-10 /lpf H 05/26/24 20:20 Nasal MRSA (PCR) Mrsa detected (Not Detecte) A 05/30/24 04:40 Vancomycin Trough 7.0 ug/mL (10-15) L 06/02/24 18:18 Coronavirus (PCR) Negative (Negative) 05/27/24 04:30 Influenza A (PCR) Negative (Negative) 05/27/24 04:30 Influenza Type B (PCR) Negative (Negative) 05/27/24 04:30 RSV (PCR) Negative (Negative) 05/27/24 04:[address] [address] Ultrasound Report Signed Patient: Michael Dodson Unit #: [id number] : 1950 Age/Sex: 73 / F ADM Date: 05/27/24 Loc: [facility] Room/Bed: [facility] Attending Dr: Jaswinder Starr MD Ordering Provider/Ordering MD: Bridgette Almanzar MD Date of Service: 06/01/24 Procedure(s): CV. echo complete* 83061 Accession Number(s): [id number] Report Number: [id number] Michael Dodson Age: 73 Gender: F : 1950 Exam Date: 06/01/2024 20:35 Ordering Phys: Bridgette Almanzar MD Technologist: SHELLI [place] [facility] [place]: MRSA bacteremia, hx CAD s/p CABG, PVD s/p stenting, amputation, long-term smoker continues smoking, COPD, flu BP: 118 / 51 HR: 57 Rhythm: paced rhythm Technical Quality: Adequate MEASUREMENTS (Male / Female) Normal Values 2D ECHO LV Diastolic Diameter PLAX 4.5 cm 4.2 - 5.9 / 3.9 - 5.3 cm IVS Diastolic Thickness 1.8 cm 0.6 - 1.0 / 0.6 - 0.9 cm IVS Systolic Thickness 2.6 cm LVPW Diastolic Thickness 1.4 cm 0.6 - 1.0 / 0.6 - 0.9 cm LVPW Systolic Thickness 1.8 cm LVOT Diameter 1.7 cm LV Ejection Fraction 2D Teich 56.6 % LV Ejection Fraction MOD 4C 55.4 % LV Ejection Fraction MOD 2C 64.1 % LV Ejection Fraction 2C AL 64.8 % LA Diameter 3.8 cm Aorta at Sinotubular Diameter 2.5 cm IVC Diameter 1.1 cm M-MODE LA Ao Ratio MM 1.3 AV Cusp Separation MM 1.5 cm DOPPLER AV Peak Velocity 178.0 cm/s LVOT Peak Velocity 82.0 cm/s AV Area Cont Eq vti 1.1 cm squared AV Area Cont Eq pk 1.0 cm squared MV Peak Velocity 106.0 cm/s MV Area PHT 3.8 cm squared Mitral E to A Ratio 0.8 TV Peak Velocity 255.5 cm/s TR Peak Velocity 259.0 cm/s TR Peak Gradient 26.8 mmHg PV Peak Velocity 82.0 cm/s FINDINGS Left Ventricle Left ventricle is normal in size. LV systolic function is normal with EF of 50-55%. No significant regional wall motion abnormalities are seen. Grade 1 diastolic dysfunction Right Ventricle Normal in size and function Right Atrium Normal in size. Pacemaker lead seen. Left Atrium Normal in size Mitral Valve Structurally normal valve. Mild mitral regurgitation. Aortic Valve Aortic valve is thickened. No significant stenosis or regurgitation. Tricuspid Valve Mild tricuspid regurgitation. Pulmonary artery systolic pressure is normal. Pulmonic Valve Not well visualized Pericardium Normal Aorta Normal in size IVC Appears to be normal CONCLUSIONS LV systolic function is normal with EF of 50-55% Grade 1 diastolic dysfunction Mild mitral regurgitation Mild tricuspid regurgitation NAME: WestNancypeter Coker [facility] #: [id number] LOC: [facility] [place] #: [id number] AGE/SX: 73/F ROOM: 277 R E05/27/[address]: Jaswinder Starr MD : 1950 BED: 2 D IS: FAX #: STATUS: ADM IN TLOC: Spec #: [id number] Jesus: 05/26/24 Status: COMP Req #: [id number] Recd: 05/27/[address]: Damion Youngblood MD Src: Urine CC SpDesc: Ordered: Bacterial AG Procedure Result Verified Site Bacterial Antigen Final 05/27/24 Streptococcus Group B Negative for Streptococcus Group B Antigen Haemophilus influenzae B Negative or Haemophilus influenzae B Antigen S. pneumoniae Antigen Negative for S. pneumoniae Antigen N.meningitidis A,C,Y,W135 Negative for N.meningitidis A,C,Y,W135 Antigen N.meningitidis B/E.coli Negative for N.meningitidis B/E.coli K1 Antigen Micro: NAME: Michael Dodson [facility] #: [id number] LOC: [facility] U #: [id number] AGE/SX: 73/F ROOM: 277 R E05/27/[address]: Jaswinder Starr MD : 1950 BED: 2 D IS: FAX #: STATUS: ADM IN TLOC: Spec #: [id number] Jesus: 05/26/24 Status: COMP Req #: [id number] Recd: 05/26/[address]: Yadi Chin MD Src: Blood SpDesc: Ordered: Bcult Comments: PT HAD TO GO TO [facility]1942 [facility] Procedure Result Verified Site Blood Culture Final 05/31/24-161 1 OF 3 BOTTLES POSITIVE DIRECT GRAM STAIN: GRAM POSITIVE COCCI IN CHAINS AND CLUSTERS IDENTIFICATION BY DIRECT PCR Detection of mecA indicates presence of Methicillin Resistant Staphylococcus spp. Organism 1 Methicillin Resis Staph Aureus Growth 1 BOTTLE Organism 2 Enterococcus faecalis Growth SAME BOTTLE #1 Gram Stain Charge Charge for Gram Stain CRITICAL RESULT YES/NO: YES CRITICAL CALLED BY: RT TO AND READ BACK BY: [email or web address] DATE: 05/27/24 TIME: 1448 2ND CRITICAL RES YES/NO: YES 2ND CRITICAL CALLED BY: BONNIE 2ND TO AND READ BACK BY: [email or web address] DATE: 05/29/24 2ND CRITICAL TIME: 182 MRSA E faecalis M.I.C. RX M.I.C. RX --------- ------ --------- ------ * Ampicillin <=2 S * Ciprofloxacin <=1 S * Clindamycin <=0.5 S * Erythromycin >4 R * Gentamicin <=4 S * Levofloxacin <=1 S * Linezolid 2 S 2 S * Moxifloxacin <=0.5 S * Oxacillin >2 R * Penicillin >8 R 2 S * Rifampin <=1 S * Tetracycline <=4 S * Trimethoprim/Sulfamethoxazole <=0.5/9.5 S Vancomycin 2 S 2 S Gentamicin Synergy Screen <=500 S Daptomycin <=0.5 S 1 S Enterococcus faecalis: Gram Pos Combo 33-MScan Gentamicin Synergy Screen S Blood Culture Preliminary (changed) 05/30/24-1917 1 OF 3 BOTTLES POSITIVE DIRECT GRAM STAIN: GRAM POSITIVE COCCI IN CHAINS AND CLUSTERS IDENTIFICATION BY DIRECT PCR Detection of mecA indicates presence of Methicillin Resistant Staphylococcus spp. Organism 1 Methicillin Resis Staph Aureus Growth 1 BOTTLE Organism 2 Enterococcus faecalis Growth SAME BOTTLE #1 Gram Stain Charge Charge for Gram Stain CRITICAL RESULT YES/NO: YES CRITICAL CALLED BY: RT TO AND READ BACK BY: [email or web address] DATE: 05/27/24 TIME: 1447 2ND CRITICAL RES YES/NO: YES 2ND CRITICAL CALLED BY: BONNIE MOSCOSO TO AND READ BACK BY: [email or web address] DATE: 05/29/24 2ND CRITICAL TIME: 1825 MRSA E faecalis M.I.C. RX M.I.C. RX --------- ------ --------- ------ * Ampicillin <=2 S * Ciprofloxacin <=1 S * Clindamycin <=0.5 S * Erythromycin >4 R * Gentamicin <=4 S * Levofloxacin <=1 S * Linezolid 2 S 2 S * Moxifloxacin <=0.5 S * Oxacillin >2 R * Penicillin >8 R 2 S * Rifampin <=1 S * Tetracycline <=4 S * Trimethoprim/Sulfamethoxazole <=0.5/9.5 S Vancomycin 2 S 2 S Gentamicin Synergy Screen <=500 S Daptomycin <=0.5 S 1 S Enterococcus faecalis: Gram Pos Combo 33-MScan Gentamicin Synergy Screen S Blood Culture Preliminary (changed) 05/30/24-1636 1 OF 3 BOTTLES POSITIVE DIRECT GRAM STAIN: GRAM POSITIVE COCCI IN CHAINS AND CLUSTERS IDENTIFICATION BY DIRECT PCR Detection of mecA indicates presence of Methicillin Resistant Staphylococcus spp. RESULTS TO FOLLOW Organism 1 Methicillin Resis Staph Aureus Growth 1 BOTTLE Organism 2 Enterococcus faecalis Growth SAME BOTTLE #1 Gram Stain Charge Charge for Gram Stain CRITICAL RESULT YES/NO: YES CRITICAL CALLED BY: RT TO AND READ BACK BY: [email or web address] DATE: 05/27/24 TIME: 1447 2ND CRITICAL RES YES/NO: YES 2ND CRITICAL CALLED BY: BONNIE 2ND TO AND READ BACK BY: [email or web address] DATE: 05/29/24 2ND CRITICAL TIME: 1825 MRSA M.I.C. RX --------- ------ * Ciprofloxacin <=1 S * Clindamycin <=0.5 S * Erythromycin >4 R * Gentamicin <=4 S * Levofloxacin <=1 S * Linezolid 2 S * Moxifloxacin <=0.5 S * Oxacillin >2 R * Penicillin >8 R * Rifampin <=1 S * Tetracycline <=4 S * Trimethoprim/Sulfamethoxazole <=0.5/9.5 S Vancomycin 2 S Daptomycin <=0.5 S Blood Culture Preliminary (changed) 05/29/24-1825 1 OF 3 BOTTLES POSITIVE DIRECT GRAM STAIN: GRAM POSITIVE COCCI IN CHAINS AND CLUSTERS IDENTIFICATION BY DIRECT PCR Detection of mecA indicates presence of Methicillin Resistant Staphylococcus spp. RESULTS TO FOLLOW Organism 1 Staphylococcus aureus Growth 1 BOTTLE Organism 2 Enterococcus faecalis Growth SAME BOTTLE #1 Gram Stain Charge Charge for Gram Stain CRITICAL RESULT YES/NO: YES CRITICAL CALLED BY: RT TO AND READ BACK BY: [email or web address] DATE: 05/27/24 TIME: 1447 2ND CRITICAL RES YES/NO: YES 2ND CRITICAL CALLED BY: BONNIE 2ND TO AND READ BACK BY: [email or web address] DATE: 05/29/24 2ND CRITICAL TIME: 1825 Blood Culture Preliminary (changed) 05/27/24-1447 1 OF 3 BOTTLES POSITIVE DIRECT GRAM STAIN: GRAM POSITIVE COCCI IN CHAINS AND CLUSTERS IDENTIFICATION BY DIRECT PCR RESULTS TO FOLLOW INSTRUMENT IS DOWN FOR REPAIRS. SENSITIVITIES WILL BE DELAYED. CRITICAL RESULT YES/NO: YES CRITICAL CALLED BY: RT TO AND READ BACK BY: [email or web address] DATE: 05/27/24 TIME: 1447 Blood Culture Preliminary (changed) 05/27/24-1444 1 OF 3 BOTTLES POSITIVE DIRECT GRAM STAIN: GRAM POSITIVE COCCI IN CHAINS AND CLUSTERS IDENTIFICATION BY DIRECT PCR RESULTS TO FOLLOW INSTRUMENT IS DOWN FOR REPAIRS. SENSITIVITIES WILL BE DELAYED. CRITICAL RESULT YES/NO: YES CRITICAL CALLED BY: RT Blood Culture Preliminary (changed) 05/26/24-2043 SPECIMEN COLLECTED NAME: Michael Dodson LOC: [facility] U #: [id number] AGE/SX: 73/F ROOM: 277 R E05/27/[address]: Jaswinder Starr MD : [id number] BED: 2 D IS: FAX #: STATUS: ADM IN TLOC: Spec : [id number] Jesus: 05/30/24 Status: COMP Req : [id number] Recd: 05/30/[address]: Bridgette Almanzar MD Ordered: MRSA OZH Test Low Normal High Flag Reference Site MRSA OZH MRSA Detected A Not Detecte CRITICAL RESULTS CALLED BY Josefina Mast AND READ BACK BY [FERMI] @ 0739. A&P Assessment and plan (1) MRSA bacteremia: (2) Bacteremia due to Enterococcus: (3) Peripheral vascular angioplasty status: Plan 73-year-old lady with multiple medical comorbidities presenting to the hospital with post influenza bacterial pneumonia, found to have MRSA and Enterococcus bacteremia. Blood culture positive for MRSA and Enterococcus faecalis, 1 out of 3 bottles on May 26, 2024. Repeat blood cultures taken on May 29, 2024 are negative thus far. Patient is currently afebrile, hemodynamically stable. Does not relate any abdominal symptoms. CT of the chest is showing consolidative opacities scattered throughout both lungs, per personal interpretation right upper lobe pneumonia is noted. MRSA nasal screen is positive. Sputum culture is not available. Bacterial pneumonia need to the potential source of current bacteremia. Alternately may be related to recent endovascular intervention, however this is considered less likely given that she is over a month out from the procedure, no gross signs of cellulitis noted over surgical incision. Left leg imaging is without signs of osteomyelitis. Urine analysis without any gross signs of infection CT scan of the back without any signs of osteomyelitis or discitis. Echocardiogram TTE without any gross vegetations Patient has remained on piperacillin/tazobactam between May 28 to June 02, 2024. Vancomycin added May 29, 2024. Given quick clearance of bacteremia, less likely that endocarditis or pacemaker infection would be the source. Recommend to treat patient with total 4 weeks of IV vancomycin given recovery of MRSA bacteremia. (05/29-06/25) Vancomycin will provide coverage for Enterococcus faecalis additionally. PICC line has been placed on June 02, 2024 While on the above treatment with vancomycin, obtain weekly labs including CBC, LFT, creatinine and vancomycin trough. These are to be faxed over to the infectious disease clinic for review. Patient plans to infuse antibiotics at home and get lab checks either via home health or tried into the infusion center once a week for PICC line dressing change and labs. Follow-up in ID clinic in 3 weeks. PDMP PDMP Reviewed: Not Reviewed Consult Attestations 2 Medical Necessity Statement: per admitting Coding Level of Care Code Acute Code for Chg Fwd High MDM includes number and complexity of problems actively addressed during encounter, amount and/or complexity of data reviewed/ordered and described risk of complication, morbidity or mortality of management as documented Diagnoses MRSA bacteremia R78.81; B95.62 Bacteremia due to Enterococcus R78.81; B95.2 Peripheral vascular angioplasty status Z98.62
[2024-06-03] MEDS: sucralfate 1 gm/10 mL Oral Liq UDC PO ×2 (17:25→20:08)
[2024-06-03] MEDS: folic acid 1 mg Tablet PO (17:26)
[2024-06-03] MEDS: trazodone 50 mg Tablet 100 MG PO (20:07)
[2024-06-03] MEDS: citalopram 20 mg Tablet 10 MG PO (20:08)
[2024-06-04] VITALS (16 sets, daily range): BP systolic 122–156; BP diastolic 40–69; PULSE 60–68; RESP 16–18; TEMP 36.3–37; O2SAT 94–100
[2024-06-04] MEDS: pantoprazole 40 mg SDV IVP ×2 (02:29→13:10)
[2024-06-04] MEDS: HYDROcodone-acetaminophen 7.5-325 mg Tablet 1 TAB PO ×5 (02:31→20:20)
[2024-06-04] MEDS: ipratropium-albuterol 3 mL Neb INHALATION ×4 (04:12→21:19)
[2024-06-04] MEDS: sucralfate 1 gm/10 mL Oral Liq UDC PO ×4 (06:07→20:21)
[2024-06-04 06:08] LABS: Basophils % 0.1 %; Eosinophils # 0.1 10^3/uL (0.0-0.8); Eosinophils % 0.6 %; Hematocrit 21.7 % (36-47); Lymphocytes # 1.4 10^3/uL (0.8-4.8); Lymphocytes % 13.8 %; Mean Corpuscular HGB Conc 31.3 g/dL (30-55); Mean Corpuscular Volume 86.1 fl (85-98); Mean Platelet Volume 9.7 fL (7.4-10.4); Monocytes # 0.5 10^3/uL (0.2-0.9); Neutrophils # 8.26 10^3/uL (1.8-7.7); Neutrophils % 80.1 %; Nucleated Red Blood Cells % 0 %; Platelet Count 324 10^3/cmm (157-399); Red Blood Count 2.52 10^6/uL (3.85-5.65); Red Cell Distribution Width 17.4 % (12.1-15.1); White Blood Count 10.31 10^3/uL (3.29-11.43)
[2024-06-04 06:27] LABS: Vancomycin Trough 16.2 ug/mL (10-15)
[2024-06-04 06:30] LABS: Alanine Aminotransferase 13 U/L (0-33); Alkaline Phosphatase 71 U/L (35-105); Aspartate Amino Transferase 9 U/L (0-32); Blood Urea Nitrogen 5 mg/dL (8-23); Calcium 7.8 mg/dL (8.5-10.5); Carbon Dioxide 20 mmol/L (22-29); Chloride 106 mmol/L (98-107); Creatinine Clr Calc Pharmacy 41.5213; Globulin 3.4 g/dL (1.3-4.6); Glucose 81 mg/dL (65-115); Osmolality Calculated 276 mOsm/kg (285-295); Sodium 135 mmol/L (136-145); Total Bilirubin 0.3 mg/dL (0.15-1.2); Total Protein 5.4 g/dL (6.6-8.7)
[2024-06-04 06:36] LABS: Magnesium 2.1 mg/dL (1.7-2.3)
[2024-06-04] MEDS: VANCOMYCIN ADD-Vantage 750 MG in 0.9% NaCl ADD-Vantage 250 ML 250 MG IV ×2 (06:44→18:51)
[2024-06-04] MEDS: nystatin 100,000 unit/mL UDC 5 mL 100000 UNIT PO ×4 (08:07→20:20)
[2024-06-04] MEDS: methocarbamol 500 mg Tablet PO ×2 (08:07→17:00)
[2024-06-04] MEDS: isosorbide mononitrate ER 30 mg Tablet 15 MG PO (08:07)
[2024-06-04] MEDS: atorvastatin 40 mg Tablet PO (08:08)
[2024-06-04] MEDS: montelukast sodium 10 mg Tablet PO (08:08)
[2024-06-04] MEDS: folic acid 1 mg Tablet PO ×2 (08:08→16:57)
[2024-06-04] MEDS: topiramate 25 mg Tablet 50 MG PO ×2 (08:08→16:56)
[2024-06-04] MEDS: clopidogrel 75 mg Tablet PO (08:08)
[2024-06-04] MEDS: metoprolol tartrate 50 mg Tablet PO ×2 (08:08→16:57)
[2024-06-04] MEDS: spironolactone 25 mg Tablet 12.5 MG PO (08:08)
[2024-06-04] MEDS: iron sucrose 200 MG in sodium chloride 0.9% (100 ml) 100 ML 220 MG IV (13:18)
--- NOTE | 2024-06-04 14:19 | P.PN_ITS ---
Subjective 2 Subjective: No acute vents overnight. Patient laying comfortably in bed. States she had a big bowel movement earlier today morning. Later in the day seen with daughter at bedside. Patient complaining of generalized body pains. Vitals/I&O/Wt Last Vital Signs Temp 97.3 F L 06/04/24 11:13 Pulse 63 06/04/24 11:13 Resp 17 06/04/24 07:44 BP 135/55 06/04/24 11:13 Pulse Ox 100 06/04/24 11:13 O2 Del Method Nasal Cannula 06/04/24 11:13 O2 Flow Rate 2 06/04/24 11:13 FiO2 2 05/28/24 14:55 06/03/24 06/04/24 06/04/24 22:59 06:59 14:59 Intake Total 310 / 910 360 / 1270 730 / 730 Output Total 550 / 550 600 / 1150 Balance -240 / 360 -240 / 120 730 / 730 Weight last 48 hrs Weight 40.778 kg Weight 41.458 kg Physical Exam 2 Narrative: General: Patient is awake and alert. No acute distress. On supplemental oxygen Head: Grossly unremarkable Cardiovascular: RRR. No gallops. No murmurs. Lungs: Faint bilateral rhonchi. no use of accessory muscles, no crackles or wheezes. On room air. Cough present. - unchanged from admission Abdomen: Normal bowel sounds, abdomen soft and nontender. Extremities: lower extremity felt warm, difficult to feel distal pulse. Dry gangrene of left toe. s/p AKA of R. Stable Urinary Catheter Management: Armando: Cath Placed During This Visit: yes Reason for Continuing Indwelling Catheter: Other Urinary Catheter Date of Insertion: 05/27/24 Urinary Catheter Time of Insertion: 01:47 Data 06/04/24 05:59 06/04/24 05:59 Micro: Microbiology 05/29/24 21:10 Blood Culture - Final Blood NO GROWTH AFTER 5 DAYS 05/29/24 21:18 Blood Culture - Final Blood NO GROWTH AFTER 5 DAYS A&P Assessment and plan (1) MRSA bacteremia: (2) Anemia: (3) Community acquired pneumonia: (4) Peripheral vascular disease: (5) CHF (congestive heart failure), NYHA class III: Qualifiers: Congestive heart failure chronicity: chronic Congestive heart failure type: systolic Qualified Code(s): I50.22 - Chronic systolic (congestive) heart failure (6) Dyslipidemia: (7) COPD (chronic obstructive pulmonary disease): Qualifiers: COPD type: emphysema Emphysema type: centrilobular Qualified Code(s): J43.2 - Centrilobular emphysema (8) Peripheral vascular angioplasty status: (9) Essential hypertension: Plan Sepsis secondary to pneumonia + MRSA / Enterococcus bacteremia - 80 year old female who presents with a one-week history of cough, subjective fevers, and imaging findings consistent with pneumonia in the setting of recent influenza infection. Elevated inflammatory markers and leukocytosis support an infectious process. - Possibly due to left foot toe infection - noted dry gangrene. no erythema or discharge - Does have a pacemaker. - WBC 31 - > 13 today - Left Foot xray - no evidence of osteo Plan: 1. Continue zosyn/ vancomycin - will de-escalate to vancomycin possibly, however will await ID input first 2. Repeat blood culture x2 - NGTD 3. Infectious disease consulted today 4. Echo pendign 5. Repeat labs in am Acute Respiratory failure with hypoxemia and hypercapnia / Underlying COPD - improved - Noted to have metabolic acidosis on blood gas with pH 7.21, pCO2 34, pO2 59, and bicarbonate 13, likely due to sepsis, pneumonia and COPD - Currently on supplemental oxygen at 3L via NC - At home she wears oxygen only at bedtime - BIPAP if acute worsening of respiratory status Plan: 1. Stable, improving 2. 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 - Presenting with left leg numbness, but CT angiogram showed patent stents. Plan: 1. Continue antiplatelet therapy and statin. 2. Will follow up with vascular outpatient 3. Foot xray - no osteo. 4. May consider podiatry consult Dysphagia - Reports dysphagia in the setting of dry mouth, concerning for oropharyngeal dysphagia. Plan: 1. Dysphagia diet 2. Aspiration precautions Addiitional medical problems - Hypertension - Dyslipidemia Plan for the day: Hemoglobin trending further down today. Down to 6.8. Will transfuse 1 unit of PRBC. Target hemoglobin more than 7. Continue to hold off on Eliquis. Continue with Plavix as patient recently had peripheral angioplasty. Continue Protonix twice daily, Carafate ACHS. Switch to clear liquid diet. Will plan to consult surgery for further evaluation with possible endoscopy and colonoscopy. Patient and patient's daughter is agreeable. PICC line in place. Plan to discharge on IV vancomycin going forward for 4 weeks given MRSA bacteremia. Continue to monitor blood pressures. Continue with IV iron supplementation given iron deficiency and oral folic acid given folic acid deficiency. PDMP PDMP Reviewed: Not Reviewed Attestations 2 Medical Necessity Statement*: Requires further hospitalization for management of anemia with concerns for GI bleed, patient found to have MRSA bacteremia while outpatient antibiotics are set up, blood transfusion and further workup with endoscopy and colonoscopy is done Diagnoses MRSA bacteremia R78.81; B95.62 Anemia D64.9 Community acquired pneumonia J18.9 Peripheral vascular disease I73.9 Chronic systolic congestive heart failure, NYHA class 3 I50.22 Congestive heart failure chronicity: chronic Congestive heart failure type: systolic Dyslipidemia E78.5 Centrilobular emphysema J43.2 COPD type: emphysema Emphysema type: centrilobular Peripheral vascular angioplasty status Z98.62 Essential hypertension I10
--- NOTE | 2024-06-04 17:30 | PM.CONSULT ---
Providers/Reason For Consult Consulting Physician/Specialty*: General Surgery Reason for Consult*: Suspected GI bleeding Attending Physician: Jaswinder Starr MD History of Present Illness History of Present Illness Michael Dodson is a 73 year old female who was admitted to the hospital with pneumonia. She is also found to have a downtrending hemoglobin, has lost almost explained so hemoglobin week. She is on chronic anticoagulation and was recently started on additional anticoagulation for stent placement in her legs. I was consulted for evaluation for possible upper and lower endoscopy to evaluate the source of bleeding. According to the patient no abdominal pain, last colonoscopy was 5 years ago and she has seen some darker and tarry stools. Review of Systems General: Reports: 10 or more systems reviewed and unremarkable except in HPI and below Medications/Allergies Home Medications ?Medication ?Instructions ?Recorded ?Confirmed ?Last Taken ?Type polyethylene glycol 3350 17 17 g PO DAILY PRN constipation 06/26/21 05/27/24 Unknown History gram/dose oral powder (Miralax) hydrocodone 7.5 mg-acetaminophen 1 tab PO TID PRN pain 30 days #90 08/31/21 05/27/24 05/26/24 Rx 325 mg tablet tabs nitroglycerin 0.4 mg sublingual 0.4 mg sublingual Q5M PRN Chest 05/25/22 05/27/24 Unknown Rx tablet (Nitrostat) Pain #10 tabs walker with a seat #1 ea 12/12/22 05/27/24 Unknown Rx diphenhydramine HCl 25 mg tablet 25 mg PO DAILY PRN Allergy 02/13/23 05/27/24 Unknown Rx (Benadryl Allergy) Symptoms #30 tabs fluticasone propionate 50 1 spray intranasal BID PRN Allergy 04/30/23 05/27/24 07/25/23 Rx mcg/actuation nasal Symptoms #16 grams spray,suspension handicapped toilet #1 ea 05/21/23 05/27/24 Unknown Rx Handles/bars shower and commode #1 ea 05/24/23 05/27/24 Unknown Rx extended seat for commode #1 ea 05/24/23 05/27/24 Unknown Rx clopidogrel 75 mg tablet 75 mg PO DAILY 07/25/23 05/27/24 05/26/24 History topiramate 100 mg tablet 50 mg (1/2 x 100 mg) PO BID #180 08/23/23 05/27/24 05/26/24 Rx tabs ibuprofen 800 mg tablet 800 mg PO BID #60 tabs 01/06/24 05/27/24 05/26/24 Rx montelukast 10 mg tablet 10 mg PO DAILY breathing #90 tabs 01/16/24 05/27/24 05/26/24 Rx citalopram 10 mg tablet (Celexa) 10 mg PO DAILY mental health #90 02/04/24 05/27/24 05/26/24 Rx tabs metoprolol tartrate 50 mg tablet 50 mg PO BID #90 tabs 02/10/24 05/27/24 05/26/24 Rx albuterol sulfate 90 mcg/actuation 2 puff inhalation Q6H PRN 02/24/24 05/27/24 Unknown Rx aerosol inhaler shortness of breath or wheezing #8.5 grams methocarbamol 500 mg tablet 500 mg PO BID PRN muscle pain #180 03/30/24 05/27/24 Unknown Rx tabs potassium chloride 10 mEq 10 meq PO BID #90 caps 04/06/24 05/27/24 05/26/24 Rx capsule,extended release isosorbide mononitrate 30 mg 15 mg (1/2 x 30 mg) PO DAILY #45 05/19/24 05/27/24 05/26/24 Rx tablet,extended release 24 hr tabs apixaban 2.5 mg tablet (Eliquis) 2.35 mg PO BID 05/27/24 05/27/24 05/26/24 History atorvastatin 40 mg tablet 20 mg PO BID 05/27/24 05/27/24 05/26/24 History spironolactone 25 mg tablet See Rx Instructions .Route 05/28/24 Unknown Rx .COMPLEX #45 tabs trazodone 50 mg tablet 100 mg (2 x 50 mg) PO BEDTIME #180 05/28/24 Unknown Rx tabs Allergies Allergy/AdvReac Type Severity Reaction Status Date / Time gelatin Allergy Unknown ADR-Itching Verified 05/26/24 16:21 codeine Allergy Unknown Verified 05/26/24 16:21 latex Allergy Unknown Verified 05/26/24 16:21 oxycodone (From Percocet) Allergy Unknown Verified 05/26/24 16:21 Current Medications Generic Name Dose Route Start Last Admin Trade Name Freq PRN Reason Stop Dose Admin Hydrocodone Bitart/Acetaminophen 1 tab 05/31/24 22:48 06/04/24 15:28 Hydrocodone-Acetaminophen 7.5-325 Mg Tablet PO 1 tab Q4H PRN Administration MODERATE PAIN Albuterol/Ipratropium 3 ml 06/02/24 14:00 06/04/24 14:24 Ipratropium-Albuterol 3 Ml Neb INHALATION 3 ml Q6H.RESP JAMES Administration Apixaban 2.5 mg 05/28/24 21:00 06/03/24 09:39 Apixaban 5 Mg Tablet PO 2.5 mg BID@0900,2100 JAMES Administration Atorvastatin Calcium 40 mg 05/27/24 09:00 06/04/24 08:08 Atorvastatin 40 Mg Tablet PO 40 mg DAILY JAMES Administration Citalopram Hydrobromide 10 mg 05/29/24 21:00 06/03/24 20:08 Citalopram 20 Mg Tablet PO 10 mg BEDTIME JAMES Administration Clopidogrel Bisulfate 75 mg 05/27/24 09:00 06/04/24 08:08 Clopidogrel 75 Mg Tablet PO 75 mg DAILY JAMES Administration Folic Acid 1 mg 06/03/24 18:00 06/04/24 16:57 Folic Acid 1 Mg Tablet PO 1 mg BID JAMES Administration Guaifenesin 600 mg 05/26/24 22:25 05/29/24 09:47 Guaifenesin 600 Mg Tablet PO 600 mg BID PRN Administration cough/congestion Vancomycin HCl 750 mg/ Sodium 250 mls @ 250 mls/hr 06/02/24 07:00 06/04/24 10:21 Chloride IV Infused Q12H JAMES Infusion Iron Sucrose 200 mg/ Sodium 110 mls @ 220 mls/hr 06/03/24 13:00 06/04/24 14:50 Chloride IV 06/07/24 13:29 Infused Q24H JAMES Infusion Isosorbide Mononitrate 15 mg 05/27/24 09:00 06/04/24 08:07 Isosorbide Mononitrate Er 30 Mg Tablet PO 15 mg DAILY JAMES Administration Methocarbamol 500 mg 05/26/24 22:25 06/04/24 17:00 Methocarbamol 500 Mg Tablet PO 500 mg BID PRN Administration muscle pain Metoprolol Tartrate 50 mg 05/27/24 09:00 06/04/24 16:57 Metoprolol Tartrate 50 Mg Tablet PO 50 mg BID JAMES Administration Montelukast Sodium 10 mg 05/27/24 09:00 06/04/24 08:08 Montelukast Sodium 10 Mg Tablet PO 10 mg DAILY JAMES Administration Nystatin 100,000 unit 05/27/24 17:00 06/04/24 16:56 Nystatin 100,000 Unit/Ml Udc 5 Ml PO 100,000 unit QID JAMES Administration Pantoprazole Sodium 40 mg 06/03/24 13:00 06/04/24 13:10 Pantoprazole 40 Mg Sdv IVP 40 mg Q12H JAMES Administration Spironolactone 12.5 mg 05/27/24 09:00 06/04/24 08:08 Spironolactone 25 Mg Tablet PO 12.5 mg DAILY JAMES Administration Sucralfate 1 gm 06/03/24 17:00 06/04/24 16:56 Sucralfate 1 Gm/10 Ml Oral Liq Udc PO 1 gm AC&BEDTIME JAMES Administration Topiramate 50 mg 05/27/24 09:00 06/04/24 16:56 Topiramate 25 Mg Tablet PO 50 mg BID JAMES Administration Trazodone HCl 100 mg 05/27/24 21:00 06/03/24 20:07 Trazodone 50 Mg Tablet PO 100 mg BEDTIME JAMES Administration PFSH Acute PFSH: Medical History Peripheral vascular angioplasty status Pulmonary cachexia due to COPD Uses prosthesis Right above-knee amputee Surgery 10/26/2022 at [facility] CKD (chronic kidney disease) stage 2, GFR 60-89 ml/min Anxiety and depression Carotid artery disease Headache, migraine CHF (congestive heart failure), NYHA class III Critical limb ischemia of right lower extremity Admission to [facility] 06/29-07/01/2021 and stenting of R distal SFA and proximal popliteal artery. In [facility], Dr Nance RLE Stent 05/07/2022 Constipation, chronic Chronic low back pain [facility], Dr. Ferguson COPD exacerbation Opioid contract exists [facility], Dr. Ferguson Essential hypertension CAD (coronary artery disease) Benign essential HTN Peripheral vascular disease Enrolled in chronic care management COPD (chronic obstructive pulmonary disease) Nicotine dependence with current use Osteoporosis Surgical History S/p total knee replacement, bilateral S/P hysterectomy S/P balloon angioplasty of pulmonary artery branches ILIAC ARTERY-2016 FEMORAL ARTERY 2016 Status post placement of cardiac pacemaker 2015 S/P carotid endarterectomy 1995 S/P right cataract extraction Family History Other Diabetes Stroke Social History Smoking and tobacco/nicotine status: current every day tobacco/nicotine user cigarettes [ Other cigarette details: 1 PK Q 3-4 DAYS ] Alcohol intake: never Substance/Drug Use: never Vitals/I&O/Wt Last Vital Signs Temp 97.5 F L 06/04/24 17:02 Pulse 67 06/04/24 17:02 Resp 18 06/04/24 17:02 BP 138/61 06/04/24 17:02 Pulse Ox 96 06/04/24 17:02 O2 Del Method Nasal Cannula 06/04/24 14:00 O2 Flow Rate 2 06/04/24 14:00 FiO2 2 05/28/24 14:55 06/04/24 06/04/24 06/04/24 06:59 14:59 22:59 Intake Total 360 / 1270 840 / 840 350 / 1190 Output Total 600 / 1150 Balance -240 / 120 840 / 840 350 / 1190 Weight last 48 hrs Weight 89 lb 14.4 oz Weight 91 lb 6.4 oz Physical Exam Narrative: General : Patient is well developed , no acute distress, oriented x3 Head : Normal cephalic, a-traumatic. Nose : Mucous membranes are without erythema. Lungs : Equal chest rise bilaterally, no use of accessory muscles, trachea is midline. CV : Rate and rhythm are normal. Abdomen : Soft, ND, NT, no g/r/m Extremities : No edema. Upper extremities are normal bilaterally. Back : non-tender to palpation, no CVA tenderness. Urinary Catheter Management: Armando: Cath Placed During This Visit: yes Reason for Continuing Indwelling Catheter: Other Urinary Catheter Date of Insertion: 05/27/24 Urinary Catheter Time of Insertion: 01:47 Data 06/04/24 05:59 06/04/24 05:59 Micro: Microbiology 05/29/24 21:10 Blood Culture - Final Blood NO GROWTH AFTER 5 DAYS 05/29/24 21:18 Blood Culture - Final Blood NO GROWTH AFTER 5 DAYS A&P Assessment and plan (1) GI bleeding: Plan After a complete history, physical examination and review of all available clinical data. I have offer a diagnostic upper and lower endoscopy for GI bleeding. I have discussed all the risks and benefits of the endoscopy. Including, the risk of perforation of the esophagus, stomach, duodenum or colon requiring surgical intervention and ostomy creation, rectal bleeding, incomplete colonoscopy in one of every 20 patients requiring repat endoscopy in 1 year, missed polyps, need for additional procedures. Patient shows understanding and wishes to proceed. We will do bowel prep tomorrow and plan to do the procedure on Saturday morning PDMP PDMP Reviewed: Not Reviewed Coding Level of Care Code Acute Code for Chg Fwd Diagnoses GI bleeding K92.2
[2024-06-04] MEDS: citalopram 20 mg Tablet 10 MG PO (20:20)
[2024-06-04] MEDS: trazodone 50 mg Tablet 100 MG PO (20:20)
[2024-06-05] VITALS (11 sets, daily range): BP systolic 124–162; BP diastolic 56–79; PULSE 62–84; RESP 18–26; TEMP 36.7–37.1; O2SAT 92–99
[2024-06-05] MEDS: HYDROcodone-acetaminophen 7.5-325 mg Tablet 1 TAB PO ×4 (00:57→22:06)
[2024-06-05] MEDS: pantoprazole 40 mg SDV IVP ×2 (01:00→13:37)
[2024-06-05] MEDS: ipratropium-albuterol 3 mL Neb INHALATION ×4 (02:56→19:56)
[2024-06-05] MEDS: methocarbamol 500 mg Tablet PO (04:08)
[2024-06-05] MEDS: sucralfate 1 gm/10 mL Oral Liq UDC PO ×2 (06:09→12:07)
[2024-06-05] MEDS: VANCOMYCIN ADD-Vantage 750 MG in 0.9% NaCl ADD-Vantage 250 ML 250 MG IV ×2 (06:09→18:30)
[2024-06-05 06:53] LABS: Basophils % 0.1 %; Eosinophils % 0.4 %; Hematocrit 24.3 % (36-47); Lymphocytes # 1.4 10^3/uL (0.8-4.8); Lymphocytes % 13.1 %; Mean Corpuscular HGB Conc 31.7 g/dL (30-55); Mean Corpuscular Hemoglobin 26.6 pg (27-33); Mean Corpuscular Volume 84.1 fl (85-98); Monocytes # 0.7 10^3/uL (0.2-0.9); Monocytes % 6.3 %; Neutrophils # 8.32 10^3/uL (1.8-7.7); Neutrophils % 79.5 %; Nucleated Red Blood Cells % 0 %; Platelet Count 337 10^3/cmm (157-399); Red Blood Count 2.89 10^6/uL (3.85-5.65); Red Cell Distribution Width 18.9 % (12.1-15.1); White Blood Count 10.46 10^3/uL (3.29-11.43)
--- NOTE | 2024-06-05 06:57 | PC.NURSE ---
This nurse notified hospitalist of Hgb of 7.7 this AM.
[2024-06-05 07:08] LABS: Alanine Aminotransferase 10 U/L (0-33); Albumin Level 2.1 g/dL (3.5-5.2); Alkaline Phosphatase 71 U/L (35-105); Aspartate Amino Transferase 8 U/L (0-32); Blood Urea Nitrogen 5 mg/dL (8-23); Calcium 7.7 mg/dL (8.5-10.5); Carbon Dioxide 20 mmol/L (22-29); Chloride 106 mmol/L (98-107); Creatinine Clr Calc Pharmacy 42.1221; Globulin 3.4 g/dL (1.3-4.6); Glucose 80 mg/dL (65-115); Osmolality Calculated 274 mOsm/kg (285-295); Sodium 134 mmol/L (136-145); Total Bilirubin 0.4 mg/dL (0.15-1.2); Total Protein 5.5 g/dL (6.6-8.7)
[2024-06-05 07:18] LABS: Anion Gap 11.5 (5-19); Potassium 3.5 mmol/L (3.5-5.1)
--- NOTE | 2024-06-05 08:02 | P.PN_ITS ---
Subjective 2 Subjective: Patient doing well overnight no significant issues no abdominal pain. Hemoglobin with 1 point uptrend after transfusion Vitals/I&O/Wt Last Vital Signs Temp 98.7 F 06/05/24 04:00 Pulse 73 06/05/24 04:00 Resp 19 H 06/05/24 04:00 BP 147/63 06/05/24 04:00 Pulse Ox 99 06/05/24 04:00 O2 Del Method Nasal Cannula 06/05/24 04:00 O2 Flow Rate 2 06/05/24 04:00 FiO2 2 05/28/24 14:55 06/04/24 06/05/24 06/05/24 22:59 06:59 14:59 Intake Total 960 / 1800 240 / 2040 Output Total 600 / 600 Balance 960 / 1800 -360 / 1440 Weight last 48 hrs Weight 91 lb 3.2 oz Weight 89 lb 14.4 oz Physical Exam 2 GI: OTHER: Abdomen soft nontender nondistended. Urinary Catheter Management: Armando: Cath Placed During This Visit: yes Reason for Continuing Indwelling Catheter: Other Urinary Catheter Date of Insertion: 05/27/24 Urinary Catheter Time of Insertion: 01:47 Data 06/05/24 05:07 06/05/24 02:07 A&P Assessment and plan (1) GI bleeding: Plan Plan is to give patient bowel prep today and we will proceed with EGD and colonoscopy tomorrow. In addition to recent benefits previously discussed with the patient I informed the patient that during this procedure I will not be able to do any polypectomy or take biopsies as she is currently receiving anticoagulation therapy. This procedure will be done only to control bleeding. She shows understanding agrees with the procedure PDMP PDMP Reviewed: Not Reviewed Attestations 2 Medical Necessity Statement*: Per medical team Coding Level of Care Code Acute Code for Chg Fwd Diagnoses GI bleeding K92.2
--- NOTE | 2024-06-05 09:03 | PC.SOCIAL ---
IMM Updated Updated pt on IMM. No questions voiced. Provided pt a copy. Initialed, dated, & timed copy in chart.
[2024-06-05] MEDS: atorvastatin 40 mg Tablet PO (09:48)
[2024-06-05] MEDS: metoprolol tartrate 50 mg Tablet PO ×2 (09:48→17:31)
[2024-06-05] MEDS: topiramate 25 mg Tablet 50 MG PO ×2 (09:48→17:31)
[2024-06-05] MEDS: montelukast sodium 10 mg Tablet PO (09:48)
[2024-06-05] MEDS: nystatin 100,000 unit/mL UDC 5 mL 100000 UNIT PO ×2 (09:48→13:37)
[2024-06-05] MEDS: isosorbide mononitrate ER 30 mg Tablet 15 MG PO (09:49)
[2024-06-05] MEDS: folic acid 1 mg Tablet PO ×2 (09:49→17:31)
[2024-06-05] MEDS: FUROsemide 10 mg/mL SDV 2mL 20 MG IVP (12:08)
[2024-06-05] MEDS: clopidogrel 75 mg Tablet PO (12:08)
--- NOTE | 2024-06-05 12:20 | P.PN_ITS ---
Subjective 2 Subjective: No acute vents overnight. Patient has remained hemodynamically stable and afebrile. Seen with daughter at bedside. Patient denies any complaints. Currently on 2 L of oxygen supplementation. Vitals/I&O/Wt Last Vital Signs Temp 98.2 F 06/05/24 11:23 Pulse 63 06/05/24 11:23 Resp 26 H 06/05/24 08:00 BP 139/58 06/05/24 11:23 Pulse Ox 95 06/05/24 11:23 O2 Del Method Nasal Cannula 06/05/24 11:23 O2 Flow Rate 2 06/05/24 11:23 FiO2 2 05/28/24 14:55 06/04/24 06/05/24 06/05/24 22:59 06:59 14:59 Intake Total 960 / 1800 240 / 2040 250 / 250 Output Total 600 / 600 Balance 960 / 1800 -360 / 1440 250 / 250 Weight last 48 hrs Weight 41.368 kg Weight 40.778 kg Physical Exam 2 Narrative: General: Patient is awake and alert. No acute distress. On supplemental oxygen Head: Grossly unremarkable Cardiovascular: RRR. No gallops. No murmurs. Lungs: Faint bilateral rhonchi. no use of accessory muscles, no crackles or wheezes. On room air. Cough present. - unchanged from admission Abdomen: Normal bowel sounds, abdomen soft and nontender. Extremities: lower extremity felt warm, difficult to feel distal pulse. Dry gangrene of left toe. s/p AKA of R. Stable Urinary Catheter Management: Armando: Cath Placed During This Visit: yes Reason for Continuing Indwelling Catheter: Other Urinary Catheter Date of Insertion: 05/27/24 Urinary Catheter Time of Insertion: 01:47 Data 06/05/24 05:07 06/05/24 02:07 A&P Assessment and plan (1) MRSA bacteremia: (2) Anemia: (3) Community acquired pneumonia: (4) Peripheral vascular disease: (5) CHF (congestive heart failure), NYHA class III: Qualifiers: Congestive heart failure chronicity: chronic Congestive heart failure type: systolic Qualified Code(s): I50.22 - Chronic systolic (congestive) heart failure (6) Dyslipidemia: (7) COPD (chronic obstructive pulmonary disease): Qualifiers: COPD type: emphysema Emphysema type: centrilobular Qualified Code(s): J43.2 - Centrilobular emphysema (8) Peripheral vascular angioplasty status: (9) Essential hypertension: Plan Sepsis secondary to pneumonia + MRSA / Enterococcus bacteremia - 80 year old female who presents with a one-week history of cough, subjective fevers, and imaging findings consistent with pneumonia in the setting of recent influenza infection. Elevated inflammatory markers and leukocytosis support an infectious process. - Possibly due to left foot toe infection - noted dry gangrene. no erythema or discharge - Does have a pacemaker. - WBC 31 - > 13 today - Left Foot xray - no evidence of osteo Plan: 1. Continue zosyn/ vancomycin - will de-escalate to vancomycin possibly, however will await ID input first 2. Repeat blood culture x2 - NGTD 3. Infectious disease consulted today 4. Echo pendign 5. Repeat labs in am Acute Respiratory failure with hypoxemia and hypercapnia / Underlying COPD - improved - Noted to have metabolic acidosis on blood gas with pH 7.21, pCO2 34, pO2 59, and bicarbonate 13, likely due to sepsis, pneumonia and COPD - Currently on supplemental oxygen at 3L via NC - At home she wears oxygen only at bedtime - BIPAP if acute worsening of respiratory status Plan: 1. Stable, improving 2. 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 - Presenting with left leg numbness, but CT angiogram showed patent stents. Plan: 1. Continue antiplatelet therapy and statin. 2. Will follow up with vascular outpatient 3. Foot xray - no osteo. 4. May consider podiatry consult Dysphagia - Reports dysphagia in the setting of dry mouth, concerning for oropharyngeal dysphagia. Plan: 1. Dysphagia diet 2. Aspiration precautions Addiitional medical problems - Hypertension - Dyslipidemia Plan for the day: Received 1 unit of PRBC. Hemoglobin up to 7.7. Will transfuse 1 more unit given history of PAD with a target hemoglobin of more than 8. Continue to hold Eliquis. Continue with Protonix twice daily and Carafate ACHS. Surgery on board. Plan for EGD and colonoscopy in AM. Clear liquid diet for now. Bowel prep as per surgical team. IV Lasix 20 mg one-time after blood transfusion. Continue with IV vancomycin. Continue IV iron supplementation and oral folic acid supplementation. Discharge plan: Can plan to discharge in next 24 hours after EGD and colonoscopy if remains hemodynamically stable, no drastic findings on EGD and colonoscopy, appropriate response to blood transfusion. Patient will be discharged on IV antibiotics with PICC line in place for 4 weeks, Protonix and Carafate treatment along with holding off on Eliquis to Plavix will be continued. PDMP PDMP Reviewed: Not Reviewed Attestations 2 Medical Necessity Statement*: Requires further hospitalization for management of acute anemia with concerns for GI bleed in a patient on Eliquis for recent peripheral angioplasty, MRSA bacteremia while outpatient antibiotics are adjusted, awaiting EGD and colonoscopy, receiving blood transfusion Diagnoses MRSA bacteremia R78.81; B95.62 Anemia D64.9 Community acquired pneumonia J18.9 Peripheral vascular disease I73.9 Chronic systolic congestive heart failure, NYHA class 3 I50.22 Congestive heart failure chronicity: chronic Congestive heart failure type: systolic Dyslipidemia E78.5 Centrilobular emphysema J43.2 COPD type: emphysema Emphysema type: centrilobular Peripheral vascular angioplasty status Z98.62 Essential hypertension I10
[2024-06-05] MEDS: magnesium citrate Btl 296 mL PO ×2 (13:23→20:33)
[2024-06-05] MEDS: iron sucrose 200 MG in sodium chloride 0.9% (100 ml) 100 ML 220 MG IV (13:24)
[2024-06-05] MEDS: bisacodyl 5 mg Tablet 10 MG PO (13:37)
[2024-06-05] MEDS: trazodone 50 mg Tablet 100 MG PO (20:33)
[2024-06-05] MEDS: citalopram 20 mg Tablet 10 MG PO (20:33)
[2024-06-06] VITALS (16 sets, daily range): BP systolic 102–178; BP diastolic 52–78; PULSE 60–91; RESP 15–20; TEMP 36.4–37.2; O2SAT 95–99; BMI 14.5
[2024-06-06] MEDS: pantoprazole 40 mg SDV IVP ×2 (01:56→13:07)
[2024-06-06] MEDS: ipratropium-albuterol 3 mL Neb INHALATION ×3 (03:03→21:33)
[2024-06-06] MEDS: HYDROcodone-acetaminophen 7.5-325 mg Tablet 1 TAB PO ×4 (05:06→23:47)
[2024-06-06 06:02] LABS: Basophils % 0.1 %; Eosinophils # 0.1 10^3/uL (0.0-0.8); Eosinophils % 0.5 %; Hematocrit 24.1 % (36-47); Lymphocytes # 1.3 10^3/uL (0.8-4.8); Lymphocytes % 13.7 %; Mean Corpuscular HGB Conc 31.5 g/dL (30-55); Mean Corpuscular Hemoglobin 27.3 pg (27-33); Mean Corpuscular Volume 86.7 fl (85-98); Mean Platelet Volume 10.1 fL (7.4-10.4); Monocytes # 0.8 10^3/uL (0.2-0.9); Monocytes % 8.6 %; Neutrophils # 7.11 10^3/uL (1.8-7.7); Neutrophils % 76.6 %; Nucleated Red Blood Cells % 0 %; Platelet Count 331 10^3/cmm (157-399); Red Blood Count 2.78 10^6/uL (3.85-5.65); Red Cell Distribution Width 18.6 % (12.1-15.1); White Blood Count 9.29 10^3/uL (3.29-11.43)
[2024-06-06] MEDS: VANCOMYCIN ADD-Vantage 750 MG in 0.9% NaCl ADD-Vantage 250 ML 250 MG IV ×2 (06:11→18:43)
[2024-06-06 06:28] LABS: Alanine Aminotransferase 9 U/L (0-33); Alkaline Phosphatase 77 U/L (35-105); Aspartate Amino Transferase 7 U/L (0-32); Blood Urea Nitrogen 5 mg/dL (8-23); Calcium 7.6 mg/dL (8.5-10.5); Carbon Dioxide 20 mmol/L (22-29); Chloride 111 mmol/L (98-107); Creatinine Clr Calc Pharmacy 40.3209; Globulin 3.5 g/dL (1.3-4.6); Glucose 76 mg/dL (65-115); Osmolality Calculated 280 mOsm/kg (285-295); Sodium 137 mmol/L (136-145); Total Bilirubin 0.3 mg/dL (0.15-1.2); Total Protein 5.5 g/dL (6.6-8.7)
--- NOTE | 2024-06-06 06:29 | PC.NURSE ---
patient refusing sulcrafate and nystatin; patient states it hurts her mouth too much.
--- NOTE | 2024-06-06 07:24 | P.HPUD_ITS ---
Surgery/Procedure H&P Update DATE OF PROCEDURE: June 06, 2024 DATE H&P PERFORMED: 06/04/24 H&P UPDATE INFORMATION: I have reviewed H&P completed within last 30 days, I have examined patient prior to procedure, No changes to prior documentation and H&P is in [facility] EMR on date indicated PLANNED PROCEDURE: Operation Date: 06/06/24 08:00 Proposed Procedures p EGD(Not Applicable) - Mann Navarro MD s Colonoscopy(Not Applicable) - Mann Navarro MD
--- NOTE | 2024-06-06 07:47 | ANES.PREANE2 ---
Pre-Anesthetic Assessment Height/Weight: Height 1.65 m Weight 39.599 kg Temp Pulse Resp BP Pulse Ox O2 Del Method O2 Flow Rate 98.3 F 66 15 132/53 99 Nasal Cannula 2 06/06/24 03:55 06/06/24 03:55 06/06/24 03:55 06/06/24 03:55 06/06/24 03:55 06/06/24 03:55 06/06/24 03:03 FiO2 2 05/28/24 14:55 Preop Diagnosis: Anemia Operation Date: 06/06/24 08:00 Proposed Procedures p EGD(Not Applicable) - Mann Navarro MD s Colonoscopy(Not Applicable) - Mann Navarro MD Familial anesthetic complications: none Was Beta Shanique taken within 24 hours: Yes Last intake: Intake Last Liquid Date 06/05/24 Last Liquid Time 21:00 Last Solid Date 06/05/24 Last Solid Time 21:00 Social Tobacco Airway Submandibular: within normal limits Cervical ROM: within normal limits Mallampati: Class II Dentition: false Pulmonary Chronic Obstructive Pulmonary Disease Pneumonia 97% on Room Air. CV/HEM Coronary Artery Disease, Congestive Heart Failure and Hypertension Recent ECHO on file EF WNL see report. Pacemaker in place due to patient having pauses in rhythm per patient. Chronic Renal Insufficiency Hepatic None reported GI None reported Metabolic Hyperlipidemia [facility] Weakness PVD with critical limb ischemia several stents placed in LLE placed @ [facility] Apr.23. Previous RLE amputation due to PVD. Neuropsych Anxiety, Depression and Transient Ischemic Attack (1997) Anesthetic Plan ASA status: 4 Anesthesia: MAC Other: Hgb 7.6 on morning labs, 1 Unit of blood on hold will proceed with transfusing 1 unit PRBC and Mac anesthestic cardiac risk explained to patient. Medications/Allergies Home Medications ?Medication ?Instructions ?Recorded ?Confirmed ?Last Taken ?Type polyethylene glycol 3350 17 17 g PO DAILY PRN constipation 06/26/21 05/27/24 Unknown History gram/dose oral powder (Miralax) hydrocodone 7.5 mg-acetaminophen 1 tab PO TID PRN pain 30 days #90 08/31/21 05/27/24 05/26/24 Rx 325 mg tablet tabs nitroglycerin 0.4 mg sublingual 0.4 mg sublingual Q5M PRN Chest 05/25/22 05/27/24 Unknown Rx tablet (Nitrostat) Pain #10 tabs walker with a seat #1 ea 12/12/22 05/27/24 Unknown Rx diphenhydramine HCl 25 mg tablet 25 mg PO DAILY PRN Allergy 02/13/23 05/27/24 Unknown Rx (Benadryl Allergy) Symptoms #30 tabs fluticasone propionate 50 1 spray intranasal BID PRN Allergy 04/30/23 05/27/24 07/25/23 Rx mcg/actuation nasal Symptoms #16 grams spray,suspension handicapped toilet #1 ea 05/21/23 05/27/24 Unknown Rx Handles/bars shower and commode #1 ea 05/24/23 05/27/24 Unknown Rx extended seat for commode #1 ea 05/24/23 05/27/24 Unknown Rx clopidogrel 75 mg tablet 75 mg PO DAILY 07/25/23 05/27/24 05/26/24 History topiramate 100 mg tablet 50 mg (1/2 x 100 mg) PO BID #180 08/23/23 05/27/24 05/26/24 Rx tabs ibuprofen 800 mg tablet 800 mg PO BID #60 tabs 01/06/24 05/27/24 05/26/24 Rx montelukast 10 mg tablet 10 mg PO DAILY breathing #90 tabs 01/16/24 05/27/24 05/26/24 Rx citalopram 10 mg tablet (Celexa) 10 mg PO DAILY mental health #90 02/04/24 05/27/24 05/26/24 Rx tabs metoprolol tartrate 50 mg tablet 50 mg PO BID #90 tabs 02/10/24 05/27/24 05/26/24 Rx albuterol sulfate 90 mcg/actuation 2 puff inhalation Q6H PRN 02/24/24 05/27/24 Unknown Rx aerosol inhaler shortness of breath or wheezing #8.5 grams methocarbamol 500 mg tablet 500 mg PO BID PRN muscle pain #180 03/30/24 05/27/24 Unknown Rx tabs potassium chloride 10 mEq 10 meq PO BID #90 caps 04/06/24 05/27/24 05/26/24 Rx capsule,extended release isosorbide mononitrate 30 mg 15 mg (1/2 x 30 mg) PO DAILY #45 05/19/24 05/27/24 05/26/24 Rx tablet,extended release 24 hr tabs apixaban 2.5 mg tablet (Eliquis) 2.35 mg PO BID 05/27/24 05/27/24 05/26/24 History atorvastatin 40 mg tablet 20 mg PO BID 05/27/24 05/27/24 05/26/24 History spironolactone 25 mg tablet See Rx Instructions .Route 05/28/24 Unknown Rx .COMPLEX #45 tabs trazodone 50 mg tablet 100 mg (2 x 50 mg) PO BEDTIME #180 05/28/24 Unknown Rx tabs Allergies Allergy/AdvReac Type Severity Reaction Status Date / Time gelatin Allergy Unknown ADR-Itching Verified 05/26/24 16:21 codeine Allergy Unknown Verified 05/26/24 16:21 latex Allergy Unknown Verified 05/26/24 16:21 oxycodone (From Percocet) Allergy Unknown Verified 05/26/24 16:21 Current Medications Generic Name Dose Route Start Last Admin Trade Name Freq PRN Reason Stop Dose Admin Hydrocodone Bitart/Acetaminophen 1 tab 05/31/24 22:48 06/06/24 05:06 Hydrocodone-Acetaminophen 7.5-325 Mg Tablet PO 1 tab Q4H PRN Administration MODERATE PAIN Albuterol/Ipratropium 3 ml 06/02/24 14:00 06/06/24 03:03 Ipratropium-Albuterol 3 Ml Neb INHALATION 3 ml Q6H.RESP JAMES Administration Atorvastatin Calcium 40 mg 05/27/24 09:00 06/05/24 09:48 Atorvastatin 40 Mg Tablet PO 40 mg DAILY JAMES Administration Citalopram Hydrobromide 10 mg 05/29/24 21:00 06/05/24 20:33 Citalopram 20 Mg Tablet PO 10 mg BEDTIME JAMES Administration Clopidogrel Bisulfate 75 mg 05/27/24 09:00 06/05/24 12:08 Clopidogrel 75 Mg Tablet PO 75 mg DAILY JAMES Administration Folic Acid 1 mg 06/03/24 18:00 06/05/24 17:31 Folic Acid 1 Mg Tablet PO 1 mg BID JAMES Administration Guaifenesin 600 mg 05/26/24 22:25 05/29/24 09:47 Guaifenesin 600 Mg Tablet PO 600 mg BID PRN Administration cough/congestion Vancomycin HCl 750 mg/ Sodium 250 mls @ 250 mls/hr 06/02/24 07:00 06/06/24 06:11 Chloride IV 250 mls/hr Q12H JAMES Administration Iron Sucrose 200 mg/ Sodium 110 mls @ 220 mls/hr 06/03/24 13:00 06/05/24 14:24 Chloride IV Infused Q24H JAMES Infusion Isosorbide Mononitrate 15 mg 05/27/24 09:00 06/05/24 09:49 Isosorbide Mononitrate Er 30 Mg Tablet PO 15 mg DAILY JAMES Administration Methocarbamol 500 mg 05/26/24 22:25 06/05/24 04:08 Methocarbamol 500 Mg Tablet PO 500 mg BID PRN Administration muscle pain Metoprolol Tartrate 50 mg 05/27/24 09:00 06/05/24 17:31 Metoprolol Tartrate 50 Mg Tablet PO 50 mg BID JAMES Administration Montelukast Sodium 10 mg 05/27/24 09:00 06/05/24 09:48 Montelukast Sodium 10 Mg Tablet PO 10 mg DAILY JAMES Administration Nystatin 100,000 unit 05/27/24 17:00 06/05/24 20:35 Nystatin 100,000 Unit/Ml Udc 5 Ml PO Not Given QID JAMES Pantoprazole Sodium 40 mg 06/03/24 13:00 06/06/24 01:56 Pantoprazole 40 Mg Sdv IVP 40 mg Q12H JAMES Administration Sucralfate 1 gm 06/03/24 17:00 06/06/24 06:29 Sucralfate 1 Gm/10 Ml Oral Liq Udc PO Not Given AC&BEDTIME JAMES Topiramate 50 mg 05/27/24 09:00 06/05/24 17:31 Topiramate 25 Mg Tablet PO 50 mg BID JAMES Administration Trazodone HCl 100 mg 05/27/24 21:00 06/05/24 20:33 Trazodone 50 Mg Tablet PO 100 mg BEDTIME JAMES Administration PFSH Anesthesia Medical History Peripheral vascular angioplasty status Pulmonary cachexia due to COPD Uses prosthesis Right above-knee amputee Surgery 10/26/2022 at [facility] CKD (chronic kidney disease) stage 2, GFR 60-89 ml/min Anxiety and depression Carotid artery disease Headache, migraine CHF (congestive heart failure), NYHA class III Critical limb ischemia of right lower extremity Admission to [facility] 06/29-07/01/2021 and stenting of R distal SFA and proximal popliteal artery. In [facility], Dr Nance RLE Stent 05/07/2022 Constipation, chronic Chronic low back pain [facility], Dr. Ferguson COPD exacerbation Opioid contract exists [facility], Dr. Ferguson Essential hypertension CAD (coronary artery disease) Benign essential HTN Peripheral vascular disease Enrolled in chronic care management COPD (chronic obstructive pulmonary disease) Nicotine dependence with current use Osteoporosis Surgical History S/p total knee replacement, bilateral S/P hysterectomy S/P balloon angioplasty of pulmonary artery branches ILIAC ARTERY-2015 FEMORAL ARTERY 2016 Status post placement of cardiac pacemaker 2015 S/P carotid endarterectomy 1995 S/P right cataract extraction Family History Other Diabetes Stroke Social History Smoking and tobacco/nicotine status: current every day tobacco/nicotine user cigarettes [ Other cigarette details: 1 PK Q 3-4 DAYS ] Alcohol intake: never Substance/Drug Use: never Data Anesthesia 06/06/24 04:43 06/06/24 04:43 Short CBC 06/05/24 06/06/24 06/06/24 Range/Units 05:07 04:43 Unknown WBC 10.46 9.29 (3.29-11.43) 10^3/uL Hgb 7.70 L 7.60 L Cancelled (11.27-16.99) g/dL Hct 24.3 L 24.1 L Cancelled (36-47) % MCV 84.1 L 86.7 (85-98) fl Plt Count 337 331 (157-399) 10^3/cmm Neut % (Auto) 79.5 76.6 % Neut # (Auto) 8.32 H 7.11 (1.8-7.7) 10^3/uL BMP 06/05/24 06/06/24 02:07 04:43 Sodium 134 L 137 Potassium 3.5 3.0 L Chloride 106 111 H Carbon Dioxide 20 L 20 L BUN 5 L 5 L Creatinine 0.4 L 0.4 L Glucose 80 76 Calcium 7.7 L 7.6 L Liver Function 06/05/24 06/06/24 Range/Units 02:07 04:43 Total Bilirubin 0.4 0.3 (0.15-1.2) mg/dL AST 8 7 (0-32) U/L ALT 10 9 (0-33) U/L Alkaline Phosphatase 71 77 (35-105) U/L Albumin 2.1 L 2.0 L (3.5-5.2) g/dL Blood Bank 06/04/24 10:50 Blood Type A Positive Rho(D) Type Rh positive Antibody Screen Negative Cardiac Studies: Echocardiogram 06/01/24
--- NOTE | 2024-06-06 08:46 | PM.MISC ---
Miscellaneous Note Purpose of Documentation: Update on patient care Note: On examination there is no Evidence of active GI bleeding upper endoscopy and lower endoscopy was not able to be completed due to poor bowel prep that there was no evidence of blood residue at the level of the distal colon. If patient continues to have downtrending hemoglobin may consider CT abdomen pelvis with contrast to evaluate for possible source of bleeding. In the interim patient should continue on high-dose PPI and can resume anticoagulation as indicated by medical team. No additional intervention is expected from the surgical standpoint.
[2024-06-06] MEDS: iron sucrose 200 MG in sodium chloride 0.9% (100 ml) 100 ML 220 MG IV (13:06)
[2024-06-06] MEDS: nystatin 100,000 unit/mL UDC 5 mL 100000 UNIT PO (13:08)
--- NOTE | 2024-06-06 15:57 | P.PN_ITS ---
Subjective 2 Subjective: No acute events overnight. For some reason patient did not get blood transfusion yesterday. Underwent EGD and colonoscopy today. Seen comfortably laying in bed with family at bedside. Vitals/I&O/Wt Last Vital Signs Temp 97.8 F 06/06/24 12:00 Pulse 68 06/06/24 15:29 Resp 18 06/06/24 15:23 BP 178/61 06/06/24 12:00 Pulse Ox 96 06/06/24 15:23 O2 Del Method Room Air 06/06/24 15:23 O2 Flow Rate 4 06/06/24 08:52 FiO2 2 05/28/24 14:55 06/06/24 06/06/24 06/06/24 06:59 14:59 22:59 Intake Total 490 / 490 110 / 600 Output Total 100 / 2750 Balance -100 / -960 490 / 490 110 / 600 Weight last 48 hrs Weight 39.599 kg Weight 41.368 kg Physical Exam 2 Narrative: General: Patient is awake and alert. No acute distress. On supplemental oxygen Head: Grossly unremarkable Cardiovascular: RRR. No gallops. No murmurs. Lungs: Faint bilateral rhonchi. no use of accessory muscles, no crackles or wheezes. On room air. Cough present. - unchanged from admission Abdomen: Normal bowel sounds, abdomen soft and nontender. Extremities: lower extremity felt warm, difficult to feel distal pulse. Dry gangrene of left toe. s/p AKA of R. Stable Urinary Catheter Management: Armando: Cath Placed During This Visit: yes Reason for Continuing Indwelling Catheter: Acute Urinary Retention or Obstruction Urinary Catheter Date of Insertion: 05/27/24 Urinary Catheter Time of Insertion: 01:47 Data 06/06/24 04:43 06/06/24 04:43 A&P Assessment and plan (1) MRSA bacteremia: (2) Anemia: (3) Community acquired pneumonia: (4) Peripheral vascular disease: (5) CHF (congestive heart failure), NYHA class III: Qualifiers: Congestive heart failure chronicity: chronic Congestive heart failure type: systolic Qualified Code(s): I50.22 - Chronic systolic (congestive) heart failure (6) Dyslipidemia: (7) COPD (chronic obstructive pulmonary disease): Qualifiers: COPD type: emphysema Emphysema type: centrilobular Qualified Code(s): J43.2 - Centrilobular emphysema (8) Peripheral vascular angioplasty status: (9) Essential hypertension: Plan Sepsis secondary to pneumonia + MRSA / Enterococcus bacteremia - 80 year old female who presents with a one-week history of cough, subjective fevers, and imaging findings consistent with pneumonia in the setting of recent influenza infection. Elevated inflammatory markers and leukocytosis support an infectious process. - Possibly due to left foot toe infection - noted dry gangrene. no erythema or discharge - Does have a pacemaker. - WBC 31 - > 13 today - Left Foot xray - no evidence of osteo Plan: 1. Continue zosyn/ vancomycin - will de-escalate to vancomycin possibly, however will await ID input first 2. Repeat blood culture x2 - NGTD 3. Infectious disease consulted today 4. Echo pendign 5. Repeat labs in am Acute Respiratory failure with hypoxemia and hypercapnia / Underlying COPD - improved - Noted to have metabolic acidosis on blood gas with pH 7.21, pCO2 34, pO2 59, and bicarbonate 13, likely due to sepsis, pneumonia and COPD - Currently on supplemental oxygen at 3L via NC - At home she wears oxygen only at bedtime - BIPAP if acute worsening of respiratory status Plan: 1. Stable, improving 2. 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 - Presenting with left leg numbness, but CT angiogram showed patent stents. Plan: 1. Continue antiplatelet therapy and statin. 2. Will follow up with vascular outpatient 3. Foot xray - no osteo. 4. May consider podiatry consult Dysphagia - Reports dysphagia in the setting of dry mouth, concerning for oropharyngeal dysphagia. Plan: 1. Dysphagia diet 2. Aspiration precautions Addiitional medical problems - Hypertension - Dyslipidemia Plan for the day: Underwent EGD and colonoscopy. Found to have gastritis. Continue to hold Eliquis. Continue with Protonix twice daily, Carafate ACHS. Transfuse 1 more unit of PRBC today. Somehow did not get the second unit yesterday. Hemoglobin 7.6. Continue with IV vancomycin. Potassium found to be 3. Potassium 40 mg every hour for 2 doses. Discharge plan: Patient's antibiotic will be delivered to the home tomorrow in the afternoon. Patient will get education about delivering medication to status in the afternoon tomorrow. Will discharge on 06/07 after morning dose of vancomycin if remains hemodynamically stable and afebrile without any acute events. PDMP PDMP Reviewed: Not Reviewed Attestations 2 Medical Necessity Statement*: Requires further hospitalization for management of anemia requiring blood transfusion post EGD and a patient being managed for MRSA bacteremia while outpatient antibiotics are arranged Diagnoses MRSA bacteremia R78.81; B95.62 Anemia D64.9 Community acquired pneumonia J18.9 Peripheral vascular disease I73.9 Chronic systolic congestive heart failure, NYHA class 3 I50.22 Congestive heart failure chronicity: chronic Congestive heart failure type: systolic Dyslipidemia E78.5 Centrilobular emphysema J43.2 COPD type: emphysema Emphysema type: centrilobular Peripheral vascular angioplasty status Z98.62 Essential hypertension I10
[2024-06-06] MEDS: potassium chloride ER 20 mEq Tablet 40 MEQ PO ×2 (17:31→18:44)
[2024-06-06] MEDS: metoprolol tartrate 50 mg Tablet PO (17:32)
[2024-06-06] MEDS: topiramate 25 mg Tablet 50 MG PO (17:32)
[2024-06-06] MEDS: folic acid 1 mg Tablet PO (17:32)
[2024-06-06 19:25] LABS: Vancomycin Trough 33.2 ug/mL (10-15)
--- NOTE | 2024-06-06 19:27 | PC.NURSE ---
rn went to remove tatum cath, pt refused
[2024-06-06] MEDS: citalopram 20 mg Tablet 10 MG PO (20:44)
[2024-06-06] MEDS: trazodone 50 mg Tablet 100 MG PO (20:44)
[2024-06-07] VITALS (7 sets, daily range): BP systolic 133–166; BP diastolic 57–69; PULSE 63–76; RESP 15–20; TEMP 36.6–37.1; O2SAT 94–100
[2024-06-07] MEDS: pantoprazole 40 mg SDV IVP (00:11)
[2024-06-07] MEDS: ipratropium-albuterol 3 mL Neb INHALATION ×2 (02:48→08:19)
[2024-06-07] MEDS: HYDROcodone-acetaminophen 7.5-325 mg Tablet 1 TAB PO ×2 (06:13→11:26)
[2024-06-07 06:22] LABS: Basophils % 0.3 %; Eosinophils % 0.2 %; Hematocrit 28.7 % (36-47); Lymphocytes # 1.4 10^3/uL (0.8-4.8); Lymphocytes % 13.2 %; Mean Corpuscular HGB Conc 32.8 g/dL (30-55); Mean Corpuscular Hemoglobin 27.7 pg (27-33); Mean Corpuscular Volume 84.7 fl (85-98); Mean Platelet Volume 9.6 fL (7.4-10.4); Monocytes # 0.9 10^3/uL (0.2-0.9); Monocytes % 8.3 %; Neutrophils # 8.19 10^3/uL (1.8-7.7); Neutrophils % 77.4 %; Nucleated Red Blood Cells % 0 %; Platelet Count 358 10^3/cmm (157-399); Red Blood Count 3.39 10^6/uL (3.85-5.65); Red Cell Distribution Width 18.1 % (12.1-15.1); White Blood Count 10.58 10^3/uL (3.29-11.43)
[2024-06-07 06:34] LABS: Vancomycin Trough 21.4 ug/mL (10-15)
[2024-06-07 07:42] LABS: Alanine Aminotransferase 8 U/L (0-33); Albumin Level 2.1 g/dL (3.5-5.2); Alkaline Phosphatase 82 U/L (35-105); Aspartate Amino Transferase 8 U/L (0-32); Blood Urea Nitrogen 8 mg/dL (8-23); Calcium 7.9 mg/dL (8.5-10.5); Carbon Dioxide 21 mmol/L (22-29); Chloride 112 mmol/L (98-107); Creatinine Clr Calc Pharmacy 43.2299; Globulin 3.4 g/dL (1.3-4.6); Glucose 85 mg/dL (65-115); Osmolality Calculated 282 mOsm/kg (285-295); Sodium 137 mmol/L (136-145); Total Bilirubin 0.5 mg/dL (0.15-1.2); Total Protein 5.5 g/dL (6.6-8.7)
[2024-06-07 07:43] LABS: Anion Gap 8.7 (5-19); Potassium 4.7 mmol/L (3.5-5.1)
--- NOTE | 2024-06-07 07:47 | P.DS_ITS ---
Discharge Providers Date of Admission: 05/27/24 17:29 Date of Discharge: June 07, 2024 Attending Provider at Admission: Damion Youngblood MD Attending Provider at Discharge: Jaswinder Starr MD Consults: ID: Dr. Graham Surgery: Dr. Rafael Mac Diagnoses at Discharge Discharge Diagnosis (1) MRSA bacteremia: Status: Acute (2) Anemia: Status: Acute (3) Community acquired pneumonia: Status: Acute (4) Peripheral vascular disease: Status: Acute (5) CHF (congestive heart failure), NYHA class III: Status: Acute Qualifiers: Congestive heart failure chronicity: chronic Congestive heart failure type: systolic Qualified Code(s): I50.22 - Chronic systolic (congestive) heart failure (6) Dyslipidemia: Status: Acute (7) COPD (chronic obstructive pulmonary disease): Status: Chronic Qualifiers: COPD type: emphysema Emphysema type: centrilobular Qualified Code(s): J43.2 - Centrilobular emphysema (8) Peripheral vascular angioplasty status: Status: Acute (9) Essential hypertension: Status: Acute Reason for Visit Reason for Visit: left leg numb Hospital Course Hospital Course Michael Dodson is a 73 year old female with past medical history of peripheral artery disease, left great toe gangrene, status post recent intervention at outside hospital with stent placement on April 23, 2024. She is currently admitted to the hospital since May 26, 2024 after presenting with left lower extremity pain. CT of the lower extremity was performed which was negative for any acute occlusion. Patient had also been noted to be coughing. Chest x-ray showed a right upper lobe pneumonia. Patient had had influenza infection about 10 days prior to hospital admission. She had been complaining of generalized weakness. Her blood cultures taken during this admission returned positive for MRSA and Enterococcus faecalis. She denies any recent diarrhea. Denies any recent abdominal pain nausea or vomiting. There is no known history of endocarditis or pacemaker infection. Site of recent intervention over the left groin is without any obvious signs of cellulitis. Incision appears to be well-healing from recent surgery. There was noted to be dry gangrene over the great toe on the left side and some superficial scabs and ulcerations over the fourth and fifth digits, however, no surrounding signs of infection grossly. Patient has been on treatment with piperacillin/tazobactam and vancomycin during the course of admission. She finished a course of Zosyn for for 5 days during hospitalization. Hospitalization was complicated by her developing worsening anemia. Surgery was consulted and she underwent EGD and colonoscopy on 06/05 which showed significant gastritis without any active site of bleeding. Her Eliquis has been withheld. She has been discharged in hemodynamically stable condition on Protonix twice daily for next 2 weeks followed by once daily, Carafate before meals and at bedtime for next 4 weeks. She is to hold off on taking Eliquis for next 2 weeks. She should continue taking Plavix for now. She can restart her Eliquis on 06/21. Once she restarts Eliquis she can discontinue taking Plavix and start baby aspirin 81 mg daily. She should have a repeat CBC checked in 1 week after starting Eliquis. Last dose of vancomycin was at 11 AM on 06/07. Dose of vancomycin has been changed to 1 g daily as per vancomycin trough levels. Target trough levels between 15-20. She should keep taking vancomycin 1 g once daily going forward. She should have a repeat CBC, CMP and vancomycin trough level checked on coming Saturday 06/10. Further doses will be retimed and redosed depending on trough levels from 06/10. She is to continue taking vancomycin for next 4 weeks. She should follow-up with a primary care provider within next 1 week and infectious disease clinic on set appointment. Discharge plan were discussed in detail with the patient and patient's daughter at bedside. All the questions were answered. Physical Exam Narrative: General: Patient is awake and alert. No acute distress. On supplemental oxygen Head: Grossly unremarkable Cardiovascular: RRR. No gallops. No murmurs. Lungs: Faint bilateral rhonchi. no use of accessory muscles, no crackles or wheezes. On room air. Cough present. - unchanged from admission Abdomen: Normal bowel sounds, abdomen soft and nontender. Extremities: lower extremity felt warm, difficult to feel distal pulse. Dry gangrene of left toe. s/p AKA of R. Stable Urinary Catheter Management: Armando: Cath Placed During This Visit: yes, but has since been removed by the nurse Reason for Continuing Indwelling Catheter: Other Urinary Catheter Date of Insertion: 05/27/24 Urinary Catheter Time of Insertion: 01:47 Date Urinary Catheter Removed: 06/07/24 Time Urinary Catheter Discontinued: 05:50 Discharge Data Studies Completed and Pending Completed Studies During Hospitalization Category Date Time Status CT angio abd aorta runof 01762 Stat Cat Scan 05/26/24 18:[address] chest w con* [id number] Stat Cat Scan 05/26/24 19:[address] lumbar spine w con [id number] Routine Cat Scan 06/02/24 18:14 Completed CXRP [XR chest 1V portable [id number]] Routine Exams 06/02/24 11:28 Completed XR chest 1V portable [id number] Stat Exams 05/26/24 19:21 Completed XR foot LT 2V [id number] Routine Exams 05/31/24 16:39 Completed CV. echo complete* [id number] Routine Ultrasound 06/01/24 20:43 Completed US arterial duplex lower extremity LT [CV arterial Ultrasound 05/26/24 17:28 [place] [id number]] Stat Pending at discharge Category Date Time Status Immunochemical Fecal OCB Routine Lab 06/03/24 10:29 Ordered Radiology Impressions Duplex Scan Lower Extremity Artery 05/26/24 17:28 IMPRESSION: 1. Monophasic flow throughout the left lower extremity which may represent severe stenosis in the left iliac artery, not assessed on this examination. 2. No severe stenosis or occlusion in the left common femoral artery, superficial femoral artery or popliteal artery. Aorta w/Runoff CTA 05/26/24 18:29 IMPRESSION: 1. Multiple small patchy consolidations throughout the lung bases and lingula and right middle lobe which are nonspecific but can be seen the setting of viral infection. 2. Severe stenosis at the origin of the SMA. 3. Severe stenosis in the right common iliac artery. The right external iliac artery is patent. The right common femoral artery is patent. 4. There is occlusion in the proximal right superficial femoral artery. 5. There is a patent stent in the left common and external iliac. The left common femoral artery is patent. 6. The left superficial femoral artery is occluded distally. 7. The left popliteal artery is extremely diminutive but opacified. 8. The left anterior tibial and peroneal arteries are opacified down to the level of the distal calf. The left posterior tibial artery is opacified down to the ankle. Chest CT 05/26/24 19:52 IMPRESSION: Patchy ground-glass and consolidative opacities scattered throughout both lungs in a random distribution which is nonspecific but can be seen the setting of viral infection. Foot X-Ray 05/31/24 16:39 IMPRESSION: Fourth toe soft tissue swelling without evidence of acute bony abnormality. Chest X-Ray 06/02/24 11:28 IMPRESSION: 1. Right-sided PICC line in satisfactory location ending in the lower one third of the SVC. 2. Increasing pneumonic infiltrates in the right lung. Unchanged infiltrate in the LEFT base. Trace RIGHT basal pleural effusion. Lumbar Spine CT 06/02/24 18:14 IMPRESSION: Degenerative changes of the lumbar spine described above with likely moderate canal stenosis at L4-L5 due to a disc extrusion superimposed on disc bulging. Varying degrees of neural foraminal narrowing due to disc bulging at multiple levels. This can be better assessed with an MRI of the lumbar spine. Microbiology 05/29/24 21:10 Blood Blood Culture - Final NO GROWTH AFTER 5 DAYS 05/29/24 21:18 Blood Blood Culture - Final NO GROWTH AFTER 5 DAYS 05/26/24 19:40 Blood Blood Culture - Final NO GROWTH AFTER 5 DAYS 05/26/24 20:20 Blood Blood Culture - Final Methicillin Resis Staph Aureus Enterococcus faecalis 05/28/24 20:50 Urine Catheterized Legionella Urinary Antigen - Final 05/26/24 20:20 Urine,Clean Catch Bacterial Antigens - Final Laboratory Results WBC 10.58 10^3/uL (3.29-11.43) 06/07/24 06:09 Corrected WBC Cancelled 05/26/24 16:29 RBC 3.39 10^6/uL (3.85-5.65) L 06/07/24 06:09 Hgb 9.40 g/dL (11.27-16.99) L 06/07/24 06:09 Hct 28.7 % (36-47) L 06/07/24 06:09 MCV 84.7 fl (85-98) L 06/07/24 06:09 MCH 27.7 pg (27-33) 06/07/24 06:09 MCHC 32.8 g/dL (30-55) 06/07/24 06:09 RDW 18.1 % (12.1-15.1) H 06/07/24 06:09 Plt Count 358 10^3/cmm (157-399) 06/07/24 06:09 MPV 9.6 fL (7.4-10.4) 06/07/24 06:09 Gran % Cancelled 05/26/24 16:29 Neut % (Auto) 77.4 % 06/07/24 06:09 Lymph % (Auto) 13.2 % 06/07/24 06:09 [place] % (Auto) 8.3 % 06/07/24 06:09 Eos % (Auto) 0.2 % 06/07/24 06:09 Baso % (Auto) 0.3 % 06/07/24 06:09 Neut # (Auto) 8.19 10^3/uL (1.8-7.7) H 06/07/24 06:09 Lymph # (Auto) 1.4 10^3/uL (0.8-4.8) 06/07/24 06:09 [place] # (Auto) 0.9 10^3/uL (0.2-0.9) 06/07/24 06:09 Eos # (Auto) 0.0 10^3/uL (0.0-0.8) 06/07/24 06:09 Baso # (Auto) 0.0 10^3/uL (0.0-0.1) 06/07/24 06:09 Absolute Gran (auto) Cancelled 05/26/24 16:29 Nucleated RBC % (auto) 0 % 06/07/24 06:09 Total Counted 100 (0-100) 05/27/24 04:35 Atypical Lymphs % Not Reportable 05/27/24 04:35 Absolute Neutrophils 26.8 10^3/cmm (1.4-6.5) H 05/27/24 04:35 Segmented Neutrophils 55 % 05/27/24 04:35 Band Neutrophils 35.0 % 05/27/24 04:35 Lymphocytes (Manual) 4 % 05/27/24 04:35 Monocytes (Manual) 6.0 % 05/27/24 04:35 Absolute Monocytes 1.8 10^3/cmm (0.1-0.6) H 05/27/24 04:35 Eosinophils (Manual) 0 % 05/27/24 04:35 Absolute Eosinophils 0.0 10^3/cmm (0.0-0.7) 05/27/24 04:35 Basophils (Manual) 0.0 % 05/27/24 04:35 Absolute Basophils 0.0 10^3/cmm (0.0-0.2) 05/27/24 04:35 Nucleated RBCs # 0.0 /100WBC 06/07/24 06:09 Platelet Estimate Normal (Normal) 05/27/24 04:35 Specimen Type Arterial 05/26/24 22:05 Sample Site Brachial, left 05/26/24 22:05 ABG pH 7.21 (7.35-7.45) L 05/26/24 22:05 ABG pCO2 34.0 mmHg (35-45) L 05/26/24 22:05 ABG pO2 59.3 mmHg (80.0-100.0) L 05/26/24 22:05 ABG PO2/FiO2 Ratio 282 05/26/24 22:05 ABG HCO3 13.6 mmol/L (22-26) L 05/26/24 22:05 ABG O2 Saturation 89.4 05/26/24 22:05 ABG Base Excess -13.2 mmol/L (-2.0-2.0) L 05/26/24 22:05 Amadou Test N/a 05/26/24 22:05 A-a O2 Gradient 6.2 mmHg (5-10) 05/26/24 22:05 Hematocrit 30.8 % (37-47) L 05/26/24 22:05 Hgb O2 Saturation 87.3 % (95-100) L 05/26/24 22:05 Carboxyhemoglobin 1.4 %THgb (0.4-20.1) 05/26/24 22:05 Methemoglobin 1.0 % (0.4-1.5) 05/26/24 22:05 Total Hemoglobin 10.0 g/dL (12-16) L 05/26/24 22:05 Sodium 132.0 mmol/L (131-143) 05/26/24 22:05 Potassium 3.3 mmol/L (3.5-5.0) L 05/26/24 22:05 Glucose 192.0 mg/dL (70-115) H 05/26/24 22:05 Ionized Calcium 1.2 mmol/L (1.1-1.4) 05/26/24 22:05 O2 Delivery Device None 05/26/24 22:05 FiO2 21.0 % 05/26/24 22:05 Stitcher Tape Controlled Machine ID Heber 05/26/24 22:05 Sodium 137 mmol/L (136-145) 06/07/24 06:09 Potassium 4.7 mmol/L (3.5-5.1) 06/07/24 06:09 Chloride 112 mmol/L (98-107) H 06/07/24 06:09 Carbon Dioxide 21 mmol/L (22-29) L 06/07/24 06:09 Anion Gap 8.7 (5-19) 06/07/24 06:09 BUN 8 mg/dL (8-23) 06/07/24 06:09 Creatinine 0.5 mg/dL (0.5-0.9) 06/07/24 06:09 GFR Calculation Not Reportable 06/07/24 06:09 Glucose 85 mg/dL (65-115) 06/07/24 06:09 Estimat Average Glucose 103 06/02/24 14:07 Hemoglobin A1c 5.2 % (4.0-6.0) 06/02/24 14:07 Calculated Osmolality 282 mOsm/kg (285-295) L 06/07/24 06:09 Lactic Acid 2.0 mmol/L (0.5-2.2) 05/26/24 19:40 Calcium 7.9 mg/dL (8.5-10.5) L 06/07/24 06:09 Phosphorus 3.2 mg/dL (2.5-4.5) 05/27/24 04:35 Magnesium 2.0 mg/dL (1.7-2.3) 06/05/24 05:07 Iron 8 ug/dL (37-145) L 06/02/24 14:07 TIBC 88 mcg/dl 06/02/24 14:07 % Saturation 9.0 % (20-50) L 06/02/24 14:07 Unsat Iron Binding 80 ug/dL (112-347) L 06/02/24 14:07 Ferritin 351 ng/mL (15-150) H 06/03/24 04:41 Total Bilirubin 0.5 mg/dL (0.15-1.2) 06/07/24 06:09 AST 8 U/L (0-32) 06/07/24 06:09 ALT 8 U/L (0-33) 06/07/24 06:09 Alkaline Phosphatase 82 U/L (35-105) 06/07/24 06:09 C-Reactive Protein 224.2 mg/L (0.0-4.9) H 05/30/24 05:04 Total Protein 5.5 g/dL (6.6-8.7) L 06/07/24 06:09 Albumin 2.1 g/dL (3.5-5.2) L 06/07/24 06:09 Globulin 3.4 g/dL (1.3-4.6) 06/07/24 06:09 Vitamin B12 1852 pg/mL (232-1245) H 06/02/24 14:07 Folate 2.5 ng/mL (4.8-37.3) L 06/03/24 04:41 Procalcitonin 7.51 ng/mL (0-0.5) H 06/02/24 14:07 TSH 2.20 uIU/mL (0.27-4.20) 06/02/24 14:07 Urine Color Yellow (Yellow) 05/26/24 20:20 Urine Appearance Clear (CLEAR) 05/26/24 20:20 Urine pH 5.5 (5-7) 05/26/24 20:20 Ur Specific Golden 1.025 (1.005-1.030) 05/26/24 20:20 Urine Protein 1+ (Negative) A 05/26/24 20:20 Urine Glucose (UA) Negative (Normal) 05/26/24 20:20 Urine Ketones Negative (Negative) 05/26/24 20:20 Urine Blood Negative (Negative) 05/26/24 20:20 Urine Nitrate Negative (Negative) 05/26/24 20:20 Urine Bilirubin Negative (Negative) 05/26/24 20:20 Urine Urobilinogen 1.0 mg/dL (Negative) 05/26/24 20:20 Ur Leukocyte Esterase Negative (Negative) 05/26/24 20:20 Urine RBC 0-2 /hpf (0-2) 05/26/24 20:20 Urine WBC 0-5 /hpf (0-5) 05/26/24 20:20 Ur Squamous Epith Cells 11-20 /hpf (0-5) H 05/26/24 20:20 Amorphous Sediment Not Reportable 05/26/24 20:20 Urine Bacteria None seen /hpf (NONE) 05/26/24 20:20 Hyaline Casts 33.90 /lpf 05/26/24 20:20 Fine Granular Casts 5-10 /lpf H 05/26/24 20:20 Nasal MRSA (PCR) Mrsa detected (Not Detecte) A 05/30/24 04:40 Vancomycin Trough 21.4 ug/mL (10-15) H 06/07/24 06:09 Coronavirus (PCR) Negative (Negative) 05/27/24 04:30 Influenza A (PCR) Negative (Negative) 05/27/24 04:30 Influenza Type B (PCR) Negative (Negative) 05/27/24 04:30 RSV (PCR) Negative (Negative) 05/27/24 04:30 Blood Type A Positive 06/04/24 10:50 Rho(D) Type Rh positive 06/04/24 10:50 Antibody Screen Negative 06/04/24 10:50 Crossmatch See Detail 06/04/24 10:50 Vitals Last Vital Signs Temp 98.1 F 06/07/24 07:43 Pulse 71 06/07/24 07:43 Resp 18 06/07/24 07:43 BP 146/57 06/07/24 07:43 Pulse Ox 100 06/07/24 07:43 O2 Del Method Nasal Cannula 06/07/24 07:43 O2 Flow Rate 2 06/07/24 02:45 FiO2 2 05/28/24 14:55 Discharge Plan Discharge Patient Disposition: Home Condition: Stable Prescriptions: New sucralfate 100 mg/mL Suspension 1 g PO AC&BEDTIME 28 Days Qty: 1000 0RF pantoprazole [Protonix] 40 mg tablet,delayed release (DR/EC) 40 mg PO QAM Qty: 60 0RF Rx Instructions: Twice daily for next 2 weeks followed by once daily Continued hydrocodone-acetaminophen 7.5-325 mg tablet 1 tab PO TID PRN (Reason: pain) 30 Days Qty: 90 0RF Rx Instructions: fill on or after 3o day interval Nitrostat 0.4 mg tablet, sublingual 0.4 mg SUBLINGUAL Q5M PRN (Reason: Chest Pain) Qty: 10 3RF Rx Instructions: do not exceed 3 doses per episode diphenhydramine HCl [Benadryl Allergy] 25 mg tablet 25 mg PO DAILY PRN (Reason: Allergy Symptoms) Qty: 30 4RF (DME) walker with a seat See Rx Instructions .Route .MEDSUPPLY Qty: 1 0RF Rx Instructions: As directed fluticasone propionate 50 mcg/actuation spray,suspension 1 spray intranasal BID PRN (Reason: Allergy Symptoms) Qty: 16 2RF Rx Instructions: administer into each nostril (DME) handicapped toilet See Rx Instructions .Route .MEDSUPPLY Qty: 1 0RF Rx Instructions: As directed (DME) Handles/bars shower and commode See Rx Instructions .Route .MEDSUPPLY Qty: 1 0RF Rx Instructions: As directed (DME) extended seat for commode See Rx Instructions .Route .MEDSUPPLY Qty: 1 0RF Rx Instructions: As directed topiramate 100 mg tablet 50 mg PO BID Qty: 180 1RF montelukast 10 mg tablet 10 mg PO DAILY Qty: 90 1RF citalopram [Celexa] 10 mg tablet 10 mg PO DAILY Qty: 90 1RF metoprolol tartrate 50 mg tablet 50 mg PO BID Qty: 90 3RF albuterol sulfate 90 mcg/actuation HFA aerosol inhaler 2 puff INHALATION Q6H PRN (Reason: shortness of breath or wheezing) Qty: 8.5 3RF methocarbamol 500 mg tablet 500 mg PO BID PRN (Reason: muscle pain) Qty: 180 1RF potassium chloride 10 mEq capsule, extended release 10 meq PO BID Qty: 90 3RF isosorbide mononitrate 30 mg tablet extended release 24 hr 15 mg PO DAILY Qty: 45 3RF trazodone 50 mg tablet 100 mg PO BEDTIME Qty: 180 0RF spironolactone 25 mg tablet See Rx Instructions .ROUTE .COMPLEX Qty: 45 1RF Dose Instruction: TAKE 1/2 TABLET BY MOUTH ONCE DAILY EVERY MORNING Rx Instructions: TAKE 1/2 TABLET BY MOUTH ONCE DAILY EVERY MORNING polyethylene glycol 3350 [Miralax] 17 gram/dose powder 17 g PO DAILY PRN (Reason: constipation) clopidogrel 75 mg tablet 75 mg PO DAILY atorvastatin 40 mg tablet 20 mg PO BID Held Eliquis 2.5 mg tablet 2.35 mg PO BID Hold Instructions: Resume on 06/21/24. Discontinued ibuprofen 800 mg tablet 800 mg PO BID Qty: 60 5RF Discharge Orders: Discharge Order (Routine); Ordered 06/07/24 Ordered By: Jaswinder Starr Other Ambulatory Orders: Miscellaneous Procedure (Order) Location: None Selected Ordered By: Irena Graham Referrals: Infectious Disease Group [facility] [Provider Group] - 06/23/24 12:30 pm Discharge Diet: GI Soft Discharge Activity: Resume usual activity and Increase activity as tolerated Patient Instructions: Opioid Safety Activity Restrictions/Additional Instructions: Please continue to hold on Eliquis for next 2 weeks. You can restart Eliquis on 06/21. When you restart Eliquis take aspirin along with Eliquis and discontinue Plavix. You should have a repeat CBC checked after restarting Eliquis. Your dose of vancomycin has been changed to once every 24 hours. Next dose will be due at 11am on 06/08/24. You will need to come in for labs including CBC, CMP and vancomycin trough levels on Sat before getting your antibiotic. Follow-up with your primary care provider within next 2 weeks. Take Protonix twice daily for next 2 weeks followed by once daily going forward. Take sucralfate before meals and at bedtime for next 4 weeks. Please follow-up weekly for PICC line dressing, weekly CBC, creatinine, LFT and Hu[place]h trough levels. PICC line should be removed after completion of IV antibiotic course. Currently off dose of IV antibiotics on 06/26. Discharge Attestations Time Spent in Discharge Care*: greater than 30 min Specific Discharge Activities: educating patient, educating and/or supporting family/caregiver, discussing with pcp/other providers, discussing with senior case manager/social workers/dc planners, documenting/other paperwork and evaluating patient/reviewing data Status at Discharge: Cognitive status at discharge: cognitively intact , Behavioral status at discharge: cooperative , Functional status at discharge: other assisted ambulation , Overall status at discharge: patient is back to [facility] Quality Metrics Clinical Quality Measures [ No reported AMI, CVA or VTE this stay] Coding Level of Care Code 84995 Total time (in minutes) for Discharge: 60 Diagnoses MRSA bacteremia R78.81; B95.62 Anemia D64.9 Community acquired pneumonia J18.9 Peripheral vascular disease I73.9 Chronic systolic congestive heart failure, NYHA class 3 I50.22 Congestive heart failure chronicity: chronic Congestive heart failure type: systolic Dyslipidemia E78.5 Centrilobular emphysema J43.2 COPD type: emphysema Emphysema type: centrilobular Peripheral vascular angioplasty status Z98.62 Essential hypertension I10
[2024-06-07] MEDS: topiramate 25 mg Tablet 50 MG PO (09:40)
[2024-06-07] MEDS: montelukast sodium 10 mg Tablet PO (09:40)
[2024-06-07] MEDS: folic acid 1 mg Tablet PO (09:40)
[2024-06-07] MEDS: clopidogrel 75 mg Tablet PO (09:40)
[2024-06-07] MEDS: metoprolol tartrate 50 mg Tablet PO (09:40)
[2024-06-07] MEDS: isosorbide mononitrate ER 30 mg Tablet 15 MG PO (09:41)
[2024-06-07] MEDS: atorvastatin 40 mg Tablet PO (09:41)
[2024-06-07] MEDS: VANCOMYCIN ADD-Vantage 1,000 MG in 0.9% NaCl ADD-Vantage 250 ML 250 MG IV (11:03)
== END 2024-06-07 12:55 | disposition home health service (06) | DRG 871 ==
LOC: ER 22:19 → ER IP 22:24 → MEDSURG 05-27 12:20
PROVIDERS: Emergency Medicine; Hospitalist; Internal Medicine; Student in an Organized Health Care Education/Training Program; Surgery; Admitting Provider Internal Medicine; Emergency Provider Emergency Medicine; Visit Provider Student in an Organized Health Care Education/Training Program
PROC: 0DJ08ZZ Inspection of Upper Intestinal Tract, Via Natural or Artificial Opening Endoscopic (ICD-10-PCS; principal; 2024-06-06 08:00)
PROC: 0DJD8ZZ Inspection of Lower Intestinal Tract, Via Natural or Artificial Opening Endoscopic (ICD-10-PCS; CPT 45378; 2024-06-06 08:00)
DX: A41.02 Sepsis due to Methicillin resistant Staphylococcus aureus (principal); J15.9 Unspecified bacterial pneumonia; J96.02 Acute respiratory failure with hypercapnia; J96.01 Acute respiratory failure with hypoxia; I13.0 Hypertensive heart and chronic kidney disease with heart failure and stage 1 through stage 4 chronic kidney disease, or unspecified chronic kidney disease; I50.22 Chronic systolic (congestive) heart failure; I96 Gangrene, not elsewhere classified; E87.20 Acidosis, unspecified; A41.81 Sepsis due to Enterococcus; R65.20 Severe sepsis without septic shock; D50.9 Iron deficiency anemia, unspecified; D52.9 Folate deficiency anemia, unspecified; I73.9 Peripheral vascular disease, unspecified; N18.2 Chronic kidney disease, stage 2 (mild); E78.5 Hyperlipidemia, unspecified; J44.9 Chronic obstructive pulmonary disease, unspecified; K29.70 Gastritis, unspecified, without bleeding; F17.210 Nicotine dependence, cigarettes, uncomplicated; I25.10 Atherosclerotic heart disease of native coronary artery without angina pectoris; F41.9 Anxiety disorder, unspecified; F32.A Depression, unspecified; I49.5 Sick sinus syndrome; Z95.0 Presence of cardiac pacemaker; R13.12 Dysphagia, oropharyngeal phase; B37.9 Candidiasis, unspecified; G89.29 Other chronic pain; M54.9 Dorsalgia, unspecified; Z95.828 Presence of other vascular implants and grafts; Z89.611 Acquired absence of right leg above knee; Z79.02 Long term (current) use of antithrombotics/antiplatelets; Z79.82 Long term (current) use of aspirin; Z79.01 Long term (current) use of anticoagulants; Z99.81 Dependence on supplemental oxygen
CPT/HCPCS: 36415; 36430; 36573; 36592; 36600; 43235; 45330; 51702; 71045; 71260; 72132; 73620; 75635; 80048; 80051; 80053; 80202; 81001; 82330; 82607; 82728; 82746; 82805; 83036; 83540; 83550; 83605; 83735; 84100; 84145; 84443; 85007; 85025; 86140; 86403; 86850; 86900; 86920; 87040; 87077; 87150; 87186; 87205; 87449; 87637; 92526; 92610; 93306; 93926; 94640; 96365; 96372; 96375; 96376; 97110; 97161; 97530; 99285; G0378; J0456; J0692; J0696; J1171; J1650; J1756; J1940; J2020; J2270; J2371; J2470; J2543; J2704; J3370; J3490; J7040; J7050; P9016; P9040

== ENCOUNTER 2024-06-09 09:14 | Oncology outpatient (recurring) (ONCR) | payer MEDICARE, MEDICAID, SELFPAY ==
[2024-06-09 10:00] LABS: Basophils % 0.3 %; Eosinophils % 0.2 %; Hematocrit 31.1 % (36-47); Lymphocytes # 1.7 10^3/uL (0.8-4.8); Lymphocytes % 11.6 %; Mean Corpuscular HGB Conc 31.2 g/dL (30-55); Mean Corpuscular Hemoglobin 27.5 pg (27-33); Mean Corpuscular Volume 88.1 fl (85-98); Mean Platelet Volume 9.5 fL (7.4-10.4); Monocytes # 1.1 10^3/uL (0.2-0.9); Monocytes % 7.2 %; Neutrophils # 11.83 10^3/uL (1.8-7.7); Neutrophils % 79.9 %; Nucleated Red Blood Cells % 0 %; Platelet Count 421 10^3/cmm (157-399); Red Blood Count 3.53 10^6/uL (3.85-5.65); Red Cell Distribution Width 18.6 % (12.1-15.1); White Blood Count 14.79 10^3/uL (3.29-11.43)
[2024-06-09 10:17] LABS: Alanine Aminotransferase 7 U/L (0-33); Albumin Level 2.4 g/dL (3.5-5.2); Alkaline Phosphatase 92 U/L (35-105); Aspartate Amino Transferase 8 U/L (0-32); C Reactive Protein 61.7 mg/L (0.0-4.9); Globulin 3.7 g/dL (1.3-4.6); Total Bilirubin 0.5 mg/dL (0.15-1.2); Total Protein 6.1 g/dL (6.6-8.7)
[2024-06-10 14:05] LABS: Vancomycin Trough 13.9 ug/mL (10-15)
== END 2024-06-12 23:59 | disposition home or self-care (01) ==
PROVIDERS: Student in an Organized Health Care Education/Training Program; Visit Provider Internal Medicine Medical Oncology
DX: R78.81 Bacteremia (principal); B95.62 Methicillin resistant Staphylococcus aureus infection as the cause of diseases classified elsewhere
CPT/HCPCS: 36592; 80076; 80202; 82565; 85025; 86140

== ENCOUNTER 2024-06-26 11:03 | Oncology outpatient (recurring) (ONCR) | payer MEDICARE, MEDICAID, SELFPAY ==
[2024-06-16 10:03] LABS: Basophils % 0.3 %; Eosinophils % 0.1 %; Hematocrit 33.2 % (36-47); Lymphocytes # 2.1 10^3/uL (0.8-4.8); Lymphocytes % 15.8 %; Mean Corpuscular HGB Conc 31.3 g/dL (30-55); Mean Corpuscular Hemoglobin 27.7 pg (27-33); Mean Corpuscular Volume 88.5 fl (85-98); Mean Platelet Volume 9.7 fL (7.4-10.4); Monocytes # 0.9 10^3/uL (0.2-0.9); Monocytes % 7.1 %; Neutrophils # 10.06 10^3/uL (1.8-7.7); Neutrophils % 76.2 %; Nucleated Red Blood Cells % 0 %; Platelet Count 417 10^3/cmm (157-399); Red Blood Count 3.75 10^6/uL (3.85-5.65); Red Cell Distribution Width 19.3 % (12.1-15.1); White Blood Count 13.19 10^3/uL (3.29-11.43)
[2024-06-16 10:19] LABS: Vancomycin Trough 14.2 ug/mL (10-15)
[2024-06-16 10:20] LABS: Alanine Aminotransferase 10 U/L (0-33); Albumin Level 2.6 g/dL (3.5-5.2); Alkaline Phosphatase 165 U/L (35-105); Aspartate Amino Transferase 13 U/L (0-32); Globulin 3.8 g/dL (1.3-4.6); Total Bilirubin 0.3 mg/dL (0.15-1.2); Total Protein 6.4 g/dL (6.6-8.7)
[2024-06-23 11:42] LABS: Basophils % 0.3 %; Eosinophils # 0.1 10^3/uL (0.0-0.8); Eosinophils % 0.5 %; Hematocrit 32.2 % (36-47); Lymphocytes # 2.1 10^3/uL (0.8-4.8); Lymphocytes % 17.4 %; Mean Corpuscular HGB Conc 30.7 g/dL (30-55); Mean Corpuscular Hemoglobin 27.8 pg (27-33); Mean Corpuscular Volume 90.4 fl (85-98); Mean Platelet Volume 9.6 fL (7.4-10.4); Monocytes # 0.8 10^3/uL (0.2-0.9); Monocytes % 6.3 %; Neutrophils # 9.14 10^3/uL (1.8-7.7); Neutrophils % 75.1 %; Nucleated Red Blood Cells % 0 %; Platelet Count 442 10^3/cmm (157-399); Red Blood Count 3.56 10^6/uL (3.85-5.65); Red Cell Distribution Width 19.9 % (12.1-15.1); White Blood Count 12.18 10^3/uL (3.29-11.43)
[2024-06-23 12:01] LABS: Alanine Aminotransferase 9 U/L (0-33); Albumin Level 2.5 g/dL (3.5-5.2); Alkaline Phosphatase 123 U/L (35-105); C Reactive Protein 16.7 mg/L (0.0-4.9); Globulin 3.6 g/dL (1.3-4.6); Total Bilirubin 0.2 mg/dL (0.15-1.2); Total Protein 6.1 g/dL (6.6-8.7)
[2024-06-23 12:02] LABS: Aspartate Amino Transferase 14 U/L (0-32)
[2024-06-23 12:43] LABS: Vancomycin Trough 10.4 ug/mL (10-15)
== END 2024-07-13 23:59 | disposition home or self-care (01) ==
PROVIDERS: Student in an Organized Health Care Education/Training Program; Visit Provider Internal Medicine Medical Oncology
DX: Z53.9 Procedure and treatment not carried out, unspecified reason (principal)
CPT/HCPCS: 11042; 36592; 80076; 80202; 82565; 85025; 86140; 97597; 99203; A6210; A6213

== ENCOUNTER → 2024-06-30 10:37 | Outpatient (BNVA) | payer MEDICARE, MEDICAID, SELFPAY | PROVIDERS: PCP Nurse Practitioner; Visit Provider Thoracic Surgery (Cardiothoracic Vascular Surgery) | DX: I96 Gangrene, not elsewhere classified (principal); L89.153 Pressure ulcer of sacral region, stage 3; L89.313 Pressure ulcer of right buttock, stage 3; L89.213 Pressure ulcer of right hip, stage 3 | CPT/HCPCS: 11042; 97597 ==

== ENCOUNTER → 2024-07-07 13:09 | Outpatient (BNVA) | payer MEDICARE, MEDICAID, SELFPAY | PROVIDERS: PCP Nurse Practitioner; Visit Provider Thoracic Surgery (Cardiothoracic Vascular Surgery) | DX: I96 Gangrene, not elsewhere classified (principal); L89.153 Pressure ulcer of sacral region, stage 3; L89.313 Pressure ulcer of right buttock, stage 3; L89.213 Pressure ulcer of right hip, stage 3 | CPT/HCPCS: 97597; A6248 ==

== ENCOUNTER → 2024-07-09 15:46 | Outpatient (BNVA) | payer MEDICARE, MEDICAID, SELFPAY | PROVIDERS: PCP Nurse Practitioner; Visit Provider Internal Medicine Cardiovascular Disease | DX: R07.89 Other chest pain (principal); I25.10 Atherosclerotic heart disease of native coronary artery without angina pectoris; Z95.0 Presence of cardiac pacemaker; I50.22 Chronic systolic (congestive) heart failure; I73.9 Peripheral vascular disease, unspecified; E78.5 Hyperlipidemia, unspecified; I65.23 Occlusion and stenosis of bilateral carotid arteries | CPT/HCPCS: 99214 ==

== ENCOUNTER 2024-07-14 06:00 | Oncology outpatient (recurring) (ONCR) | payer MEDICARE, MEDICAID, SELFPAY | END 2024-08-12 23:59 | disposition home or self-care (01) | LOC: ONCMED 07-15 07:33 | PROVIDERS: PCP Nurse Practitioner; Visit Provider Internal Medicine Medical Oncology | DX: R78.81 Bacteremia (principal); B95.62 Methicillin resistant Staphylococcus aureus infection as the cause of diseases classified elsewhere; L89.153 Pressure ulcer of sacral region, stage 3; Z79.899 Other long term (current) drug therapy | CPT/HCPCS: 97597; A6212 ==

== ENCOUNTER 2024-07-21 15:30 | Outpatient (CLI) | payer MEDICARE, MEDICAID, SELFPAY ==
[2024-07-21 16:14] LABS: Basophils # 0.1 10^3/uL (0.0-0.1); Basophils % 0.5 %; Eosinophils # 0.1 10^3/uL (0.0-0.8); Eosinophils % 0.8 %; Lymphocytes % 38.4 %; Mean Corpuscular HGB Conc 30.8 g/dL (30-55); Mean Corpuscular Hemoglobin 28.8 pg (27-33); Mean Corpuscular Volume 93.3 fl (85-98); Mean Platelet Volume 9.7 fL (7.4-10.4); Monocytes # 0.9 10^3/uL (0.2-0.9); Monocytes % 8.3 %; Neutrophils # 5.39 10^3/uL (1.8-7.7); Neutrophils % 51.6 %; Nucleated Red Blood Cells % 0 %; Platelet Count 357 10^3/cmm (157-399); Red Blood Count 3.86 10^6/uL (3.85-5.65); Red Cell Distribution Width 17.4 % (12.1-15.1); White Blood Count 10.42 10^3/uL (3.29-11.43)
== END 2024-07-21 15:31 | disposition home or self-care (01) ==
LOC: LAB 15:32
PROVIDERS: PCP Nurse Practitioner; Visit Provider Nurse Practitioner
DX: I96 Gangrene, not elsewhere classified (principal); L89.153 Pressure ulcer of sacral region, stage 3
CPT/HCPCS: 36415; 85025; 87040; 97597; A6248

== ENCOUNTER → 2024-07-28 11:11 | Outpatient (BNVA) | payer MEDICARE, MEDICAID, SELFPAY | PROVIDERS: PCP Nurse Practitioner | DX: I96 Gangrene, not elsewhere classified (principal); L89.153 Pressure ulcer of sacral region, stage 3 | CPT/HCPCS: 97597; A6248 ==

== ENCOUNTER → 2024-08-25 14:09 | Outpatient (BNVA) | payer MEDICARE, MEDICAID, SELFPAY | PROVIDERS: PCP Nurse Practitioner; Visit Provider Thoracic Surgery (Cardiothoracic Vascular Surgery) | DX: I96 Gangrene, not elsewhere classified (principal); L89.153 Pressure ulcer of sacral region, stage 3; L89.213 Pressure ulcer of right hip, stage 3 | CPT/HCPCS: 11042; A6210 ==

== ENCOUNTER → 2024-09-01 13:29 | Outpatient (BNVA) | payer MEDICARE, MEDICAID, SELFPAY | PROVIDERS: PCP Nurse Practitioner; Visit Provider Thoracic Surgery (Cardiothoracic Vascular Surgery) | DX: I96 Gangrene, not elsewhere classified (principal); L89.153 Pressure ulcer of sacral region, stage 3; L89.213 Pressure ulcer of right hip, stage 3 | CPT/HCPCS: 97597; A6212 ==

== ENCOUNTER → 2024-09-09 14:48 | Outpatient (BNVA) | payer MEDICARE, MEDICAID, SELFPAY | PROVIDERS: PCP Nurse Practitioner; Visit Provider Thoracic Surgery (Cardiothoracic Vascular Surgery) | DX: I96 Gangrene, not elsewhere classified (principal); L89.153 Pressure ulcer of sacral region, stage 3; L89.213 Pressure ulcer of right hip, stage 3 | CPT/HCPCS: 97597 ==

== ENCOUNTER → 2024-09-16 09:31 | Outpatient (BNVA) | payer MEDICARE, MEDICAID, SELFPAY | PROVIDERS: PCP Nurse Practitioner; Visit Provider Internal Medicine | DX: Z45.018 Encounter for adjustment and management of other part of cardiac pacemaker (principal); I96 Gangrene, not elsewhere classified; L89.153 Pressure ulcer of sacral region, stage 3 | CPT/HCPCS: 93296; 97597; A6021; A6248 ==

== ENCOUNTER → 2024-09-23 10:19 | Outpatient (BNVA) | payer MEDICARE, MEDICAID, SELFPAY | PROVIDERS: PCP Nurse Practitioner; Visit Provider Thoracic Surgery (Cardiothoracic Vascular Surgery) | DX: I96 Gangrene, not elsewhere classified (principal); L89.153 Pressure ulcer of sacral region, stage 3 | CPT/HCPCS: 97597; A6021; A6248 ==

== ENCOUNTER → 2024-10-08 10:51 | Outpatient (BNVA) | payer MEDICARE, MEDICAID, SELFPAY | PROVIDERS: PCP Nurse Practitioner; Visit Provider Thoracic Surgery (Cardiothoracic Vascular Surgery) | DX: I96 Gangrene, not elsewhere classified (principal); L89.153 Pressure ulcer of sacral region, stage 3 | CPT/HCPCS: 97597; A6021 ==